=== PATIENT | female | born 1945 | race Caucasian/White ===

== ENCOUNTER 2016-11-04 01:28 | Emergency (ER) | payer MEDICARE ==
[2016-11-04] MEDS ORDERED: Morphine INJ* 2 MG/ML 1 ML SYRINGE SUBCUT ONE (02:50)
--- NOTE | 2016-11-04 03:49 | ED ---
Zelda Maxwell Alfonso, scribed for Shad Duckworth MD on 11/04/16 at 0248 . Adult Trauma - HPI Summary HPI Summary: This patient is a 71 year old F BIBA to [facility] accompanied by with a chief complaint of a fall at 0100 today. She states I fell down 6 stairs and her left leg had the weirdest feeling like it didnt even exist. She reports hitting her head. Pt rates the pain 5/10 in severity. Symptoms aggravated by position and alleviated by nothing. Pt reports a headache and pain including left shoulder pain, low back pain, head pain, and neck pain. Pt denies LOC. Pt denies taking blood thinning medication. - History of Current Complaint Chief Complaint: EDExtremityUpper Stated Complaint: FALL Time Seen by Provider: 11/04/16 02:29 Hx Obtained From: Patient Mechanism of Injury: Fall Loss of Consciousness: no loss of consciousness Onset/Duration: Started Hours Ago - 0100 today Onset of Pain: Post Accident Onset Severity: Moderate Current Severity: Moderate Pain Intensity: 5 Pain Scale Used: 0-10 Numeric Location: Head, Neck, Back, Extremities Aggravating Factor(s): Other - Position Alleviating Factor(s): Nothing Associated Signs & Symptoms: Positive: Other: - Pt reports a headache and pain including left shoulder pain, low back pain, head pain, and neck pain. - Allergy/Home Medications Allergies/Adverse Reactions: Allergies Allergy/AdvReac Type Severity Reaction Status Date / Time Amoxicillin Allergy nausea, Verified 09/02/16 10:07 vomiting Gabapentin [From Neurontin] Allergy "feels Verified 09/02/16 10:07 like brain is buzzing" PMH/Surg Hx/FS Hx/Imm Hx Endocrine/Hematology History: Reports: Hx Diabetes - TYPE 2 Cardiovascular History: Reports: Hx Cardiomegaly - CHILD, Hx Hypercholesterolemia, Hx Hypertension - CONTROL WITH MEDICATION, 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, Other Cardiovascular Problems/Disorders - CONTROL WITH MEDICATIONS Denies: Hx Pacemaker/ICD Respiratory History: Reports: Hx Sleep Apnea - PATIENT REPORTS IN PAST GI History: Reports: Hx Cirrhosis - PATIENT DOES NOT DRINK ALCOHOL, Hx Gastroesophageal Reflux Disease - NO LONGER ON MEDICATION, Hx Irritable Bowel - CAUSED FROM MEDICATION PER PATIENT History: Reports: Hx Kidney Infection - DURING KIDNEY STONES-SEPSIS, Hx Kidney Stones - IN PAST, Other Problems/Disorders - HX OF KIDNEY STONES Denies: Hx Renal Disease Musculoskeletal History: Reports: Hx Arthritis, Hx Back Problems Comment Only: Other Musculoskeletal History - OSTEOPOROSIS Sensory History: Reports: Hx Cataracts, Hx Contacts or Glasses Denies: Hx Hearing Aid Opthamlomology History: Reports: Hx Cataracts, Hx Contacts or Glasses Neurological History: Reports: Hx Migraine - AND CLUSTER HEADACHES Psychiatric History: Denies: Hx Panic Disorder - Cancer History Hx Chemotherapy: No Hx Radiation Therapy: No - Surgical History Surgery Procedure, Year, and Place: 6 DIGESTIVE BLOCKAGE CORRECTED AT 2 WEEKS OLD, [place], [place] 1966 AND 1968 2 C-SECTIONS, [place] 1988 LEFT. BREAST BIOPSY, [facility] 2008 LUMBAR SPINAL SURGERY, [facility]. Dorsal column stimulator October 18 2012. 2007. CERVICAL SPINE SURGERY, [facility] 2 LIPOTRIPSY PROCEDURE, [place]. 2011 BILATERAL CATARACTS EXTRACTION WITH IOL IMPLANTS, [facility]. 2006 SURGERY TO REPAIR BLEEDING ULCER, [facility]. October 2012 Permanent Dorsal Column Stimulator inserted Hx Anesthesia Reactions: Yes - HALLUCINATIONS WITH ANESTHESIA, WITH SECOND LITHOTRIPSY, N/V Infectious Disease History: No Infectious Disease History: Denies: Traveled Outside the [place] in Last 30 Days - Family History Known Family History: Positive: Unknown - Due to patient being a poor historian - Social History Alcohol Use: None Substance Use Type: Reports: None Smoking Status (MU): Never Smoked Tobacco Have You Smoked in the Last Year: No Review of Systems Negative: Fever Positive: Other - Positive fall, head trauma, and pain including left shoulder pain, low back pain, head pain, and neck pain Neurological: Other - Positive headache; negative LOC All Other Systems Reviewed And Are Negative: Yes Physical Exam Triage Information Reviewed: Yes Vital Signs On Initial Exam: Initial Vitals Temp Pulse Resp BP Pulse Ox 97.7 F 71 16 152/80 94 11/04/16 01:38 11/04/16 01:38 11/04/16 01:38 11/04/16 01:38 11/04/16 01:38 Vital Signs Reviewed: Yes Appearance: Positive: Well-Appearing, No Pain Distress Skin: Positive: Warm Head/Face: Positive: Normal Head/Face Inspection Eyes: Positive: [place] ENT: Positive: Hearing grossly normal Neck: Positive: Supple, Nontender Respiratory/Lung Sounds: Positive: Clear to Auscultation, Breath Sounds Present , Other - no cwt Cardiovascular: Positive: RRR Abdomen Description: Positive: Nontender, Soft Bowel Sounds: Positive: Present Musculoskeletal: Positive: Other - mild pain with movement lt shoilder Neurological: Positive: Sensory/Motor Intact, Alert, Oriented to Person Place, Time, Normal Gait Psychiatric: Positive: Affect/Mood Appropriate - [place] Coma Scale Coma Scale Total: 15 Diagnostics - Vital Signs Vital Signs Temp Pulse Resp BP Pulse Ox 11/04/16 02:00 65 150/80 92 11/04/16 01:46 68 91 11/04/16 01:44 152/80 11/04/16 01:38 97.7 F 71 16 152/80 94 - Laboratory Lab Statement: Any lab studies that have been ordered have been reviewed, and results considered in the medical decision making process. - Radiology CXR Radiology Interpretation Completed By: ED Physician - NAC - CT Brain CT Interpretation Completed By: Radiologist - no acute pathology C-spine CT Interpretation Completed By: Radiologist - No fracture Re-Evaluation - Re-Evaluation First Eval Change: Improved - results d/w pt Adult Trauma Course/Dx - Course Assessment/Plan: 71 year old F BIBA to [facility] accompanied by with a chief complaint of a fall at 0100 today. She states I fell down 6 stairs and her left leg had the weirdest feeling like it didnt even exist. She reports hitting her head. Pt reports a headache and pain including left shoulder pain, low back pain, head pain, and neck pain. Pt denies LOC. Pt denies taking blood thinning medication. CXR reveals NAC. CT brain reveals no acute pathology. CT C- spine reveals no fracture. Patient will be discharged with follow up from PCP. Pt and are agreeable with this plan. - Diagnoses Provider Diagnoses: Contusion Discharge - Discharge Plan Condition: Improved Disposition: HOME Patient Education Materials: Contusion in Adults (ED) Referrals: Chaitanya Gaytan MD [Primary Care Provider] - 3 Days The documentation as recorded by the Zelda bautista Alfonso accurately reflects the service I personally performed and the decisions made by me, Shad Duckworth MD.
[2016-11-04 06:13] VITALS: BP 158/88
--- NOTE | 2016-11-04 08:34 | RAD ---
Indication: Fall, head injury. CT of the brain was performed without IV contrast. Ventricular structures are midline. No midline shift is noted. The extra-axial spaces are unremarkable. There is no evidence of intracranial mass or hemorrhage. No other high or low density lesions are identified. Mastoid air cells and paranasal sinuses are otherwise unremarkable. Atrophy is noted. Overall no significant change is noted since November 05, 2015. IMPRESSION: No intracranial mass or hemorrhage is noted. Atrophy is noted.
--- NOTE | 2016-11-04 08:35 | RAD ---
Indication: Fall, chest pain. 2 views of the chest demonstrates neural stimulator leads in place. Lung warren demonstrate no pleural fluid, pneumonia or pneumothorax. IMPRESSION: No active cardiopulmonary disease is noted.
--- NOTE | 2016-11-04 08:42 | RAD ---
INDICATION: Trauma. COMPARISON: Comparison is made with a prior x-ray study of the cervical spine from January 28, 2008. TECHNIQUE: Contiguous axial sections were obtained from the skull base through the T1 vertebra. Images were reconstructed in the sagittal and coronal planes. FINDINGS: There is straightening of the cervical spine with loss of the normal cervical lordosis. No prevertebral soft tissue swelling or fracture is seen. The patient is status post anterior spinal fusion at the C4-C6 levels. There is a metallic plate present anteriorly transfixed with 2 surgical screws at each level. The vertebral bodies appear fused. The surgical hardware appears intact. Note is made of spinal bifida occulta posteriorly at the C7 and T1 levels. At the C3-C4 level there is mild posterior uncinate process spurring. There are hypertrophic changes within the facet joints. No significant spinal canal narrowing is present. There is mild to moderate neural foraminal narrowing on the left side. At the C3-C4 level there is mild posterior uncinate process spurring. There is mild spinal canal narrowing. There are hypertrophic changes within the facet joints. There is mild neural foraminal narrowing on the right side and moderate neural foraminal narrowing on the left side. At the C4-C5 level the study is limited due to metallic artifact. There is posterior spurring which causes mild to moderate spinal canal narrowing which is more prominent on the right side. There is moderate neural foraminal narrowing on the right side and mild neural foraminal narrowing on the left side. At the C5-C6 level there is mild posterior uncinate process spurring which causes mild to moderate spinal canal narrowing. There is moderate bilateral neural foraminal narrowing. At the C6-C7 level there is moderate posterior uncinate process spurring which causes moderate spinal canal narrowing and moderate bilateral neural foraminal narrowing. IMPRESSION: 1. STATUS POST ANTERIOR SPINAL FUSION AT THE C4-C6 LEVELS. THERE IS NO EVIDENCE FOR FRACTURE OR SUBLUXATION. 2. MODERATE DIFFUSE CERVICAL SPONDYLOSIS DESCRIBED.
== END 2016-11-04 06:05 | disposition home or self-care (01) ==
LOC: ED 01:28
DX: S80.12XA Contusion of left lower leg, initial encounter (principal); R51 Headache; M25.512 Pain in left shoulder; M54.5 Low back pain; M54.2 Cervicalgia; W10.9XXA Fall (on) (from) unspecified stairs and steps, initial encounter; Y93.9 Activity, unspecified; Y92.9 Unspecified place or not applicable
CPT/HCPCS: 70450; 71020; 72125; 99283; J2270

== ENCOUNTER 2017-04-23 10:39 | Emergency (ER) | payer MEDICARE ==
--- OUTSIDE RECORDS SUMMARY | 2017-04-23 10:50 | XMS REPORT ---
:1945 External Reference #:[id number] Author Organization [facility] Address [address] [address] Phone [phone] Care Team Providers Name Role Phone Chaitanya Gaytan MD Primary Care Physician Unavailable Payers Type Date Identification Numbers Payment Subscriber Provider Health Maintenance Effective: Policy Number: Medicare Blue Kathleen Rowe Organization (O) 04/03/2012 [id number] Ppo Group Number: [id number] [address] PayID: [id number] [place] [address] Medigap Part B Effective: 07/02/2010 Policy Number: BS Of NAVI Rowe [id number] Expires: 10/31/2010 PayID: [id number] [address] [address] Medigap Part B Effective: Policy Number: [facility] Ins Kathleen Rowe 11/01/2010 [id number] Ppo/Epo Expires: 04/02/2012 PayID: [id number] [address] [place] [address] Medigap Part B Effective: 10/01/2009 Policy Number: BS Of NAVI Rowe [id number] Expires: 06/30/2010 PayID: [id number] [address] [place] [address] Problems Date Description Provider Status Onset: 02/16/2007 Benign essential hypertension Chaitanya Gaytan Active Anisha,FACP Onset: 07/22/2015 Lichen sclerosus et atrophicus Chaitanya Gaytan Active of the vulva Anisha,FACP Onset: 05/01/2007 Morbid obesity Chaitanya Gaytan Active Anisha,FACP Onset: 05/01/2007 Obstructive sleep apnea syndrome Chaitanya Gaytan Active Anisha,FACP Onset: 11/06/2007 Mixed hyperlipidemia Chaitanya Gaytan Active Anisha,FACP Onset: 12/10/2007 Displacement of cervical Chaitanya Gaytan Active 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 Onset: 03/01/2016 Sprain of shoulder and upper arm Gustabo Larson MD Active Onset: 03/18/2016 Disturbance in sleep behavior Rosa Perez MD Active Onset: 12/01/2016 hedy Puente MD Active osteoarthritis Onset: 12/01/2016 Patellar tendonitis Gustabo Larson MD Active Onset: 12/01/2016 Strain of musc/tend the rotator Gustabo Larson MD Active cuff of left shoulder, subs Onset: 07/31/2007 Impaired fasting glycaemia Chaitanya Gaytan, Inactive Anisha,FACP Inactive: 06/05/2012 Onset: 05/27/2010 Pure hypercholesterolemia Chaitanya Gaytan M.D.,FACP Inactive Inactive: 06/05/2012 Onset: 02/16/2007 Hyperlipidemia Chaitanya Gaytan M.D.,FACP Inactive Inactive: 03/29/2013 Onset: 03/18/2016 Obesity Rosa Perez MD Inactive Inactive: 01/02/2017 Onset: 05/01/2007 Recurrent major depressive Chaitanya Gaytan M.D.,FACP Resolved episodes Resolved: 06/05/2012 Onset: 07/16/2014 Acute sinusitis Gilbert Pelletier M.D. Resolved Resolved: 09/03/2014 Onset: 07/16/2014 Concussion with loss of Gilbert Pelletier M.D. Resolved consciousness Resolved: 09/03/2014 Family History Date Family Member(s) Problem(s) Comments General Heart Disease General Diabetes General Cancer Father NM at 56 Father due to CHF () Mother due to Cancer () - throat First Son Linear Scleroderma Third Son Alive And Well First Daughter due to Breast Cancer () Siblings 5 First Brother Cancer, Colon First Brother due to Colon Cancer () First Sister Alive And Well Maternal Grandfather due to Cancer, Lung () - smoker Social History Type Date Description Comments Marital Status Lives With Occupation Retired Cigarette Use Never Smoked Cigarettes ETOH Use 01/02/2017 Denies alcohol use Recreational Drug Use Former Drug User Smoking Patient has never smoked Daily Caffeine Does Not Consume Caffeine Exercise Type/Frequency Does housework daily "As needed." Limited by arthritis Exercise Type/Frequency Exercises regularly General Hx Text 2 kids Allergies, Adverse Reactions, Alerts Date Description Reaction Status Severity Comments 02/16/2007 Augmentin active 02/16/2007 amitriptyline active 02/16/2007 Lipitor active 02/16/2007 Clonidine active 12/10/2007 Neurontin active sedation 11/30/2010 Lisinopril active cough 12/15/2014 Crestor active GI intolerance Medications Medication Date Status Form Strength Qnty SIG Indications Ordering Provider Samy XR 01/02 Active Tablets ER 50-1000mg 180ta 1 tab twice E11.9 /2016 24HR bs a day Orlando Gaytan M.D.,FACP Freestyle Lite 05/04 Active Device 1unit check Chaitanya Blood Glucose s fingerstick Orlando Gaytan, Monitoring daily DX: Anisha,FACP System E11.9 Last visit 05/04/16 Freestyle Lite 05/04 Active Strips 100un test up to Test its 2 times a Orlando Gaytan, day dx Anisha,FACP code: E11.9 Last visit 05/04/16 Omeprazole 02/[address] 20mg 30cap 1 by mouth M25.512 s every day Orlando Gaytan, for 2 weeks M.D.,FACP when using NSAIDs Livalo 09/03 Active Tablets 2mg 90tab take 1 E11.9 s tablet Orlando Gaytan, every M.D.,FACP evening Freestyle 12/27 Active Misc 100un Twice daily Chaitanya its and as Orlando Gaytan, needed dx M.D.,FACP E11.9 Last visit 05/04/16 Propranolol HCL 12/06 Active Tablets 60mg 60tab take 1 s tablet by Orlando Gaytan, mouth twice M.D.,FACP a day Cymbalta 05/27 Active Caps 60mg 90cap take 1 Part s capsule by Orlando Gaytan, mouth once M.D.,FACP daily Losartan 04/01 Active Tablets 100mg 90tab take 1 R05 s tablet by Orlando Gaytan, mouth once M.D.,FACP daily Co Q-10 Active Capsules 100mg 90cap 1 po qd Unknown /0000 s Multi For Her Active Capsules 1 po qd Unknown /0000 Calcium, Vit D, Active Capsules 1000Unit 30cap 1 po qd Unknown Magnesium, Zinc /0000 s Codeine Sulfate Active Tablets 30mg 2 tabs by Unknown /0000 mouth every 4 hours as needed pain Vitamin B-12 ER Active Tablets ER 2000mcg 2 by mouth Unknown /0000 every day (states occasional use) Salonpas Active Patches 1.2-5.7-6 as needed Unknown /0000 .3% Duloxetine HCL Active Caps DR 60mg 1 by mouth Unknown /0000 Part every day Docusate Sodium Active Tablets 100mg take one Unknown /0000 tab 2-3 times daily. Cyclobenzaprine Active Tablets 10mg one by Unknown HCL /0000 mouth hs daily prn Miralax Active Packet [id number] 1 pack by Unknown /0000 mouth every day as needed for constipatio n Tums Active Chewtabs 500mg 2 chewtabs Unknown /0000 by mouth daily prn Hydrocodone-Acet Active Tablets 5-325mg Velazquez, aminophen /0000 Nathalie, SPORTS DOCTOR- Onetouch Delica 05/04 Hx Misc 30G 180un test twice E11.9 Chaitanya Baker Fine 30G /2016 its daily or as Orlando Gaytan, - needed M.D.,[facility] 05/04 Onetouch Ultra 05/04 Hx Strips 75uni test up to E11.9 Chaitanya Blue ts 2 times a Orlando Gaytan, - day or as M.D.,[facility] 05/04 Onetouch Ultra 05/04 Hx Kit w/Device 1unit use daily E11.9 Chaitanya Mini s to test Orlando Gaytan, - glucose M.D.,[facility] 05/04 Janumet 05/04 Hx Tablets 50-500mg 60tab 1 by mouth E11.9 s twice a day Orlando Gaytan, - M.D.,[facility] 01/02 Meloxicam 02/02 Hx Tablets 7.5mg 60tab 1 by mouth M25.512 s twice a day Orlando Gaytan, - as needed M.D.,[facility] 08/11 Ciprofloxacin 08/03 Hx Tablets 250mg 14tab 1 twice a N39.0 s day x 7 DSarah Gaytan, - days M.D.,[facility] 08/10 ( ) Nystatin 08/03 Hx Cream [id number] 30gm topically R30.0 t/GM twice a day Orlando Gaytan, - as needed M.D.,[facility] 02/02 Metronidazole 03/16 Hx Gel 0.75% 25g 5 grams N77.1 Jerome /2014 once daily Ukrainian, - vaginally CL[facility] REELER 03/21 x's 5 Ciprofloxacin 01/09 Hx Tablets 500mg 6tabs 1 tab by N39.0 Jerome HCL /2014 mouth twice Ukrainian, - a day x's 3 [facility] Fluconazole 01/09 Hx Tablets 150mg 2tabs 1 tablet by N39.0 Jerome mouth daily Ukrainian, - today, then [facility] 01/16 repeat in days. Alprazolam 09/14 Hx Tablets 0.25mg 30tab one by F06.4 Jerome s mouth every Ukrainian, - day as [facility] 08/03 needed 1 Alprazolam 07/16 Hx Tablets 0.25mg 14tab one by 780.52 Dispers s mouth at [facility] - bed time , MSarahDSarah 12/15 Levaquin 07/16 Hx Tablets 500mg 10tab 1 by mouth 461.9 Gilbert s every day Pachika - , Anisha 09/03 Walker 07/16 Hx Diagnosis:I 250.00 [facility] , Anisha 09/03 Azithromycin 06/16 Hx Tablets 250mg 6tabs 2 tabs by 465.8 Shad mouth on DEX Issa - day one 07/16 followed 1 tab daily for the last 4 days Proair HFA 06/16 Hx Aerosol 108(90Bas 25.5u inhale 2 465.8 e) nits puffs by DEX Issa - mcg/Act mouth every 12/15 4 hours needed Freestyle Lite 12/27 Hx 100un use as Chaitanya Test Strip its directed Orlando Gaytan, - every day MGregorio,[facility] 05/04 or needed dx: 250.00 Freestyle Lite 12/27 Hx Strips 100un test daily Chaitanya Test its and rose Gaytan, - need, dx Anisha,[facility] 05/04 code: 250.00 Breeze 2 Test 12/25 Hx 100un once a day Chaitanya Strip /2013 its and rose Gaytan, - needed dx [facility] 12/27 250.00 Lancets Thin 12/25 Hx Misc 50uni every day Chaitanya /2013 ts or twice a Orlando Gaytan, - day as [facility] 12/27 needed Crestor 06/03 Hx Tablets 10mg 90tab 1 po qpm 250.00 Chaitanya s Michael Decker M.D.,[facility] 09/03 Triamcinolone 03/29 Hx Cream 0.1% 30g apply bid 691.8 prn Michael Decker M.D.,[facility] 05/29 Prednisone 03/29 Hx Tablets 10mg 20tab 4 tabs qd 691.8 s for 2 days, Orlando Gaytan, - then reduce M.D.,[facility] 05/29 by 1 tab every 2 days until finished Lyrica 06/27 Hx Capsules 50mg 90cap take 1 s capsule by Orlando Gaytan, - mouth three M.D.,[facility] 01/02 times a day /2016 maximum daily dose of 3 Lyrica 06/05 Hx Capsules 25mg 60cap 1 po tid s Michael Decker M.D.,[facility] 06/27 Linzess 06/05 Hx Capsules 290mcg 30cap po qd 564.1 s Michael Decker M.D.,[facility] 12/04 Amitiza 05/30 Hx Capsules 8mcg 60cap po bid s Michael Decker M.D.,[facility] 12/06 Propranolol HCL 05/30 Hx Tablets 60mg 60tab take 1 s tablet by Orlando Gaytan, - mouth twice M.D.,[facility] 12/06 a /2011 Simvastatin 05/30 Hx Tablets 20mg 30tab take 1 250.00 s tablet by Orlando Gaytan, - mouth every M.D.,[facility] 06/03 evening Pennsaid 11/30 Hx Solution 1.5% 15ml 5-10 ggts R 726.71 ankle/foot Orlando Gaytan, - bid prn M.DSarah,[facility] 05/30 Breeze 2 Test 07/30 Hx 100un tid and prn its dx 250.00 Michael Decker M.D.,[facility] 11/11 Gay 05/27 Hx Tablets 5-325mg 120ta 1 qid prn bs Michael Decker M.D.,[facility] 05/29 Penicillin V 05/25 Hx Tablets 500mg 28tab qid for 7 462 Chaitanya Potassium s days Michael Decker M.D.,[facility] 09/10 Losartan 03/30 Hx Tablets ? 90tab 1 po qd 786.2 Chaitanya Potassium Michael Antonio M.D.,[facility] 04/01 Zithromax 10/26 Hx Tablets 250mg 6tabs 2 today 461.0 Sivananda then 1 for , Poopal, - 4 days MD 10/28 Diovan 09/22 Hx Tablets 40mg 30tab 1 po qd 786.2 Michael Antonio M.D.,[facility] 03/30 Micardis 08/25 Hx Tablets 20mg 30tab 1 po qd 786.2 Michael Antonio M.D.,[facility] 09/22 [id number] 05/13 Hx Capsules 500-50mg 60cap po bid 780.79 Michael Antonio M.D.,[facility] 11/30 Cymbalta 05/13 Hx Cpep 30mg 60uni Take 1 ts Capsule By Orlando Gaytan, - Mouth Twice M.DSarah,[facility] 05/27 A Ceftin 04/16 Hx Tablets 500mg 14tab twice a 461.9 s day for 7 Karla, - days Eunice.DSarah 04/16 Bactrim DS 04/16 Hx Tablets 800-160mg 20tab 1 po bid 461.9 s for 10 days Michael Acosta M.D. 05/13 Cephalexin 09/29 Hx Capsules 500mg 40cap 1 quid x 10 682.7 Michael Antonio M.D.,[facility] 10/07 Vytorin 06/03 Hx Tablets 10-20mg 30tab Take One s Tablet By Orlando Gaytan, - Mouth At M.D.,[facility] 05/30 Bedtime Biaxin 04/09 Hx Tablets 500mg 20tab Si bid s X 10 Days Michael Decker M.D.,[facility] 06/03 Amrix 02/14 Hx Caps ER 15mg 15cap 1 po qhs 722.0 24HR Michael Antonio M.D.,[facility] 06/03 Hydrocodone-Acet 01/16 Hx Tablets 5/500mg 240ta 1-2 po qid bs prn Orlando Gaytan M.D.,[facility] Xanax 12/31 Hx Tablets 1mg 10tab 1/2-1 po s bid alesian Michael Decker M.D.,[facility] 02/14 Vagifem 12/09 Hx Tablets 25mcg 3Mont pv Twice A h Week (With Orlando Gaytan, - Applicator) Anisha,[facility] 04/16 Oxycodone HCL CR 11/27 Hx Tablets ER 10mg 60tab bid po 12HR Michael Antonio M.D.,[facility] 02/14 Oxycontin 11/05 Hx Tablets ER 10mg 36tab 1 PO bid 12HR Michael Antonio M.D.,[facility] 11/05 Percocet 11/05 Hx Tablets 5-325mg 120ta /2-1 po bs qid Michael Rodriguez M.D.,[facility] 02/14 Vytorin 11/05 Hx Tablets 10-10mg 90tab 1 PO QHS Michael Antonio M.D.,[facility] 06/03 Metformin HCL 11/05 Hx Tablets 500mg 180ta take 1 790.21 bs tablet by Orlando Gaytan, - mouth twice [facility] 05/04 a day with food Lunesta 08/20 Hx Tablets 3mg 30tab one tab hs Michael Antonio [facility] 04/16 Flonase 07/30 Hx Suspension 50mcg/Act 1Bott 1 473.1 le intranasal Orlando Gaytan, - puff to Anisha,[facility] 05/30 nostril daily Atenolol 06/27 Hx Tabs 50mg 30tab Take 04/04 s Tablet By Orlando Gaytan, - Mouth once M.D.,[facility] 05/30 Tylenol/Codeine 05/01 Hx Tablets #4 240ta 1-2 qid prn 724.5 Chaitanya #4 bs Michael Decker M.D.,[facility] 11/05 Soma 05/01 Hx Tablets 350mg 90tab tid prn 724.5 Michael Antonio M.D.,[facility] 07/30 Metformin HCL 05/01 Hx Tablets 500mg 60tab 1 po bid s Michael Decker M.D.,[facility] 07/30 Cymbalta 04/09 Hx Cpep 30mg 60uni Take 1 ts Capsule Orlando Gaytan, - Twice A Day Eunice.DSarah,[facility] 05/13 Soma 02/26 Hx Tablets 350mg 30tab 1 tablet by Chaitanya s mouth in Orlando Gaytan, - evening prn Anisha,[facility] 01/02 Ambien 02/21 Hx Tablets 10mg 30tab 1 po qhs s prn sleep Orlando Gaytan, - insomnia M.DSarah,[facility] 12/04 Biaxin 02/16 Hx Tablets 500mg 20tab bid po for 462 Chaitanya s 10 days Michael Decker M.D.,[facility] 05/01 Phenergan/Codein 02/16 Hx Syrup 6Oz 1-2 tsp qid 462 Chaitanya prn Michael Decker M.D.,[facility] 02/14 Lisinopril Hx Tablets 10mg 30tab 1 PO qd 786.2 Chaitanya / Michael Antonio [facility] 08/25 Oxycodone HCL Hx Solution 5mg/5ML one tablet /0000 every 8 - hours prn 11/05 Hydrocodone 00/00 Hx Tablets 7.5-500 60tab 1 q 4 hours Unknown Bitartrate/Apap /0000 s prn pain - 06/03 Hydrocodone-Acet Hx Tablets 5/500mg 120ta 1/2-1 po Chaitanya aminophen /0000 bs qid prn Michael Decker [facility] 05/27 Lyrica Hx Capsules 50mg 90cap 1 po tid Chaitanya /0000 s Michael Decker [facility] 06/05 Coricidin HBP Hx Tablets 4-30mg prn Unknown Cough & Cold /0000 - 12/[address] 20mg 90cap 1 po qd prn Unknown /0000 s - 11/11 Codeine #4 Hx Tablets 30mg 20tab 2 po q 4-6 Unknown /0000 s hr prn pain - 07/16 Tylenol Hx Tablets 325mg 2 as needed Unknown /0000 - 12/15 Metformin HCL Hx Tablets 500mg Unknown /0000 - 01/02 Medications Administered in Office Medication Date Status Form Strength Qnty SIG Indications Ordering Provider Triamcinolone 02/07/ Administered Injection Zaneb (Kenalog) 2016 MD Marsha Triamcinolone 12/01/ Administered Injection Zaneb (Kenalog) 2016 MD Marsha Triamcinolone 12/01/ Administered Injection Zaneb (Kenalog) 2016 MD Marsha Depomedrol 80MG 10/09/ Administered Injection Juan 2014 Anisha Savage Celestone 3 mg 06/03/ Administered Injection Suzette and 3mg 2014 Justyna colindres M.D. Depomedrol 80MG 11/12/ Administered Injection Juan 2013 Anisha Savage Immunizations CPT Code Status Date Vaccine Reaction Lot # [id number] Given 01/02/2017 Pneumonia Vaccine no reaction, pt [id number] tolerated well 05568 Given 01/02/2017 Influenza Virus Vaccine, no reaction, pt [id number] Quadrivalent, Split, tolerated well Preservative Free 05788 Given 12/09/2015 Fluzone High Dose 15102 Given 12/03/2014 Fluzone High Dose 12206 Given 12/25/2013 Pneumococcal Conjugate [id number] Vaccine 13 Valent For Intramuscular Use Q2038 Given 12/12/2013 Fluzone Vaccine Q2037 Given 01/07/2013 Fluvirin Im 3Yrs And Older Q2038 Given 12/07/2011 Fluzone Vaccine [id number] Q2039 Given 12/20/2010 Flu Vaccine NOS 27049 Given 07/26/2010 Tdap - [id number] Tetanus/Diptheria/Acellular Pertussis 12460 Given 05/27/2010 Pneumonia Vaccine [id number] 32287 Given 01/10/2010 Influenza Virus 3Yrs & Over 84465 Given 02/04/2009 Influenza Virus Vaccine, [id number] Pandemic Formulation 18912 Given 02/04/2009 Administration Swine Flu Shot 55068 Given 01/22/2009 Influenza Virus 3Yrs & [id number] Over 77590 Given 01/28/2008 Influenza Virus 3Yrs & Over 71102 Given 01/28/2008 Influenza Virus 3Yrs & 05723 Over 36002 Given 11/28/2007 Zoster (Zostavax) 55628 Given 11/28/2007 Zoster (Zostavax) Q2038 Given Unknown Fluzone Vaccine Vital Signs Date Vital Result Comment 03/29/2017 Height 63 inches 5'3" Weight 201.00 lb Heart Rate 74 /min BP Systolic 104 mmHg BP Diastolic 70 mmHg O2 % BldC Oximetry 93 % BMI (Body Mass Index) 35.6 kg/m2 02/21/2017 Height 63 inches 5'3" Weight 199.00 lb BP Systolic 114 mmHg BP Diastolic 70 mmHg Respiratory Rate 18 /min Pain Level 5 BMI (Body Mass Index) 35.2 kg/m2 02/07/2017 Height 63 inches 5'3" Weight 199.00 lb Respiratory Rate 16 /min Pain Level 5 BMI (Body Mass Index) 35.2 kg/m2 01/23/2017 Height 63 inches 5'3" Weight 202.38 lb with shoes Heart Rate 84 /min BP Systolic Sitting 118 mmHg Rue large cuff BP Diastolic Sitting 78 mmHg Rue large cuff Respiratory Rate 16 /min O2 % BldC Oximetry 94 % On Ra BMI (Body Mass Index) 35.8 kg/m2 01/12/2017 Height 63 inches 5'3" Weight 199.00 lb Heart Rate 85 /min BP Systolic 123 mmHg BP Diastolic 69 mmHg BMI (Body Mass Index) 35.2 kg/m2 01/02/2017 Height 63 inches 5'3" Weight 201.00 lb Heart Rate 94 /min BP Systolic Sitting 122 mmHg BP Diastolic Sitting 80 mmHg Body Temperature 98.4 F O2 % BldC Oximetry 98 % BMI (Body Mass Index) 35.6 kg/m2 12/01/2016 Height 63 inches 5'3" Weight 210.00 lb Heart Rate 72 /min BP Systolic 131 mmHg BP Diastolic 82 mmHg Respiratory Rate 15 /min Pain Level 7 BMI (Body Mass Index) 37.2 kg/m2 11/04/2016 Height 63 inches 5'3" Weight 210.00 lb Heart Rate 80 /min BP Systolic 154 mmHg BP Diastolic 90 mmHg Body Temperature 99.3 F O2 % BldC Oximetry 91 % BMI (Body Mass Index) 37.2 kg/m2 08/11/2016 Weight 212.00 lb Heart Rate 64 /min BP Systolic Sitting 120 mmHg BP Diastolic Sitting 72 mmHg Body Temperature 98.3 F O2 % BldC Oximetry 94 % 07/22/2016 Heart Rate 74 /min BP Systolic Sitting 126 mmHg BP Diastolic Sitting 72 mmHg Respiratory Rate 16 /min O2 % BldC Oximetry 97 % 06/20/2016 Heart Rate 62 /min BP Systolic Sitting 120 mmHg BP Diastolic Sitting 74 mmHg Respiratory Rate 16 /min O2 % BldC Oximetry 96 % 05/04/2016 Weight 210.00 lb Heart Rate 66 /min BP Systolic Sitting 112 mmHg BP Diastolic Sitting 84 mmHg Body Temperature 98.1 F O2 % BldC Oximetry 96 % 05/02/2016 Weight 206.00 lb Heart Rate 70 /min BP Systolic 150 mmHg BP Diastolic 88 mmHg Respiratory Rate 14 /min O2 % BldC Oximetry 93 % 03/18/2016 Height 63.5 inches 5'3.50" Weight 206.00 lb Heart Rate 70 /min BP Systolic 126 mmHg BP Diastolic 80 mmHg Respiratory Rate 14 /min O2 % BldC Oximetry 95 % BMI (Body Mass Index) 35.9 kg/m2 Neck Circumference in inches 14 03/01/2016 Height 63.5 inches 5'3.50" Weight 206.00 lb Heart Rate 65 /min BP Systolic Sitting 135 mmHg BP Diastolic Sitting 63 mmHg Respiratory Rate 16 /min Pain Level 2 BMI (Body Mass Index) 35.9 kg/m2 02/03/2016 Height 63.5 inches 5'3.50" Weight 206.38 lb Heart Rate 74 /min BP Systolic Sitting 136 mmHg BP Diastolic Sitting 84 mmHg Body Temperature 99.4 F O2 % BldC Oximetry 94 % BMI (Body Mass Index) 36.0 kg/m2 01/01/2016 Height 63.5 inches 5'3.50" Weight 208.25 lb Heart Rate 68 /min BP Systolic Sitting 132 mmHg BP Diastolic Sitting 70 mmHg Body Temperature 97.1 F O2 % BldC Oximetry 95 % BMI (Body Mass Index) 36.3 kg/m2 11/20/2015 Weight 207.38 lb Heart Rate 65 /min BP Systolic 118 mmHg BP Diastolic 70 mmHg Body Temperature 98.2 F O2 % BldC Oximetry 95 % 11/05/2015 Weight 212.25 lb Heart Rate 74 /min BP Systolic 120 mmHg BP Diastolic 76 mmHg Body Temperature 100.1 F O2 % BldC Oximetry 90 % 08/04/2015 Weight 205.00 lb Heart Rate 82 /min BP Systolic Sitting 132 mmHg BP Diastolic Sitting 82 mmHg Body Temperature 98.2 F O2 % BldC Oximetry 84 % 07/27/2015 Weight 205.00 lb Heart Rate 74 /min BP Systolic Sitting 156 mmHg BP Diastolic Sitting 95 mmHg Body Temperature 97.3 F O2 % BldC Oximetry 98 % 03/16/2015 Height 63 inches 5'3" Weight 205.38 lb Heart Rate 68 /min BP Systolic Sitting 118 mmHg BP Diastolic Sitting 70 mmHg Body Temperature 98.2 F O2 % BldC Oximetry 95 % BMI (Body Mass Index) 36.4 kg/m2 02/06/2015 Height 63 inches 5'3" Weight 201.25 lb Heart Rate 68 /min BP Systolic Sitting 122 mmHg BP Diastolic Sitting 70 mmHg Body Temperature 98.3 F O2 % BldC Oximetry 97 % BMI (Body Mass Index) 35.6 kg/m2 01/09/2015 Height 63 inches 5'3" Weight 205.38 lb Heart Rate 72 /min BP Systolic Sitting 122 mmHg BP Diastolic Sitting 68 mmHg Body Temperature 98.7 F O2 % BldC Oximetry 98 % BMI (Body Mass Index) 36.4 kg/m2 12/15/2014 Height 63 inches 5'3" Weight 202.00 lb Heart Rate 70 /min BP Systolic Sitting 128 mmHg BP Diastolic Sitting 70 mmHg Body Temperature 97.6 F O2 % BldC Oximetry 95 % BMI (Body Mass Index) 35.8 kg/m2 11/20/2014 Height 63 inches 5'3" Weight 202.00 lb Pain Level 2 BMI (Body Mass Index) 35.8 kg/m2 10/09/2014 Height 63 inches 5'3" Weight 202.00 lb Heart Rate 63 /min BP Systolic 138 mmHg BP Diastolic 80 mmHg BMI (Body Mass Index) 35.8 kg/m2 09/03/2014 Height 63 inches 5'3" Weight 204.38 lb Heart Rate 78 /min BP Systolic Sitting 112 mmHg BP Diastolic Sitting 68 mmHg Body Temperature 97.5 F O2 % BldC Oximetry 90 % BMI (Body Mass Index) 36.2 kg/m2 07/16/2014 Height 63 inches 5'3" Weight 196.00 lb Heart Rate 81 /min BP Systolic Sitting 116 mmHg BP Diastolic Sitting 70 mmHg O2 % BldC Oximetry 93 % BMI (Body Mass Index) 34.7 kg/m2 06/16/2014 Weight 206.12 lb Heart Rate 73 /min BP Systolic Sitting 135 mmHg BP Diastolic Sitting 94 mmHg Body Temperature 99.2 F 06/03/2014 Height 63 inches 5'3" Weight 203.00 lb Pain Level 2 BMI (Body Mass Index) 36.0 kg/m2 12/25/2013 Weight 203.00 lb Heart Rate 76 /min BP Systolic Sitting 115 mmHg BP Diastolic Sitting 88 mmHg Body Temperature 98.5 F 12/10/2013 Height 63 inches 5'3" Weight 200.00 lb Heart Rate 67 /min BP Systolic 122 mmHg BP Diastolic 78 mmHg BMI (Body Mass Index) 35.4 kg/m2 12/03/2013 Height 63 inches 5'3" Weight 200.00 lb Heart Rate 67 /min BP Systolic 119 mmHg BP Diastolic 89 mmHg BMI (Body Mass Index) 35.4 kg/m2 11/12/2013 Height 63 inches 5'3" Weight 200.00 lb Heart Rate 68 /min BP Systolic 109 mmHg BP Diastolic 75 mmHg BMI (Body Mass Index) 35.4 kg/m2 09/10/2013 Height 63 inches 5'3" Weight 200.00 lb Heart Rate 68 /min BP Systolic 125 mmHg BP Diastolic 82 mmHg BMI (Body Mass Index) 35.4 kg/m2 06/03/2013 Height 63 inches 5'3" Weight 201.75 lb Heart Rate 80 /min BP Systolic Sitting 108 mmHg BP Diastolic Sitting 72 mmHg Body Temperature 98.2 F BMI (Body Mass Index) 35.7 kg/m2 05/29/2013 Weight 200.50 lb Heart Rate 70 /min BP Systolic Sitting 132 mmHg BP Diastolic Sitting 72 mmHg Body Temperature 98.3 F 03/29/2013 Height 63 inches 5'3" Weight 201.50 lb Heart Rate 64 /min BP Systolic Sitting 140 mmHg BP Diastolic Sitting 78 mmHg BMI (Body Mass Index) 35.7 kg/m2 12/04/2012 Height 63 inches 5'3" Weight 198.75 lb Heart Rate 76 /min BP Systolic Sitting 125 mmHg BP Diastolic Sitting 75 mmHg BMI (Body Mass Index) 35.2 kg/m2 06/05/2012 Height 62.75 inches 5'2.75" Weight 204.00 lb Heart Rate 72 /min BP Systolic Sitting 138 mmHg BP Diastolic Sitting 78 mmHg BMI (Body Mass Index) 36.4 kg/m2 12/07/2011 Height 63 inches 5'3" Weight 199.00 lb Heart Rate 64 /min BP Systolic Sitting 116 mmHg BP Diastolic Sitting 70 mmHg BMI (Body Mass Index) 35.2 kg/m2 05/30/2011 Height 62.75 inches 5'2.75" Weight 197.00 lb Heart Rate 68 /min BP Systolic Sitting 110 mmHg BP Diastolic Sitting 72 mmHg BMI (Body Mass Index) 35.2 kg/m2 12/27/2010 Weight 190.00 lb Heart Rate 64 /min BP Systolic Sitting 108 mmHg BP Diastolic Sitting 72 mmHg 11/30/2010 Height 63 inches 5'3" Weight 190.00 lb BP Systolic Sitting 122 mmHg l BP Diastolic Sitting 74 mmHg l BMI (Body Mass Index) 33.7 kg/m2 05/27/2010 Weight 191.00 lb Heart Rate 66 /min BP Systolic Sitting 102 mmHg BP Diastolic Sitting 66 mmHg 05/25/2010 Weight 191.00 lb Heart Rate 66 /min BP Systolic Sitting 124 mmHg BP Diastolic Sitting 78 mmHg Body Temperature 98.3 F Tympanically 10/26/2009 Weight 192.00 lb Heart Rate 72 /min BP Systolic Sitting 144 mmHg BP Diastolic Sitting 98 mmHg Body Temperature 98.5 F 08/25/2009 Weight 195.00 lb Heart Rate 66 /min BP Systolic Sitting 104 mmHg BP Diastolic Sitting 74 mmHg Body Temperature 96.8 F 05/13/2009 Weight 203.50 lb Heart Rate 76 /min BP Systolic Sitting 120 mmHg BP Diastolic Sitting 84 mmHg Respiratory Rate 16 /min Body Temperature 98.5 F 04/16/2009 Weight 199.00 lb Heart Rate 80 /min BP Systolic Sitting 140 mmHg BP Diastolic Sitting 90 mmHg Body Temperature 98.5 F 10/07/2008 Heart Rate 72 /min BP Systolic Sitting 124 mmHg BP Diastolic Sitting 86 mmHg 09/29/2008 Weight 198.75 lb Heart Rate 64 /min BP Systolic Sitting 118 mmHg BP Diastolic Sitting 86 mmHg 06/03/2008 Height 63 inches 5'3" Weight 199.00 lb Heart Rate 72 /min BP Systolic Sitting 144 mmHg BP Diastolic Sitting 82 mmHg BMI (Body Mass Index) 35.2 kg/m2 04/09/2008 Height 63 inches 5'3" Weight 201.00 lb Heart Rate 68 /min BP Systolic Sitting 132 mmHg BP Diastolic Sitting 80 mmHg BMI (Body Mass Index) 35.6 kg/m2 02/15/2008 Height 63 inches 5'3" Weight 204.00 lb Heart Rate 72 /min BP Systolic Sitting 132 mmHg BP Diastolic Sitting 80 mmHg BMI (Body Mass Index) 36.1 kg/m2 12/10/2007 Height 63 inches 5'3" Weight 204.00 lb Heart Rate 64 /min BP Systolic Sitting 124 mmHg BP Diastolic Sitting 76 mmHg BMI (Body Mass Index) 36.1 kg/m2 11/06/2007 Height 63 inches 5'3" Weight 205.00 lb Heart Rate 72 /min BP Systolic Sitting 112 mmHg BP Diastolic Sitting 80 mmHg BMI (Body Mass Index) 36.3 kg/m2 07/31/2007 Height 63 inches 5'3" Weight 204.00 lb Heart Rate 70 /min BP Systolic Sitting 118 mmHg BP Diastolic Sitting 70 mmHg BMI (Body Mass Index) 36.1 kg/m2 07/04/2007 Height 63 inches 5'3" Weight 204.00 lb Heart Rate 78 /min BP Systolic Sitting 130 mmHg BP Diastolic Sitting 82 mmHg BMI (Body Mass Index) 36.1 kg/m2 05/01/2007 Height 63 inches 5'3" Weight 200.00 lb Heart Rate 72 /min BP Systolic Sitting 110 mmHg BP Diastolic Sitting 80 mmHg BMI (Body Mass Index) 35.4 kg/m2 02/16/2007 Height 63 inches 5'3" Weight 199.00 lb Heart Rate 98 /min BP Systolic Sitting 156 mmHg BP Diastolic Sitting 92 mmHg Body Temperature 100.5 F BMI (Body Mass Index) 35.2 kg/m2 Results Test Date Test Result H/L Range Note Lipid Profile (Trig/Chol/HDL) 01/11/2017 Triglycerides 216 mg/dL 1 Cholesterol 229 mg/dL 2 HDL Cholesterol 38.5 mg/dL 3 LDL Cholesterol 147 mg/dL 4 Basic Metabolic Panel 01/11/2017 Sodium 140 mmol/L 133-145 Potassium 4.3 mmol/L 3.5-5.0 Chloride 102 mmol/L 101-111 Co2 Carbon Dioxide 33 mmol/L High 22-32 Anion Gap 5 mmol/L 2-11 Glucose 154 mg/dL High 70-100 Blood Urea Nitrogen 14 mg/dL 6-24 Creatinine 0.72 mg/dL 0.51-0.95 BUN/Creatinine Ratio 19.4 8-20 Calcium 9.1 mg/dL 8.6-10.3 Egfr Non- 79.9 >60 Egfr 102.7 >60 5 Laboratory test finding 01/02/2017 Hemoglobin A1c 8.0 High 5-7 Laboratory test finding 08/11/2016 Hemoglobin A1c 7.4 High 5-7 Laboratory test finding 05/04/2016 Hemoglobin A1c 7.7 High 5-7 Arthritis Panel 03/04/2016 Uric Acid 4.9 mg/dL 2.3-6.6 Erythrocyte Sed Rate 17 mm/Hr 0-40 Rheumatoid Factor <15 IU/mL <15 6 Anti-Nuclear Antibody 0.5 U 7 Cyclic Citrullinated Peptide <15.6 U 8 Interpretation See Comment 9 Urine Microalbumin Random 02/10/2016 Urine Creatinine 72.77 mg/dL Ur Microalbumin (mg/L) < 15.0 mg/L Urine Microalbumin/Creatinine TNP ug/mg <31 10 Laboratory test 02/09/2016 Hemoglobin A1c 7.8 % High Less than 6.0 11 finding (Glyco HGB) CBC Auto Diff 02/09/2016 White Blood Count 6.9 10^3/uL 3.5-10.8 Red Blood Count 4.77 10^6/uL 4.0-5.4 Hemoglobin 13.9 g/dL 12.0-16.0 Hematocrit 43 % 35-47 Mean Corpuscular Volume 90 fL 80-97 Mean Corpuscular Hemoglobin 29 pg 27-31 Mean Corpuscular HGB Conc 33 g/dL 31-36 Red Cell Distribution Width 14 % 10.5-15 Platelet Count 263 10^3/uL 150-450 Mean Platelet Volume 9 um3 7.4-10.4 Abs Neutrophils 4.5 10^3/uL 1.5-7.7 Abs Lymphocytes 1.6 10^3/uL 1.0-4.8 Abs Monocytes 0.5 10^3/uL 0-0.8 Abs Eosinophils 0.1 10^3/uL 0-0.6 Abs Basophils 0 10^3/uL 0-0.2 Abs Nucleated RBC 0 10^3/uL Granulocyte % 66.1 % 38-83 Lymphocyte % 23.4 % Low 25-47 Monocyte % 7.8 % 1-9 Eosinophil % 2.1 % 0-6 Basophil % 0.6 % 0-2 Nucleated Red Blood Cells % 0.1 Urine Microalbumin Random 02/05/2016 Urine Creatinine 109.30 mg/dL Ur Microalbumin (mg/L) < 15.0 mg/L Urine Microalbumin/Creatinine TNP ug/mg <31 12 Lipid Profile (Trig/Chol/HDL) 12/21/2015 Triglycerides 175 mg/dL 13 Cholesterol 208 mg/dL 14 HDL Cholesterol 38.0 mg/dL 15 LDL Cholesterol 135 mg/dL 16 CBC Auto Diff 12/21/2015 White Blood Count 6.4 10^3/uL 3.5-10.8 Red Blood Count 4.89 10^6/uL 4.0-5.4 Hemoglobin 14.3 g/dL 12.0-16.0 Hematocrit 44 % 35-47 Mean Corpuscular Volume 89 fL 80-97 Mean Corpuscular Hemoglobin 29 pg 27-31 Mean Corpuscular HGB Conc 33 g/dL 31-36 Red Cell Distribution Width 14 % 10.5-15 Platelet Count 264 10^3/uL 150-450 Mean Platelet Volume 8 um3 7.4-10.4 Abs Neutrophils 4.1 10^3/uL 1.5-7.7 Abs Lymphocytes 1.6 10^3/uL 1.0-4.8 Abs Monocytes 0.5 10^3/uL 0-0.8 Abs Eosinophils 0.2 10^3/uL 0-0.6 Abs Basophils 0 10^3/uL 0-0.2 Abs Nucleated RBC 0 10^3/uL Granulocyte % 63.8 % 38-83 Lymphocyte % 25.8 % 25-47 Monocyte % 7.4 % 1-9 Eosinophil % 2.4 % 0-6 Basophil % 0.6 % 0-2 Nucleated Red Blood Cells % 0 Basic Metabolic Panel 12/21/2015 Sodium 141 mmol/L 133-145 Potassium 4.1 mmol/L 3.5-5.0 Chloride 103 mmol/L 101-111 Co2 Carbon Dioxide 33 mmol/L High 22-32 Anion Gap 5 mmol/L 2-11 Glucose 136 mg/dL High 70-100 Blood Urea Nitrogen 16 mg/dL 6-24 Creatinine 0.72 mg/dL 0.51-0.95 BUN/Creatinine Ratio 22.2 High 8-20 Calcium 9.0 mg/dL 8.6-10.3 Egfr Non- 80.1 >60 Egfr 103.0 >60 17 Laboratory test finding 12/21/2015 Erythrocyte Sed Rate 17 mm/Hr 0-40 18 TSH (Thyroid Stim Horm) 1.34 mcIU/mL 0.34-5.60 19 Vitamin B12 929 pg/mL High 180-914 20 Laboratory test finding 11/05/2015 Hemoglobin A1c 7.0 5-7 Urine Culture And 08/04/2015 Urine Culture SEE RESULT BELOW 21 Sensitivities Ua Routine 08/04/2015 Ua Specific [place] 1.020 Ua PH 6 Ua Color yellow Ua Appera cloudy Ua WBC positive Ua Protein positive Ua Glucose neg Ua Ketones neg Ua Bilirubin neg Ua Urobilinogen neg Ua Nitrite neg Ua Occult Blood positive Laboratory test finding 03/16/2015 Urine Culture And SEE RESULT BELOW 22 Sensitivities Ua And Culture 01/12/2015 Urine Culture And SEE RESULT BELOW 23 Sensitivity Sensitivities Urinalysis Profile 01/12/2015 Urine Color Straw Urine Appearance Clear Urine Specific [place] 1.006 Low 1.010-1.030 Urine pH 7.0 5-9 Urine Urobilinogen Negative Negative Urine Ketones Negative Negative Urine Protein Negative Negative Urine Leukocytes Negative Negative Urine Blood Negative Negative Urine Nitrite Negative Negative Urine Bilirubin Negative Negative Urine Glucose Negative Negative Laboratory test 01/09/2015 Gard[place]rella/Yeast: Vaginal SEE RESULT 24 finding Dna BELOW Lipid Profile 12/12/2014 Triglycerides 278 mg/dL 25, 26 (Trig/Chol/HDL) Cholesterol 281 mg/dL 25, 27 HDL Cholesterol 43.9 mg/dL 25, 28 LDL Cholesterol 182 mg/dL 25, 29 Comp Metabolic Panel 12/12/2014 Sodium 139 mmol/L 133-145 25 Potassium 4.1 mmol/L 3.5-5.0 25 Chloride 102 mmol/L 101-111 25 Co2 Carbon Dioxide 32 mmol/L 22-32 25 Anion Gap 5 mmol/L 2-11 25 Glucose 97 mg/dL 70-100 25 Blood Urea Nitrogen 12 mg/dL 6-24 25 Creatinine 0.82 mg/dL 0.51-0.95 25 BUN/Creatinine Ratio 14.6 8-20 25 Calcium 8.7 mg/dL 8.6-10.3 25 Total Protein 5.9 g/dL Low 6.4-8.9 25 Albumin 3.6 g/dL 3.2-5.2 25 Globulin 2.3 g/dL 2-4 25 Albumin/Globulin Ratio 1.6 1-3 25 Total Bilirubin 0.40 mg/dL 0.2-1.0 25 Alkaline Phosphatase 65 U/L 34-104 25 Alt 13 U/L 7-52 25 Ast 13 U/L 13-39 25 Egfr Non- 69.1 >60 25 Egfr 88.9 >60 25, 30 Laboratory test 12/12/2014 Hemoglobin A1c 6.7 % High Less than 25, 31 finding (Glyco HGB) 6.0 Urine Microalbumin 12/12/2014 Ur Microalbumin 10.0 mg/L 25 Random (mg/L) Urine Creatinine 224.37 mg/dL 25 Urine Microalbumin/Creatinine 4.4 ug/mg <31 25 Laboratory test 09/01/2014 Glucose 105 mg/dL High 70-100 finding Laboratory test 07/16/2014 Hemoglobin A1c 6.6 5-7 finding Laboratory test 06/16/2014 Rapid Influenza A B (SEE NOTE) 32 finding Antigen Surgical Pathology 05/29/2014 S RUN DATE: <SEE NOTE> Laboratory test 12/25/2013 Hemoglobin A1c 6.5 5-7 finding Comp Metabolic Panel 12/20/2013 Sodium 138 mmol/L 133-145 Potassium 3.9 mmol/L 3.7-5.6 Chloride 104 mmol/L 101-111 Co2 Carbon Dioxide 31 mmol/L 22-32 Anion Gap 3 mmol/L 2-11 Glucose 118 mg/dL High 70-100 Blood Urea Nitrogen 11 mg/dL 6-24 Creatinine 0.73 mg/dL 0.51-0.95 BUN/Creatinine Ratio 15.1 8-20 Calcium 8.8 mg/dL 8.6-10.3 Total Protein 6.2 g/dL Low 6.4-8.9 Albumin 3.8 g/dL 3.2-5.2 Globulin 2.4 g/dL 2-4 Albumin/Globulin Ratio 1.6 1-3 Total Bilirubin 0.40 mg/dL 0.2-1.0 Alkaline Phosphatase 63 U/L 34-104 Alt 14 U/L 7-52 Ast 15 U/L 13-39 Egfr Non- 79.3 >60 Egfr 102.0 >60 34 Lipid Profile (Trig/Chol/HDL) 12/20/2013 Triglycerides 175 mg/dL 35 Cholesterol 205 mg/dL 36 HDL Cholesterol 48.4 mg/dL 37 LDL Cholesterol 122 mg/dL 38 Laboratory test finding 12/20/2013 Creatine Kinase 28 U/L 10- Lipid Panel - [facility] 09/06/2013 Creatine Kinase 33 U/L - 25, 39 Comp Metabolic Panel 09/06/2013 Sodium 142 mmol/L 133-145 25 Potassium 4.2 mmol/L 3.7-5.6 25 Chloride 106 mmol/L 101-111 25 Co2 Carbon Dioxide 33 mmol/L High 22-32 25 Anion Gap 3 mmol/L 2-11 25 Glucose 118 mg/dL High 70-100 25 Blood Urea Nitrogen 11 mg/dL 6-24 25 Creatinine 0.71 mg/dL 0.51-0.95 25 BUN/Creatinine Ratio 15.5 8-20 25 Calcium 9.1 mg/dL 8.6-10.3 25 Total Protein 6.0 g/dL Low 6.4-8.9 25 Albumin 3.8 g/dL 3.2-5.2 25 Globulin 2.2 g/dL 2-4 25 Albumin/Globulin Ratio 1.7 1-3 25 Total Bilirubin 0.40 mg/dL 0.2-1.0 25 Alkaline Phosphatase 64 U/L 34-104 25 Alt 12 U/L 7-52 25 Ast 15 U/L 13-39 25 Egfr Non- 82.1 >60 25 Egfr 105.6 >60 25, 40 Lipid Profile (Trig/Chol/HDL) 09/06/2013 Triglycerides 223 mg/dL 25, 41 Cholesterol 188 mg/dL 25, 42 HDL Cholesterol 42.4 mg/dL 25, 43 LDL Cholesterol 101 mg/dL 25, 44 CBC Auto Diff 08/11/2013 White Blood Count 6.3 10^3/uL 4.8-10.8 Red Blood Count 4.57 10^6/uL 4.0-5.4 Hemoglobin 13.8 g/dL 12.0-16.0 Hematocrit 41 % 35-47 Mean Corpuscular Volume 90 fL 80-97 Mean Corpuscular Hemoglobin 30 pg 27-31 Mean Corpuscular HGB Conc 33 g/dL 31-36 Red Cell Distribution Width 13 % 10.5-15 Platelet Count 234 10^3/uL 150-450 Mean Platelet Volume 8 um3 7.4-10.4 Abs Neutrophils 3.7 10^3/uL 1.5-7.7 Abs Lymphocytes 1.8 10^3/uL 1.0-4.8 Abs Monocytes 0.6 10^3/uL 0-0.8 Abs Eosinophils 0.2 10^3/uL 0-0.6 Abs Basophils 0.1 10^3/uL 0-0.2 Abs Nucleated RBC 0 10^3/uL Granulocyte % 58.3 % 38-83 Lymphocyte % 28.8 % 25-47 Monocyte % 8.9 % 1-9 Eosinophil % 2.8 % 0-6 Basophil % 1.2 % 0-2 Nucleated Red Blood Cells % 0 Laboratory test 08/11/2013 Erythrocyte Sed Rate 11 mm/Hr 0-40 finding Laboratory test 05/28/2013 Hemoglobin A1c 6.6 % High Less than 6.0 45 finding Lipid Profile 05/28/2013 Triglycerides 173 mg/dL 46 (Trig/Chol/HDL) Cholesterol 241 mg/dL 47 HDL Cholesterol 45.6 mg/dL 48 LDL Cholesterol 161 mg/dL 49 Urine Microalbumin Random 05/28/2013 Ur Microalbumin (mg/L) 6.0 mg/dL &lt ;30 50 Urine Creatinine 104.90 mg/dL Urine Microalbumin/Creatinine 5.7 Less Than 31 Lipid Panel - [facility] 12/24/2012 Creatine Kinase 35 U/L 0-200 51 Comp Metabolic Panel 12/24/2012 Sodium 140 mmol/L 133-145 Potassium 4.3 mmol/L 3.5-5.0 Chloride 103 mmol/L 101-111 Co2 Carbon Dioxide 33.0 mmol/L High 22-32 Anion Gap 4.0 mmol/L 2-11 Glucose 95 mg/dL 70-100 Blood Urea Nitrogen 5 mg/dL Low 6-24 Creatinine 0.60 mg/dL 0.50-1.40 BUN/Creatinine Ratio 8.3 8-20 Calcium 9.2 mg/dL 8.1-9.9 Total Protein 6.0 g/dL Low 6.2-8.1 Albumin 3.7 g/dL 3.2-5.2 Globulin 2.3 g/dL 2-4 Albumin/Globulin Ratio 1.6 1-3 Total Bilirubin 0.8 mg/dL 0.4-1.5 Alkaline Phosphatase 56 U/L 30-110 Alt 13 U/L Low 14-54 Ast 20 U/L 12-42 Egfr Non- 99.7 >60 Egfr 128.2 >60 52 Lipid Profile (Trig/Chol/HDL) 12/24/2012 Triglycerides 214 mg/dL High 40- 200 Cholesterol 223 mg/dL High Less than 200 HDL Cholesterol 47 mg/dL 40-60 53 Cholesterol/HDL Ratio 4.7 Average High 1-4.44 LDL Cholesterol 133.2 High Less Than 100 54 Laboratory test finding 12/04/2012 Hemoglobin A1c 6.2 5-7 Laboratory test finding 11/16/2012 Blood Urea Nitrogen 5 mg/dL Low 6-24 Creatinine 11/16/2012 Creatinine 0.60 mg/dL 0.50-1.40 Egfr Non- 99.7 >60 Egfr 128.2 >60 55 Laboratory test finding 09/12/2012 Inr 0.81 Low 0.87-0.97 Activated Partial Thrombo Time 27.5 seconds 22.18-37.18 Laboratory test finding 06/05/2012 Hemoglobin A1c 6.4 5-7 Urine Microalbumin Random 06/01/2012 Ur Microalbumin (Mg/L) 10.0 mg/L 56 Urine Creatinine 231.0 mg/dL Urine Microalbumin/Creatinine 4.3 ug/mg Less Than 31 Creatinine 02/13/2012 Creatinine 0.70 mg/dL 0.50-1.40 Egfr Non- 83.7 >60 Egfr 107.7 >60 57 Urine Microalbumin Random 12/07/2011 Microalbumin (MG/L) 13.0 mg/L Urine Creatinine 320.4 mg/dL Richard Alb/Creatinine Ratio 4.1 UG/MG Less Than 30 58 Laboratory test finding 12/07/2011 Hemoglobin A1c 6.5 5-7 Lipid Panel - [facility] 08/01/2011 CPK (Creatine Kinase) 39 U/L 0-170 Comp Metabolic Panel 08/01/2011 Sodium 138 mmol/L 135-145 Potassium 4.1 mmol/L 3.5-5.0 Chloride 104 mmol/L 101-111 Co2 (Carbon Dioxide) 31.0 mmol/L 22-32 Anion Gap 3.0 mmol/L 2-11 59 Glucose 89 mg/dL 70-100 BUN 10 mg/dL 6-24 Creatinine 0.7 mg/dL 0.50-1.40 One Over Creatinine 1.42 BUN/Creatinine Ratio 14.3 8-20 Calcium 9.1 mg/dL 8.1-9.9 Total Protein 5.7 GM/DL Low 6.2-8.1 Albumin 3.5 GM/DL 3.2-5.2 Globulin 2.2 GM/DL 2-4 Albumin/Globulin Ratio 1.6 1-3 Bilirubin Total 0.6 mg/dL 0.4-1.5 60 Alkaline Phosphatase 60 U/L 30-110 Alt (SGPT) 16 U/L 14-54 Ast (Sgot) 19 U/L 12-42 eGFR Non- 84.0 > 60 eGFR 108.0 > 60 61 Lipid Profile (Trig/Chol/HDL) 08/01/2011 Triglyceride 203 mg/dL High 40- 200 Cholesterol 198 mg/dL Less Than 200 62 High Density Lipoprotein 43 mg/dL 40-60 63 Cholesterol/HDL Ratio 4.60 AVERAGE High 1-4.44 Low Density Lipoprotein 114 mg/dL High Less Than 100 64 Laboratory test finding 05/30/2011 Hemoglobin A1c 6.2 5-7 CBC No Diff 05/27/2011 White Blood Count 4.7 CUMM Low 4.8-10.8 Red Cell Count 3.89 CUMM Low 4.2-5.4 Hemoglobin 11.2 g/dL Low 12.0-16.0 Hematocrit 33 % Low 35-47 Mean Corpuscular Volume 86 um3 79-97 Mean Corpuscular Hemoglob 29 pg 27-31 Mean Corpuscular HGB Cone 34 g/dL 32-36 Redcell Distribution WDTH 13 % 10.5-15 Platelet Count 321 CUMM 150-450 Mean Platelet Volume 8.1 um3 7.4-10.4 Lipid Profile (Trig/Chol/HDL) 05/27/2011 Triglyceride 293 mg/dL High 40- 200 Cholesterol 284 mg/dL High Less Than 200 65 High Density Lipoprotein 36 mg/dL Low 40-60 66 Cholesterol/HDL Ratio 7.89 AVERAGE High 1-4.44 Low Density Lipoprotein 189 mg/dL High Less Than 100 67 Comp Metabolic Panel 05/27/2011 Sodium 141 mmol/L 135-145 Potassium 4.4 mmol/L 3.5-5.0 Chloride 103 mmol/L 101-111 Co2 (Carbon Dioxide) 32.0 mmol/L 22-32 Anion Gap 6.0 mmol/L 2-11 68 Glucose 98 mg/dL 70-100 BUN 8 mg/dL 6-24 Creatinine 0.6 mg/dL 0.50-1.40 One Over Creatinine 1.66 BUN/Creatinine Ratio 13.3 8-20 Calcium 9.0 mg/dL 8.1-9.9 Total Protein 5.7 GM/DL Low 6.2-8.1 Albumin 3.4 GM/DL 3.2-5.2 Globulin 2.3 GM/DL 2-4 Albumin/Globulin Ratio 1.5 1-3 Bilirubin Total 0.6 mg/dL 0.4-1.5 69 Alkaline Phosphatase 59 U/L 30-110 Alt (SGPT) 18 U/L 14-54 Ast (Sgot) 18 U/L 12-42 eGFR Non- 100.3 > 60 eGFR 129.0 > 60 70 Lipid Panel - [facility] 05/27/2011 CPK (Creatine Kinase) 40 U/L 0-170 Laboratory test finding 11/30/2010 Hemoglobin A1c 5.9 5-7 Lipid Panel - [facility] 11/25/2010 CPK (Creatine Kinase) 43 U/L 0-170 Comp Metabolic Panel 11/25/2010 Sodium 142 mmol/L 135-145 Potassium 4.6 mmol/L 3.5-5.0 Chloride 104 mmol/L 101-111 Co2 (Carbon Dioxide) 34.0 mmol/L High 22-32 Anion Gap 4.0 mmol/L 2-11 71 Glucose 93 mg/dL 70-100 BUN 7 mg/dL 6-24 Creatinine 0.7 mg/dL 0.50-1.40 One Over Creatinine 1.42 BUN/Creatinine Ratio 10.0 8-20 Calcium 9.1 mg/dL 8.1-9.9 Total Protein 5.9 GM/DL Low 6.2-8.1 Albumin 3.7 GM/DL 3.2-5.2 Globulin 2.2 GM/DL 2-4 Albumin/Globulin Ratio 1.7 1-3 Bilirubin Total 0.8 mg/dL 0.4-1.5 72 Alkaline Phosphatase 52 U/L 30-110 Alt (SGPT) 18 U/L 14-54 Ast (Sgot) 18 U/L 12-42 eGFR Non- 84.0 > 60 eGFR 108.0 > 60 73 Lipid Profile (Trig/Chol/HDL) 11/25/2010 Triglyceride 150 mg/dL 40-200 Cholesterol 179 mg/dL Less Than 200 74 High Density Lipoprotein 47 mg/dL 40-60 75 Cholesterol/HDL Ratio 3.81 AVERAGE 1-4.44 Low Density Lipoprotein 102 mg/dL High Less Than 100 76 Laboratory test 06/08/2010 Hemoglobin A1c 7.1 % High Less Than 6.0 77 finding Urine Microalbumin 06/08/2010 Microalbumin (MG/L) 10.0 mg/L Random Urine Creatinine 303.93 mg/dL Richard Alb/Creatinine Ratio 3.2 UG/MG Less Than 30 78 Lipid Panel - [facility] 06/08/2010 CPK (Creatine Kinase) 40 U/L 0-170 Comp Metabolic Panel 06/08/2010 Sodium 142 mmol/L 135-145 Potassium 3.7 mmol/L 3.5-5.0 Chloride 102 mmol/L 101-111 Co2 (Carbon Dioxide) 31.0 mmol/L 22-32 Anion Gap 9.0 mmol/L 2-11 79 Glucose 99 mg/dL 70-100 BUN 11 mg/dL 6-24 Creatinine 0.70 mg/dL 0.50-1.40 One Over Creatinine 1.40 BUN/Creatinine Ratio 15.7 8-20 Calcium 8.8 mg/dL 8.1-9.9 Total Protein 6.3 GM/DL 6.2-8.1 Albumin 3.9 GM/DL 3.2-5.2 Globulin 2.4 GM/DL 2-4 Albumin/Globulin Ratio 1.6 1-3 Bilirubin Total 0.6 mg/dL 0.4-1.5 80 Alkaline Phosphatase 64 U/L 30-110 Alt (SGPT) 30 U/L 14-54 Ast (Sgot) 33 U/L 12-42 eGFR Non- 84.2 > 60 eGFR 108.3 > 60 81 Lipid Profile (Trig/Chol/HDL) 06/08/2010 Triglyceride 134 mg/dL 40-200 Cholesterol 190 mg/dL Less Than 200 82 High Density Lipoprotein 50 mg/dL 40-60 83 Cholesterol/HDL Ratio 3.80 AVERAGE 1-4.44 Low Density Lipoprotein 113 mg/dL High Less Than 100 84 Laboratory test finding 06/08/2010 TSH 2.70 MIU/ML 0.34-5.60 Thyroxine Free 0.79 ng/dL 0.61-1.24 GGTP 23 U/L 7-50 Liver Function Panel 09/04/2009 Total Protein 5.6 GM/DL Low 6.2-8.1 Albumin 3.8 GM/DL 3.2-5.2 Globulin 1.8 GM/DL Low 2-4 Albumin/Globulin Ratio 2.1 1-3 Bilirubin Total 0.7 mg/dL 0.4-1.5 85 Bilirubin Direct 0.1 mg/dL 0.1-0.5 Indirect Bilirubin 0.6 mg/dL 0.1-0.75 Alkaline Phosphatase 80 U/L 30-110 Alt (SGPT) 72 U/L High 14-54 Ast (Sgot) 59 U/L High 12-42 Laboratory test finding 08/06/2009 Hemoglobin A1c 6.2 % High Less Than 6.0 86 Lipid Profile 08/06/2009 Triglyceride 126 mg/dL 40-200 (Trig/Chol/HDL) Cholesterol 148 mg/dL Less Than 200 87 High Density Lipoprotein 39 mg/dL Low 40-60 88 Cholesterol/HDL Ratio 3.79 AVERAGE 1-4.44 Low Density Lipoprotein 84 mg/dL Less Than 100 89 Comp Metabolic Panel 08/06/2009 Sodium 143 mmol/L 135-145 Potassium 4.5 mmol/L 3.5-5.0 Chloride 104 mmol/L 101-111 Co2 (Carbon Dioxide) 32.0 mmol/L 22-32 Anion Gap 7.0 mmol/L 2-11 90 Glucose 108 mg/dL High 70-100 91 BUN 10 mg/dL 6-24 Creatinine 0.80 mg/dL 0.50-1.40 One Over Creatinine 1.20 BUN/Creatinine Ratio 12.5 8-20 Calcium 9.5 mg/dL 8.1-9.9 92 Total Protein 6.1 GM/DL Low 6.2-8.1 Albumin 3.7 GM/DL 3.2-5.2 Globulin 2.4 GM/DL 2-4 Albumin/Globulin Ratio 1.5 1-3 Bilirubin Total 0.7 mg/dL 0.4-1.5 93 Alkaline Phosphatase 72 U/L 30-110 Alt (SGPT) 56 U/L High 14-54 Ast (Sgot) 41 U/L 12-42 eGFR Non- 77.0 > 60 eGFR 93.2 > 60 94 Laboratory test 06/05/2009 Hemoglobin A1c 6.4 % High Less Than 95, 96 finding 6.0 Urine Microalbumin 06/05/2009 Microalbumin (MG/L) 2.0 mg/L 95 Random Urine Creatinine 90.00 mg/dL 95 Richard Alb/Creatinine Ratio 2.2 UG/MG Less Than 30 95, 97 Lipid Panel - [facility] 06/05/2009 CPK (Creatine Kinase) 43 U/L 0-170 95 Comp Metabolic Panel 06/05/2009 Sodium 141 mmol/L 135-145 95 Potassium 4.5 mmol/L 3.5-5.0 95 Chloride 102 mmol/L 101-111 95 Co2 (Carbon Dioxide) 34.0 mmol/L High 22-32 95 Anion Gap 5.0 mmol/L 2-11 95, 98 Glucose 117 mg/dL High 70-100 95, 99 BUN 11 mg/dL 6-24 95 Creatinine 0.80 mg/dL 0.50-1.40 95 One Over Creatinine 1.20 95 BUN/Creatinine Ratio 13.8 8-20 95 Calcium 9.1 mg/dL 8.1-9.9 95, 100 Total Protein 5.8 GM/DL Low 6.2-8.1 95 Albumin 3.5 GM/DL 3.2-5.2 95 Globulin 2.3 GM/DL 2-4 95 Albumin/Globulin Ratio 1.5 1-3 95 Bilirubin Total 0.7 mg/dL 0.4-1.5 95, 101 Alkaline Phosphatase 72 U/L 30-110 95 Alt (SGPT) 23 U/L 14-54 95 Ast (Sgot) 22 U/L 12-42 95 eGFR Non- 77.0 > 60 95 eGFR 93.2 > 60 95, 102 Lipid Profile (Trig/Chol/HDL) 06/05/2009 Triglyceride 234 mg/dL High 40- 200 95 Cholesterol 269 mg/dL High Less Than 200 95, 103 High Density Lipoprotein 42 mg/dL 40-60 95, 104 Cholesterol/HDL Ratio 6.40 AVERAGE High 1-4.44 95 Low Density Lipoprotein 180 mg/dL High Less Than 100 95, 105 Surgical Pathology 05/25/2009 Surgical Pathology <SEE 106 NOTE> Lipid Panel - [facility] 05/30/2008 CPK (Creatine 26 U/L 0-170 Kinase) Comp Metabolic 05/30/2008 Sodium 140 mmol/L 135-145 Panel Potassium 4.0 mmol/L 3.5-5.0 Chloride 101 mmol/L 101-111 Co2 (Carbon Dioxide) 33.0 mmol/L High 22-32 Anion Gap 6.0 mmol/L 2-11 107 Glucose 91 mg/dL 70-100 108 BUN 12 mg/dL 6-24 Creatinine 0.80 mg/dL 0.50-1.40 One Over Creatinine 1.20 BUN/Creatinine Ratio 15.0 8-20 Calcium 9.4 mg/dL 8.1-9.9 109 Total Protein 6.3 GM/DL 6.2-8.1 Albumin 3.6 GM/DL 3.2-5.2 Globulin 2.7 GM/DL 2-4 Albumin/Globulin Ratio 1.3 1-3 Bilirubin Total 0.5 mg/dL 0.4-1.5 Alkaline Phosphatase 82 U/L 30-110 Alt (SGPT) 23 U/L 14-54 Ast (Sgot) 22 U/L 12-42 Lipid Profile (Trig/Chol/HDL) 05/30/2008 Triglyceride 257 mg/dL High 40- 200 Cholesterol 246 mg/dL High Less Than 200 110 High Density Lipoprotein 48 mg/dL 40-60 111 Cholesterol/HDL Ratio 5.13 AVERAGE High 1-4.44 Low Density Lipoprotein 147 mg/dL High Less Than 100 112 Laboratory test finding 05/30/2008 Hemoglobin A1c 6.5 % High <6.0 113 CBC With Electronic Diff 04/09/2008 White Blood Count 5.5 CUMM 4.8-10.8 Red Cell Count 4.44 CUMM 4.2-5.4 Hemoglobin 13.5 g/dL 12.0-16.0 Hematocrit 40 % 35-47 Mean Corpuscular Volume 90 um3 79-97 Mean Corpuscular Hemoglob 30 pg 27-31 Mean Corpuscular HGB Cone 34 g/dL 32-36 Redcell Distribution WDTH 14 % 10.5-15 Platelet Count 280 CUMM 150-450 Mean Platelet Volume 7.8 um3 7.4-10.4 Gran % 69.5 % 38-83 Lymph % 18.1 % Low 25-47 Mononuclear % 9.8 % High 1-9 Eosinophil % 2.4 % 0-6 Basophil % 0.2 % 0-2 Abs Lymphs 1.0 1.0-4.8 Abs Mononuclear 0.5 0-0.8 Absolute Neutrophil Count 3.9 1.5-7.7 Abs Eosinophils 0.1 0-0.6 Abs Basophils 0 0-0.2 114 Basic Metabolic Panel 04/09/2008 Sodium 140 mmol/L 135-145 Potassium 4.2 mmol/L 3.5-5.0 Chloride 103 mmol/L 101-111 Co2 (Carbon Dioxide) 32.0 mmol/L 22-32 Anion Gap 5.0 mmol/L 2-11 115 Glucose 96 mg/dL 70-100 116 BUN 10 mg/dL 6-24 Creatinine 0.70 mg/dL 0.50-1.40 One Over Creatinine 1.40 BUN/Creatinine Ratio 14.3 8-20 Calcium 9.3 mg/dL 8.1-9.9 117 Total Protein 24HR Urine 11/09/2007 Total Protein Random Urine 9 mg/dL 118 Urine Total Protein/24HR 122 MG/24HR High 50-100 118 Creatinine 24HR Urine 11/09/2007 Creatinine Random Urine 55.0 mg/dL 118 Urine Creatinine/24HR 748.0 MG/24HR 600-1800 118 Hours Of Collection 24 HR 24- 118 Urine Volume Measurement 1360 ML 118 Basic Metabolic Panel 2007 Sodium 140 mmol/L 135-145 Potassium 4.2 mmol/L 3.5-5.0 Chloride 102 mmol/L 101-111 Co2 (Carbon Dioxide) 33.0 mmol/L High 22-32 Anion Gap 5.0 mmol/L 2-11 119 Glucose 109 mg/dL High 70-105 BUN 13 mg/dL 6-24 Creatinine 0.8 mg/dL 0.5-1.4 One Over Creatinine 1.25 BUN/Creatinine Ratio 16.3 8-20 Calcium 8.7 mg/dL 8.1-9.9 120 Lipid Profile (Trig/Chol/HDL) 2007 Triglyceride 238 mg/dL High 40- 200 Cholesterol 302 mg/dL High Less Than 200 121 High Density Lipoprotein 38 mg/dL Low 40-60 122 Cholesterol/HDL Ratio 7.95 AVERAGE High 1-4.44 Low Density Lipoprotein 216 mg/dL High Less Than 100 123 Urinalysis W/Microscopic 2007 Ua Color YELLOW Appearance-Urine CLEAR Specific [place]-Ur 1.024 1.010-1.030 Esterase-Urine TRACE Negative Nitrite NEGATIVE Negative [id number] NEGATIVE Negative Protein-Urine 1+ Negative PH-Urine 5.0 5-9 Blood-Urine NEGATIVE Negative Ketones-Urine NEGATIVE Negative Bilirubin-Ur NEGATIVE Negative Glucose-Urine NEGATIVE Negative WBC-Urine 3-7 0-5 RBC-Urine 0-2 0-2 Mucus Urine MODERATE Epith Cells-Ur FEW Bacteria-Urine 1+ Laboratory test finding 02/16/2007 Throat Culture Full MANY NORMAL THRO 124 <SEE NOTE> 1 Desirable <150 Borderline high 150-199 High 200-499 Very High >500 2 Desirable <200 Borderline high 200-239 High >239 3 Low <40 Desirable: 40-60 High: >60 4 Desirable: <100 mg/dL Near Optimal: 100-129 mg/dL Borderline High: 130-159 mg/dL High: 160-189 mg/dL Very High: >189 mg/dL 5 Because ethnic data is not always readily available, this report includes an eGFR for both -Americans and non- Americans. The National Kidney Disease Education Program (NKDEP) does not endorse the use of the MDRD equation for patients that are not between the ages of 18 and 70, are , have extremes of body size, muscle mass, or nutritional status, or are non- or non-. According to the National Kidney Foundation, irrespective of diagnosis, the stage of the disease is based on the level of kidney function: Stage Description GFR(mL/min/1.73 m(2)) 1 Kidney damage with normal or decreased GFR 90 2 Kidney damage with mild decrease in GFR 60-89 3 Moderate decrease in GFR 30-59 4 Severe decrease in GFR 15-29 5 Kidney failure <15 (or dialysis) 6 Test Performed by: [facility] - [address] [address] Occupational Therapy Assistant: Jesus Hughes II, M.D., Ph.D. 7 REFERENCE VALUE <=1.0 (Negative) 8 REFERENCE VALUE <20.0 (Negative) 9 Tests for antibodies to dsDNA and EDY antigens are not performed automatically unless the PEDRO result is > or= 3.0 U. Studies performed at [facility] indicate that positive PEDRO results <3.0 U are rarely accompanied by positive second order tests. Test Performed by: [place] [address] Occupational Therapy Assistant: Jesus Hughes II, M.D., Ph.D. 10 Unable to calculate due to low microalbumin 11 Therapeutic target for the treatment of diabetes Mellitus patients is <7% HBA1C, and in selective patients <6.0%.Please refer to [place] Diabetes Association Diabetic care guidelines for further information. 12 Unable to calculate due to low microalbumin 13 Desirable <150 Borderline high 150-199 High 200-499 Very High >500 14 Desirable <200 Borderline high 200-239 High >239 15 Low <40 Desirable: 40-60 High: >60 16 Desirable: <100 mg/dL Near Optimal: 100-129 mg/dL Borderline High: 130-159 mg/dL High: 160-189 mg/dL Very High: >189 mg/dL 17 Because ethnic data is not always readily available, this report includes an eGFR for both -Americans and non- Americans. The National Kidney Disease Education Program (NKDEP) does not endorse the use of the MDRD equation for patients that are not between the ages of 18 and 70, are , have extremes of body size, muscle mass, or nutritional status, or are non- or non-. According to the National Kidney Foundation, irrespective of diagnosis, the stage of the disease is based on the level of kidney function: Stage Description GFR(mL/min/1.73 m(2)) 1 Kidney damage with normal or decreased GFR 90 2 Kidney damage with mild decrease in GFR 60-89 3 Moderate decrease in GFR 30-59 4 Severe decrease in GFR 15-29 5 Kidney failure <15 (or dialysis) 18 FASTING 10 HOUR 19 FASTING 10 HOUR 20 Normal Range 180 to 914 Indeterminate Range 145 to 180 Deficient Range <145 21 SEE RESULT BELOW Name: KATHLEEN ROWE : [address]: Christian Gaytan MD Acct: [id number] Unit: [id number] AGE: 69 Location: [facility] Re08/04/15 SEX: F Status: REG REF SPEC: [id number] LENORA: 08/04/15-[address] [facility] [address]: Chaitanya Gaytan MD REQ: [id number] RECD: 08/04/158796 STATUS: COMP _ SOURCE: URINE SPDESC: ORDERED: Urine Culture COMMENTS: [facility] [place] 3984 Procedure Result Reported Site Urine Culture Final 08/06/15- 0758 ML Organism 1 ESCHERICHIA COLI [place] Count 50-75,000 (Many) CFU/ML Organism 2 NORMAL SHRUTHI [place] Count 1-10,000 (Few) CFU/ML 1. ESCHERICHIA COLI [facility].I.[facility]. RX --------- ------ Ampicillin >=32 R Cefazolin 8 S Cefepime <=1 S Ceftriaxone <=1 S Ciprofloxacin <=0.25 S Gentamicin <=1 S Levofloxacin <=0.12 S Meropenem <=0.25 S Nitrofurantoin <=16 S Tetracycline >=16 R Pipercillin/Tazobactam <=4 S Trimethoprim/Sulfamethoxazole <=20 S Amoxicillin/Clavulanic Acid >=32 R Aztreonam <=1 S Contact the Microbiology Department for any additional antibiotic reporting. * ML - MAIN LAB ([facility]) . END OF REPORT * ML=Testing performed at Main Lab DEPARTMENT OF PATHOLOGY, [address] [place] [address] Juan Manuel Jiménez M.D. Director [facility] # [id number] 22 SEE RESULT BELOW Name: KATHLEEN ROWE : [address]: Jerome Zuleta NP Acct: [id number] Unit: [id number] AGE: 69 Location: [facility] Re03/16/15 SEX: F Status: REG REF SPEC: [id number] LENORA: 03/16/15-[address]: Jerome Zuleta NP REQ: [id number] RECD: 03/16/159637 STATUS: COMP _ SOURCE: URINE SPDESC: ORDERED: Urine Culture Procedure Result Reported Site Urine Culture Final 03/18/15- 47 ML No Growth (<1,000 CFU/mL) * ML - MAIN LAB ([facility]) . END OF REPORT * ML=Testing performed at Main Lab DEPARTMENT OF PATHOLOGY, [address] [place] [address] Juan Manuel Jiménez M.D. Director [facility] # [id number] 23 SEE RESULT BELOW Name: KATHLEEN ROWE : [address]: Jerome Zuleta NP Acct: [id number] Unit: [id number] AGE: 69 Location: [facility] Re01/12/15 SEX: F Status: REG REF SPEC: [id number] LENORA: 01/12/[address]: Jerome Zuleta NP REQ: [id number] RECD: 01/12/15 STATUS: COMP _ S[facility]: [facility] ORDERED: Urine Culture Procedure Result Verified Site Urine Culture Final 01/14/15- 1006 ML Organism 1 NORMAL SHRUTHI [place] Count 1-10,000 (Few) CFU/ML * ML - MAIN LAB ([facility]) . END OF REPORT * ML=Testing performed at Main Lab DEPARTMENT OF PATHOLOGY, [address] [place] [address] Juan Manuel Jiménez M.D. Director [facility] # [id number] 24 SEE RESULT BELOW Name: KATHLEEN ROWE : [address]: Jerome Zuleta NP Acct: [id number] Unit: [id number] AGE: 69 Location: [facility] Re01/09/15 SEX: F Status: REG REF SPEC: [id number] LENORA: 01/09/[address] [facility] [address]: Jerome Zuleta NP REQ: [id number] RECD: 01/09/15 STATUS: COMP _ SOURCE: VAGINAL SPDESC: ORDERED: Tracey,Yeast DNA, Trich DNA Procedure Result Verified Site Gardnerella/Yeast: Vaginal DNA Final 01/10/15- 1440 ML Organism 1 Negative Shelly Organism 2 Negative Gardnerella The presence of G. vaginalis, although suggestive, is not diagnostic for bacterial vaginosis. Results should be interpreted in conjuction with other clinical and laboratory data available. Women with vaginal discharge should be evaluated for risk factors of cervicitis and pelvic inflammatory disease, toxic shock syndrome (S.aureus), and if present, evaluated for organisms not included in this assay such as N. gonorrhoeae, C. trachomatis, Mobiluncus, Mycoplasma and/or Prevotella. Mixed infections may occur. The performance of this test on patient specimens collected during or immediately after antimicrobial therapy is unknown. The presence or absence of Shelly species, or G. vaginalis cannot be used as a test for therapeutic success or failure. Trichomonas: Vaginal DNA Probe Final 01/10/15- 1440 ML Organism 1 Negative Trichomonas CONTINUED ON NEXT PAGE * ML=Testing performed at [facility] Lab DEPARTMENT OF PATHOLOGY, [address] [place] [address] Juan Manuel Jiménez M.D. Director [facility] # [id number] Patient: KATHLEEN ROWE [id number] (Continued) Specimen: [id number] Collected: 01/09/15-029 Received: 01/09/15682 (Continued) Procedure Result Verified Site Trichomonas: Vaginal DNA Probe Final (continued) 01/10/15- 1440 The presence or absence of T. vaginalis cannot be used as a test for therapeutic success or failure. * ML - MAIN LAB ([facility]) . END OF REPORT * ML=Testing performed at Main Lab DEPARTMENT OF PATHOLOGY, [address] [place] [address] Juan Manuel Jiménez M.D. Director [facility] # [id number] 25 FASTING 10 HOUR 26 Desirable <150 Borderline high 150-199 High 200-499 Very High >500 27 Desirable <200 Borderline high 200-239 High >239 28 Low <40 Desirable: 40-60 High: >60 29 Desirable: <100 mg/dL Near Optimal: 100-129 mg/dL Borderline High: 130-159 mg/dL High: 160-189 mg/dL Very High: >189 mg/dL 30 Because ethnic data is not always readily available, this report includes an eGFR for both -Americans and non- Americans. The National Kidney Disease Education Program (NKDEP) does not endorse the use of the MDRD equation for patients that are not between the ages of 18 and 70, are , have extremes of body size, muscle mass, or nutritional status, or are non- or non-. According to the National Kidney Foundation, irrespective of diagnosis, the stage of the disease is based on the level of kidney function: Stage Description GFR(mL/min/1.73 m(2)) 1 Kidney damage with normal or decreased GFR 90 2 Kidney damage with mild decrease in GFR 60-89 3 Moderate decrease in GFR 30-59 4 Severe decrease in GFR 15-29 5 Kidney failure <15 (or dialysis) 31 Therapeutic target for the treatment of diabetes Mellitus patients is <7% HBA1C, and in selective patients <6.0%.Please refer to [place] Diabetes Association Diabetic care guidelines for further information. 32 RUN DATE: 06/16/14 LAB LIVE PAGE 1 RUN TIME: [address] [place] [id number] Specimen Inquiry Name: KATHLEEN ROWE : [address]: Shad Issa NP Acct: [id number] Unit: [id number] AGE: 68 Location: [facility] Re06/16/14 SEX: F Status: REG REF SPEC: [id number] LENORA: 06/16/14-[address]: Shad Issa NP REQ: [id number] RECD: 06/16/14776 STATUS: COMP _ SOURCE: JENA SPDESC: ORDERED: Rapid Flu A B QUERIES: Provider Requisition # [id number] Procedure Result Verified Site Rapid Influenza A B Antigen Final 06/16/14- 1916 L Organism 1 Negative Influenza A B Antigen testing by enzyme immunoassay. Cell culture testing can be performed to confirm negative test results and to assist in detecting other viruses that can produce similar clinical symptoms. Please notify Microbiology Lab if further testing is desired. END OF REPORT * ML=Testing performed at Main Lab DEPARTMENT OF PATHOLOGY, [facility] [employer] [place], [place] [address] Juan Manuel Jiménez M.D. Director [facility] # [id number] 33 RUN DATE: 05/30/14 LAB LIVE PAGE 1 RUN TIME: 8973 [facility] [employer] [place], [place] [address] Specimen Inquiry Name: KATHLEEN ROWE : [address]: Rex Allan MD Acct: [id number] Unit: [id number] AGE: 68 Location: ENDO Re05/29/14 SEX: F Status: REG REF SPEC: [id number] LENORA: 05/29/14-[address] [facility] [address]: Rex Allan MD REQ: [id number] RECD: 05/29/14-1103 STATUS: YUSUF JOSEPH DR: Chaitanya Gaytan MD _ ORDERED: LEVEL IV FINAL DIAGNOSIS Colon, rectum, biopsy: -- Tubular adenoma. -- No high grade dysplasia or malignancy. CLINICAL HISTORY No clinical information provided POST-OPERATIVE DIAGNOSIS Screening colonoscopy to cecum - rectum snare polypectomy; tics; 5 years GROSS DESCRIPTION The specimen is received in formalin labeled, Rectal Polyp, and consists of a 0.6 x 0.5 x 0.4 cm reyes-pink polypoid soft tissue fragment, which is inked at the base, bisected and submitted entirely in one cassette. Signed (signature on file) Joellen Reid MD 1411 END OF REPORT * ML=Testing performed at Main Lab DEPARTMENT OF PATHOLOGY, [address] [place] [address] Juan Manuel Jiménez M.D. Director [facility] # [id number] 34 Because ethnic data is not always readily available, this report includes an eGFR for both -Americans and non- Americans. The National Kidney Disease Education Program (NKDEP) does not endorse the use of the MDRD equation for patients that are not between the ages of 18 and 70, are , have extremes of body size, muscle mass, or nutritional status, or are non- or non-. According to the National Kidney Foundation, irrespective of diagnosis, the stage of the disease is based on the level of kidney function: Stage Description GFR(mL/min/1.73 m(2)) 1 Kidney damage with normal or decreased GFR 90 2 Kidney damage with mild decrease in GFR 60-89 3 Moderate decrease in GFR 30-59 4 Severe decrease in GFR 15-29 5 Kidney failure <15 (or dialysis) 35 Desirable <150 Borderline high 150-199 High 200-499 Very High >500 36 Desirable <200 Borderline high 200-239 High >239 37 Low <40 Desirable: 40-60 High: >60 38 Desirable <100 Near Optimal 100-129 Borderline high 130-159 High 160-189 Very High >189 39 FASTING 10 HOUR 40 Because ethnic data is not always readily available, this report includes an eGFR for both -Americans and non- Americans. The National Kidney Disease Education Program (NKDEP) does not endorse the use of the MDRD equation for patients that are not between the ages of 18 and 70, are , have extremes of body size, muscle mass, or nutritional status, or are non- or non-. According to the National Kidney Foundation, irrespective of diagnosis, the stage of the disease is based on the level of kidney function: Stage Description GFR(mL/min/1.73 m(2)) 1 Kidney damage with normal or decreased GFR 90 2 Kidney damage with mild decrease in GFR 60-89 3 Moderate decrease in GFR 30-59 4 Severe decrease in GFR 15-29 5 Kidney failure <15 (or dialysis) 41 Desirable <150 Borderline high 150-199 High 200-499 Very High >500 42 Desirable <200 Borderline high 200-239 High >239 43 Low <40 Desirable: 40-60 High: >60 44 Desirable <100 Near Optimal 100-129 Borderline high 130-159 High 160-189 Very High >189 45 Therapeutic target for the treatment of diabetes Mellitus patients is <7% HBA1C, and in selective patients <6.0%.Please refer to [place] Diabetes Association Diabetic care guidelines for further information. 46 Desirable <150 Borderline high 150-199 High 200-499 Very High >500 47 Desirable <200 Borderline high 200-239 High >239 48 Low <40 Desirable: 40-60 High: >60 49 Desirable <100 Near Optimal 100-129 Borderline high 130-159 High 160-189 Very High >189 50 Microalbuminuria in a random sample is defined as: Microalbumin/Creatinine ratio of 30-299 ug/mg. 51 PT IS FASTING 52 Because ethnic data is not always readily available, this report includes an eGFR for both -Americans and non- Americans. The National Kidney Disease Education Program (NKDEP) does not endorse the use of the MDRD equation for patients that are not between the ages of 18 and 70, are , have extremes of body size, muscle mass, or nutritional status, or are non- or non-. According to the National Kidney Foundation, irrespective of diagnosis, the stage of the disease is based on the level of kidney function: Stage Description GFR(mL/min/1.73 m(2)) 1 Kidney damage with normal or decreased GFR 90 2 Kidney damage with mild decrease in GFR 60-89 3 Moderate decrease in GFR 30-59 4 Severe decrease in GFR 15-29 5 Kidney failure <15 (or dialysis) 53 HDL Interpretation: Undesirable: High Risk: Less than 40 mg/dL Desirable: Low Risk: Greater than 60 mg/dL 54 LDL Interpretation: Low Risk Optimal Level: LDL Less than 100 mg/dL Near or Above Optimal: LDL 100-129 mg/dL Borderline High Risk: LDL 130-159 mg/dL High Risk: LDL 160-189 mg/dL Very High Risk: LDL Greater than 189 mg/dL 55 Because ethnic data is not always readily available, this report includes an eGFR for both -Americans and non- Americans. The National Kidney Disease Education Program (NKDEP) does not endorse the use of the MDRD equation for patients that are not between the ages of 18 and 70, are , have extremes of body size, muscle mass, or nutritional status, or are non- or non-. According to the National Kidney Foundation, irrespective of diagnosis, the stage of the disease is based on the level of kidney function: Stage Description GFR(mL/min/1.73 m(2)) 1 Kidney damage with normal or decreased GFR 90 2 Kidney damage with mild decrease in GFR 60-89 3 Moderate decrease in GFR 30-59 4 Severe decrease in GFR 15-29 5 Kidney failure <15 (or dialysis) 56 Microalbuminuria in a random sample is defined as: Microalbumin/Creatinine ratio of 30-299 ug/mg. 57 Because ethnic data is not always readily available, this report includes an eGFR for both -Americans and non- Americans. The National Kidney Disease Education Program (NKDEP) does not endorse the use of the MDRD equation for patients that are not between the ages of 18 and 70, are , have extremes of body size, muscle mass, or nutritional status, or are non- or non-. According to the National Kidney Foundation, irrespective of diagnosis, the stage of the disease is based on the level of kidney function: Stage Description GFR(mL/min/1.73 m(2)) 1 Kidney damage with normal or decreased GFR 90 2 Kidney damage with mild decrease in GFR 60-89 3 Moderate decrease in GFR 30-59 4 Severe decrease in GFR 15-29 5 Kidney failure <15 (or dialysis) 58 MICROALBUMINURIA IN A RANDOM SAMPLE IS DEFINED : MICROALBUMIN/CREATININE RATIO OF 30-299 ug/mg. . 59 Anion gap measurement may be of limited value in the presence of any alkalosis, especially in a combined acid base disorder. . 60 A metabolite of Naproxen, O-desmethylnaproxen, has been shown to interfere with the Jenrfanik-Sharmila method for measuring total bilirubin. Samples from patients who have taken Naproxen have shown spurious elevation in total bilirubin levels. 61 Because ethnic data is not always readily available, this report includes an eGFR for both -Americans and non- Americans. The National Kidney Disease Education Program (NKDEP) does not endorse the use of the MDRD equation for patients that are not between the ages of 18 and 70, are , have extremes of body size, muscle mass, or nutritional status, or are non- or non-. According to the National Kidney Foundation, irrespective of diagnosis, the stage of the disease is based on the level of kidney function: Stage Description GFR(mL/min/1.73 m(2)) 1 Kidney damage with normal or decreased GFR 90 2 Kidney damage with mild decrease in GFR 60-89 3 Moderate decrease in GFR 30-59 4 Severe decrease in GFR 15-29 5 Kidney failure <15 (or dialysis) 62 CHOLESTEROL INTERPRETATION: Desirable: Less than 200 MG/DL Borderline-High Risk: 200-239 MG/DL High-Risk: 240 MG/DL and over 63 HDL INTERPRETATION: Undesirable: High Risk: Less than 40 MG/DL Desirable: Low Risk: Greater than 60 MG/DL 64 LDL INTERPRETATION: Low Risk Optimal Level: LDL Less than 100 MG/DL Near or Above Optimal: LDL 100-129 MG/DL Borderline High Risk: LDL 130-159 MG/DL High Risk: LDL 160-189 MG/DL Very High Risk: LDL Greater than 189 MG/DL 65 CHOLESTEROL INTERPRETATION: Desirable: Less than 200 MG/DL Borderline-High Risk: 200-239 MG/DL High-Risk: 240 MG/DL and over 66 HDL INTERPRETATION: Undesirable: High Risk: Less than 40 MG/DL Desirable: Low Risk: Greater than 60 MG/DL 67 LDL INTERPRETATION: Low Risk Optimal Level: LDL Less than 100 MG/DL Near or Above Optimal: LDL 100-129 MG/DL Borderline High Risk: LDL 130-159 MG/DL High Risk: LDL 160-189 MG/DL Very High Risk: LDL Greater than 189 MG/DL 68 Anion gap measurement may be of limited value in the presence of any alkalosis, especially in a combined acid base disorder. . 69 A metabolite of Naproxen, O-desmethylnaproxen, has been shown to interfere with the Jendrassik-Sharmila method for measuring total bilirubin. Samples from patients who have taken Naproxen have shown spurious elevation in total bilirubin levels. 70 Because ethnic data is not always readily available, this report includes an eGFR for both -Americans and non- Americans. The National Kidney Disease Education Program (NKDEP) does not endorse the use of the MDRD equation for patients that are not between the ages of 18 and 70, are , have extremes of body size, muscle mass, or nutritional status, or are non- or non-. According to the National Kidney Foundation, irrespective of diagnosis, the stage of the disease is based on the level of kidney function: Stage Description GFR(mL/min/1.73 m(2)) 1 Kidney damage with normal or decreased GFR 90 2 Kidney damage with mild decrease in GFR 60-89 3 Moderate decrease in GFR 30-59 4 Severe decrease in GFR 15-29 5 Kidney failure <15 (or dialysis) 71 Anion gap measurement may be of limited value in the presence of any alkalosis, especially in a combined acid base disorder. . 72 A metabolite of Naproxen, O-desmethylnaproxen, has been shown to interfere with the Jendrassik-[place] method for measuring total bilirubin. Samples from patients who have taken Naproxen have shown spurious elevation in total bilirubin levels. 73 Because ethnic data is not always readily available, this report includes an eGFR for both -Americans and non- Americans. The National Kidney Disease Education Program (NKDEP) does not endorse the use of the MDRD equation for patients that are not between the ages of 18 and 70, are , have extremes of body size, muscle mass, or nutritional status, or are non- or non-. According to the National Kidney Foundation, irrespective of diagnosis, the stage of the disease is based on the level of kidney function: Stage Description GFR(mL/min/1.73 m(2)) 1 Kidney damage with normal or decreased GFR 90 2 Kidney damage with mild decrease in GFR 60-89 3 Moderate decrease in GFR 30-59 4 Severe decrease in GFR 15-29 5 Kidney failure <15 (or dialysis) 74 CHOLESTEROL INTERPRETATION: Desirable: Less than 200 MG/DL Borderline-High Risk: 200-239 MG/DL High-Risk: 240 MG/DL and over 75 HDL INTERPRETATION: Undesirable: High Risk: Less than 40 MG/DL Desirable: Low Risk: Greater than 60 MG/DL 76 LDL INTERPRETATION: Low Risk Optimal Level: LDL Less than 100 MG/DL Near or Above Optimal: LDL 100-129 MG/DL Borderline High Risk: LDL 130-159 MG/DL High Risk: LDL 160-189 MG/DL Very High Risk: LDL Greater than 189 MG/DL 77 THERAPEUTIC TARGET FOR THE TREATMENT OF DIABETES MELLITUS PATIENTS IS <7% HBA1C, AND IN SELECTIVE PATIENTS <6.0%. PLEASE REFER TO [place] [employer] DIABETIC CARE GUIDELINES FOR FURTHER INFORMATION. 78 MICROALBUMINURIA IN A RANDOM SAMPLE IS DEFINED : MICROALBUMIN/CREATININE RATIO OF 30-299 ug/mg. . 79 Anion gap measurement may be of limited value in the presence of any alkalosis, especially in a combined acid base disorder. . 80 A metabolite of Naproxen, O-desmethylnaproxen, has been shown to interfere with the Jendrassik-[place] method for measuring total bilirubin. Samples from patients who have taken Naproxen have shown spurious elevation in total bilirubin levels. 81 Because ethnic data is not always readily available, this report includes an eGFR for both -Americans and non- Americans. The National Kidney Disease Education Program (NKDEP) does not endorse the use of the MDRD equation for patients that are not between the ages of 18 and 70, are , have extremes of body size, muscle mass, or nutritional status, or are non- or non-. According to the National Kidney Foundation, irrespective of diagnosis, the stage of the disease is based on the level of kidney function: Stage Description GFR(mL/min/1.73 m(2)) 1 Kidney damage with normal or decreased GFR 90 2 Kidney damage with mild decrease in GFR 60-89 3 Moderate decrease in GFR 30-59 4 Severe decrease in GFR 15-29 5 Kidney failure <15 (or dialysis) 82 CHOLESTEROL INTERPRETATION: Desirable: Less than 200 MG/DL Borderline-High Risk: 200-239 MG/DL High-Risk: 240 MG/DL and over 83 HDL INTERPRETATION: Undesirable: High Risk: Less than 40 MG/DL Desirable: Low Risk: Greater than 60 MG/DL 84 LDL INTERPRETATION: Low Risk Optimal Level: LDL Less than 100 MG/DL Near or Above Optimal: LDL 100-129 MG/DL Borderline High Risk: LDL 130-159 MG/DL High Risk: LDL 160-189 MG/DL Very High Risk: LDL Greater than 189 MG/DL 85 A metabolite of Naproxen, O-desmethylnaproxen, has been shown to interfere with the Jendrassik-[place] method for measuring total bilirubin. Samples from patients who have taken Naproxen have shown spurious elevation in total bilirubin levels. 86 THERAPEUTIC TARGET FOR THE TREATMENT OF DIABETES MELLITUS PATIENTS IS <7% HBA1C, AND IN SELECTIVE PATIENTS <6.0%. PLEASE REFER TO [place] [employer] DIABETIC CARE GUIDELINES FOR FURTHER INFORMATION. 87 CHOLESTEROL INTERPRETATION: Desirable: Less than 200 MG/DL Borderline-High Risk: 200-239 MG/DL High-Risk: 240 MG/DL and over 88 HDL INTERPRETATION: Undesirable: High Risk: Less than 40 MG/DL Desirable: Low Risk: Greater than 60 MG/DL 89 LDL INTERPRETATION: Low Risk Optimal Level: LDL Less than 100 MG/DL Near or Above Optimal: LDL 100-129 MG/DL Borderline High Risk: LDL 130-159 MG/DL High Risk: LDL 160-189 MG/DL Very High Risk: LDL Greater than 189 MG/DL 90 Anion gap measurement may be of limited value in the presence of any alkalosis, especially in a combined acid base disorder. . 91 Note change in reference range as of 11/22/07. The change was based on recommendations from the [place] [employer]. 92 Please note change in reference range effective 07 . 93 A metabolite of Naproxen, O-desmethylnaproxen, has been shown to interfere with the Jendrassik-Sharmila method for measuring total bilirubin. Samples from patients who have taken Naproxen have shown spurious elevation in total bilirubin levels. 94 Because ethnic data is not always readily available, this report includes an eGFR for both -Americans and non- Americans. The National Kidney Disease Education Program (NKDEP) does not endorse the use of the MDRD equation for patients that are not between the ages of 18 and 70, are , have extremes of body size, muscle mass, or nutritional status, or are non- or non-. According to the National Kidney Foundation, irrespective of diagnosis, the stage of the disease is based on the level of kidney function: Stage Description GFR(mL/min/1.73 m(2)) 1 Kidney damage with normal or decreased GFR 90 2 Kidney damage with mild decrease in GFR 60-89 3 Moderate decrease in GFR 30-59 4 Severe decrease in GFR 15-29 5 Kidney failure <15 (or dialysis) 95 FASTING 96 THERAPEUTIC TARGET FOR THE TREATMENT OF DIABETES MELLITUS PATIENTS IS <7% HBA1C, AND IN SELECTIVE PATIENTS <6.0%. PLEASE REFER TO [place] [employer] DIABETIC CARE GUIDELINES FOR FURTHER INFORMATION. 97 MICROALBUMINURIA IN A RANDOM SAMPLE IS DEFINED : MICROALBUMIN/CREATININE RATIO OF 30-299 ug/mg. . 98 Anion gap measurement may be of limited value in the presence of any alkalosis, especially in a combined acid base disorder. . 99 Note change in reference range as of 11/22/07. The change was based on recommendations from the [place] [employer]. 100 Please note change in reference range effective 07 . 101 A metabolite of Naproxen, O-desmethylnaproxen, has been shown to interfere with the Jendrassik-[place] method for measuring total bilirubin. Samples from patients who have taken Naproxen have shown spurious elevation in total bilirubin levels. 102 Because ethnic data is not always readily available, this report includes an eGFR for both -Americans and non- Americans. The National Kidney Disease Education Program (NKDEP) does not endorse the use of the MDRD equation for patients that are not between the ages of 18 and 70, are , have extremes of body size, muscle mass, or nutritional status, or are non- or non-. According to the National Kidney Foundation, irrespective of diagnosis, the stage of the disease is based on the level of kidney function: Stage Description GFR(mL/min/1.73 m(2)) 1 Kidney damage with normal or decreased GFR 90 2 Kidney damage with mild decrease in GFR 60-89 3 Moderate decrease in GFR 30-59 4 Severe decrease in GFR 15-29 5 Kidney failure <15 (or dialysis) 103 CHOLESTEROL INTERPRETATION: Desirable: Less than 200 MG/DL Borderline-High Risk: 200-239 MG/DL High-Risk: 240 MG/DL and over 104 HDL INTERPRETATION: Undesirable: High Risk: Less than 40 MG/DL Desirable: Low Risk: Greater than 60 MG/DL 105 LDL INTERPRETATION: Low Risk Optimal Level: LDL Less than 100 MG/DL Near or Above Optimal: LDL 100-129 MG/DL Borderline High Risk: LDL 130-159 MG/DL High Risk: LDL 160-189 MG/DL Very High Risk: LDL Greater than 189 MG/DL 106 ----- RUN DATE: 05/27/09 [facility] NMI LIVE PAGE 1 RUN TIME: 1331 Specimen Inquiry RUN USER: INTERFACE -- Name: ABELINOKATHLEEN Status: REG REF Re05/25/09 Age/Sex: 63/F Unit#: [id number] Location: [facility] : 45 -- Specimen: [id number] SOUT Spec Date: 05/25/[address]: Rex darby MD Spec Type: SURGICAL P Received: 02/23/10-0831 Copies to: Chaitanya tucker MD SPECIMEN 1) BIOPSY POLYP AT 55 CM 2) RANDOM COLON BIOPSY HISTORY PRE-OP DIAGNOSIS: 2) rule out microscopic colitis POST-OP DIAGNOSIS: Polyp at 55 cm., internal hemorrhoids CLINICAL INFORMATION: Hematochezia, change in bowel habits GROSS DESCRIPTION 1) Specimen received in formalin labelled Kathleen Rowe, Biopsy Polyps at 55 cm. and consists of three fragments of reyes-yellow tissue, each measuring 0.3 x 0.2 x 0.2 cm. Submitted entirely, one cassette labelled one. 2) Specimen received in formalin labelled Kathleen Rowe, Random Colon Biopsy and consists of multiple fragments of reyes-yellow tissue measuring in aggregate 1.0 x 0.8 x 0.3 cm. Submitted entirely, one cassette labelled two. DIAGNOSIS 1) Colon at 55 cm., biopsy: A. Tubular adenoma. B. No high grade dysplasia or malignancy. 2) Random colon, biopsy: A) Fragments of large bowel mucosa with no significant pathologic changes. B) No evidence of microscopic colitis. Signed Electronically by: JAELYN VACA 05/27/09 1331 -- -- DEPARTMENT OF PATHOLOGY, [address] [place] [address] [facility] Permit #[id number] Juan Manuel Jiménez M.D. Director Jaelyn Vaca M.D. Hand Tool Filer Dir ki -- 107 Anion gap measurement may be of limited value in the presence of any alkalosis, especially in a combined acid base disorder. . 108 Note change in reference range as of 11/22/07. The change was based on recommendations from the [place] [employer]. 109 Please note change in reference range effective 07 . 110 CHOLESTEROL INTERPRETATION: Desirable: Less than 200 MG/DL Borderline-High Risk: 200-239 MG/DL High-Risk: 240 MG/DL and over 111 HDL INTERPRETATION: Undesirable: High Risk: Less than 40 MG/DL Desirable: Low Risk: Greater than 60 MG/DL 112 LDL INTERPRETATION: Low Risk Optimal Level: LDL Less than 100 MG/DL Near or Above Optimal: LDL 100-129 MG/DL Borderline High Risk: LDL 130-159 MG/DL High Risk: LDL 160-189 MG/DL Very High Risk: LDL Greater than 189 MG/DL 113 THERAPEUTIC TARGET FOR THE TREATMENT OF DIABETES MELLITUS PATIENTS IS <7% HBA1C, AND IN SELECTIVE PATIENTS <6.0%. PLEASE REFER TO [place] [employer] DIABETIC CARE GUIDELINES FOR FURTHER INFORMATION. 114 Lymphopenia % 115 Anion gap measurement may be of limited value in the presence of any alkalosis, especially in a combined acid base disorder. . 116 Note change in reference range as of 11/22/07. The change was based on recommendations from the [place] [employer]. 117 Please note change in reference range effective 07 . 118 COLLECTED FROM 11/07 0635 THROUGH 11/08 0710 119 Anion gap measurement may be of limited value in the presence of any alkalosis, especially in a combined acid base disorder. . 120 Please note change in reference range effective 07 . 121 CHOLESTEROL INTERPRETATION: Desirable: Less than 200 MG/DL Borderline-High Risk: 200-239 MG/DL High-Risk: 240 MG/DL and over 122 HDL INTERPRETATION: Undesirable: High Risk: Less than 40 MG/DL Desirable: Low Risk: Greater than 60 MG/DL 123 LDL INTERPRETATION: Low Risk Optimal Level: LDL Less than 100 MG/DL Near or Above Optimal: LDL 100-129 MG/DL Borderline High Risk: LDL 130-159 MG/DL High Risk: LDL 160-189 MG/DL Very High Risk: LDL Greater than 189 MG/DL 124 MANY NORMAL THROAT SHRUTHI Procedures Date CPT Code Description Status 02/07/2017 Inject/Drain Joint/Bursa Major Completed 12/01/2016 Inject/Drain Joint/Bursa Major Completed 12/01/2016 Inject/Drain Joint/Bursa Major Completed 04/01/2016 32123 Sleep Study Unattended,HRT Rate,Oxygen Sat,Resp Completed Effort/Airflow 01/08/2016 Mammogram Completed 12/14/2015 85521 Diffusing Capacity Completed 12/14/2015 81324 Plethysmography Determination Lung Volumes & Per Completed Airway Resist 12/14/2015 04038 Pulmonary Function><Bronchodil Completed 10/09/2014 Inject/Drain Joint/Bursa Major Completed 06/03/2014 Inject/Drain Joint/Bursa Intermediate Completed 04/25/2014 Diabetic Retinal Eye Exam Completed 12/03/2013 24014 Rad Exam; Hand Comp Completed 12/03/2013 88516 Rad Exam; Hand Comp Completed 11/12/2013 Inject/Drain Joint/Bursa Major Completed 06/07/2013 Mammogram Completed 06/06/2011 Bone Mineral Density Test Completed 06/06/2011 Mammogram Completed 05/25/2009 Colonoscopy Completed 12/10/2007 54070 EKG Tracing & Interpretation Completed 04/07/2004 Colonoscopy Completed Encounters Type Date Location Provider CPT E/M Dx Office Visit 02/21/2017 [facility] [place] [address] S46.012D 10:30a C.M.A. Office Visit 02/07/2017 [facility] [place] [address] S46.012D 10:45a C.M.A. M76.52 M17.0 M17.12 Office Visit 01/23/2017 10:00a [facility] [address] G47.33 Services Of [facility] [employer] Office Visit 01/12/2017 11:30a [facility] [place] [address] M17.12 C.M.A. M76.52 S46.012D M25.512 M17.0 Office Visit 01/02/2017 10:50a [facility] Internal Chaitanya Gaytan, 13432 Z00.01 Medicine - [place] José Manuel Lancaster,FACP E11.9 M19.012 G47.33 L90.0 Z23 Office Visit 12/01/2016 2:00p [facility] [place] [address] M17.12 C.M.A. M76.52 S46.012D M19.012 Office Visit 11/04/2016 4:20p [facility] Internal Chaitanya Gaytan, 56234 W10.8xxD Medicine - [place] José Manuel Lancaster,FACP M25.512 Office Visit 08/11/2016 10:10a [facility] Internal Medicine Chaitanya Gaytan, 83660 E11.9 - [place] José Manuel Lancaster,FACP M19.012 E78.2 Office Visit 07/22/2016 9:15a [facility] [place] [address] G47.33 Services Of [facility] Office Visit 06/20/2016 9:45a [facility] [place] [address] G47.33 Services Of [facility] Office Visit 05/04/2016 11:30a [facility] Internal [facility] Chaitanya Gaytan, 61972 E11.9 [place] José Manuel Lancaster,FACP M19.012 Office Visit 05/02/2016 10:00a [facility] [place] [address] G47.33 Services Of [facility] E66.09 Office Visit 03/18/2016 11:00a [facility] [place] [address] G47.33 Services Of [facility] E66.09 G89.29 Z68.35 Office Visit 03/01/2016 8:00a [facility] [place] [address] M19.012 C.M.A. S46.011A Office Visit 02/03/2016 11:30a [facility] Internal Chaitanya Gaytan, 13689 M25.512 Medicine - [place] José Manuel Lancaster,FACP E11.9 Office Visit 01/01/2016 2:00p [facility] Internal Chaitanya Gaytan, 33536 Z00.01 Medicine - [place] José Manuel Lancaster,FACP E11.9 E78.2 R09.02 Z12.31 I10 Office Visit 11/20/2015 1:40p [facility] Internal Medicine Chaitanya Gaytan, 66485 R51 - [place] José Manuel Lancaster,FACP R53.83 E78.2 R09.02 Office Visit 11/05/2015 9:40a [facility] Internal Gilbert Pelletier M.D. 80504 E11.9 Medicine - [place] [address] R51 Office Visit 08/04/2015 10:10a [facility] Internal Medicine Chaitanya Gaytan, 19087 R30.0 - Ana Lancaster,FACP N39.0 Office Visit 07/27/2015 2:40p [facility] Internal Medicine Duy Evans, 95227 J06.9 - Ana Lancaster Office Visit 03/16/2015 10:00a [facility] [place] [address] N77.1 - [place] [address] R30.0 F06.4 N76.0 F41.9 Office Visit 02/06/2015 9:40a [facility] Internal Chaitanya Gaytan, 81600 S06.5x0D Medicine - [place] José Manuel Lancaster,FACP M24.031 E11.9 Office Visit 01/09/2015 1:00p [facility] [place] [address] N39.0 Office Visit 12/15/2014 10:30a [facility] Internal Medicine Chaitanya Gaytan, 12718 850.0 - [place] José Manuel Lancaster,FACP 250.00 293.84 Office Visit 11/20/2014 9:40a [facility] Juan Savage M.D. 25983 726.10 C.M.A. Office Visit 10/09/2014 11:00a [facility] Juan Savage M.D. 51697 726.10 C.M.A. Office Visit 09/03/2014 3:00p [facility] Internal Medicine Chaitanya Gaytan, 02972 V70.0 [place] José Manuel Lancaster,FACP 850.5 250.00 726.19 V76.19 Office Visit 07/16/2014 9:00a [facility] Internal Gilbert Pelletier, 61325 250.00 Medicine - [address] [address] M.D. 780.52 461.9 850.5 Office Visit 06/16/2014 1:30p [facility] Internal Medicine - Shad Issa, CLOTH REELER [address] 465.9 Office Visit 12/25/2013 11:10a [facility] Internal Medicine Chaitanya Gaytan, 13447 250.00 - Ana Lancaster,FACP 401.1 V03.1 v03.82 Office Visit 12/10/2013 10:45a [facility] Juan Savage M.D. 51510 715.14 C.MJh 726.11 Office Visit 12/03/2013 10:00a [facility] Suzette Palacios, 83168 715.14 Of Angelina Lancaster Office Visit 11/12/2013 10:30a [facility] Juan Savage M.D. 12446 726.11 Of C.M.ASarah Office Visit 09/10/2013 10:30a [facility] Juan Savage M.D. 91817 726.11 Of C.M.ASarah Office Visit 06/03/2013 10:30a [facility] Internal Chaitanya Gaytan, 73838 V70.0 Misael Rodriguez M.D.,FACP [place] 569.0 401.1 250.00 V76.10 Office Visit 05/29/2013 2:20p [facility] Internal Medicine Chaitanya Gaytan, 45754 364.60 - Ana Lancaster,FACP 726.19 Office Visit 03/29/2013 9:00a [facility] Internal Medicine Chaitanya Gaytan, 03187 691.8 - Ana Lancaster,FACP 401.1 272.0 Office Visit 12/04/2012 10:30a [facility] Internal Medicine Chaitanya Gaytan, 58599 722.93 - Ana Lancaster,FACP 250.00 Office Visit 06/05/2012 9:50a [facility] Internal Medicine Chaitanya Gaytan, 56218 V70.0 - Ana Lancaster,FACP 250.00 564.1 726.19 Office Visit 12/07/2011 3:40p [facility], 90676 250.00 - Ana Lancaster,FACP 455.3 V04.81 Office Visit 05/30/2011 11:10a [facility], 95195 V70.0 - Ana Lancaster,FACP 250.00 571.8 V76.10 569.3 V82.81 564.1 333.1 Office Visit 12/27/2010 1:00p DO Not Use [facility] [address]308 250.00 [place] 272.0 401.1 V72.84 Office Visit 11/30/2010 11:30a DO Not Use [facility], 41707 250.00 [place],FACP 272.0 401.1 726.71 Office Visit 05/27/2010 10:00a DO Not Use [facility], 42585 V70.0 [facility] Eunice.[place],FACP 272.0 250.00 571.8 780.79 724.1 V03.82 Office Visit 05/25/2010 3:40p DO Not Use [facility], 8[address] 462 [place],FACP Office Visit 10/26/2009 11:40a DO Not Use [facility] [place] [address] 461.0 [place] Office Visit 08/25/2009 12:45p DO Not Use [facility], 28907 473.8 [facility] Eunice.[place],FACP 571.8 786.2 Office Visit 05/13/2009 3:00p DO Not Use [facility], 63804 V70.0 [facility] E[place],FACP 780.79 401.1 272.4 250.00 Office Visit 04/16/2009 1:45p DO Not Use [facility] [employer] At Ronan Acosta M.D. 03185 461.9 [place] 477.9 401.1 Office Visit 10/07/2008 11:00a DO Not Use [facility], 50570 682.7 [facility]FACP 272.4 724.02 578.1 Office Visit 09/29/2008 3:30p DO Not Use [facility] [place] [address] 682.7 [facility] Office Visit 06/03/2008 1:20p DO Not Use [facility], 53136 790.21 [facility]FACP 272.4 724.02 Office Visit 04/09/2008 11:00a DO Not Use [facility] [place] [address] V72.84 [facility] 401.1 272.4 724.02 461.9 Office Visit 02/15/2008 2:40p DO Not Use [facility], 27081 722.0 [facility].,FACP 250.00 705.89 Office Visit 12/10/2007 3:40p DO Not Use [facility], 54943 V72.81 [facility],FACP 722.0 401.1 272.4 Office Visit 11/06/2007 1:40p DO Not Use [facility], 51731 791.0 [facility].,FACP 272.2 401.1 724.02 790.21 Office Visit 07/31/2007 1:00p DO Not Use [facility], 31091 790.21 [facility].,FACP 272.4 401.1 715.04 473.1 327.23 Office Visit 07/04/2007 1:30p DO Not Use [facility] [place] [address] 715.04 [facility] Office Visit 05/01/2007 3:40p DO Not Use [facility], 55549 327.23 [facility]FACP 296.30 278.01 401.1 272.4 724.5 Office Visit 02/16/2007 9:00a DO Not Use [facility], 17686 462 Perez Lancaster,FACP 401.1 272.4 Plan of Care Future Appointment(s):07/24/2017 10:45 am - Rosa Perez MD at [facility]04/05/2017 10:00 am - Chaitanya Gaytan M.D.,FACP at [facility] Internal Medicine - [address]03/29/2017 - Gilbert Pelletier M.D.M51.16 Intervertebral disc disorders w radiculopathy, lumbar regionNew Orders:EMG w/ Nerve Conduct Study, LowerComments:Continue Codene as neededFollow up:after EMG resulted with Dr Gaytan
[2017-04-23] MEDS ORDERED: Morphine INJ* 4 MG/ML 1 ML CARPUJECT IV ONE (11:05)
[2017-04-23] MEDS ORDERED: Ketorolac INJ* 30 MG/ML 1 ML VIAL IV PUSH ONE (11:05)
[2017-04-23] MEDS ORDERED: Orphenadrine Citrate IV* 30 MG/ML 2 ML VIAL IV ONE (11:05)
[2017-04-23 11:46] LABS: Urine Appearance Cloudy; Urine Blood Negative (Negative); Urine Color Yellow; Urine Ketones Negative (Negative); Urine Protein Negative (Negative); Urine Specific Gravity 1.018 (1.010-1.030); Urine Urobilinogen Negative (Negative)
[2017-04-23] MEDS ORDERED: Sulfamethox/Trimethoprim DS 800/160* TAB PO ONE (12:02)
--- NOTE | 2017-04-23 12:04 | RAD ---
HISTORY: Right hip pain COMPARISONS: August 30, 2012 VIEWS: 3, Frontal view of the pelvis with frontal and frog-leg views of the right hip FINDINGS: BONE DENSITY: Normal. BONES: There is no displaced fracture. 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 ALIGNMENT: There is no dislocation. SOFT TISSUES: Unremarkable. OTHER FINDINGS: Degenerative changes are noted of the spine. IMPRESSION: NO ACUTE OSSEOUS INJURY. IF SYMPTOMS PERSIST, RECOMMEND REPEAT IMAGING.
[2017-04-23 14:08] VITALS: BP 137/91
--- NOTE | 2017-04-24 17:01 | ED ---
Jeremie Maxwell Nikita, scribed for Duy Landin MD on 04/23/17 at 1104 . Lower Extremity - HPI Summary HPI Summary: This patient is a 71 year old F BIBA to ED with a chief complaint of intermittent buttocks and right hip pain since 1000 today. The CC is described as worsened s/p fall four weeks ago, and radiating down the right leg to the foot. Pt is concerned that she damaged her hip when she fell on her right hip approximately a month ago. The patient rates the pain 8/10 in severity. Symptoms aggravated and alleviated by nothing. Pt reports taking 4 tablets a day instead of the 5 tablets that were prescribed because she was feeling better. Pt also states that the medication no longer helps. - History of Current Complaint Chief Complaint: EDExtremityLower Stated Complaint: RT HIP PAIN Time Seen by Provider: 04/23/17 10:46 Hx Obtained From: Patient Onset of Pain: Hours Onset/Duration: Hours Severity Initially: Moderate - 8/10 Pain Intensity: 8 Pain Scale Used: 0-10 Numeric Timing: Intermittent Location: Radiates To - radiating down the right leg to the foot. Aggravating Factor(s): Nothing Alleviating Factor(s): Nothing - Allergies/Home Medications Allergies/Adverse Reactions: Allergies Allergy/AdvReac Type Severity Reaction Status Date / Time Amoxicillin Allergy nausea, Verified 03/13/17 11:03 vomiting Gabapentin [From Neurontin] Allergy "feels Verified 03/13/17 11:03 like brain is buzzing" Home Medications: Home Medications Docusate Sodium [Colace] 100 mg PO TID PRN 04/23/17 [History Confirmed 04/23/17] Flexeril 10 MG TAB* 10 mg PO BID PRN 04/23/17 [History Confirmed 04/23/17] Pitavastatin Calcium [Livalo] 2 mg PO DAILY 04/23/17 [History Confirmed 04/23/17 ] Polyethylene Glycol 3350* [Miralax*] 1 packet PO DAILY PRN 04/23/17 [History Confirmed 04/23/17] Ubiquinol [Qunol Coq10/Ubiquinol/Zoe] 100 mg PO DAILY 04/23/17 [History Confirmed 04/23/17] PMH/Surg Hx/FS Hx/Imm Hx Endocrine/Hematology History: Reports: Hx Diabetes - TYPE 2 Cardiovascular History: Reports: Hx Cardiomegaly - CHILD, Hx Hypercholesterolemia, Hx Hypertension - CONTROL WITH MEDICATION, 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, Other Cardiovascular Problems/Disorders - CONTROL WITH MEDICATIONS Denies: Hx Pacemaker/ICD Respiratory History: Reports: Hx Sleep Apnea - PATIENT REPORTS IN PAST GI History: Reports: Hx Cirrhosis - PATIENT DOES NOT DRINK ALCOHOL, Hx Gastroesophageal Reflux Disease - NO LONGER ON MEDICATION, Hx Irritable Bowel - CAUSED FROM MEDICATION PER PATIENT History: Reports: Hx Kidney Infection - DURING KIDNEY STONES-SEPSIS, Hx Kidney Stones - IN PAST, Other Problems/Disorders - HX OF KIDNEY STONES Denies: Hx Renal Disease Musculoskeletal History: Reports: Hx Arthritis, Hx Back Problems Comment Only: Other Musculoskeletal History - OSTEOPOROSIS Sensory History: Reports: Hx Cataracts, Hx Contacts or Glasses Denies: Hx Hearing Aid Opthamlomology History: Reports: Hx Cataracts, Hx Contacts or Glasses Neurological History: Reports: Hx Migraine - AND CLUSTER HEADACHES Psychiatric History: Denies: Hx Panic Disorder - Cancer History Hx Chemotherapy: No Hx Radiation Therapy: No - Surgical History Surgery Procedure, Year, and Place: 1946 DIGESTIVE BLOCKAGE CORRECTED AT 2 WEEKS OLD, [place], [place] 1966 AND 1968 2 [place], [place] 1988 LEFT. BRE[place] [facility] [place] LUMBAR SPINAL SURGERY, [facility]. Dorsal column stimulator October 18 2012. 2007. CERVICAL SPINE SURGERY, [facility] 2 LIPOTRIPSY PROCEDURE, [place]. 2011 BILATERAL CATARACTS EXTRACTION WITH IOL IMPLANTS, [facility] [place] 2006 SURGERY TO REPAIR BLEEDING ULCER, [facility] [place]. October 2012 Permanent Dorsal Column Stimulator inserted. RT SHOULDER SURGERY Hx Anesthesia Reactions: Yes - HALLUCINATIONS WITH ANESTHESIA, WITH SECOND LITHOTRIPSY, N/V Infectious Disease History: No Infectious Disease History: Denies: Traveled Outside the [place] in Last 30 Days - Family History Known Family History: Negative: Hypertension, Diabetes - Social History Alcohol Use: None Substance Use Type: Reports: None Smoking Status (MU): Never Smoked Tobacco Have You Smoked in the Last Year: No Review of Systems Negative: Fever Positive: Other - right hip pain, buttocks pain, radiating down the right leg to the foot. All Other Systems Reviewed And Are Negative: Yes Physical Exam - Summary Physical Exam Summary: VITAL SIGNS: Reviewed. GENERAL: ~Patient is a well-developed and nourished MALE who is lying comfortable in the stretcher. ~Patient is not in any acute respiratory distress. HEAD AND FACE: No signs of trauma. ~No ecchymosis, hematomas or skull depressions. No sinus tenderness. EYES: PERRLA, EOMI x 2, No injected conjunctiva, no nystagmus. EARS: Hearing grossly intact. Ear canals and tympanic membranes are within normal limits. MOUTH: Oropharynx within normal limits. NECK: Supple, trachea is midline, no adenopathy, no JVD, no carotid bruit, no c- spine tenderness, neck with full ROM. CHEST: Symmetric, no tenderness at palpation LUNGS: Clear to auscultation bilaterally. No wheezing or crackles. CVS: Regular rate and rhythm, S1 and S2 present, no murmurs or gallops appreciated. ABDOMEN: Soft, non-tender. No signs of distention. No rebound no guarding, and no masses palpated. Bowel sounds are normal. EXTREMITIES: No edema, no cyanosis or clubbing. Point tenderness in the right gluteus. FROM in the hip, no hematoma, no deformity, no ecchymosis.Straight leg test is negative. NEURO: Alert and oriented x 3. No acute neurological deficits. Speech is normal and follows commands. SKIN: Dry and warm Triage Information Reviewed: Yes Vital Signs On Initial Exam: Initial Vitals Temp Pulse Resp BP Pulse Ox 98.2 F 76 16 195/96 96 04/23/17 10:44 04/23/17 10:44 04/23/17 10:44 04/23/17 10:44 04/23/17 10:44 Vital Signs Reviewed: Yes - [place] Coma Scale Coma Scale Total: 15 Diagnostics - Vital Signs Vital Signs Temp Pulse Resp BP Pulse Ox 04/23/17 10:44 98.2 F 76 16 195/96 96 - Laboratory Lab Statement: Any lab studies that have been ordered have been reviewed, and results considered in the medical decision making process. - Radiology Hip/Pelvis XR Radiology Interpretation Completed By: Radiologist - NO ACUTE OSSEOUS INJURY. IF SYMPTOMS PERSIST, RECOMMEND REPEAT IMAGING. ED physician has reviewed this radiology report. Re-Evaluation - Re-Evaluation First Eval Re-Evaluation Time: 12:44 Change: Improved - pt feels better and discharge plans were discussed. Lower Extremity Course/Dx - Course Assessment/Plan: This patient is a 71 year old F BIBA to ED with a chief complaint of intermittent buttocks and right hip pain since 1000 today. Pt is ambulatory. Pt is in minimal pain, pain is secondary to sciatic pain. In the ED course, pt is given Toradol, Morphine, Norflex, Bactrim. Pt will be discharged with a diagnosis of sciatic pain and an UTI and is given Bactrim for 10 days. Pt will follow up with PCP and pain management. Pt is feeling better. - Diagnoses Differential Diagnosis/HQI/PQRI: Positive: Sciatica, Other - UTI Provider Diagnoses: UTI (urinary tract infection), Sciatica Discharge - Discharge Plan Condition: Stable Disposition: HOME Prescriptions: Sulfamethox/Trimethoprim DS* [Bactrim DS 800/160 TAB*] 1 tab PO BID #14 tab Patient Education Materials: Urinary Tract Infection in Women (ED), Sciatica ( ED) Referrals: Chaitanya Gaytan MD [Primary Care Provider] - 3 Days () Additional Instructions: Apply to area warm compresses Take medications as indicated F/U wit pain management and PCP as indicated. Follow up with pain management and PCP. The documentation as recorded by the Jeremie bautista Nikita accurately reflects the service I personally performed and the decisions made by uMshtaq murcia Walter, MD.
--- NOTE | 2017-04-25 09:35 | ED ---
Progress - Progress Note Progress Note: Pt's prelim urine cx reveals e. coli >100,00. Started on bactrim. No change in care at this time. Re-Evaluation - Re-Evaluation First Eval Re-Evaluation Time: 12:44 Change: Improved - pt feels better and discharge plans were discussed. Course/Dx - Diagnoses Provider Diagnoses: UTI (urinary tract infection), Sciatica
== END 2017-04-23 14:00 | disposition home or self-care (01) ==
LOC: ED 10:39
DX: N39.0 Urinary tract infection, site not specified (principal); B96.20 Unspecified Escherichia coli [E. coli] as the cause of diseases classified elsewhere; M54.30 Sciatica, unspecified side; Z88.0 Allergy status to penicillin; E11.9 Type 2 diabetes mellitus without complications; E78.00 Pure hypercholesterolemia, unspecified; K21.9 Gastro-esophageal reflux disease without esophagitis
CPT/HCPCS: 81003; 81015; 87077; 87086; 87186; 96374; 96375; 99283; A9270-GY; J1885; J2270; J2360

== ENCOUNTER 2017-04-30 14:51 | Emergency (ER) | payer MEDICARE ==
--- OUTSIDE RECORDS SUMMARY | 2017-04-30 15:09 | XMS REPORT ---
:1945 External Reference #:[id number] [facility] Address [address] [address] Phone [phone] Care Team Providers Name Role Phone Chaitanya Gaytan MD Primary Care Physician Unavailable Payers Type Date Identification Numbers Payment Subscriber Provider Health Maintenance Effective: Policy Number: Medicare Blue Kathleen Rowe Organization (O) 04/03/2012 [id number] Ppo Group Number: [id number] [address] PayID: [id number] [place] [address] Medigap Part B Effective: 07/02/2010 Policy Number: BS Of NAVI Rowe [id number] Expires: 10/31/2010 PayID: [id number] [address] [address] Medigap Part B Effective: Policy Number: [facility] Ins Kathleen Rowe 11/01/2010 [id number] Ppo/Epo Expires: 04/02/2012 PayID: [id number] [address] [place] [address] Medigap Part B Effective: 10/01/2009 Policy Number: BS Of NAVI Rowe [id number] Expires: 06/30/2010 PayID: [id number] [address] [place] [place] [address] Problems Date Description Provider Status Onset: 02/16/2007 [...] Heart Disease General Diabetes General Cancer Father [place] at 56 Father due to CHF () [...] Form Strength Qnty SIG Indications Ordering Provider Cipro 04/28 Hx Tablets 250mg 14tab one tab by Chaitanya s mouth twice Orlando Gaytan, - daily for 7 M.D.,FACP Pyridium 04/28 Active Tablets 100mg 12tab one by s mouth three Orlando Gaytan, times a day M.D.,FACP x 3 days, then prn Rolling Walker 04/24 Active 1unit Use while M54.5 Darrian s ambulating DEX Carrera Janumet XR 01/02 Active Tablets ER 50-1000mg 180ta 1 tab twice E11.9 24HR bs a day Orlando Gaytan M.D.,FACP Freestyle Lite 05/04 Active Device 1unit check Chaitanya Blood Glucose s fingerstick Orlando Gaytan, Monitoring daily DX: Anisha,FACP System E11.9 Last visit 05/04/16 Freestyle Lite 05/04 Active Strips 100un test up to Test its 2 times a Orlando Gaytan, day dx M.Orlando,FACP code: E11.9 Last visit 05/04/16 Omeprazole 02/[address] 20mg 30cap 1 by mouth M25.512 s every day Orlando Gaytan, for 2 weeks M.D.,FACP when using NSAIDs Livalo 09/03 Active Tablets 2mg 90tab take 1 E11.9 s tablet Orlando Gaytan, every M.D.,FACP evening Freestyle 12/27 Active Misc 100un Twice daily its and as Orlando Gaytan, needed dx MGregorio,FACP E11.9 Last visit 05/04/16 Propranolol HCL 12/06 Active Tablets 60mg 60tab take 1 s tablet by Orlando Gaytan, mouth twice M.D.,FACP a day Cymbalta 05/[address] 60mg 90cap take 1 Part s capsule [...] hours as needed pain Vitamin B-12 ER 00 Active Tablets ER 2000mcg 2 by mouth Unknown /0000 every day (states occasional use) Salonpas Active Patches 1.2-5.7-6 as needed Unknown /0000 .3% Duloxetine HCL Active Caps DR 60mg 1 by mouth Unknown /0000 Part every day Docusate Sodium Active Tablets 100mg take one Unknown / tab 2-3 times daily. Cyclobenzaprine Active Tablets 10mg one by Unknown HCL /0000 mouth hs daily prn Miralax Active Packet [id number] 1 pack by Unknown /0000 mouth every day as needed for constipatio n Tums Active Chewtabs 500mg 2 chewtabs Unknown /0000 by mouth daily prn Hydrocodone-Acet Active Tablets 5-325mg Velazquez, aminophen / Nathalie [employer] DEVELOPER- Onetouch Delica 05/04 Hx Misc 30G 180un test twice E11.9 Chaitanya Baker Fine 30G /2016 its daily or as Orlando Gaytan, - needed M.DSarah,[facility] 05/04 Onetouch Ultra 05/04 Hx Strips 75uni test up to E11.9 Chaitanya Blue ts 2 times a DSarah Gaytan, - day or as MGregorio,[facility] 05/04 directed Onetouch Ultra 05/04 Hx Kit w/Device 1unit use daily E11.9 Chaitanya [facility] s to test Orlando Gaytan, - glucose M.DSarah,[facility] 05/04 Janumet 05/04 Hx Tablets 50-500mg 60tab 1 by mouth E11.9 s twice a day Orlando Gaytan, - M.D.,[facility] 01/02 Meloxicam 02/02 Hx Tablets 7.5mg 60tab 1 by mouth M25.512 s twice a day Orlando Gatyan, - as needed M.DSarah,[facility] 08/11 Ciprofloxacin 08/03 Hx Tablets 250mg 14tab 1 twice a N39.0 Chaitanya s day x 7 DSarah Gaytan, - days M.D.,[facility] 08/10 ( ) Nystatin 08/03 Hx Cream [id number] 30gm topically R30.0 t/GM twice a day Orlando Gaytan, - as needed M.DSarah,[facility] 02/02 Metronidazole 03/16 Hx Gel 0.75% 25g 5 grams N77.1 Jerome once daily [place], - vaginally [employer]ANE MANAGER 03/21 x's 5 days Ciprofloxacin 01/09 Hx Tablets 500mg 6tabs 1 tab by N39.0 Jerome mouth twice [place], - a day x's 3 [employer] MANAGER Fluconazole 01/09 Hx Tablets 150mg 2tabs 1 tablet by N39.0 Jerome mouth daily [place], - today, then [employer] MANAGER 01/16 repeat in days. Alprazolam 12/15 Hx Tablets 0.25mg 30tab one by F06.4 Jerome s mouth every [place], - day as [employer] MA[employer]GER 08/03 needed 1 Alprazolam 07/16 Hx Tablets 0.25mg 14tab one by 780.52 Gilbert Dispers s mouth at [facility] - bed time , MGregorio 12/15 Levaquin 07/16 Hx Tablets 500mg 10tab 1 by mouth 461.9 Gilbert s every day Prabhu - Anisha 09/03 Walker 07/16 Hx Diagnosis:I 250.00 ntracranial [facility] - bleed , Anisha 09/03 Azithromycin 06/16 [...] its directed Orlando Gaytan, - every day M.DSarah,[facility] 05/04 or needed dx: 250.00 Freestyle Lite 12/27 Hx Strips 100un test daily Chaitanya Test its and rose Gaytan, - need, dx M.Orlando,[facility] 05/04 code: /2016 250.00 Breeze 2 Test 12/25 Hx 100un once a day Chaitanya Strip its and as Orlando Gaytan, - needed dx M.Orlando,[facility] 12/27 250.00 /2013 Lancets Thin 12/25 Hx Misc 50uni every day ts or twice a Orlando Gaytan, - day as Anisha,[facility] 12/27 needed Crestor 06/03 Hx Tablets 10mg 90tab 1 po qpm 250.00 s Michael Decker M.D.,[facility] 09/03 Triamcinolone 03/29 Hx Cream 0.1% 30g apply bid 691.8 Acetonide prn Michael Decker M.D.,[facility] 05/29 Prednisone 03/29 Hx Tablets 10mg 20tab 4 tabs qd 691.8 s for 2 days, Orlando Gaytan, - then reduce M.DSarah,[facility] 05/29 by 1 tab every 2 days until finished Lyrica 06/27 Hx Capsules 50mg 90cap take 1 s capsule by Orlando Gaytan, - mouth three M.D.,[facility] 01/02 times a day /2016 maximum daily dose of 3 Lyrica 06/05 Hx Capsules 25mg 60cap 1 po tid Michael Antonio M.D.,[facility] 06/27 Linzess 06/05 Hx Capsules 290mcg 30cap po qd 564.1 Michael Antonio M.D.,[facility] 12/04 Amitiza 05/30 Hx Capsules 8mcg 60cap po bid Michael Antonio M.D.,[facility] 12/06 Propranolol HCL 05/30 Hx Tablets 60mg 60tab take 1 s tablet by Orlando Gaytan, - mouth twice M.D.,[facility] 12/06 a day Simvastatin 05/30 Hx Tablets 20mg 30tab take 1 250.00 s tablet by Orlando Gaytan, - mouth every M.D.,[facility] 06/03 evening Pennsaid 11/30 Hx Solution 1.5% 15ml 5-10 ggts R 726.71 ankle/foot Orlando Gaytan, - bid prn Anisha,[facility] 05/30 Breeze 2 Test 07/30 Hx 100un tid and prn Chaitanya Strip its dx 250.00 Michael Decker M.D.,[facility] 11/11 [place] 05/27 Hx Tablets 5-325mg 120ta 1 qid prn bs Michael Decker M.D.,[facility] 05/29 Penicillin V 05/25 Hx Tablets 500mg 28tab qid for 7 462 Chaitanya s Michael Tobias M.D.,[facility] 09/10 Losartan 03/30 Hx Tablets ? 90tab 1 po qd 786.2 Chaitanya Potassium Michael Antonio M.D.,[facility] 04/01 Zithromax 10/26 Hx Tablets 250mg 6tabs 2 today 461.0 Sivananda then 1 for , Poopal, - 4 days MD 10/28 Diovan 09/22 Hx Tablets 40mg 30tab 1 po qd 786.2 Michael Antonio M.D.,[facility] 03/30 Micardis 08/25 Hx Tablets 20mg 30tab 1 po qd 786.2 Michael Antonio M.D.,[facility] 09/22 [id number] 05/13 Hx Capsules 500-50mg 60cap po bid 780.79 Michael Antonio M.D.,[facility] 11/30 Cymbalta 05/13 Hx Cpep 30mg 60uni Take 1 ts Capsule By Orlando Gaytan, - Mouth Twice M.Orlando,[facility] 05/27 A Day /2010 Ceftin 04/16 Hx Tablets 500mg 14tab twice a 461.9 s day for 7 Karla, - siddharth Lancaster 04/16 Bactrim DS 04/16 Hx Tablets 800-160mg 20tab 1 po bid 461.9 s for 10 days Michael Acosta M.D. 05/13 Cephalexin 06/29 Hx Capsules 500mg 40cap 1 quid x 10 682.7 s Michael Decker M.D.,[facility] 10/07 Vytorin 06/03 Hx Tablets 10-20mg 30tab Take One s Tablet By Orlando Gaytan, - Mouth At Anisha,[facility] 05/30 Bedtime Biaxin 04/09 Hx Tablets 500mg 20tab Si bid s X 10 Days Michael Decker M.D.,[facility] 06/03 Amrix 02/14 Hx Caps ER 15mg 15cap 1 po qhs 722.0 24HR Michael Antonio M.D.,[facility] 06/03 Hydrocodone-Acet 01/16 Hx Tablets 5/500mg 240ta 1-2 po qid bs prnando Gaytan M.D.,[facility] Xanax 12/31 Hx Tablets 1mg 10tab /2-1 po s bid prMichael Hendrix M.D.,[facility] 02/14 Vagifem 12/09 Hx Tablets 25mcg 3Mont pv Twice A h Week (With Orlando Gaytan, - Applicator) Anisha,[facility] 04/16 Oxycodone HCL CR 11/27 Hx Tablets ER 10mg 60tab bid po 12HR Michael Antonio M.D.,[facility] 02/14 Oxycontin 11/05 Hx Tablets ER 10mg 36tab 1 PO bid 12HR Michael Antonio M.D.,[facility] 11/05 Percocet 11/05 Hx Tablets 5-325mg 120ta 1/2-1 po bs qid prMichael Hendrix M.D.,[facility] 02/14 Vytorin 11/05 Hx Tablets 10-10mg 90tab 1 PO QHS Michael Antnoio M.D.,[facility] 06/03 Metformin HCL 11/05 Hx Tablets 500mg 180ta take 1 790.21 bs tablet by Orlando Gaytan, - mouth twice M.D.,[facility] 05/04 a day food Lunesta 08/20 Hx Tablets 3mg 30tab one tab hs s Michael Decker M.D.,[facility] 04/16 Flonase 07/30 Hx Suspension 50mcg/Act 1Bott 1 473.1 le intranasal Orlando Gaytan, - puff to M.Orlando,[facility] 05/30 nostril daily Atenolol 06/27 Hx Tabs 50mg 30tab Take 04/04 s Tablet By Orlando Gaytan, - Mouth once M.DSarah,[facility] 05/30 Tylenol/Codeine 05/01 Hx Tablets #4 240ta 1-2 qid prn 724.5 Chaitanya # bs Michael Decker M.D.,[facility] 11/05 Soma 05/01 Hx Tablets 350mg 90tab tid prn 724.5 s Michael Decker M.D.,[facility] 07/30 Metformin HCL 05/01 Hx Tablets 500mg 60tab 1 po bid Michael Antonio M.D.,[facility] 07/30 Cymbalta 04/09 Hx Cpep 30mg 60uni Take 1 ts Capsule Orlando Gaytan, - Twice A Day M.DSarah,[facility] 05/13 Soma 02/26 Hx Tablets 350mg 30tab 1 tablet by Chaitanya s mouth in Orlando Gaytan, - evening prn Anisha,[facility] 01/02 Ambien 02/21 Hx Tablets 10mg 30tab 1 po qhs s prn sleep Orlando Gaytan, - insomnia M.D.,[facility] 12/04 Biaxin 02/16 Hx Tablets 500mg 20tab bid po for 462 s 10 days Michael Decker M.D.,[facility] 05/01 Phenergan/Codein 02/16 Hx Syrup 6Oz 1-2 tsp qid 462 Chaitanya prn Michael Decker M.D.,[facility] 02/14 Lisinopril Hx Tablets 10mg 30tab 1 PO qd 786.2 Chaitanya / Michael Antonio M.D.,[facility] 08/25 Oxycodone HCL Hx Solution 5mg/5ML one tablet Unknown /0000 every 8 - hours prn 11/05 Hydrocodone Hx Tablets 7.5-500 60tab 1 q 4 hours Unknown Bitartrate/Apap /0000 s prn pain - 06/03 Hydrocodone-Acet Hx Tablets 5/500mg 120ta 1/2-1 po Chaitanya aminophen / bs qid prn Michael Decker M.D.,[facility] 05/27 Lyrica Hx Capsules 50mg 90cap 1 po tid Chaitanya / Michael Antonio M.D.,[facility] 06/05 Coricidin HBP Hx Tablets 4-30mg prn Unknown Cough & Cold / - 12/[address] 20mg 90cap 1 po qd prn Unknown /0000 s - 11/11 Codeine #4 Hx Tablets 30mg 20tab 2 po q 4-6 Unknown /0000 s hr prn pain - 07/16 Tylenol Hx Tablets 325mg 2 as needed Unknown /0000 - 12/15 Metformin HCL 00 Hx Tablets 500mg Unknown /0000 - 01/02 Medications Administered in Office Medication Date Status Form Strength Qnty SIG Indications Ordering Provider Triamcinolone 02/07/ Administered Injection Zaneb (Kenalog) 2016 MD Marsha Triamcinolone 12/01/ Administered Injection Zaneb (Kenalog) 2016 MD Marsha Triamcinolone 12/01/ Administered Injection Zaneb (Kenalog) 2016 MD Marsha Depomedrol 80MG 10/09/ Administered Injection Juan Uriel Savage M.D. Celestone 3 mg 06/03/ Administered Injection Suzette and 3mg 2014 Justyna colindres M.D. Depomedrol 80MG 08/ Administered Injection Juan Savage M.D. Immunizations CPT Code Status Date Vaccine Reaction Lot # [id number] Given 01/02/2017 Pneumonia Vaccine no reaction, pt [id number] tolerated well 13119 Given 01/02/2017 Influenza Virus Vaccine, no reaction, pt [id number] Quadrivalent, Split, tolerated well Preservative Free 16375 Given 12/09/2015 Fluzone High Dose 34311 Given 12/03/2014 Fluzone High Dose 30196 Given 12/25/2013 Pneumococcal Conjugate [id number] Vaccine 13 Valent For Intramuscular Use Q2038 Given 12/12/2013 Fluzone Vaccine Q2037 Given 01/07/2013 Fluvirin Im 3Yrs And Older Q2038 Given 12/07/2011 Fluzone Vaccine [id number] Q2039 Given 12/20/2010 Flu Vaccine NOS 91868 Given 07/26/2010 Tdap - [id number] Tetanus/Diptheria/Acellular Pertussis 25074 Given 05/27/2010 Pneumonia Vaccine [id number] 79233 Given 01/10/2010 Influenza Virus 3Yrs & Over 93560 Given 02/04/2009 Influenza Virus Vaccine, [id number] Pandemic Formulation 58687 Given 02/04/2009 Administration Swine Flu Shot 34153 Given 01/22/2009 Influenza Virus 3Yrs & [id number] Over 37605 Given 01/28/2008 Influenza Virus 3Yrs & Over 57448 Given 01/28/2008 Influenza Virus 3Yrs & [id number] Over 42142 Given 11/28/2007 Zoster (Zostavax) 08328 Given 11/28/2007 Zoster (Zostavax) Q2038 Given Unknown Fluzone Vaccine Vital Signs Date Vital Result Comment 04/28/2017 Heart Rate 92 /min BP Systolic Sitting 112 mmHg BP Diastolic Sitting 78 mmHg Body Temperature 98.6 F O2 % BldC Oximetry 93 % 04/24/2017 Heart Rate 71 /min BP Systolic 128 mmHg BP Diastolic 80 mmHg Body Temperature 98.1 F O2 % BldC Oximetry 98 % 03/29/2017 Height 63 inches 5'3" Weight 201.00 [...] Test Date Test Result H/L Range Note Ua Routine 04/28/2017 Ua Specific [place] 1.020 Ua PH 6 Ua Color orange Ua Appera clear Ua WBC ++ Ua Protein ++100 Ua Glucose normal Ua Ketones neg Ua Bilirubin +++ Ua Urobilinogen 12 Ua Nitrite pos Ua Occult Blood neg Xray 04/28/2017 US Renal Complete <pending> Urinalysis Profile 04/23/2017 Urine Color Yellow Urine Appearance Cloudy Urine Specific [place] 1.018 1.010-1.030 Urine pH 6.0 5-9 Urine Urobilinogen Negative Negative Urine Ketones Negative Negative Urine Protein Negative Negative Urine Leukocytes 3+ Negative Urine Blood Negative Negative * * Negative 1 Urine Nitrite Positive Negative Urine Bilirubin Negative Negative Urine Glucose Negative Negative Urine White Blood Cell 3+(>20/hpf) Absent Urine Red Blood Cell 1+(3-5/hpf) Absent Urine Bacteria 1+ Absent Urine Squamous Epithelial Cell Present Absent Urine Culture And Sensitivities 04/23/2017 Urine Culture SEE RESULT BELOW 2 Lipid Profile (Trig/Chol/HDL) 01/11/2017 Triglycerides 216 mg/dL 3 Cholesterol 229 mg/dL 4 HDL Cholesterol 38.5 mg/dL 5 LDL Cholesterol 147 mg/dL 6 Basic Metabolic Panel 01/11/2017 Sodium 140 mmol/L 133-145 Potassium 4.3 mmol/L 3.5-5.0 Chloride 102 mmol/L 101-111 Co2 Carbon Dioxide 33 mmol/L High 22-32 Anion Gap 5 mmol/L 2-11 Glucose 154 mg/dL High 70-100 Blood Urea Nitrogen 14 mg/dL 6-24 Creatinine 0.72 mg/dL 0.51-0.95 BUN/Creatinine Ratio 19.4 8-20 Calcium 9.1 mg/dL 8.6-10.3 Egfr Non- 79.9 >60 Egfr 102.7 >60 7 Laboratory test finding 01/02/2017 Hemoglobin A1c 8.0 High 5-7 Laboratory test finding 08/11/2016 Hemoglobin A1c 7.4 High 5-7 Laboratory test finding 05/04/2016 Hemoglobin A1c 7.7 High 5-7 Arthritis Panel 03/04/2016 Uric Acid 4.9 mg/dL 2.3-6.6 Erythrocyte Sed Rate 17 mm/Hr 0-40 Rheumatoid Factor <15 IU/mL <15 8 Anti-Nuclear Antibody 0.5 U 9 Cyclic Citrullinated Peptide <15.6 U 10 Interpretation See Comment 11 Urine Microalbumin Random 02/10/2016 Urine Creatinine 72.77 mg/dL Ur Microalbumin (mg/L) < 15.0 mg/L Urine Microalbumin/Creatinine TNP ug/mg <31 12 Laboratory test 02/09/2016 Hemoglobin A1c 7.8 % High Less than 6.0 13 finding (Glyco HGB) CBC Auto Diff 02/09/2016 [...] 15.0 mg/L Urine Microalbumin/Creatinine TNP ug/mg <31 14 Lipid Profile (Trig/Chol/HDL) 12/21/2015 Triglycerides 175 mg/dL 15 Cholesterol 208 mg/dL 16 HDL Cholesterol 38.0 mg/dL 17 LDL Cholesterol 135 mg/dL 18 CBC Auto Diff 12/21/2015 White Blood Count [...] Egfr Non- 80.1 >60 Egfr 103.0 >60 19 Laboratory test finding 12/21/2015 Erythrocyte Sed Rate 17 mm/Hr 0-40 20 TSH (Thyroid Stim Horm) 1.34 mcIU/mL 0.34-5.60 21 Vitamin B12 929 pg/mL High 180-914 22 Laboratory test finding 11/05/2015 Hemoglobin A1c 7.0 5-7 Urine Culture And 08/04/2015 Urine Culture SEE RESULT BELOW 23 Sensitivities Ua Routine 08/04/2015 Ua Specific [place] 1.020 Ua PH 6 Ua Color yellow Ua Appera cloudy Ua WBC positive Ua Protein positive Ua Glucose neg Ua Ketones neg Ua Bilirubin neg Ua Urobilinogen neg Ua Nitrite neg Ua Occult Blood positive Laboratory test finding 03/16/2015 Urine Culture And SEE RESULT BELOW 24 Sensitivities Ua And Culture 01/12/2015 Urine Culture And SEE RESULT BELOW 25 Sensitivity Sensitivities Urinalysis Profile 01/12/2015 Urine Color Straw Urine Appearance Clear Urine Specific [place] 1.006 Low 1.010-1.030 Urine pH 7.0 5-9 Urine Urobilinogen Negative Negative Urine Ketones Negative Negative Urine Protein Negative Negative Urine Leukocytes Negative Negative Urine Blood Negative Negative Urine Nitrite Negative Negative Urine Bilirubin Negative Negative Urine Glucose Negative Negative Laboratory test finding 01/09/2015 Gardnerella/Yeast: Vaginal SEE RESULT BELOW 26 Dna Urine Microalbumin 12/12/2014 Ur Microalbumin (mg/L) 10.0 mg/L 27 Random Urine Creatinine 224.37 mg/dL 27 Urine Microalbumin/Creatinine 4.4 ug/mg <31 27 Laboratory test 12/12/2014 Hemoglobin A1c (Glyco 6.7 % High Less than 27 , 28 finding HGB) 6.0 Lipid Profile 12/12/2014 Triglycerides 278 mg/dL 27, 29 (Trig/Chol/HDL) Cholesterol 281 mg/dL 27, 30 HDL Cholesterol 43.9 mg/dL 27, 31 LDL Cholesterol 182 mg/dL 27, 32 Comp Metabolic Panel 12/12/2014 Sodium 139 mmol/L 133-145 27 Potassium 4.1 mmol/L 3.5-5.0 27 Chloride 102 mmol/L 101-111 27 Co2 Carbon Dioxide 32 mmol/L 22-32 27 Anion Gap 5 mmol/L 2-11 27 Glucose 97 mg/dL 70-100 27 Blood Urea Nitrogen 12 mg/dL 6-24 27 Creatinine 0.82 mg/dL 0.51-0.95 27 BUN/Creatinine Ratio 14.6 8-20 27 Calcium 8.7 mg/dL 8.6-10.3 27 Total Protein 5.9 g/dL Low 6.4-8.9 27 Albumin 3.6 g/dL 3.2-5.2 27 Globulin 2.3 g/dL 2-4 27 Albumin/Globulin Ratio 1.6 1-3 27 Total Bilirubin 0.40 mg/dL 0.2-1.0 27 Alkaline Phosphatase 65 U/L 34-104 27 Alt 13 U/L 7-52 27 Ast 13 U/L 13-39 27 Egfr Non- 69.1 >60 27 Egfr 88.9 >60 27, 33 Laboratory test 09/01/2014 Glucose 105 mg/dL High 70-100 finding Laboratory test 07/16/2014 Hemoglobin A1c 6.6 5-7 finding Laboratory test 06/16/2014 Rapid Influenza A B (SEE NOTE) 34 finding Antigen Surgical Pathology 05/29/2014 S RUN [...] Egfr Non- 79.3 >60 Egfr 102.0 >60 36 Lipid Profile (Trig/Chol/HDL) 12/20/2013 Triglycerides 175 mg/dL 37 Cholesterol 205 mg/dL 38 HDL Cholesterol 48.4 mg/dL 39 LDL Cholesterol 122 mg/dL 40 Laboratory test finding 12/20/2013 Creatine Kinase 28 U/L 10-223 Lipid Panel - [facility] 09/06/2013 Creatine Kinase 33 U/L 10-223 27, 41 Comp Metabolic Panel 09/06/2013 Sodium 142 mmol/L 133-145 27 Potassium 4.2 mmol/L 3.7-5.6 27 Chloride 106 mmol/L 101-111 27 Co2 Carbon Dioxide 33 mmol/L High 22-32 27 Anion Gap 3 mmol/L 2-11 27 Glucose 118 mg/dL High 70-100 27 Blood Urea Nitrogen 11 mg/dL 6-24 27 Creatinine 0.71 mg/dL 0.51-0.95 27 BUN/Creatinine Ratio 15.5 8-20 27 Calcium 9.1 mg/dL 8.6-10.3 27 Total Protein 6.0 g/dL Low 6.4-8.9 27 Albumin 3.8 g/dL 3.2-5.2 27 Globulin 2.2 g/dL 2-4 27 Albumin/Globulin Ratio 1.7 1-3 27 Total Bilirubin 0.40 mg/dL 0.2-1.0 27 Alkaline Phosphatase 64 U/L 34-104 27 Alt 12 U/L 7-52 27 Ast 15 U/L 13-39 27 Egfr Non- 82.1 >60 27 Egfr 105.6 >60 27, 42 Lipid Profile (Trig/Chol/HDL) 09/06/2013 Triglycerides 223 mg/dL 27, 43 Cholesterol 188 mg/dL 27, 44 HDL Cholesterol 42.4 mg/dL 27, 45 LDL Cholesterol 101 mg/dL 27, 46 CBC Auto Diff 08/11/2013 White Blood Count [...] Red Blood Cells % 0 Laboratory test finding 08/11/2013 Erythrocyte Sed Rate 11 mm/Hr 0-40 Lipid Profile (Trig/Chol/HDL) 05/28/2013 Triglycerides 173 mg/dL 47 Cholesterol 241 mg/dL 48 HDL Cholesterol 45.6 mg/dL 49 LDL Cholesterol 161 mg/dL 50 Laboratory test 05/28/2013 Hemoglobin A1c 6.6 % High Less than 6.0 51 finding Urine Microalbumin 05/28/2013 Ur Microalbumin 6.0 mg/dL <30 52 Random (mg/L) Urine Creatinine 104.90 mg/dL Urine Microalbumin/Creatinine 5.7 Less Than 31 Lipid Panel - [facility] 12/24/2012 Creatine Kinase 35 U/L 0-200 53 Comp Metabolic Panel 12/24/2012 Sodium 140 mmol/L [...] Egfr Non- 99.7 >60 Egfr 128.2 >60 54 Lipid Profile (Trig/Chol/HDL) 12/24/2012 Triglycerides 214 mg/dL High 40- 200 Cholesterol 223 mg/dL High Less than 200 HDL Cholesterol 47 mg/dL 40-60 55 Cholesterol/HDL Ratio 4.7 Average High 1-4.44 LDL Cholesterol 133.2 High Less Than 100 56 Laboratory test finding 12/04/2012 Hemoglobin A1c 6.2 5-7 Laboratory test finding 11/16/2012 Blood Urea Nitrogen 5 mg/dL Low 6-24 Creatinine 11/16/2012 Creatinine 0.60 mg/dL 0.50-1.40 Egfr Non- 99.7 >60 Egfr 128.2 >60 57 Laboratory test finding 09/12/2012 Inr 0.81 Low 0.87-0.97 Activated Partial Thrombo Time 27.5 seconds 22.18-37.18 Laboratory test finding 06/05/2012 Hemoglobin A1c 6.4 5-7 Urine Microalbumin Random 06/01/2012 Ur Microalbumin (Mg/L) 10.0 mg/L 58 Urine Creatinine 231.0 mg/dL Urine Microalbumin/Creatinine 4.3 ug/mg Less Than 31 Creatinine 02/13/2012 Creatinine 0.70 mg/dL 0.50-1.40 Egfr Non- 83.7 >60 Egfr 107.7 >60 59 Urine Microalbumin Random 12/07/2011 Microalbumin (MG/L) 13.0 mg/L Urine Creatinine 320.4 mg/dL Richard Alb/Creatinine Ratio 4.1 UG/MG Less Than 30 60 Laboratory test finding 12/07/2011 Hemoglobin A1c 6.5 5-7 Lipid Panel - [facility] 08/01/2011 CPK (Creatine Kinase) 39 U/L 0-170 Comp Metabolic Panel 08/01/2011 Sodium 138 mmol/L 135-145 Potassium 4.1 mmol/L 3.5-5.0 Chloride 104 mmol/L 101-111 Co2 (Carbon Dioxide) 31.0 mmol/L 22-32 Anion Gap 3.0 mmol/L 2-11 61 Glucose 89 mg/dL 70-100 BUN 10 mg/dL 6-24 Creatinine 0.7 mg/dL 0.50-1.40 One Over Creatinine 1.42 BUN/Creatinine Ratio 14.3 8-20 Calcium 9.1 mg/dL 8.1-9.9 Total Protein 5.7 GM/DL Low 6.2-8.1 Albumin 3.5 GM/DL 3.2-5.2 Globulin 2.2 GM/DL 2-4 Albumin/Globulin Ratio 1.6 1-3 Bilirubin Total 0.6 mg/dL 0.4-1.5 62 Alkaline Phosphatase 60 U/L 30-110 Alt (SGPT) 16 U/L 14-54 Ast (Sgot) 19 U/L 12-42 eGFR Non- 84.0 > 60 eGFR 108.0 > 60 63 Lipid Profile (Trig/Chol/HDL) 08/01/2011 Triglyceride 203 mg/dL High 40- 200 Cholesterol 198 mg/dL Less Than 200 64 High Density Lipoprotein 43 mg/dL 40-60 65 Cholesterol/HDL Ratio 4.60 AVERAGE High 1-4.44 Low Density Lipoprotein 114 mg/dL High Less Than 100 66 Laboratory test finding 05/30/2011 Hemoglobin A1c 6.2 5-7 Lipid Panel - [facility] 05/27/2011 CPK (Creatine Kinase) 40 U/L 0-170 Comp Metabolic Panel 05/27/2011 Sodium 141 mmol/L 135-145 Potassium 4.4 mmol/L 3.5-5.0 Chloride 103 mmol/L 101-111 Co2 (Carbon Dioxide) 32.0 mmol/L 22-32 Anion Gap 6.0 mmol/L 2-11 67 Glucose 98 mg/dL 70-100 BUN 8 mg/dL 6-24 Creatinine 0.6 mg/dL 0.50-1.40 One Over Creatinine 1.66 BUN/Creatinine Ratio 13.3 8-20 Calcium 9.0 mg/dL 8.1-9.9 Total Protein 5.7 GM/DL Low 6.2-8.1 Albumin 3.4 GM/DL 3.2-5.2 Globulin 2.3 GM/DL 2-4 Albumin/Globulin Ratio 1.5 1-3 Bilirubin Total 0.6 mg/dL 0.4-1.5 68 Alkaline Phosphatase 59 U/L 30-110 Alt (SGPT) 18 U/L 14-54 Ast (Sgot) 18 U/L 12-42 eGFR Non- 100.3 > 60 eGFR 129.0 > 60 69 Lipid Profile (Trig/Chol/HDL) 05/27/2011 Triglyceride 293 mg/dL High 40- 200 Cholesterol 284 mg/dL High Less Than 200 70 High Density Lipoprotein 36 mg/dL Low 40-60 71 Cholesterol/HDL Ratio 7.89 AVERAGE High 1-4.44 Low Density Lipoprotein 189 mg/dL High Less Than 100 72 CBC No Diff 05/27/2011 White Blood Count [...] 150-450 Mean Platelet Volume 8.1 um3 7.4-10.4 Laboratory test finding 11/30/2010 Hemoglobin A1c 5.9 5-7 Lipid Panel - [facility] 11/25/2010 CPK (Creatine Kinase) 43 U/L 0-170 Lipid Profile (Trig/Chol/HDL) 11/25/2010 Triglyceride 150 mg/dL 40-200 Cholesterol 179 mg/dL Less Than 200 73 High Density Lipoprotein 47 mg/dL 40-60 74 Cholesterol/HDL Ratio 3.81 AVERAGE 1-4.44 Low Density Lipoprotein 102 mg/dL High Less Than 100 75 Comp Metabolic Panel 11/25/2010 Sodium 142 mmol/L 135-145 Potassium 4.6 mmol/L 3.5-5.0 Chloride 104 mmol/L 101-111 Co2 (Carbon Dioxide) 34.0 mmol/L High 22-32 Anion Gap 4.0 mmol/L 2-11 76 Glucose 93 mg/dL 70-100 BUN 7 mg/dL 6-24 Creatinine 0.7 mg/dL 0.50-1.40 One Over Creatinine 1.42 BUN/Creatinine Ratio 10.0 8-20 Calcium 9.1 mg/dL 8.1-9.9 Total Protein 5.9 GM/DL Low 6.2-8.1 Albumin 3.7 GM/DL 3.2-5.2 Globulin 2.2 GM/DL 2-4 Albumin/Globulin Ratio 1.7 1-3 Bilirubin Total 0.8 mg/dL 0.4-1.5 77 Alkaline Phosphatase 52 U/L 30-110 Alt (SGPT) 18 U/L 14-54 Ast (Sgot) 18 U/L 12-42 eGFR Non- 84.0 > 60 eGFR 108.0 > 60 78 Laboratory test 06/08/2010 Hemoglobin A1c 7.1 % High Less Than 6.0 79 finding Urine Microalbumin 06/08/2010 Microalbumin (MG/L) 10.0 mg/L Random Urine Creatinine 303.93 mg/dL Richard Alb/Creatinine Ratio 3.2 UG/MG Less Than 30 80 Lipid Panel - [facility] 06/08/2010 CPK (Creatine Kinase) 40 U/L 0-170 Comp Metabolic Panel 06/08/2010 Sodium 142 mmol/L 135-145 Potassium 3.7 mmol/L 3.5-5.0 Chloride 102 mmol/L 101-111 Co2 (Carbon Dioxide) 31.0 mmol/L 22-32 Anion Gap 9.0 mmol/L 2-11 81 Glucose 99 mg/dL 70-100 BUN 11 mg/dL 6-24 Creatinine 0.70 mg/dL 0.50-1.40 One Over Creatinine 1.40 BUN/Creatinine Ratio 15.7 8-20 Calcium 8.8 mg/dL 8.1-9.9 Total Protein 6.3 GM/DL 6.2-8.1 Albumin 3.9 GM/DL 3.2-5.2 Globulin 2.4 GM/DL 2-4 Albumin/Globulin Ratio 1.6 1-3 Bilirubin Total 0.6 mg/dL 0.4-1.5 82 Alkaline Phosphatase 64 U/L 30-110 Alt (SGPT) 30 U/L 14-54 Ast (Sgot) 33 U/L 12-42 eGFR Non- 84.2 > 60 eGFR 108.3 > 60 83 Lipid Profile (Trig/Chol/HDL) 06/08/2010 Triglyceride 134 mg/dL 40-200 Cholesterol 190 mg/dL Less Than 200 84 High Density Lipoprotein 50 mg/dL 40-60 85 Cholesterol/HDL Ratio 3.80 AVERAGE 1-4.44 Low Density Lipoprotein 113 mg/dL High Less Than 100 86 Laboratory test finding 06/08/2010 TSH 2.70 MIU/ML 0.34-5.60 Thyroxine Free 0.79 ng/dL 0.61-1.24 GGTP 23 U/L 7-50 Liver Function Panel 09/04/2009 Total Protein 5.6 GM/DL Low 6.2-8.1 Albumin 3.8 GM/DL 3.2-5.2 Globulin 1.8 GM/DL Low 2-4 Albumin/Globulin Ratio 2.1 1-3 Bilirubin Total 0.7 mg/dL 0.4-1.5 87 Bilirubin Direct 0.1 mg/dL 0.1-0.5 Indirect Bilirubin 0.6 mg/dL 0.1-0.75 Alkaline Phosphatase 80 U/L 30-110 Alt (SGPT) 72 U/L High 14-54 Ast (Sgot) 59 U/L High 12-42 Comp Metabolic Panel 08/06/2009 Sodium 143 mmol/L 135-145 Potassium 4.5 mmol/L 3.5-5.0 Chloride 104 mmol/L 101-111 Co2 (Carbon Dioxide) 32.0 mmol/L 22-32 Anion Gap 7.0 mmol/L 2-11 88 Glucose 108 mg/dL High 70-100 89 BUN 10 mg/dL 6-24 Creatinine 0.80 mg/dL 0.50-1.40 One Over Creatinine 1.20 BUN/Creatinine Ratio 12.5 8-20 Calcium 9.5 mg/dL 8.1-9.9 90 Total Protein 6.1 GM/DL Low 6.2-8.1 Albumin 3.7 GM/DL 3.2-5.2 Globulin 2.4 GM/DL 2-4 Albumin/Globulin Ratio 1.5 1-3 Bilirubin Total 0.7 mg/dL 0.4-1.5 91 Alkaline Phosphatase 72 U/L 30-110 Alt (SGPT) 56 U/L High 14-54 Ast (Sgot) 41 U/L 12-42 eGFR Non- 77.0 > 60 eGFR 93.2 > 60 92 Lipid Profile (Trig/Chol/HDL) 08/06/2009 Triglyceride 126 mg/dL 40-200 Cholesterol 148 mg/dL Less Than 200 93 High Density Lipoprotein 39 mg/dL Low 40-60 94 Cholesterol/HDL Ratio 3.79 AVERAGE 1-4.44 Low Density Lipoprotein 84 mg/dL Less Than 100 95 Laboratory test 08/06/2009 Hemoglobin A1c 6.2 % High Less Than 96 finding 6.0 Laboratory test 06/05/2009 Hemoglobin A1c 6.4 % High Less Than 97, 98 finding 6.0 Urine Microalbumin 06/05/2009 Microalbumin (MG/L) 2.0 mg/L 97 Random Urine Creatinine 90.00 mg/dL 97 Richard Alb/Creatinine Ratio 2.2 UG/MG Less Than 30 97, 99 Lipid Panel - [facility] 06/05/2009 CPK (Creatine Kinase) 43 U/L 0-170 97 Comp Metabolic Panel 06/05/2009 Sodium 141 mmol/L 135-145 97 Potassium 4.5 mmol/L 3.5-5.0 97 Chloride 102 mmol/L 101-111 97 Co2 (Carbon Dioxide) 34.0 mmol/L High 22-32 97 Anion Gap 5.0 mmol/L 2-11 97, 100 Glucose 117 mg/dL High 70-100 97, 101 BUN 11 mg/dL 6-24 97 Creatinine 0.80 mg/dL 0.50-1.40 97 One Over Creatinine 1.20 97 BUN/Creatinine Ratio 13.8 8-20 97 Calcium 9.1 mg/dL 8.1-9.9 97, 102 Total Protein 5.8 GM/DL Low 6.2-8.1 97 Albumin 3.5 GM/DL 3.2-5.2 97 Globulin 2.3 GM/DL 2-4 97 Albumin/Globulin Ratio 1.5 1-3 97 Bilirubin Total 0.7 mg/dL 0.4-1.5 97, 103 Alkaline Phosphatase 72 U/L 30-110 97 Alt (SGPT) 23 U/L 14-54 97 Ast (Sgot) 22 U/L 12-42 97 eGFR Non- 77.0 > 60 97 eGFR 93.2 > 60 97, 104 Lipid Profile (Trig/Chol/HDL) 06/05/2009 Triglyceride 234 mg/dL High 40- 200 97 Cholesterol 269 mg/dL High Less Than 200 97, 105 High Density Lipoprotein 42 mg/dL 40-60 97, 106 Cholesterol/HDL Ratio 6.40 AVERAGE High 1-4.44 97 Low Density Lipoprotein 180 mg/dL High Less Than 100 97, 107 Surgical Pathology 05/25/2009 Surgical Pathology <SEE 108 NOTE> Lipid Panel - [facility] 05/30/2008 CPK (Creatine 26 U/L 0-170 Kinase) Comp Metabolic 05/30/2008 Sodium 140 mmol/L 135-145 Panel Potassium 4.0 mmol/L 3.5-5.0 Chloride 101 mmol/L 101-111 Co2 (Carbon Dioxide) 33.0 mmol/L High 22-32 Anion Gap 6.0 mmol/L 2-11 109 Glucose 91 mg/dL 70-100 110 BUN 12 mg/dL 6-24 Creatinine 0.80 mg/dL 0.50-1.40 One Over Creatinine 1.20 BUN/Creatinine Ratio 15.0 8-20 Calcium 9.4 mg/dL 8.1-9.9 111 Total Protein 6.3 GM/DL 6.2-8.1 Albumin 3.6 GM/DL 3.2-5.2 Globulin 2.7 GM/DL 2-4 Albumin/Globulin Ratio 1.3 1-3 Bilirubin Total 0.5 mg/dL 0.4-1.5 Alkaline Phosphatase 82 U/L 30-110 Alt (SGPT) 23 U/L 14-54 Ast (Sgot) 22 U/L 12-42 Lipid Profile (Trig/Chol/HDL) 05/30/2008 Triglyceride 257 mg/dL High 40- 200 Cholesterol 246 mg/dL High Less Than 200 112 High Density Lipoprotein 48 mg/dL 40-60 113 Cholesterol/HDL Ratio 5.13 AVERAGE High 1-4.44 Low Density Lipoprotein 147 mg/dL High Less Than 100 114 Laboratory test finding 05/30/2008 Hemoglobin A1c 6.5 % High <6.0 115 CBC With Electronic Diff 04/09/2008 White Blood [...] Eosinophils 0.1 0-0.6 Abs Basophils 0 0-0.2 116 Basic Metabolic Panel 04/09/2008 Sodium 140 mmol/L 135-145 Potassium 4.2 mmol/L 3.5-5.0 Chloride 103 mmol/L 101-111 Co2 (Carbon Dioxide) 32.0 mmol/L 22-32 Anion Gap 5.0 mmol/L 2-11 117 Glucose 96 mg/dL 70-100 118 BUN 10 mg/dL 6-24 Creatinine 0.70 mg/dL 0.50-1.40 One Over Creatinine 1.40 BUN/Creatinine Ratio 14.3 8-20 Calcium 9.3 mg/dL 8.1-9.9 119 Creatinine 24HR Urine 11/09/2007 Creatinine Random Urine 55.0 mg/dL 120 Urine Creatinine/24HR 748.0 MG/24HR 600-1800 120 Hours Of Collection 24 HR 24- 120 Urine Volume Measurement 1360 ML 120 Total Protein 24HR Urine 11/09/2007 Total Protein Random Urine 9 mg/dL 120 Urine Total Protein/24HR 122 MG/24HR High 50-100 120 Urinalysis W/Microscopic 2007 Ua Color YELLOW Appearance-Urine CLEAR Specific [place] 1.024 1.010-1.030 Esterase-Urine TRACE Negative Nitrite NEGATIVE Negative Qlvzatdenxjf-Lf-UKB NEGATIVE Negative Protein-Urine 1+ Negative PH-Urine 5.0 5-9 Blood-Urine NEGATIVE Negative Ketones-Urine NEGATIVE Negative Bilirubin-Ur NEGATIVE Negative Glucose-Urine NEGATIVE Negative WBC-Urine 3-7 0-5 RBC-Urine 0-2 0-2 Mucus Urine MODERATE Epith Cells-Ur FEW Bacteria-Urine 1+ Basic Metabolic Panel 2007 Sodium 140 mmol/L 135-145 Potassium 4.2 mmol/L 3.5-5.0 Chloride 102 mmol/L 101-111 Co2 (Carbon Dioxide) 33.0 mmol/L High 22-32 Anion Gap 5.0 mmol/L 2-11 121 Glucose 109 mg/dL High 70-105 BUN 13 mg/dL 6-24 Creatinine 0.8 mg/dL 0.5-1.4 One Over Creatinine 1.25 BUN/Creatinine Ratio 16.3 8-20 Calcium 8.7 mg/dL 8.1-9.9 122 Lipid Profile (Trig/Chol/HDL) 2007 Triglyceride 238 mg/dL High 40- 200 Cholesterol 302 mg/dL High Less Than 200 123 High Density Lipoprotein 38 mg/dL Low 40-60 124 Cholesterol/HDL Ratio 7.95 AVERAGE High 1-4.44 Low Density Lipoprotein 216 mg/dL High Less Than 100 125 Laboratory test finding 02/16/2007 Throat Culture Full MANY NORMAL THRO 126 <SEE NOTE> 1 *Ascorbic acid is present which may interfere with detection of blood. 2 SEE RESULT BELOW Name: KATHLEEN ROWE : [address]: Duy Landin MD Acct: [id number] Unit: [id number] AGE: 71 Location: ED Re04/23/17 SEX: F Status: DEP ER SPEC: [id number] LENORA: 04/23/17-110[address] [facility] [address]: Duy Landin MD REQ: [id number] RECD: 04/23/17-1117 STATUS: MICHELLE JOSEPH DR: Chaitanya Gaytan MD _ SOURCE: URINE SPDESC: ORDERED: Urine Culture Procedure Result Reported Site Urine Culture Final 04/25/17- 812 ML Organism 1 ESCHERICHIA COLI [place] Count >100,000 (Many) CFU/ML 1. ESCHERICHIA COLI M.I.C. RX --------- ------ Ampicillin 8 S Cefazolin <=4 S Cefepime <=1 S Ceftriaxone <=1 S Ciprofloxacin <=0.25 S Gentamicin <=1 S Levofloxacin <=0.12 S Meropenem <=0.25 S Nitrofurantoin <=16 S Tetracycline <=1 S Pipercillin/Tazobactam <=4 S Trimethoprim/Sulfamethoxazole <=20 S Amoxicillin/Clavulanic Acid 4 S Aztreonam <=1 S Contact the Microbiology Department for any additional antibiotic reporting. * ML - MAIN LAB ([facility]) . END OF REPORT * ML=Testing performed at Main Lab DEPARTMENT OF PATHOLOGY, [address] [place] [address] Juan Manuel Jiménez M.D. Director [facility] # [id number] 3 Desirable <150 Borderline high 150-199 High 200-499 Very High >500 4 Desirable <200 Borderline high 200-239 High >239 5 Low <40 Desirable: 40-60 High: >60 6 Desirable: <100 mg/dL Near Optimal: 100-129 mg/dL Borderline High: 130-159 mg/dL High: 160-189 mg/dL Very High: >189 mg/dL 7 Because ethnic data is not always readily [...] 15-29 5 Kidney failure <15 (or dialysis) 8 Test Performed by: [place] [address] Jazz Singer: Jesus Hughes II, M.D., Ph.D. 9 REFERENCE VALUE <=1.0 (Negative) 10 REFERENCE VALUE <20.0 (Negative) 11 Tests for antibodies to dsDNA and EDY antigens are not performed automatically unless the PEDRO result is > or= 3.0 U. Studies performed at [facility] indicate that positive PEDRO results <3.0 U are rarely accompanied by positive second order tests. Test Performed by: [place] [address] Jazz Singer: Jesus Hughes II, M.D., Ph.D. 12 Unable to calculate due to low microalbumin 13 Therapeutic target for the treatment of diabetes Mellitus patients is <7% HBA1C, and in selective patients <6.0%.Please refer to [place] [employer] Diabetic care guidelines for further information. 14 Unable to calculate due to low microalbumin 15 Desirable <150 Borderline high 150-199 High 200-499 Very High >500 16 Desirable <200 Borderline high 200-239 High >239 17 Low <40 Desirable: 40-60 High: >60 18 Desirable: <100 mg/dL Near Optimal: 100-129 mg/dL Borderline High: 130-159 mg/dL High: 160-189 mg/dL Very High: >189 mg/dL 19 Because ethnic data is not always readily [...] 15-29 5 Kidney failure <15 (or dialysis) 20 FASTING 10 HOUR 21 FASTING 10 HOUR 22 Normal Range 180 to 914 Indeterminate Range 145 to 180 Deficient Range <145 23 SEE RESULT BELOW Name: KATHLEEN ROWE : [address]: Christian Gaytan MD Acct: [id number] Unit: [id number] AGE: 69 Location: [facility] Re08/04/15 SEX: F Status: REG REF SPEC: [id number] LENORA: 08/04/15-[address]: Chatianya Gaytan MD REQ: [id number] RECD: 08/04/15 STATUS: COMP _ SOURCE: URINE SPDESC: ORDERED: Urine Culture COMMENTS: [facility] [id number] Procedure Result Reported Site Urine Culture Final 08/06/15- 0758 ML Organism 1 ESCHERICHIA COLI [place] Count 50-75,000 (Many) CFU/ML Organism 2 NORMAL SHRUTHI [place] Count 1-10,000 (Few) CFU/ML 1. ESCHERICHIA COLI [...] antibiotic reporting. * ML - MAIN LAB ([facility]) . END OF REPORT * ML=Testing performed at Main Lab DEPARTMENT OF PATHOLOGY, [address] [place] [address] Juan Manuel Jiménez M.D. Director [facility] # [id number] 24 SEE RESULT BELOW Name: KATHLEEN ROWE : [address]: Jerome Zuleta NP Acct: [id number] Unit: [id number] AGE: 69 Location: [facility] Re03/16/15 SEX: F Status: REG REF SPEC: [id number] LENORA: 03/16/15-13[address] [facility] [address]: Jerome Zuleta NP REQ: [id number] RECD: 03/16/156591 STATUS: COMP _ SOURCE: URINE SPDESC: ORDERED: Urine Culture Procedure Result Reported Site Urine Culture Final 03/18/15- 47 ML No Growth (<1,000 CFU/mL) * ML - MAIN LAB ([facility]) . END OF REPORT * ML=Testing performed at Main Lab DEPARTMENT OF PATHOLOGY, [address] [place] [address] Juan Manuel Jiménez M.D. Director [facility] # [id number] 25 SEE RESULT BELOW Name: KATHLEEN ROWE : [address]: Jerome Zuleta CRANE MANAGER Acct: [id number] Unit: [id number] AGE: 69 Location: [facility] Re01/12/15 SEX: F Status: REG REF SPEC: [id number] LENORA: 01/12/[address]: Jreome Zuleta CRANE MANAGER REQ: [id number] RECD: 01/12/15 STATUS: COMP _ SOURCE: URINE SPDESC: ORDERED: Urine Culture Procedure Result Verified Site Urine Culture Final 01/14/15- 1006 ML Organism 1 NORMAL SHRUTHI [place] Count 1-10,000 (Few) CFU/ML * ML - MAIN LAB ([facility]) . END OF REPORT * ML=Testing performed at Main Lab DEPARTMENT OF PATHOLOGY, [address] [place] [address] Juan Manuel Jiménez M.D. Director [facility] # [id number] 26 SEE RESULT BELOW Name: KATHLEEN ROWE : [address]: Jerome Zuleta NP Acct: [id number] Unit: [id number] AGE: 69 Location: [facility] Re01/09/15 SEX: F Status: REG REF SPEC: [id number] LENORA: 01/09/151429 [facility] DR: Jerome Zuleta CRANE MANAGER REQ: [id number] RECD: 01/09/15 STATUS: COMP _ SOURCE: VAGINAL [...] ON NEXT PAGE * ML=Testing performed at [facility] Lab DEPARTMENT OF PATHOLOGY, [address] [place] [address] Juan Manuel Jiménez M.D. Director [facility] # [id number] Patient: KATHLEEN ROWE [id number] (Continued) Specimen: [id number] Collected: 01/09/15 Received: 01/09/15 (Continued) Procedure Result Verified Site Trichomonas: Vaginal DNA Probe Final (continued) 01/10/15 144 The presence or absence of T. vaginalis cannot be used as a test for therapeutic success or failure. Ange MENA - AD MARTE (PSC1) . END OF REPORT * ML=Testing performed at Main Lab DEPARTMENT OF PATHOLOGY, [facility] [place], [place] [address] Juan Manuel Jiménez M.D. Director [facility] # [id number] 27 FASTING 10 HOUR 28 Therapeutic target for the treatment of diabetes Mellitus patients is <7% HBA1C, and in selective patients <6.0%.Please refer to [place] [employer] Diabetic care guidelines for further information. 29 Desirable <150 Borderline high 150-199 High 200-499 Very High >500 30 Desirable <200 Borderline high 200-239 High >239 31 Low <40 Desirable: 40-60 High: >60 32 Desirable: <100 mg/dL Near Optimal: 100-129 mg/dL Borderline High: 130-159 mg/dL High: 160-189 mg/dL Very High: >189 mg/dL 33 Because ethnic data is not always readily [...] 15-29 5 Kidney failure <15 (or dialysis) 34 RUN DATE: 06/16/14 [facility] LAB LIVE PAGE 1 RUN TIME: [address] [place] [id number] Specimen Inquiry Name: KATHLEEN ROWE : [address]: Shad Issa NP Acct: [id number] Unit: [id number] AGE: 68 Location: [facility] Re06/16/14 SEX: F Status: REG REF SPEC: [id number] LENORA: 06/16/14-[address]: Shad Issa NP REQ: [id number] RECD: 06/16/14 STATUS: COMP _ SOURCE: [facility]: ORDERED: Rapid Flu A B QUERIES: Provider Requisition # [id number] Procedure Result Verified Site Rapid Influenza A B Antigen Final 06/16/14- 1915 L Organism 1 Negative Influenza A B Antigen testing by enzyme immunoassay. Cell culture testing can be performed to confirm negative test results and to assist in detecting other viruses that can produce similar clinical symptoms. Please notify Microbiology Lab if further testing is desired. END OF REPORT * ML=Testing performed at Main Lab DEPARTMENT OF PATHOLOGY, [facility] [place], [place] [address] Juan Manuel Jiménez M.D. Director [facility] # [id number] 35 RUN DATE: 05/30/14 [facility] LAB LIVE PAGE 1 RUN TIME: 1411 [facility] [employer] [place], [place] [address] Specimen Inquiry Name: KATHLEEN ROWE : [address]: Rex Allan MD Acct: [id number] Unit: [id number] AGE: 68 Location: ENDO Re05/29/14 SEX: F Status: REG REF SPEC: [id number] LENORA: 05/29/14-[address]: Rex Allan MD REQ: [id number] RECD: 05/29/14-1104 STATUS: YUSUF JOSEPH DR: Chaitanya Gaytan MD [...] Signed (signature on file) Joellen Reid MD 1414 END OF REPORT * ML=Testing performed at Main Lab DEPARTMENT OF PATHOLOGY, [address] [place] [address] Juan Manuel Jiménez M.D. Director [facility] # [id number] 36 Because ethnic data is not always readily [...] 15-29 5 Kidney failure <15 (or dialysis) 37 Desirable <150 Borderline high 150-199 High 200-499 Very High >500 38 Desirable <200 Borderline high 200-239 High >239 39 Low <40 Desirable: 40-60 High: >60 40 Desirable <100 Near Optimal 100-129 Borderline high 130-159 High 160-189 Very High >189 41 FASTING 10 HOUR 42 Because ethnic data is not always readily [...] 15-29 5 Kidney failure <15 (or dialysis) 43 Desirable <150 Borderline high 150-199 High 200-499 Very High >500 44 Desirable <200 Borderline high 200-239 High >239 45 Low <40 Desirable: 40-60 High: >60 46 Desirable <100 Near Optimal 100-129 Borderline high 130-159 High 160-189 Very High >189 47 Desirable <150 Borderline high 150-199 High 200-499 Very High >500 48 Desirable <200 Borderline high 200-239 High >239 49 Low <40 Desirable: 40-60 High: >60 50 Desirable <100 Near Optimal 100-129 Borderline high 130-159 High 160-189 Very High >189 51 Therapeutic target for the treatment of diabetes Mellitus patients is <7% HBA1C, and in selective patients <6.0%.Please refer to [place] [employer] Diabetic care guidelines for further information. 52 Microalbuminuria in a random sample is defined as: Microalbumin/Creatinine ratio of 30-299 ug/mg. 53 PT IS FASTING 54 Because ethnic data is not always readily [...] 15-29 5 Kidney failure <15 (or dialysis) 55 HDL Interpretation: Undesirable: High Risk: Less than 40 mg/dL Desirable: Low Risk: Greater than 60 mg/dL 56 LDL Interpretation: Low Risk Optimal Level: LDL Less than 100 mg/dL Near or Above Optimal: LDL 100-129 mg/dL Borderline High Risk: LDL 130-159 mg/dL High Risk: LDL 160-189 mg/dL Very High Risk: LDL Greater than 189 mg/dL 57 Because ethnic data is not always [...] 5 Kidney failure <15 (or dialysis) 58 Microalbuminuria in a random sample is defined as: Microalbumin/Creatinine ratio of 30-299 ug/mg. 59 Because ethnic data is not always readily [...] 15-29 5 Kidney failure <15 (or dialysis) 60 MICROALBUMINURIA IN A RANDOM SAMPLE IS DEFINED : MICROALBUMIN/CREATININE RATIO OF 30-299 ug/mg. . 61 Anion gap measurement may be of limited value in the presence of any alkalosis, especially in a combined acid base disorder. . 62 A metabolite of Naproxen, O-desmethylnaproxen, has been shown to interfere with the Jendrassik-Montevallo method for measuring total bilirubin. Samples from patients who have taken Naproxen have shown spurious elevation in total bilirubin levels. 63 Because ethnic data is not always readily [...] 15-29 5 Kidney failure <15 (or dialysis) 64 CHOLESTEROL INTERPRETATION: Desirable: Less than 200 MG/DL Borderline-High Risk: 200-239 MG/DL High-Risk: 240 MG/DL and over 65 HDL INTERPRETATION: Undesirable: High Risk: Less than 40 MG/DL Desirable: Low Risk: Greater than 60 MG/DL 66 LDL INTERPRETATION: Low Risk Optimal Level: LDL Less than 100 MG/DL Near or Above Optimal: LDL 100-129 MG/DL Borderline High Risk: LDL 130-159 MG/DL High Risk: LDL 160-189 MG/DL Very High Risk: LDL Greater than 189 MG/DL 67 Anion gap measurement may be of limited value in the presence of any alkalosis, especially in a combined acid base disorder. . 68 A metabolite of Naproxen, O-desmethylnaproxen, has been shown to interfere with the Jendrassik-Montevallo method for measuring total bilirubin. Samples from patients who have taken Naproxen have shown spurious elevation in total bilirubin levels. 69 Because ethnic data is not always readily [...] 15-29 5 Kidney failure <15 (or dialysis) 70 CHOLESTEROL INTERPRETATION: Desirable: Less than 200 MG/DL Borderline-High Risk: 200-239 MG/DL High-Risk: 240 MG/DL and over 71 HDL INTERPRETATION: Undesirable: High Risk: Less than 40 MG/DL Desirable: Low Risk: Greater than 60 MG/DL 72 LDL INTERPRETATION: Low Risk Optimal Level: LDL Less than 100 MG/DL Near or Above Optimal: LDL 100-129 MG/DL Borderline High Risk: LDL 130-159 MG/DL High Risk: LDL 160-189 MG/DL Very High Risk: LDL Greater than 189 MG/DL 73 CHOLESTEROL INTERPRETATION: Desirable: Less than 200 MG/DL Borderline-High Risk: 200-239 MG/DL High-Risk: 240 MG/DL and over 74 HDL INTERPRETATION: Undesirable: High Risk: Less than 40 MG/DL Desirable: Low Risk: Greater than 60 MG/DL 75 LDL INTERPRETATION: Low Risk Optimal Level: LDL Less than 100 MG/DL Near or Above Optimal: LDL 100-129 MG/DL Borderline High Risk: LDL 130-159 MG/DL High Risk: LDL 160-189 MG/DL Very High Risk: LDL Greater than 189 MG/DL 76 Anion gap measurement may be of limited value in the presence of any alkalosis, especially in a combined acid base disorder. . 77 A metabolite of Naproxen, O-desmethylnaproxen, has been shown to interfere with the Jendrassik-Sharmila method for measuring total bilirubin. Samples from patients who have taken Naproxen have shown spurious elevation in total bilirubin levels. 78 Because ethnic data is not always readily [...] 15-29 5 Kidney failure <15 (or dialysis) 79 THERAPEUTIC TARGET FOR THE TREATMENT OF DIABETES MELLITUS PATIENTS IS <7% HBA1C, AND IN SELECTIVE PATIENTS <6.0%. PLEASE REFER TO [place] [employer] DIABETIC CARE GUIDELINES FOR FURTHER INFORMATION. 80 MICROALBUMINURIA IN A RANDOM SAMPLE IS DEFINED : MICROALBUMIN/CREATININE RATIO OF 30-299 ug/mg. . 81 Anion gap measurement may be of limited value in the presence of any alkalosis, especially in a combined acid base disorder. . 82 A metabolite of Naproxen, O-desmethylnaproxen, has been shown to interfere with the Jendrassik-Montevallo method for measuring total bilirubin. Samples from patients who have taken Naproxen have shown spurious elevation in total bilirubin levels. 83 Because ethnic data is not always readily [...] 15-29 5 Kidney failure <15 (or dialysis) 84 CHOLESTEROL INTERPRETATION: Desirable: Less than 200 MG/DL Borderline-High Risk: 200-239 MG/DL High-Risk: 240 MG/DL and over 85 HDL INTERPRETATION: Undesirable: High Risk: Less than 40 MG/DL Desirable: Low Risk: Greater than 60 MG/DL 86 LDL INTERPRETATION: Low Risk Optimal Level: LDL Less than 100 MG/DL Near or Above Optimal: LDL 100-129 MG/DL Borderline High Risk: LDL 130-159 MG/DL High Risk: LDL 160-189 MG/DL Very High Risk: LDL Greater than 189 MG/DL 87 A metabolite of Naproxen, O-desmethylnaproxen, has been shown to interfere with the Jendrassik-Sharmila method for measuring total bilirubin. Samples from patients who have taken Naproxen have shown spurious elevation in total bilirubin levels. 88 Anion gap measurement may be of limited value in the presence of any alkalosis, especially in a combined acid base disorder. . 89 Note change in reference range as of 11/22/07. The change was based on recommendations from the [place] [employer]. 90 Please note change in reference range effective 07 . 91 A metabolite of Naproxen, O-desmethylnaproxen, has been shown to interfere with the Jendrassik-Sharmila method for measuring total bilirubin. Samples from patients who have taken Naproxen have shown spurious elevation in total bilirubin levels. 92 Because ethnic data is not always readily [...] 15-29 5 Kidney failure <15 (or dialysis) 93 CHOLESTEROL INTERPRETATION: Desirable: Less than 200 MG/DL Borderline-High Risk: 200-239 MG/DL High-Risk: 240 MG/DL and over 94 HDL INTERPRETATION: Undesirable: High Risk: Less than 40 MG/DL Desirable: Low Risk: Greater than 60 MG/DL 95 LDL INTERPRETATION: Low Risk Optimal Level: LDL Less than 100 MG/DL Near or Above Optimal: LDL 100-129 MG/DL Borderline High Risk: LDL 130-159 MG/DL High Risk: LDL 160-189 MG/DL Very High Risk: LDL Greater than 189 MG/DL 96 THERAPEUTIC TARGET FOR THE TREATMENT OF DIABETES MELLITUS PATIENTS IS <7% HBA1C, AND IN SELECTIVE PATIENTS <6.0%. PLEASE REFER TO [place] DIABETIC CARE GUIDELINES FOR FURTHER INFORMATION. 97 FASTING 98 THERAPEUTIC TARGET FOR THE TREATMENT OF DIABETES MELLITUS PATIENTS IS <7% HBA1C, AND IN SELECTIVE PATIENTS <6.0%. PLEASE REFER TO [employer] DIABETIC CARE GUIDELINES FOR FURTHER INFORMATION. 99 MICROALBUMINURIA IN A RANDOM SAMPLE IS DEFINED : MICROALBUMIN/CREATININE RATIO OF 30-299 ug/mg. . 100 Anion gap measurement may be of limited value in the presence of any alkalosis, especially in a combined acid base disorder. . 101 Note change in reference range as of 11/22/07. The change was based on recommendations from the [place] [employer]. 102 Please note change in reference range effective 07 . 103 A metabolite of Naproxen, O-desmethylnaproxen, has been shown to interfere with the Jendranaik-Montevallo method for measuring total bilirubin. Samples from patients who have taken Naproxen have shown spurious elevation in total bilirubin levels. 104 Because ethnic data is not always readily [...] 15-29 5 Kidney failure <15 (or dialysis) 105 CHOLESTEROL INTERPRETATION: Desirable: Less than 200 MG/DL Borderline-High Risk: 200-239 MG/DL High-Risk: 240 MG/DL and over 106 HDL INTERPRETATION: Undesirable: High Risk: Less than 40 MG/DL Desirable: Low Risk: Greater than 60 MG/DL 107 LDL INTERPRETATION: Low Risk Optimal Level: LDL Less than 100 MG/DL Near or Above Optimal: LDL 100-129 MG/DL Borderline High Risk: LDL 130-159 MG/DL High Risk: LDL 160-189 MG/DL Very High Risk: LDL Greater than 189 MG/DL 108 ----- RUN DATE: 05/27/09 [facility] NMI LIVE PAGE 1 RUN TIME: 1331 Specimen Inquiry RUN USER: INTERFACE -- Name: KATHLEEN ROWE Matt Status: REG REF Re05/25/09 Age/Sex: 63/F Unit#: [id number] Location: [facility] : 45 -- Spec[facility]: [id number] [facility] Spec Date: 05/[facility]/[address]: Rex darby MD Spec Type: SURGICAL P Received: 05/26/095877 Copies to: Chaitanya tucker MD SPECIMEN 1) [...] 05/27/09 1331 -- -- DEPARTMENT OF PATHOLOGY, [address] [place] [address] [facility] Permit #[id number] Juan Manuel Jiménez M.D. Director Jaelyn Vaca M.D. Door To Door Salesperson Dir ki -- 109 Anion gap measurement may be of limited value in the presence of any alkalosis, especially in a combined acid base disorder. . 110 Note change in reference range as of 11/22/07. The change was based on recommendations from the [place] [employer]. 111 Please note change in reference range effective 07 . 112 CHOLESTEROL INTERPRETATION: Desirable: Less than 200 MG/DL Borderline-High Risk: 200-239 MG/DL High-Risk: 240 MG/DL and over 113 HDL INTERPRETATION: Undesirable: High Risk: Less than 40 MG/DL Desirable: Low Risk: Greater than 60 MG/DL 114 LDL INTERPRETATION: Low Risk Optimal Level: LDL Less than 100 MG/DL Near or Above Optimal: LDL 100-129 MG/DL Borderline High Risk: LDL 130-159 MG/DL High Risk: LDL 160-189 MG/DL Very High Risk: LDL Greater than 189 MG/DL 115 THERAPEUTIC TARGET FOR THE TREATMENT OF DIABETES MELLITUS PATIENTS IS <7% HBA1C, AND IN SELECTIVE PATIENTS <6.0%. PLEASE REFER TO [employer] DIABETIC CARE GUIDELINES FOR FURTHER INFORMATION. 116 Lymphopenia % 117 Anion gap measurement may be of limited value in the presence of any alkalosis, especially in a combined acid base disorder. . 118 Note change in reference range as of 11/22/07. The change was based on recommendations from the [place] [employer]. 119 Please note change in reference range effective 07 . 120 COLLECTED FROM 11/07 634 THROUGH 11/08 709 121 Anion gap measurement may be of limited value in the presence of any alkalosis, especially in a combined acid base disorder. . 122 Please note change in reference range effective 07 . 123 CHOLESTEROL INTERPRETATION: Desirable: Less than 200 MG/DL Borderline-High Risk: 200-239 MG/DL High-Risk: 240 MG/DL and over 124 HDL INTERPRETATION: Undesirable: High Risk: Less than 40 MG/DL Desirable: Low Risk: Greater than 60 MG/DL 125 LDL INTERPRETATION: Low Risk Optimal Level: LDL Less than 100 MG/DL Near or Above Optimal: LDL 100-129 MG/DL Borderline High Risk: LDL 130-159 MG/DL High Risk: LDL 160-189 MG/DL Very High Risk: LDL Greater than 189 MG/DL 126 MANY NORMAL THROAT SHRUTHI Procedures Date CPT Code Description Status 04/11/2017 75641 Nerve Conduction 03-04 Studies Completed 04/11/2017 40040 Needle Electromyography Complete, Five Or More Muscles Completed Studied 02/07/201735478 Inject/Drain Joint/Bursa Major Completed 12/01/2016 Inject/Drain Joint/Bursa Major Completed 12/01/201631367 Inject/Drain Joint/Bursa Major Completed 04/01/2016 15189 Sleep Study Unattended,HRT Rate,Oxygen Sat,Resp Completed Effort/Airflow 01/08/2016 Mammogram Completed 12/14/2015 81167 Diffusing Capacity Completed 12/14/2015 18981 Plethysmography Determination Lung Volumes & Per Completed Airway Resist 12/14/2015 70979 Pulmonary Function><Bronchodil Completed 10/09/2014 Inject/Drain Joint/Bursa Major Completed 06/03/2014 Inject/Drain Joint/Bursa Intermediate Completed 04/25/2014 Diabetic Retinal Eye Exam Completed 12/03/2013 17209 Rad Exam; Hand Comp Completed 12/03/2013 48856 Rad Exam; Hand Comp Completed 11/12/2013 Inject/Drain Joint/Bursa Major Completed 06/07/2013 Mammogram Completed 06/06/2011 Bone Mineral Density Test Completed 06/06/2011 Mammogram Completed 05/25/2009 Colonoscopy Completed 12/10/2007 42254 EKG Tracing & Interpretation Completed 04/07/2004 Colonoscopy Completed Encounters Type Date Location Provider CPT E/M Dx Office Visit 03/29/2017 [facility] Internal Medicine Gilbert Pelletier, 91926 M51.16 11:40a - Ana Lancaster Office Visit 02/21/2017 [place] [address] S46.012D 10:30a Of [facility] Office Visit 02/07/2017 [place] [address] S46.012D 10:45a Of [facility] M76.52 M17.0 M17.12 Office Visit 01/23/2017 10:00a Pul[place] [address] G47.33 Services Of [facility] Office Visit 01/12/2017 11:30a [facility] [address] M17.12 C.M.A. M76.52 S46.012D M25.512 M17.0 Office Visit 01/02/2017 10:50a [facility] Internal Chaitanya Gaytan, 62790 Z00.01 Medicine - [place] José Manuel Lancaster,FACP E11.9 M19.012 G47.33 L90.0 Z23 Office Visit 12/01/2016 2:00p [facility] [address] M17.12 C.M.A. M76.52 S46.012D M19.012 Office Visit 11/04/2016 4:20p [facility] Internal Chaitanya Gaytan, 27376 W10.8xxD Medicine - [place] José Manuel Lancaster,FACP M25.512 Office Visit 08/11/2016 10:10a [facility] Internal Medicine Chaitanya Gaytan, 80719 E11.9 - [place] José Manuel Lancaster,FACP M19.012 E78.2 Office Visit 07/22/2016 9:15a [facility] [address] G47.33 Services Of [facility] Office Visit 06/20/2016 9:45a [facility] [address] G47.33 Services Of [facility] Office Visit 05/04/2016 11:30a [facility] Internal Medicine Chaitanya Gaytan, 20454 E11.9 [place] José Manuel Lancaster,FACP M19.012 Office Visit 05/02/2016 10:00a [facility] [place] [address] G47.33 Services Of [facility] E66.09 Office Visit 03/18/2016 11:00a [facility] [address] G47.33 Services Of [facility] E66.09 G89.29 Z68.35 Office Visit 03/01/2016 8:00a [facility] [address] M19.012 C.M.A. S46.011A Office Visit 02/03/2016 11:30a [facility] Internal Chaitanya Gaytan, 35727 M25.512 Medicine - [place] José Manuel Lancaster,FACP E11.9 Office Visit 01/01/2016 2:00p [facility] Internal Chaitanya Gaytan, 42071 Z00.01 Medicine - [place] José Manuel Lancaster,FACP E11.9 E78.2 R09.02 Z12.31 I10 Office Visit 11/20/2015 1:40p [facility] Internal Medicine Chaitanya Gaytan, 76625 R51 - [place] José Manuel Lancaster,FACP R53.83 E78.2 R09.02 Office Visit 11/05/2015 9:40a [facility] Internal Gilbert Pelletier M.D. 59952 E11.9 Medicine - [place] [address] R51 Office Visit 08/04/2015 10:10a [facility] Internal Medicine Chaitanya Gaytan, 30937 R30.0 - Ana Lancaster,FACP N39.0 Office Visit 07/27/2015 2:40p [facility] Internal Medicine Duy DiehlSarah Armandoie, 43339 J06.9 - Ana Lancaster Office Visit 03/16/2015 10:00a [facility] Internal Medicine Jerome [place], D[place] [address] N77.1 - [place] [address] R30.0 F06.4 N76.0 F41.9 Office Visit 02/06/2015 9:40a [facility] Internal Chaitanya Gaytan, 80220 S06.5x0D Medicine - [place] José Manuel Lancaster,FACP M24.031 E11.9 Office Visit 01/09/2015 1:00p [facility] Internal Medicine - Jerome Zuleta, DEX [address] N39.0 Office Visit 12/15/2014 10:30a [facility] Internal Medicine Chaitanya Gaytan, 85061 850.0 - [place] José Manuel Lancaster,FACP 250.00 293.84 Office Visit 11/20/2014 9:40a [facility] Services Of Juan Savage M.D. 63151 726.10 [facility]. Office Visit 10/09/2014 11:00a [facility] Services Of Juan Savage M.D. 83237 726.10 C.M.A. Office Visit 09/03/2014 3:00p [facility] Internal [facility] Chaitanya Gaytan, 51812 V70.0 [place] José Manuel Lancaster,FACP 850.5 250.00 726.19 V76.19 Office Visit 07/16/2014 9:00a [facility] Internal [place] Prabhu, 03642 250.00 Medicine - [place] José Manuel Lancaster 780.52 461.9 850.5 Office Visit 06/16/2014 1:30p [facility] Internal Medicine - [place], DEX [address] 465.9 Office Visit 12/25/2013 11:10a [facility] Internal Medicine Chaitanya Gaytan, 09257 250.00 - Ana Lancaster,FACP 401.1 V03.1 v03.82 Office Visit 12/10/2013 10:45a [facility] Services Of Juan Savage M.D. 30489 715.14 C.MJh 726.11 Office Visit 12/03/2013 10:00a Orthopedic Services Suzette Suzanne, 08887 715.14 Of C.MJh Lancaster Office Visit 11/12/2013 10:30a [facility]opedic Services Juan Savage M.D. 62590 726.11 Of C.M.ASarah Office Visit 09/10/2013 10:30a Orthopedic Services Juan Savage M.D. 98390 726.11 Of C.M.ASarah Office Visit 06/03/2013 10:30a [facility] Internal Chaitanya Gaytan, 71566 V70.0 Misael Rodriguez M.D.,FACP [place] 569.0 401.1 250.00 V76.10 Office Visit 05/29/2013 2:20p [facility] Internal Medicine Chaitanya Gaytan, 19720 364.60 - Ana Lancaster,FACP 726.19 Office Visit 03/29/2013 9:00a [facility] Internal Medicine Chaitanya Gaytan, 52479 691.8 - Ana Lancaster,FACP 401.1 272.0 Office Visit 12/04/2012 10:30a [facility] Internal Medicine Chaitanya Gaytan, 32491 722.93 - Ana Lancaster,FACP 250.00 Office Visit 06/05/2012 9:50a [facility] Internal Medicine Chaitanya Gaytan, 38785 V70.0 - Ana Lancaster,FACP 250.00 564.1 726.19 Office Visit 12/07/2011 3:40p [facility] Internal Medicine Chaitanya Gaytan, 79865 250.00 - Ana Lancaster,FACP 455.3 V04.81 Office Visit 05/30/2011 11:10a [facility] Internal Medicine Chaitanya Gaytan, 82884 V70.0 - Ana Lancaster,FACP 250.00 571.8 V76.10 569.3 V82.81 564.1 333.1 Office Visit 12/27/2010 1:00p DO Not Use [employer] [facility] [address] 250.00 [facility] 272.0 401.1 V72.84 Office Visit 11/30/2010 11:30a DO Not Use [facility], 7[address] 250.00 [facility] 272.0 401.1 726.71 Office Visit 05/27/2010 10:00a DO Not Use [facility], [address] 272.0 250.00 571.8 780.79 724.1 V03.82 Office Visit 05/25/2010 3:40p DO Not Use [facility], [address] 462 [facility] Office Visit 10/26/2009 11:40a DO Not Use [place] [address] 461.0 [facility] Office Visit 08/25/2009 12:45p DO Not Use [facility], 16134 473.8 [facility] 571.8 786.2 Office Visit 05/13/2009 3:00p DO Not Use [facility], 43557 V70.0 [facility] 780.79 401.1 272.4 250.00 Office Visit 04/16/2009 1:45p DO Not Use [employer] Model [employer] At Ronan Acosta M.D. 95825 461.9 [facility] 477.9 401.1 Office Visit 10/07/2008 11:00a DO Not Use [facility], 75631 682.7 [facility] 272.4 724.02 578.1 Office Visit 09/29/2008 3:30p DO Not Use [place] [address] 682.7 [facility] Office Visit 06/03/2008 1:20p DO Not Use [facility], 69315 790.21 [facility] 272.4 724.02 Office Visit 04/09/2008 11:00a DO Not Use [employer] [place] [address] V72.84 [facility] 401.1 272.4 724.02 461.9 Office Visit 02/15/2008 2:40p DO Not Use [facility], 52612 722.0 [facility] 250.00 705.89 Office Visit 12/10/2007 3:40p DO Not Use [facility], 46636 V72.81 [facility] 722.0 401.1 272.4 Office Visit 11/06/2007 1:40p DO Not Use [facility], 45712 791.0 [facility] 272.2 401.1 724.02 790.21 Office Visit 07/31/2007 1:00p DO Not Use [facility], 77868 790.21 [facility] 272.4 401.1 715.04 473.1 327.23 Office Visit 07/04/2007 1:30p DO Not Use [employer] [place] [address] 715.04 [facility] Office Visit 05/01/2007 3:40p DO Not Use [facility], 49207 327.23 [facility] 296.30 278.01 401.1 272.4 724.5 Office Visit 02/16/2007 9:00a DO Not Use [facility], [address] 462 [facility] 401.1 272.4 Plan of Care Future Appointment(s):05/08/2017 8:20 am - Chaitanya Gaytan M.D.,FACP at [facility] Internal Medicine - [address]05/02/2017 11:30 am - Lanette Ch MD at Neurosurgery Services Of [facility]07/24/2017 10:45 am - Rosa Perez MD at Pulmonology And Sleep Services Of [facility]04/28/2017 - Chaitanya Gaytan M.D., FACPN10 Acute pyelonephritisComments:Stay hydrated, continue Cipro and Pyridium as directed. If your confusion worsens, you develop a high fever, or you experience vomiting, go to the ERReceive ultrasound of kidney next week to check for kidney stones or other blockage
--- OUTSIDE RECORDS SUMMARY | 2017-04-30 15:11 | XMS REPORT ---
:1945 External Reference #:[id number] Author Organization [facility] Address [address] [address] Phone [phone] Care Team Providers Name Role Phone Chaitanya Gaytan MD Primary Care Physician Unavailable Payers Type Date Identification Numbers Payment Subscriber Provider Health Maintenance Effective: Policy Number: Medicare Blue Kathleen Rowe Organization (O) 04/03/2012 [id number] Ppo Group Number: [id number] [address] PayID: [id number] [place] [address] Medigap Part B Effective: 07/02/2010 Policy Number: BS Of NAVI Rowe [id number] Expires: 10/31/2010 PayID: [id number] [address] [address] Medigap Part B Effective: Policy Number: [facility] Ins Kathleen Rowe 11/01/2010 [id number] Ppo/Epo Expires: 04/02/2012 PayID: [id number] [address] [place] [address] Medigap Part B Effective: 10/01/2009 Policy Number: BS Of NAVI Rowe [id number] Expires: 06/30/2010 PayID: [id number] [address] [place] [place] [address] Problems Date Description Provider Status Onset: 02/16/2007 [...] Heart Disease General Diabetes General Cancer Father [place] at 56 Father due to CHF () [...] Form Strength Qnty SIG Indications Ordering Provider Tylor Downs 04/24 Active 1unit Use while M54.5 Darrian /2018 s ambulating DEX Carrera Janumet XR 01/02 Active Tablets ER 50-1000mg 180ta 1 tab twice E11.9 Chaitanya 24HR bs a day Orlando Gaytan M.D.,FACP Freestyle Lite 05/04 Active Device 1unit check Chaitanya Blood Glucose /2016 s fingerstick Orlando Gaytan, Monitoring daily DX: Anisha,FACP System E11.9 Last visit 05/04/16 Freestyle Lite 05/04 Active Strips 100un test up to Chaitanya Test /2016 its 2 times a Orlando Gaytan, day dx Anisha,FACP code: E11.9 Last visit 05/04/16 Omeprazole 02/[address] 20mg 30cap 1 by mouth M25.512 Manuel s every day Orlando Gaytan, for 2 weeks M.D.,FACP when using NSAIDs Livalo 09/03 Active Tablets 2mg 90tab take 1 E11.9 Chaitanya s tablet Orlando Gaytan, every M.D.,FACP evening Freestyle 12/27 Active Misc 100un Twice daily Chaitanya its and as Orlando Gaytan, needed dx M.D.,FACP E11.9 Last visit 05/04/16 Propranolol HCL 12/06 Active Tablets 60mg 60tab take 1 Chaitanya s tablet by Orlando Gaytan, mouth twice M.D.,FACP a day Cymbalta 05/[address] 60mg 90cap take 1 Chaitanya Part s capsule by Orlando Gaytan, mouth once M.D.,FACP daily Losartan 04/01 Active Tablets 100mg 90tab take 1 R05 Chaitanya s tablet by Orlando Gaytan, mouth once [...] Unknown /0000 by mouth daily prn Hydrocodone-Acet 00/00 Active Tablets 5-325mg Velazquez, aminophen /0000 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 Lukas, - needed M.D.,[facility] 05/04 Onetouch Ultra 05/04 Hx Strips 75uni test up to E11.9 Chaitanya Marion ts 2 times a Orlando Gaytan, - day or as M.D.,[facility] 05/04 directed Onetouch Ultra 05/04 Hx Kit w/Device 1unit use daily E11.9 Chaitanya Mini s to test Orlando Gaytan, - glucose M.D.,[facility] 05/04 Janumet 05/04 Hx Tablets 50-500mg 60tab 1 by mouth E11.9 s twice a day Orlando Gaytan, - M.D.,[facility] 01/02 Meloxicam 02/02 Hx Tablets 7.5mg 60tab 1 by mouth M25.512 s twice a day Orlando Gaytan, - as needed M.D.,[facility] 08/11 Ciprofloxacin 08/03 Hx Tablets 250mg 14tab 1 twice a N39.0 Chaitanya s day x 7 DSarah Gaytan, - days M.D.,[facility] 08/10 ( ) Nystatin 08/03 Hx Cream [id number] 30gm topically R30.0 Chaitanya t/GM twice a day Orlando Gaytan, - as needed M.D.,[facility] 02/02 Metronidazole 03/16 Hx Gel 0.75% 25g 5 grams N77.1 Jerome /2014 once daily Malian, - vaginally [employer] 03/21 x's 5 Ciprofloxacin 01/09 Hx Tablets 500mg 6tabs 1 tab by N39.0 Jerome HCL mouth twice Malian, - a day x's 3 [employer] Fluconazole 01/09 Hx Tablets 150mg 2tabs 1 tablet by N39.0 Jerome mouth daily Malian, - today, then [employer]ING [employer] 01/16 repeat in days. Alprazolam 12/15 Hx Tablets 0.25mg 30tab one by F06.4 s mouth every Malian, - day as [employer] 08/03 needed 1 Alprazolam 07/16 Hx Tablets 0.25mg 14tab one by 780.52 Dispers s mouth at [facility] - bed time , MSarahD. 12/15 Levaquin 07/16 Hx Tablets 500mg 10tab 1 by mouth 461.9 s every day Prabhu - Anisha 09/03 Walker 07/16 Hx Diagnosis:I 250.00 ntracranial Prabhu - bleed Anisha 09/03 Azithromycin 06/16 Hx Tablets 250mg 6tabs 2 tabs by 465.8 mouth on DEX Issa - day one 07/16 followed 1 tab daily for the last 4 days Proair HFA 06/16 Hx Aerosol 108(90Bas 25.5u inhale 2 465.8 e) nits puffs by DEX Issa - mcg/Act mouth every 12/15 4 hours needed Freestyle Lite 12/27 Hx 100un use as Chaitanya Test Strip its directed Orlando Gaytan, - every day MGregorio,[facility] 05/04 or needed dx: 250.00 Freestyle Lite 12/27 Hx Strips 100un test daily Chaitanya Test its and as Orlando Gaytan, - need, dx nAisha,[facility] 05/04 code: 250.00 Breeze 2 Test 12/25 Hx 100un once a day Chaitanya Strip its and as Orlando Gaytan, - needed dx Anisha,[facility] 12/27 250.00 Lancets Thin 12/25 Hx Misc 50uni every day Chaitanya ts or twice a Orlando Gaytan, - day as Anisha,FACP 12/27 needed Crestor 06/03 Hx Tablets 10mg 90tab 1 po qpm 250.00 Chaitanya s Orlando Gaytan, Michael [place],[facility] 09/03 Triamcinolone 03/29 Hx Cream 0.1% 30g apply bid 691.8 Acet prn Michael Decker M.D.,[facility] 05/29 Prednisone 03/29 Hx Tablets 10mg 20tab 4 tabs qd 691.8 s for 2 days, Orlando Gaytan, - then reduce M.D.,[facility] 05/29 by 1 tab every 2 days until finished Lyrica 06/27 Hx Capsules 50mg 90cap take 1 s capsule by Orlando Gaytan, - mouth three M.D.,[facility] 01/02 times a day /2016 maximum daily dose of 3 Lyrica 06/05 Hx Capsules 25mg 60cap 1 po tid Michael Antonio M.D.,[facility] 06/27 Linzess 06/05 Hx Capsules 290mcg 30cap po qd 564.1 Michael Antonio M.D.,[facility] 12/04 Amitiza 05/30 Hx Capsules 8mcg 60cap po bid Michael Antonio M.D.,[facility] 12/06 Propranolol HCL 05/30 Hx Tablets 60mg 60tab take 1 s tablet by Orlando Gaytan, - mouth twice M.D.,[facility] 12/06 a Simvastatin 05/30 Hx Tablets 20mg 30tab take 1 250.00 s tablet by Orlando Gaytan, - mouth every M.D.,[facility] 06/03 evening Pennsaid 11/30 Hx Solution 1.5% 15ml 5-10 ggts R 726.71 ankle/foot Orlando Gaytan, - bid prn MGregorio,[facility] 05/30 Breeze 2 Test 07/30 Hx 100un tid and prn Chaitanya its dx 250.00 Michael Decker M.D.,[facility] 11/11 [place] 05/27 Hx Tablets 5-325mg 120ta 1 qid prn bs Michael Decker M.D.,[facility] 05/29 Penicillin V 05/25 Hx Tablets 500mg 28tab qid for 7 462 Chaitanya Potassium s Michael Tobias M.D.,[facility] 09/10 Losartan 03/30 Hx Tablets ? 90tab 1 po qd 786.2 Chaitanya Potassium Michael Antonio M.D.,[facility] 04/01 Zithromax 10/26 Hx Tablets 250mg 6tabs 2 today 461.0 Sivananda /2009 then 1 for , Poopal, - 4 days MD 10/28 Diovan 09/22 Hx Tablets 40mg 30tab 1 po qd 786.2 Michael Antonio M.D.,[facility] 03/30 Micardis 08/25 Hx Tablets 20mg 30tab 1 po qd 786.2 Michael Antonio M.D.,[facility] 09/22 [id number] 05/13 Hx Capsules 500-50mg 60cap po bid 780.79 Michael Antonio M.D.,[facility] 11/30 Cymbalta 05/13 Hx Cpep 30mg 60uni Take 1 ts Capsule By Orlando Gaytan, - Mouth Twice M.DSarah,[facility] 05/27 Ceftin 04/16 Hx Tablets 500mg 14tab twice a 461.9 s day for 7 Karla, - siddharth MejiaDSarah 04/16 Bactrim DS 04/16 Hx Tablets 800-160mg 20tab 1 po bid 461.9 s for 10 days Michael Acosta M.D. 05/13 Cephalexin 09/29 Hx Capsules 500mg 40cap 1 quid x 10 682.7 Michael Antonio M.D.,[facility] 10/07 Vytorin 06/03 Hx Tablets 10-20mg 30tab Take One s Tablet By Orlando Gaytan, - Mouth At M.DSarah,[facility] 05/30 Bedtime Biaxin 04/09 Hx Tablets 500mg 20tab Si bid s X 10 Days Michael Decker M.D.,[facility] 06/03 Amrix 02/14 Hx Caps ER 15mg 15cap 1 po qhs 722.0 24HR s Michael Decker M.D.,[facility] 06/03 Hydrocodone-Acet 01/16 Hx Tablets 5/500mg 240ta 1-2 po qid Chaitanya bs prn Orlando Gaytan M.D.,[facility] Xanax 12/31 Hx Tablets 1mg 10tab /2-1 po s bid prn Michael Decker M.D.,[facility] 02/14 Vagifem 12/09 Hx Tablets 25mcg 3Mont pv Twice A h Week (With Orlando Gaytan, - Applicator) Anisha,[facility] 04/16 Oxycodone HCL CR 11/27 Hx Tablets ER 10mg 60tab bid po 12HR Michael Antonio M.D.,[facility] 02/14 Oxycontin 11/05 Hx Tablets ER 10mg 36tab 1 PO bid 12HR Michael Antonio M.D.,[facility] 11/05 Percocet 11/05 Hx Tablets 5-325mg 120ta /2-1 po bs qid prMichael Hendrix M.D.,[facility] 02/14 Vytorin 11/05 Hx Tablets 10-10mg 90tab 1 PO QHS Michael Antonio M.D.,[facility] 06/03 Metformin HCL 11/05 Hx Tablets 500mg 180ta take 1 790.21 bs tablet by Orlando Gaytan - mouth twice M.DSarah,[facility] 05/04 a day with food Lunesta 08/20 Hx Tablets 3mg 30tab one tab hs Michael Antonio M.D.,[facility] 04/16 Flonase 07/30 Hx Suspension 50mcg/Act 1Bott 1 473.1 le intranasal Orlando Gaytan, - puff to M.DSarah,[facility] 05/30 nostril daily Atenolol 06/27 Hx Tabs 50mg 30tab Take 04/04 s Tablet By Orlando Gaytan, - Mouth once M.D.,[facility] 05/30 Tylenol/Codeine 05/01 Hx Tablets #4 240ta 1-2 qid prn 724.5 Chaitanya #4 /2007 bs Michael Decker M.D.,[facility] 11/05 Soma 05/01 Hx Tablets 350mg 90tab tid prn 724.5 s Michael Decker M.D.,[facility] 07/30 Metformin HCL 05/01 Hx Tablets 500mg 60tab 1 po bid s Michael Decker M.D.,[facility] 07/30 Cymbalta 04/09 Hx Cpep 30mg 60uni Take 1 ts Capsule Orlando Gaytan, - Twice A Day Eunice.DSarah,[facility] 05/13 Soma 02/26 Hx Tablets 350mg 30tab 1 tablet by s mouth in Orlando Gaytan, - evening prn Anisha,[facility] 01/02 Ambien 02/21 Hx Tablets 10mg 30tab 1 po qhs s prn sleep Orlando Gaytan, - insomnia M.DSarah,[facility] 12/04 Biaxin 02/16 Hx Tablets 500mg 20tab bid po for 462 s 10 days Michael Decker M.D.,[facility] 05/01 Phenergan/Codein 02/16 Hx Syrup 6Oz 1-2 tsp qid 462 prn Michael Decker M.D.,[facility] 02/14 Lisinopril Hx Tablets 10mg 30tab 1 PO qd 786.2 Michael Antonio M.D.,[facility] 08/25 Oxycodone HCL Hx Solution 5mg/5ML one tablet Unknown /0000 every 8 - hours prn 11/05 Hydrocodone 00/00 Hx Tablets 7.5-500 60tab 1 q 4 hours Unknown Bitartrate/Apap /0000 s prn pain - 06/03 Hydrocodone-Acet 00/00 Hx Tablets 5/500mg 120ta 1/2-1 po Chaitanya aminophen /0000 bs qid prn Matt. Michael Gaytan M.D.,[facility] 05/27 Lyrica Hx Capsules 50mg 90cap 1 po tid Chaitanya /0000 s Michael Decker M.D.,FACP 06/05 Coricidin HBP Hx Tablets 4-30mg prn [...] Code Status Date Vaccine Reaction Lot # [id number] Given 01/02/2017 Pneumonia Vaccine no reaction, pt [id number] tolerated well 34007 Given 01/02/2017 Influenza Virus Vaccine, no reaction, pt [id number] Quadrivalent, Split, tolerated well Preservative Free 28939 Given 12/09/2015 Fluzone High Dose 34823 Given 12/03/2014 Fluzone High Dose 84139 Given 12/25/2013 Pneumococcal Conjugate [id number] Vaccine 13 Valent For Intramuscular Use Q2038 Given 12/12/2013 Fluzone Vaccine Q2037 Given 01/07/2013 Fluvirin Im 3Yrs And Older Q2038 Given 12/07/2011 Fluzone Vaccine [id number] Q2039 Given 12/20/2010 Flu Vaccine NOS 03133 Given 07/26/2010 Tdap - [id number] Tetanus/Diptheria/Acellular Pertussis 66126 Given 05/27/2010 Pneumonia Vaccine [id number] 32609 Given 01/10/2010 Influenza Virus 3Yrs & Over 11860 Given 02/04/2009 Influenza Virus Vaccine, [id number] Pandemic Formulation 61680 Given 02/04/2009 Administration Swine Flu Shot 43463 Given 01/22/2009 Influenza Virus 3Yrs & [id number] Over 88054 Given 01/28/2008 Influenza Virus 3Yrs & Over 35188 Given 01/28/2008 Influenza Virus 3Yrs & [id number] Over 22910 Given 11/28/2007 Zoster (Zostavax) 45476 Given 11/28/2007 Zoster (Zostavax) Q2038 Given Unknown Fluzone Vaccine Vital Signs Date Vital Result Comment 04/24/2017 Heart Rate 71 /min BP Systolic [...] Test Date Test Result H/L Range Note Urinalysis Profile 04/23/2017 Urine Color Yellow Urine Appearance Cloudy Urine Specific [place] 1.018 1.010-1.030 Urine pH 6.0 5-9 Urine [...] Absent Urine Squamous Epithelial Cell Present Absent Lipid Profile (Trig/Chol/HDL) 01/11/2017 Triglycerides 216 mg/dL 2 Cholesterol 229 mg/dL 3 HDL Cholesterol 38.5 mg/dL 4 LDL Cholesterol 147 mg/dL 5 Basic Metabolic Panel 01/11/2017 Sodium 140 mmol/L 133-145 Potassium 4.3 mmol/L 3.5-5.0 Chloride 102 mmol/L 101-111 Co2 Carbon Dioxide 33 mmol/L High 22-32 Anion Gap 5 mmol/L 2-11 Glucose 154 mg/dL High 70-100 Blood Urea Nitrogen 14 mg/dL 6-24 Creatinine 0.72 mg/dL 0.51-0.95 BUN/Creatinine Ratio 19.4 8-20 Calcium 9.1 mg/dL 8.6-10.3 Egfr Non- 79.9 >60 Egfr 102.7 >60 6 Laboratory test finding 01/02/2017 Hemoglobin A1c 8.0 High 5-7 Laboratory test finding 08/11/2016 Hemoglobin A1c 7.4 High 5-7 Laboratory test finding 05/04/2016 Hemoglobin A1c 7.7 High 5-7 Arthritis Panel 03/04/2016 Uric Acid 4.9 mg/dL 2.3-6.6 Erythrocyte Sed Rate 17 mm/Hr 0-40 Rheumatoid Factor <15 IU/mL <15 7 Anti-Nuclear Antibody 0.5 U 8 Cyclic Citrullinated Peptide <15.6 U 9 Interpretation See Comment 10 Urine Microalbumin Random 02/10/2016 Urine Creatinine 72.77 mg/dL Ur Microalbumin (mg/L) < 15.0 mg/L Urine Microalbumin/Creatinine TNP ug/mg <31 11 Laboratory test 02/09/2016 Hemoglobin A1c 7.8 % High Less than 6.0 12 finding (Glyco HGB) CBC Auto Diff 02/09/2016 [...] 15.0 mg/L Urine Microalbumin/Creatinine TNP ug/mg <31 13 Lipid Profile (Trig/Chol/HDL) 12/21/2015 Triglycerides 175 mg/dL 14 Cholesterol 208 mg/dL 15 HDL Cholesterol 38.0 mg/dL 16 LDL Cholesterol 135 mg/dL 17 CBC Auto Diff 12/21/2015 White Blood Count [...] Egfr Non- 80.1 >60 Egfr 103.0 >60 18 Laboratory test finding 12/21/2015 Erythrocyte Sed Rate 17 mm/Hr 0-40 19 TSH (Thyroid Stim Horm) 1.34 mcIU/mL 0.34-5.60 20 Vitamin B12 929 pg/mL High 180-914 21 Laboratory test finding 11/05/2015 Hemoglobin A1c 7.0 5-7 Ua Routine 08/04/2015 Ua Specific [place] 1.020 Ua PH 6 Ua Color yellow Ua Appera cloudy Ua WBC positive Ua Protein positive Ua Glucose neg Ua Ketones neg Ua Bilirubin neg Ua Urobilinogen neg Ua Nitrite neg Ua Occult Blood positive Urine Culture And 08/04/2015 Urine Culture SEE RESULT BELOW 22 Sensitivities Laboratory test finding 03/16/2015 Urine Culture And SEE RESULT BELOW 23 Sensitivities Ua And Culture 01/12/2015 Urine Culture And SEE RESULT BELOW 24 Sensitivity Sensitivities Urinalysis Profile 01/12/2015 Urine Color Straw Urine Appearance Clear Urine Specific [place] 1.006 Low 1.010-1.030 Urine pH 7.0 5-9 Urine Urobilinogen Negative Negative Urine Ketones Negative Negative Urine Protein Negative Negative Urine Leukocytes Negative Negative Urine Blood Negative Negative Urine Nitrite Negative Negative Urine Bilirubin Negative Negative Urine Glucose Negative Negative Laboratory test finding 01/09/2015 Gardnerella/Yeast: Vaginal SEE RESULT BELOW 25 Dna Urine Microalbumin 12/12/2014 Ur Microalbumin (mg/L) 10.0 mg/L 26 Random Urine Creatinine 224.37 mg/dL 26 Urine Microalbumin/Creatinine 4.4 ug/mg <31 26 Laboratory test 12/12/2014 Hemoglobin A1c (Glyco 6.7 % High Less than , 27 finding HGB) 6.0 Lipid Profile 12/12/2014 Triglycerides 278 mg/dL 26, 28 (Trig/Chol/HDL) Cholesterol 281 mg/dL 26, 29 HDL Cholesterol 43.9 mg/dL 26, 30 LDL Cholesterol 182 mg/dL 26, 31 Comp Metabolic Panel 12/12/2014 Sodium 139 mmol/L 133-145 26 Potassium 4.1 mmol/L 3.5-5.0 26 Chloride 102 mmol/L 101-111 26 Co2 Carbon Dioxide 32 mmol/L 22-32 26 Anion Gap 5 mmol/L 2-11 26 Glucose 97 mg/dL 70-100 26 Blood Urea Nitrogen 12 mg/dL 6-24 26 Creatinine 0.82 mg/dL 0.51-0.95 26 BUN/Creatinine Ratio 14.6 8-20 26 Calcium 8.7 mg/dL 8.6-10.3 26 Total Protein 5.9 g/dL Low 6.4-8.9 26 Albumin 3.6 g/dL 3.2-5.2 26 Globulin 2.3 g/dL 2-4 26 Albumin/Globulin Ratio 1.6 1-3 26 Total Bilirubin 0.40 mg/dL 0.2-1.0 26 Alkaline Phosphatase 65 U/L 34-104 26 Alt 13 U/L 7-52 26 Ast 13 U/L 13-39 26 Egfr Non- 69.1 >60 26 Egfr 88.9 >60 26, 32 Laboratory test 09/01/2014 Glucose 105 mg/dL High 70-100 finding Laboratory test 07/16/2014 Hemoglobin A1c 6.6 5-7 finding Laboratory test 06/16/2014 Rapid Influenza A B (SEE NOTE) 33 finding Antigen Surgical Pathology 05/29/2014 S RUN [...] Egfr Non- 79.3 >60 Egfr 102.0 >60 35 Lipid Profile (Trig/Chol/HDL) 12/20/2013 Triglycerides 175 mg/dL 36 Cholesterol 205 mg/dL 37 HDL Cholesterol 48.4 mg/dL 38 LDL Cholesterol 122 mg/dL 39 Laboratory test finding 12/20/2013 Creatine Kinase 28 U/L 10-223 Lipid Panel - [facility] 09/06/2013 Creatine Kinase 33 U/L 10-223 26, 40 Comp Metabolic Panel 09/06/2013 Sodium 142 mmol/L 133-145 26 Potassium 4.2 mmol/L 3.7-5.6 26 Chloride 106 mmol/L 101-111 26 Co2 Carbon Dioxide 33 mmol/L High 22-32 26 Anion Gap 3 mmol/L 2-11 26 Glucose 118 mg/dL High 70-100 26 Blood Urea Nitrogen 11 mg/dL 6-24 26 Creatinine 0.71 mg/dL 0.51-0.95 26 BUN/Creatinine Ratio 15.5 8-20 26 Calcium 9.1 mg/dL 8.6-10.3 26 Total Protein 6.0 g/dL Low 6.4-8.9 26 Albumin 3.8 g/dL 3.2-5.2 26 Globulin 2.2 g/dL 2-4 26 Albumin/Globulin Ratio 1.7 1-3 26 Total Bilirubin 0.40 mg/dL 0.2-1.0 26 Alkaline Phosphatase 64 U/L 34-104 26 Alt 12 U/L 7-52 26 Ast 15 U/L 13-39 26 Egfr Non- 82.1 >60 26 Egfr 105.6 >60 26, 41 Lipid Profile (Trig/Chol/HDL) 09/06/2013 Triglycerides 223 mg/dL 26, 42 Cholesterol 188 mg/dL 26, 43 HDL Cholesterol 42.4 mg/dL 26, 44 LDL Cholesterol 101 mg/dL 26, 45 CBC Auto Diff 08/11/2013 White Blood Count [...] Lipid Profile (Trig/Chol/HDL) 05/28/2013 Triglycerides 173 mg/dL 46 Cholesterol 241 mg/dL 47 HDL Cholesterol 45.6 mg/dL 48 LDL Cholesterol 161 mg/dL 49 Urine Microalbumin Random 05/28/2013 Ur Microalbumin (mg/L) 6.0 mg/dL &lt ;30 50 Urine Creatinine 104.90 mg/dL Urine Microalbumin/Creatinine 5.7 Less Than 31 Laboratory test finding 05/28/2013 Hemoglobin A1c 6.6 % High Less than 6.0 51 Lipid Panel - [facility] 12/24/2012 Creatine Kinase 35 U/L 0-200 52 Comp Metabolic Panel 12/24/2012 Sodium 140 mmol/L [...] Egfr Non- 99.7 >60 Egfr 128.2 >60 53 Lipid Profile (Trig/Chol/HDL) 12/24/2012 Triglycerides 214 mg/dL High 40- 200 Cholesterol 223 mg/dL High Less than 200 HDL Cholesterol 47 mg/dL 40-60 54 Cholesterol/HDL Ratio 4.7 Average High 1-4.44 LDL Cholesterol 133.2 High Less Than 100 55 Laboratory test finding 12/04/2012 Hemoglobin A1c 6.2 5-7 Creatinine 11/16/2012 Creatinine 0.60 mg/dL 0.50-1.40 Egfr Non- 99.7 >60 Egfr 128.2 >60 56 Laboratory test finding 11/16/2012 Blood Urea Nitrogen 5 mg/dL Low 6-24 Laboratory test finding 09/12/2012 Inr 0.81 Low 0.87-0.97 Activated Partial Thrombo Time 27.5 seconds 22.18-37.18 Laboratory test finding 06/05/2012 Hemoglobin A1c 6.4 5-7 Urine Microalbumin Random 06/01/2012 Ur Microalbumin (Mg/L) 10.0 mg/L 57 Urine Creatinine 231.0 mg/dL Urine Microalbumin/Creatinine 4.3 ug/mg Less Than 31 Creatinine 02/13/2012 Creatinine 0.70 mg/dL 0.50-1.40 Egfr Non- 83.7 >60 Egfr 107.7 >60 58 Urine Microalbumin Random 12/07/2011 Microalbumin (MG/L) 13.0 mg/L Urine Creatinine 320.4 mg/dL Richard Alb/Creatinine Ratio 4.1 UG/MG Less Than 30 59 Laboratory test finding 12/07/2011 Hemoglobin A1c 6.5 5-7 Lipid Panel - [facility] 08/01/2011 CPK (Creatine Kinase) 39 U/L 0-170 Comp Metabolic Panel 08/01/2011 Sodium 138 mmol/L 135-145 Potassium 4.1 mmol/L 3.5-5.0 Chloride 104 mmol/L 101-111 Co2 (Carbon Dioxide) 31.0 mmol/L 22-32 Anion Gap 3.0 mmol/L 2-11 60 Glucose 89 mg/dL 70-100 BUN 10 mg/dL 6-24 Creatinine 0.7 mg/dL 0.50-1.40 One Over Creatinine 1.42 BUN/Creatinine Ratio 14.3 8-20 Calcium 9.1 mg/dL 8.1-9.9 Total Protein 5.7 GM/DL Low 6.2-8.1 Albumin 3.5 GM/DL 3.2-5.2 Globulin 2.2 GM/DL 2-4 Albumin/Globulin Ratio 1.6 1-3 Bilirubin Total 0.6 mg/dL 0.4-1.5 61 Alkaline Phosphatase 60 U/L 30-110 Alt (SGPT) 16 U/L 14-54 Ast (Sgot) 19 U/L 12-42 eGFR Non- 84.0 > 60 eGFR 108.0 > 60 62 Lipid Profile (Trig/Chol/HDL) 08/01/2011 Triglyceride 203 mg/dL High 40- 200 Cholesterol 198 mg/dL Less Than 200 63 High Density Lipoprotein 43 mg/dL 40-60 64 Cholesterol/HDL Ratio 4.60 AVERAGE High 1-4.44 Low Density Lipoprotein 114 mg/dL High Less Than 100 65 Laboratory test finding 05/30/2011 Hemoglobin A1c 6.2 5-7 Lipid Panel - [facility] 05/27/2011 CPK (Creatine Kinase) 40 U/L 0-170 Comp Metabolic Panel 05/27/2011 Sodium 141 mmol/L 135-145 Potassium 4.4 mmol/L 3.5-5.0 Chloride 103 mmol/L 101-111 Co2 (Carbon Dioxide) 32.0 mmol/L 22-32 Anion Gap 6.0 mmol/L 2-11 66 Glucose 98 mg/dL 70-100 BUN 8 mg/dL 6-24 Creatinine 0.6 mg/dL 0.50-1.40 One Over Creatinine 1.66 BUN/Creatinine Ratio 13.3 8-20 Calcium 9.0 mg/dL 8.1-9.9 Total Protein 5.7 GM/DL Low 6.2-8.1 Albumin 3.4 GM/DL 3.2-5.2 Globulin 2.3 GM/DL 2-4 Albumin/Globulin Ratio 1.5 1-3 Bilirubin Total 0.6 mg/dL 0.4-1.5 67 Alkaline Phosphatase 59 U/L 30-110 Alt (SGPT) 18 U/L 14-54 Ast (Sgot) 18 U/L 12-42 eGFR Non- 100.3 > 60 eGFR 129.0 > 60 68 Lipid Profile (Trig/Chol/HDL) 05/27/2011 Triglyceride 293 mg/dL High 40- 200 Cholesterol 284 mg/dL High Less Than 200 69 High Density Lipoprotein 36 mg/dL Low 40-60 70 Cholesterol/HDL Ratio 7.89 AVERAGE High 1-4.44 Low Density Lipoprotein 189 mg/dL High Less Than 100 71 CBC No Diff 05/27/2011 White Blood Count [...] Hemoglobin A1c 5.9 5-7 Lipid Panel - [facility] 11/25/2010 CPK (Creatine Kinase) 43 U/L 0-170 Comp Metabolic Panel 11/25/2010 Sodium 142 mmol/L 135-145 Potassium 4.6 mmol/L 3.5-5.0 Chloride 104 mmol/L 101-111 Co2 (Carbon Dioxide) 34.0 mmol/L High 22-32 Anion Gap 4.0 mmol/L 2-11 72 Glucose 93 mg/dL 70-100 BUN 7 mg/dL 6-24 Creatinine 0.7 mg/dL 0.50-1.40 One Over Creatinine 1.42 BUN/Creatinine Ratio 10.0 8-20 Calcium 9.1 mg/dL 8.1-9.9 Total Protein 5.9 GM/DL Low 6.2-8.1 Albumin 3.7 GM/DL 3.2-5.2 Globulin 2.2 GM/DL 2-4 Albumin/Globulin Ratio 1.7 1-3 Bilirubin Total 0.8 mg/dL 0.4-1.5 73 Alkaline Phosphatase 52 U/L 30-110 Alt (SGPT) 18 U/L 14-54 Ast (Sgot) 18 U/L 12-42 eGFR Non- 84.0 > 60 eGFR 108.0 > 60 74 Lipid Profile (Trig/Chol/HDL) 11/25/2010 Triglyceride 150 mg/dL 40-200 Cholesterol 179 mg/dL Less Than 200 75 High Density Lipoprotein 47 mg/dL 40-60 76 Cholesterol/HDL Ratio 3.81 AVERAGE 1-4.44 Low Density Lipoprotein 102 mg/dL High Less Than 100 77 Laboratory test 06/08/2010 Hemoglobin A1c 7.1 % High Less Than 6.0 78 finding Urine Microalbumin 06/08/2010 Microalbumin (MG/L) 10.0 mg/L Random Urine Creatinine 303.93 mg/dL Richard Alb/Creatinine Ratio 3.2 UG/MG Less Than 30 79 Lipid Panel - [facility] 06/08/2010 CPK (Creatine Kinase) 40 U/L 0-170 Comp Metabolic Panel 06/08/2010 Sodium 142 mmol/L 135-145 Potassium 3.7 mmol/L 3.5-5.0 Chloride 102 mmol/L 101-111 Co2 (Carbon Dioxide) 31.0 mmol/L 22-32 Anion Gap 9.0 mmol/L 2-11 80 Glucose 99 mg/dL 70-100 BUN 11 mg/dL 6-24 Creatinine 0.70 mg/dL 0.50-1.40 One Over Creatinine 1.40 BUN/Creatinine Ratio 15.7 8-20 Calcium 8.8 mg/dL 8.1-9.9 Total Protein 6.3 GM/DL 6.2-8.1 Albumin 3.9 GM/DL 3.2-5.2 Globulin 2.4 GM/DL 2-4 Albumin/Globulin Ratio 1.6 1-3 Bilirubin Total 0.6 mg/dL 0.4-1.5 81 Alkaline Phosphatase 64 U/L 30-110 Alt (SGPT) 30 U/L 14-54 Ast (Sgot) 33 U/L 12-42 eGFR Non- 84.2 > 60 eGFR 108.3 > 60 82 Lipid Profile (Trig/Chol/HDL) 06/08/2010 Triglyceride 134 mg/dL 40-200 Cholesterol 190 mg/dL Less Than 200 83 High Density Lipoprotein 50 mg/dL 40-60 84 Cholesterol/HDL Ratio 3.80 AVERAGE 1-4.44 Low Density Lipoprotein 113 mg/dL High Less Than 100 85 Laboratory test finding 06/08/2010 TSH 2.70 MIU/ML 0.34-5.60 Thyroxine Free 0.79 ng/dL 0.61-1.24 GGTP 23 U/L 7-50 Liver Function Panel 09/04/2009 Total Protein 5.6 GM/DL Low 6.2-8.1 Albumin 3.8 GM/DL 3.2-5.2 Globulin 1.8 GM/DL Low 2-4 Albumin/Globulin Ratio 2.1 1-3 Bilirubin Total 0.7 mg/dL 0.4-1.5 86 Bilirubin Direct 0.1 mg/dL 0.1-0.5 Indirect Bilirubin 0.6 mg/dL 0.1-0.75 Alkaline Phosphatase 80 U/L 30-110 Alt (SGPT) 72 U/L High 14-54 Ast (Sgot) 59 U/L High 12-42 Laboratory test finding 08/06/2009 Hemoglobin A1c 6.2 % High Less Than 6.0 87 Lipid Profile 08/06/2009 Triglyceride 126 mg/dL 40-200 (Trig/Chol/HDL) Cholesterol 148 mg/dL Less Than 200 88 High Density Lipoprotein 39 mg/dL Low 40-60 89 Cholesterol/HDL Ratio 3.79 AVERAGE 1-4.44 Low Density Lipoprotein 84 mg/dL Less Than 100 90 Comp Metabolic Panel 08/06/2009 Sodium 143 mmol/L 135-145 Potassium 4.5 mmol/L 3.5-5.0 Chloride 104 mmol/L 101-111 Co2 (Carbon Dioxide) 32.0 mmol/L 22-32 Anion Gap 7.0 mmol/L 2-11 91 Glucose 108 mg/dL High 70-100 92 BUN 10 mg/dL 6-24 Creatinine 0.80 mg/dL 0.50-1.40 One Over Creatinine 1.20 BUN/Creatinine Ratio 12.5 8-20 Calcium 9.5 mg/dL 8.1-9.9 93 Total Protein 6.1 GM/DL Low 6.2-8.1 Albumin 3.7 GM/DL 3.2-5.2 Globulin 2.4 GM/DL 2-4 Albumin/Globulin Ratio 1.5 1-3 Bilirubin Total 0.7 mg/dL 0.4-1.5 94 Alkaline Phosphatase 72 U/L 30-110 Alt (SGPT) 56 U/L High 14-54 Ast (Sgot) 41 U/L 12-42 eGFR Non- 77.0 > 60 eGFR 93.2 > 60 95 Lipid Profile (Trig/Chol/HDL) 06/05/2009 Triglyceride 234 mg/dL High 40- 200 96 Cholesterol 269 mg/dL High Less Than 200 96, 97 High Density Lipoprotein 42 mg/dL 40-60 96, 98 Cholesterol/HDL Ratio 6.40 AVERAGE High 1-4.44 96 Low Density Lipoprotein 180 mg/dL High Less Than 100 96, 99 Comp Metabolic Panel 06/05/2009 Sodium 141 mmol/L 135-145 96 Potassium 4.5 mmol/L 3.5-5.0 96 Chloride 102 mmol/L 101-111 96 Co2 (Carbon Dioxide) 34.0 mmol/L High 22-32 96 Anion Gap 5.0 mmol/L 2-11 96, 100 Glucose 117 mg/dL High 70-100 96, 101 BUN 11 mg/dL 6-24 96 Creatinine 0.80 mg/dL 0.50-1.40 96 One Over Creatinine 1.20 96 BUN/Creatinine Ratio 13.8 8-20 96 Calcium 9.1 mg/dL 8.1-9.9 96, 102 Total Protein 5.8 GM/DL Low 6.2-8.1 96 Albumin 3.5 GM/DL 3.2-5.2 96 Globulin 2.3 GM/DL 2-4 96 Albumin/Globulin Ratio 1.5 1-3 96 Bilirubin Total 0.7 mg/dL 0.4-1.5 96, 103 Alkaline Phosphatase 72 U/L 30-110 96 Alt (SGPT) 23 U/L 14-54 96 Ast (Sgot) 22 U/L 12-42 96 eGFR Non- 77.0 > 60 96 eGFR 93.2 > 60 96, 104 Lipid Panel - [facility] 06/05/2009 CPK (Creatine Kinase) 43 U/L 0-170 96 Urine Microalbumin Random 06/05/2009 Microalbumin (MG/L) 2.0 mg/L 96 Urine Creatinine 90.00 mg/dL 96 Richard Alb/Creatinine Ratio 2.2 UG/MG Less Than 30 96, 105 Laboratory test 06/05/2009 Hemoglobin A1c 6.4 % High Less Than 96, 106 finding 6.0 Surgical Pathology 05/25/2009 Surgical Pathology 107 ----- <SEE NOTE> Comp Metabolic 05/30/2008 Sodium 140 mmol/L 135-145 Panel Potassium 4.0 mmol/L 3.5-5.0 Chloride 101 mmol/L 101-111 Co2 (Carbon Dioxide) 33.0 mmol/L High 22-32 Anion Gap 6.0 mmol/L 2-11 108 Glucose 91 mg/dL 70-100 109 BUN 12 mg/dL 6-24 Creatinine 0.80 mg/dL 0.50-1.40 One Over Creatinine 1.20 BUN/Creatinine Ratio 15.0 8-20 Calcium 9.4 mg/dL 8.1-9.9 110 Total Protein 6.3 GM/DL 6.2-8.1 Albumin 3.6 GM/DL 3.2-5.2 Globulin 2.7 GM/DL 2-4 Albumin/Globulin Ratio 1.3 1-3 Bilirubin Total 0.5 mg/dL 0.4-1.5 Alkaline Phosphatase 82 U/L 30-110 Alt (SGPT) 23 U/L 14-54 Ast (Sgot) 22 U/L 12-42 Lipid Profile (Trig/Chol/HDL) 05/30/2008 Triglyceride 257 mg/dL High 40- 200 Cholesterol 246 mg/dL High Less Than 200 111 High Density Lipoprotein 48 mg/dL 40-60 112 Cholesterol/HDL Ratio 5.13 AVERAGE High 1-4.44 Low Density Lipoprotein 147 mg/dL High Less Than 100 113 Laboratory test finding 05/30/2008 Hemoglobin A1c 6.5 % High <6.0 114 Lipid Panel - M 05/30/2008 CPK (Creatine Kinase) 26 U/L 0-170 CBC With Electronic Diff 04/09/2008 White Blood [...] Eosinophils 0.1 0-0.6 Abs Basophils 0 0-0.2 115 Basic Metabolic Panel 04/09/2008 Sodium 140 mmol/L 135-145 Potassium 4.2 mmol/L 3.5-5.0 Chloride 103 mmol/L 101-111 Co2 (Carbon Dioxide) 32.0 mmol/L 22-32 Anion Gap 5.0 mmol/L 2-11 116 Glucose 96 mg/dL 70-100 117 BUN 10 mg/dL 6-24 Creatinine 0.70 mg/dL 0.50-1.40 One Over Creatinine 1.40 BUN/Creatinine Ratio 14.3 8-20 Calcium 9.3 mg/dL 8.1-9.9 118 Total Protein 24HR Urine 11/09/2007 Total Protein Random Urine 9 mg/dL 119 Urine Total Protein/24HR 122 MG/24HR High 50-100 119 Creatinine 24HR Urine 11/09/2007 Creatinine Random Urine 55.0 mg/dL 119 Urine Creatinine/24HR 748.0 MG/24HR 600-1800 119 Hours Of Collection 24 HR 24- 119 Urine Volume Measurement 1360 ML 119 Lipid Profile (Trig/Chol/HDL) 2007 Triglyceride 238 mg/dL High 40- 200 Cholesterol 302 mg/dL High Less Than 200 120 High Density Lipoprotein 38 mg/dL Low 40-60 121 Cholesterol/HDL Ratio 7.95 AVERAGE High 1-4.44 Low Density Lipoprotein 216 mg/dL High Less Than 100 122 Basic Metabolic Panel 2007 Sodium 140 mmol/L 135-145 Potassium 4.2 mmol/L 3.5-5.0 Chloride 102 mmol/L 101-111 Co2 (Carbon Dioxide) 33.0 mmol/L High 22-32 Anion Gap 5.0 mmol/L 2-11 123 Glucose 109 mg/dL High 70-105 BUN 13 mg/dL 6-24 Creatinine 0.8 mg/dL 0.5-1.4 One Over Creatinine 1.25 BUN/Creatinine Ratio 16.3 8-20 Calcium 8.7 mg/dL 8.1-9.9 124 Urinalysis W/Microscopic 2007 Ua Color YELLOW Appearance-Urine CLEAR Specific [place]-Ur 1.024 1.010-1.030 Esterase-Urine TRACE Negative Nitrite NEGATIVE Negative Ffpbbxertlma-Ka-LSQ NEGATIVE Negative Protein-Urine 1+ Negative PH-Urine 5.0 5-9 Blood-Urine NEGATIVE Negative Ketones-Urine NEGATIVE Negative Bilirubin-Ur NEGATIVE Negative Glucose-Urine NEGATIVE Negative WBC-Urine 3-7 0-5 RBC-Urine 0-2 0-2 Mucus Urine MODERATE Epith Cells-Ur FEW Bacteria-Urine 1+ Laboratory test finding 02/16/2007 Throat Culture Full MANY NORMAL THRO 125 <SEE NOTE> 1 *Ascorbic acid is present which may interfere with detection of blood. 2 Desirable <150 Borderline high 150-199 High 200-499 Very High >500 3 Desirable <200 Borderline high 200-239 High >239 4 Low <40 Desirable: 40-60 High: >60 5 Desirable: <100 mg/dL Near Optimal: 100-129 mg/dL Borderline High: 130-159 mg/dL High: 160-189 mg/dL Very High: >189 mg/dL 6 Because ethnic data is not always readily [...] 15-29 5 Kidney failure <15 (or dialysis) 7 Test Performed by: [place] [address] [employer]: Jesus Hughes II, M.D., Ph.D. 8 REFERENCE VALUE <=1.0 (Negative) 9 REFERENCE VALUE <20.0 (Negative) 10 Tests for antibodies to dsDNA and EDY antigens are not performed automatically unless the PEDRO result is > or= 3.0 U. Studies performed at [facility] indicate that positive PEDRO results <3.0 U are rarely accompanied by positive second order tests. Test Performed by: [place] [address] [employer]: Jesus Hughes II, M.D., Ph.D. 11 Unable to calculate due to low microalbumin 12 Therapeutic target for the treatment of diabetes Mellitus patients is <7% HBA1C, and in selective patients <6.0%.Please refer to [place] [employer] Diabetic care guidelines for further information. 13 Unable to calculate due to low microalbumin 14 Desirable <150 Borderline high 150-199 High 200-499 Very High >500 15 Desirable <200 Borderline high 200-239 High >239 16 Low <40 Desirable: 40-60 High: >60 17 Desirable: <100 mg/dL Near Optimal: 100-129 mg/dL Borderline High: 130-159 mg/dL High: 160-189 mg/dL Very High: >189 mg/dL 18 Because ethnic data is not always readily [...] 15-29 5 Kidney failure <15 (or dialysis) 19 FASTING 10 HOUR 20 FASTING 10 HOUR 21 Normal Range 180 to 914 Indeterminate Range 145 to 180 Deficient Range <145 22 SEE RESULT BELOW Name: KATHLEEN ROWE : [address]: Christian Gaytan MD Acct: [id number] Unit: [id number] AGE: 69 Location: [facility] Re08/04/15 SEX: F Status: REG REF SPEC: [id number] [place]: 08/04/151118 [facility] DR: Chaitanya Gaytan MD REQ: [id number] RECD: 08/04/15 STATUS: COMP _ SOURCE: URINE SPDESC: ORDERED: Urine Culture [place] [facility] [facility] [place] Procedure Result Reported Site Urine Culture Final 08/06/15- 0758 ML Organism 1 ESCHERICHIA COLI [place] Count 50-75,000 (Many) CFU/ML Organism 2 NORMAL SHRUTHI [place] Count 1-10,000 (Few) CFU/ML 1. ESCHERICHIA COLI [...] antibiotic reporting. * ML - MAIN LAB ([facility]) . END OF REPORT * ML=Testing performed at Main Lab DEPARTMENT OF PATHOLOGY, [address] [place] [address] Juan Manuel Jiménez M.D. Director [facility] # [id number] 23 SEE RESULT BELOW Name: KATHLEEN ROWE : [address]: Jerome Zuleta NP Acct: [id number] Unit: [id number] AGE: 69 Location: [facility] Re03/16/15 SEX: F Status: REG REF SPEC: [id number] [place]: 03/16/15-[address] [facility] [address]: Jerome Zuleta [employer] REQ: [id number] RECD: 03/16/158560 STATUS: COMP _ SOURCE: URINE SPDESC: ORDERED: Urine Culture Procedure Result Reported Site Urine Culture Final 03/18/15- 746 ML No Growth (<1,000 CFU/mL) * ML - MAIN LAB ([facility]) . END OF REPORT * ML=Testing performed at Main Lab DEPARTMENT OF PATHOLOGY, [address] [place] [address] Juan Manuel Jiménez M.D. Director [facility] # [id number] 24 SEE RESULT BELOW Name: KATHLEEN ROWE : [address]: Jerome Zuleta NP Acct: [id number] Unit: [id number] AGE: 69 Location: [facility] Re01/12/15 SEX: F Status: REG REF SPEC: [id number] [place]: 01/12/[address] [facility] [address]: Jerome Zuleta NP REQ: [id number] RECD: 01/12/15 STATUS: COMP _ SOURCE: URINE SPDESC: ORDERED: Urine Culture Procedure Result Verified Site Urine Culture Final 01/14/15- 1006 ML Organism 1 NORMAL SHRUTHI [place] Count 1-10,000 (Few) CFU/ML * ML - MA[facility] LAB ([facility]) . END OF REPORT * ML=Testing performed at Main Lab DEPARTMENT OF PATHOLOGY, [address] [place] [address] Juan Manuel Jiménez M.D. Director [facility] # [id number] 25 SEE RESULT BELOW Name: KATHLEEN ROWE : [address]: Jerome Zuleta NP Acct: [id number] Unit: [id number] AGE: 69 Location: [facility] Re01/09/15 SEX: F Status: REG REF SPEC: [id number] [place]: 01/09/151352 [facility] DR: Jerome Zuleta [employer] REQ: [id number] RECD: 01/09/15 STATUS: COMP _ SOURCE: VAGINAL [...] ON NEXT PAGE * ML=Testing performed at Main Lab DEPARTMENT OF PATHOLOGY, [address] [place] [address] Juan Manuel Jiménez M.D. Director [facility] # [id number] Patient: KATHLEEN ROWE [id number] (Continued) Specimen: [id number] Collected: 01/09/15-135 Received: 01/09/15 (Continued) Procedure Result Verified Site Trichomonas: Vaginal DNA Probe Final (continued) 01/10/15- 1440 The presence or absence of T. vaginalis cannot be used as a test for therapeutic success or failure. * ML - MAIN LAB ([facility]) . END OF REPORT * ML=Testing performed at Main Lab DEPARTMENT OF PATHOLOGY, [address] [place] [address] Juan Manuel Jiménez M.D. Director [facility] # [id number] 26 FASTING 10 HOUR 27 Therapeutic target for the treatment of diabetes Mellitus patients is <7% HBA1C, and in selective patients <6.0%.Please refer to [place] [employer] Diabetic care guidelines for further information. 28 Desirable <150 Borderline high 150-199 High 200-499 Very High >500 29 Desirable <200 Borderline high 200-239 High >239 30 Low <40 Desirable: 40-60 High: >60 31 Desirable: <100 mg/dL Near Optimal: 100-129 mg/dL Borderline High: 130-159 mg/dL High: 160-189 mg/dL Very High: >189 mg/dL 32 Because ethnic data is not always readily [...] 15-29 5 Kidney failure <15 (or dialysis) 33 RUN DATE: 06/16/14 [facility] LAB LIVE PAGE 1 RUN TIME: [address] [place] [address] Specimen Inquiry Name: KATHLEEN ROWE : [address]: Shad Issa [employer] Acct: [id number] Unit: [id number] AGE: 68 Location: [facility] Re06/16/14 SEX: F Status: REG REF SPEC: [id number] [place]: 06/16/14-[address] [facility] [address]: Shad Issa NP REQ: [id number] RECD: 06/16/14 STATUS: COMP _ SOURCE: [facility]: ORDERED: Rapid Flu A B QUERIES: Provider Requisition # [id number] Procedure Result Verified Site Rapid Influenza A B Antigen Final 06/16/14- 191 L Organism 1 Negative Influenza A B Antigen testing by enzyme immunoassay. Cell culture testing can be performed to confirm negative test results and to assist in detecting other viruses that can produce similar clinical symptoms. Please notify Microbiology Lab if further testing is desired. END OF REPORT * ML=Testing performed at Main Lab DEPARTMENT OF PATHOLOGY, [facility] [employer] [place], [place] [address] Juan Manuel Jiménez M.D. Director [facility] # [id number] 34 RUN DATE: 05/30/14 [facility] LAB LIVE PAGE 1 RUN TIME: 141 [facility] [employer] [place], [place] [address] Specimen Inquiry Name: KATHLEEN ROWE : [address]: Rex Allan MD Acct: [id number] Unit: [id number] AGE: 68 Location: [facility] Re05/29/14 SEX: F Status: REG REF SPEC: [id number] [place]: 05/29/14-[address] [facility] [address]: Rex Allan MD REQ: [id number] RECD: 05/29/14 STATUS: [facility] DR: Chaitanya Gaytan MD [...] performed at Main Lab DEPARTMENT OF PATHOLOGY, [address] [place] [address] Juan Manuel Jiménez M.D. Director [facility] # [id number] 35 Because ethnic data is not always readily [...] 15-29 5 Kidney failure <15 (or dialysis) 36 Desirable <150 Borderline high 150-199 High 200-499 Very High >500 37 Desirable <200 Borderline high 200-239 High >239 38 Low <40 Desirable: 40-60 High: >60 39 Desirable <100 Near Optimal 100-129 Borderline high 130-159 High 160-189 Very High >189 40 FASTING 10 HOUR 41 Because ethnic data is not always readily [...] 15-29 5 Kidney failure <15 (or dialysis) 42 Desirable <150 Borderline high 150-199 High 200-499 Very High >500 43 Desirable <200 Borderline high 200-239 High >239 44 Low <40 Desirable: 40-60 High: >60 45 Desirable <100 Near Optimal 100-129 Borderline high 130-159 High 160-189 Very High >189 46 Desirable <150 Borderline high 150-199 High 200-499 Very High >500 47 Desirable <200 Borderline high 200-239 High >239 48 Low <40 Desirable: 40-60 High: >60 49 Desirable <100 Near Optimal 100-129 Borderline high 130-159 High 160-189 Very High >189 50 Microalbuminuria in a random sample is defined as: Microalbumin/Creatinine ratio of 30-299 ug/mg. 51 Therapeutic target for the treatment of diabetes Mellitus patients is <7% HBA1C, and in selective patients <6.0%.Please refer to [place] [employer] Diabetic care guidelines for further information. 52 PT IS FASTING 53 Because ethnic data is not always readily [...] 15-29 5 Kidney failure <15 (or dialysis) 54 HDL Interpretation: Undesirable: High Risk: Less than 40 mg/dL Desirable: Low Risk: Greater than 60 mg/dL 55 LDL Interpretation: Low Risk Optimal Level: LDL Less than 100 mg/dL Near or Above Optimal: LDL 100-129 mg/dL Borderline High Risk: LDL 130-159 mg/dL High Risk: LDL 160-189 mg/dL Very High Risk: LDL Greater than 189 mg/dL 56 Because ethnic data is not always readily [...] 15-29 5 Kidney failure <15 (or dialysis) 57 Microalbuminuria in a random sample is defined as: Microalbumin/Creatinine ratio of 30-299 ug/mg. 58 Because ethnic data is not always readily [...] 15-29 5 Kidney failure <15 (or dialysis) 59 MICROALBUMINURIA IN A RANDOM SAMPLE IS DEFINED : MICROALBUMIN/CREATININE RATIO OF 30-299 ug/mg. . 60 Anion gap measurement may be of limited value in the presence of any alkalosis, especially in a combined acid base disorder. . 61 A metabolite of Naproxen, O-desmethylnaproxen, has been shown to interfere with the Jendrassik-Sharmila method for measuring total bilirubin. Samples from patients who have taken Naproxen have shown spurious elevation in total bilirubin levels. 62 Because ethnic data is not always readily [...] 15-29 5 Kidney failure <15 (or dialysis) 63 CHOLESTEROL INTERPRETATION: Desirable: Less than 200 MG/DL Borderline-High Risk: 200-239 MG/DL High-Risk: 240 MG/DL and over 64 HDL INTERPRETATION: Undesirable: High Risk: Less than 40 MG/DL Desirable: Low Risk: Greater than 60 MG/DL 65 LDL INTERPRETATION: Low Risk Optimal Level: LDL Less than 100 MG/DL Near or Above Optimal: LDL 100-129 MG/DL Borderline High Risk: LDL 130-159 MG/DL High Risk: LDL 160-189 MG/DL Very High Risk: LDL Greater than 189 MG/DL 66 Anion gap measurement may be of limited value in the presence of any alkalosis, especially in a combined acid base disorder. . 67 A metabolite of Naproxen, O-desmethylnaproxen, has been shown to interfere with the Jendrassik-Sharmila method for measuring total bilirubin. Samples from patients who have taken Naproxen have shown spurious elevation in total bilirubin levels. 68 Because ethnic data is not always readily [...] 15-29 5 Kidney failure <15 (or dialysis) 69 CHOLESTEROL INTERPRETATION: Desirable: Less than 200 MG/DL Borderline-High Risk: 200-239 MG/DL High-Risk: 240 MG/DL and over 70 HDL INTERPRETATION: Undesirable: High Risk: Less than 40 MG/DL Desirable: Low Risk: Greater than 60 MG/DL 71 LDL INTERPRETATION: Low Risk Optimal Level: LDL Less than 100 MG/DL Near or Above Optimal: LDL 100-129 MG/DL Borderline High Risk: LDL 130-159 MG/DL High Risk: LDL 160-189 MG/DL Very High Risk: LDL Greater than 189 MG/DL 72 Anion gap measurement may be of limited value in the presence of any alkalosis, especially in a combined acid base disorder. . 73 A metabolite of Naproxen, O-desmethylnaproxen, has been shown to interfere with the Jendrassik-Birdseye method for measuring total bilirubin. Samples from patients who have taken Naproxen have shown spurious elevation in total bilirubin levels. 74 Because ethnic data is not always readily [...] 15-29 5 Kidney failure <15 (or dialysis) 75 CHOLESTEROL INTERPRETATION: Desirable: Less than 200 MG/DL Borderline-High Risk: 200-239 MG/DL High-Risk: 240 MG/DL and over 76 HDL INTERPRETATION: Undesirable: High Risk: Less than 40 MG/DL Desirable: Low Risk: Greater than 60 MG/DL 77 LDL INTERPRETATION: Low Risk Optimal Level: LDL Less than 100 MG/DL Near or Above Optimal: LDL 100-129 MG/DL Borderline High Risk: LDL 130-159 MG/DL High Risk: LDL 160-189 MG/DL Very High Risk: LDL Greater than 189 MG/DL 78 THERAPEUTIC TARGET FOR THE TREATMENT OF DIABETES MELLITUS PATIENTS IS <7% HBA1C, AND IN SELECTIVE PATIENTS <6.0%. PLEASE REFER TO [place] [employer] DIABETIC CARE GUIDELINES FOR FURTHER INFORMATION. 79 MICROALBUMINURIA IN A RANDOM SAMPLE IS DEFINED : MICROALBUMIN/CREATININE RATIO OF 30-299 ug/mg. . 80 Anion gap measurement may be of limited value in the presence of any alkalosis, especially in a combined acid base disorder. . 81 A metabolite of Naproxen, O-desmethylnaproxen, has been shown to interfere with the Jendrassik-Sharmila method for measuring total bilirubin. Samples from patients who have taken Naproxen have shown spurious elevation in total bilirubin levels. 82 Because ethnic data is not always readily [...] 15-29 5 Kidney failure <15 (or dialysis) 83 CHOLESTEROL INTERPRETATION: Desirable: Less than 200 MG/DL Borderline-High Risk: 200-239 MG/DL High-Risk: 240 MG/DL and over 84 HDL INTERPRETATION: Undesirable: High Risk: Less than 40 MG/DL Desirable: Low Risk: Greater than 60 MG/DL 85 LDL INTERPRETATION: Low Risk Optimal Level: LDL Less than 100 MG/DL Near or Above Optimal: LDL 100-129 MG/DL Borderline High Risk: LDL 130-159 MG/DL High Risk: LDL 160-189 MG/DL Very High Risk: LDL Greater than 189 MG/DL 86 A metabolite of Naproxen, O-desmethylnaproxen, has been shown to interfere with the Jendrassik-Sharmila method for measuring total bilirubin. Samples from patients who have taken Naproxen have shown spurious elevation in total bilirubin levels. 87 THERAPEUTIC TARGET FOR THE TREATMENT OF DIABETES MELLITUS PATIENTS IS <7% HBA1C, AND IN SELECTIVE PATIENTS <6.0%. PLEASE REFER TO [place] [employer] DIABETIC CARE GUIDELINES FOR FURTHER INFORMATION. 88 CHOLESTEROL INTERPRETATION: Desirable: Less than 200 MG/DL Borderline-High Risk: 200-239 MG/DL High-Risk: 240 MG/DL and over 89 HDL INTERPRETATION: Undesirable: High Risk: Less than 40 MG/DL Desirable: Low Risk: Greater than 60 MG/DL 90 LDL INTERPRETATION: Low Risk Optimal Level: LDL Less than 100 MG/DL Near or Above Optimal: LDL 100-129 MG/DL Borderline High Risk: LDL 130-159 MG/DL High Risk: LDL 160-189 MG/DL Very High Risk: LDL Greater than 189 MG/DL 91 Anion gap measurement may be of limited value in the presence of any alkalosis, especially in a combined acid base disorder. . 92 Note change in reference range as of 11/22/07. The change was based on recommendations from the [place] [employer]. 93 Please note change in reference range effective 07 . 94 A metabolite of Naproxen, O-desmethylnaproxen, has been shown to interfere with the Jendrassik-Sharmila method for measuring total bilirubin. Samples from patients who have taken Naproxen have shown spurious elevation in total bilirubin levels. 95 Because ethnic data is not always readily [...] 15-29 5 Kidney failure <15 (or dialysis) 96 FASTING 97 CHOLESTEROL INTERPRETATION: Desirable: Less than 200 MG/DL Borderline-High Risk: 200-239 MG/DL High-Risk: 240 MG/DL and over 98 HDL INTERPRETATION: Undesirable: High Risk: Less than 40 MG/DL Desirable: Low Risk: Greater than 60 MG/DL 99 LDL INTERPRETATION: Low Risk Optimal Level: LDL Less than 100 MG/DL Near or Above Optimal: LDL 100-129 MG/DL Borderline High Risk: LDL 130-159 MG/DL High Risk: LDL 160-189 MG/DL Very High Risk: LDL Greater than 189 MG/DL 100 Anion gap measurement may be of limited value in the presence of any alkalosis, especially in a combined acid base disorder. . 101 Note change in reference range as of 11/22/07. The change was based on recommendations from the [place] [employer]. 102 Please note change in reference range effective 07 . 103 A metabolite of Naproxen, O-desmethylnaproxen, has been shown to interfere with the Jendrassik-Birdseye method for measuring total bilirubin. Samples from [...] 5 Kidney failure <15 (or dialysis) 105 MICROALBUMINURIA IN A RANDOM SAMPLE IS DEFINED : MICROALBUMIN/CREATININE RATIO OF 30-299 ug/mg. . 106 THERAPEUTIC TARGET FOR THE TREATMENT OF DIABETES MELLITUS PATIENTS IS <7% HBA1C, AND IN SELECTIVE PATIENTS <6.0%. PLEASE REFER TO [place] [employer] DIABETIC CARE GUIDELINES FOR FURTHER INFORMATION. 107 ----- RUN DATE: 05/27/09 [facility] NMI LIVE PAGE 1 RUN TIME: 1331 Specimen Inquiry RUN USER: INTERFACE -- Name: KATHLEEN ROWE Status: REG REF Re05/25/09 Age/Sex: 63/F Unit#: [id number] Location: [facility]. : [birth year] -- Specimen: [id number] Spec Date: 05/25/[address]: Rex darby MD Spec Type: SURGICAL P Received: 05/26/09 Copies to: Chaitanya tucker MD SPECIMEN 1) [...] 05/27/09 1331 -- -- DEPARTMENT OF PATHOLOGY, [address] [place] [address] [facility] Permit #[id number] Juan Manuel Jiménez M.D. Director Jaelyn Vaca M.D. [employer] Dir ki -- 108 Anion gap measurement may be of limited value in the presence of any alkalosis, especially in a combined acid base disorder. . 109 Note change in reference range as of 11/22/07. The change was based on recommendations from the [place] [employer]. 110 Please note change in reference range effective 07 . 111 CHOLESTEROL INTERPRETATION: Desirable: Less than 200 MG/DL Borderline-High Risk: 200-239 MG/DL High-Risk: 240 MG/DL and over 112 HDL INTERPRETATION: Undesirable: High Risk: Less than 40 MG/DL Desirable: Low Risk: Greater than 60 MG/DL 113 LDL INTERPRETATION: Low Risk Optimal Level: LDL Less than 100 MG/DL Near or Above Optimal: LDL 100-129 MG/DL Borderline High Risk: LDL 130-159 MG/DL High Risk: LDL 160-189 MG/DL Very High Risk: LDL Greater than 189 MG/DL 114 THERAPEUTIC TARGET FOR THE TREATMENT OF DIABETES MELLITUS PATIENTS IS <7% HBA1C, AND IN SELECTIVE PATIENTS <6.0%. PLEASE REFER TO [place] [employer] DIABETIC CARE GUIDELINES FOR FURTHER INFORMATION. 115 Lymphopenia % 116 Anion gap measurement may be of limited value in the presence of any alkalosis, especially in a combined acid base disorder. . 117 Note change in reference range as of 11/22/07. The change was based on recommendations from the [place] [employer]. 118 Please note change in reference range effective 07 . 119 COLLECTED FROM 11/07 06 THROUGH 11/08 709 120 CHOLESTEROL INTERPRETATION: Desirable: Less than 200 MG/DL Borderline-High Risk: 200-239 MG/DL High-Risk: 240 MG/DL and over 121 HDL INTERPRETATION: Undesirable: High Risk: Less than 40 MG/DL Desirable: Low Risk: Greater than 60 MG/DL 122 LDL INTERPRETATION: Low Risk Optimal Level: LDL Less than 100 MG/DL Near or Above Optimal: LDL 100-129 MG/DL Borderline High Risk: LDL 130-159 MG/DL High Risk: LDL 160-189 MG/DL Very High Risk: LDL Greater than 189 MG/DL 123 Anion gap measurement may be of limited value in the presence of any alkalosis, especially in a combined acid base disorder. . 124 Please note change in reference range effective 07 . 125 MANY NORMAL THROAT SHRUTHI Procedures Date CPT Code Description Status 04/11/2017 25050 Nerve Conduction 03-04 Studies Completed 04/11/2017 81858 Needle Electromyography Complete, Five Or More Muscles Completed Studied 02/07/201789285 Inject/Drain Joint/Bursa Major Completed 12/01/2016 Inject/Drain Joint/Bursa Major Completed 12/01/201647075 Inject/Drain Joint/Bursa Major Completed 04/01/2016 28435 Sleep Study Unattended,HRT Rate,Oxygen Sat,Resp Completed Effort/Airflow 01/08/2016 Mammogram Completed 12/14/2015 42144 Diffusing Capacity Completed 12/14/2015 78575 Plethysmography Determination Lung Volumes & Per Completed Airway Resist 12/14/2015 77354 Pulmonary Function><Bronchodil Completed 10/09/2014 Inject/Drain Joint/Bursa Major Completed 06/03/2014 Inject/Drain Joint/Bursa Intermediate Completed 04/25/2014 Diabetic Retinal Eye Exam Completed 12/03/2013 99411 Rad Exam; Hand Comp Completed 12/03/2013 35807 Rad Exam; Hand Comp Completed 11/12/201365969 Inject/Drain Joint/Bursa Major Completed 06/07/2013 Mammogram Completed 06/06/2011 Bone Mineral Density Test Completed 06/06/2011 Mammogram Completed 05/25/2009 Colonoscopy Completed 12/10/2007 18042 EKG Tracing & Interpretation Completed 04/07/2004 Colonoscopy Completed Encounters Type Date Location Provider CPT E/M Dx Office Visit 03/29/2017 [facility] Internal Medicine Gilbert Pelletier, 46942 M51.16 11:40a - Ana Lancaster Office Visit 02/21/2017 [place] [address] S46.012D 10:30a Of [facility] Office Visit 02/07/2017 [place] [address] S46.012D 10:45a Of [facility] M76.52 M17.0 M17.12 Office Visit 01/23/2017 10:00a [facility] [place] [address] G47.33 Services Of [facility] Office Visit 01/12/2017 11:30a [facility] [place] [address] M17.12 [facility] M76.52 S46.012D M25.512 M17.0 Office Visit 01/02/2017 10:50a [facility] Internal Chaitanya Gaytan, 68365 Z00.01 Medicine - [place] Manuel Lancaster,FACP E11.9 M19.012 G47.33 L90.0 Z23 Office Visit 12/01/2016 2:00p [facility] [place] [address] M17.12 [facility] M76.52 S46.012D M19.012 Office Visit 11/04/2016 4:20p [facility] Internal Chaitanya Gaytan, 77442 W10.8xxD Medicine - [place] José Manuel Lancaster,FACP M25.512 Office Visit 08/11/2016 10:10a [facility] Internal Medicine Chaitanya Gaytan, 26199 E11.9 - [place] José Manuel Lancaster,FACP M19.012 E78.2 Office Visit 07/22/2016 9:15a [facility] [place] [address] G47.33 Services Of [facility] Office Visit 06/20/2016 9:45a [facility] [place] [address] G47.33 Services Of [facility] Office Visit 05/04/2016 11:30a [facility] Internal Medicine Michael Gyatan, 03639 E11.9 [place] José Manuel Lancaster,FACP M19.012 Office Visit 05/02/2016 10:00a [facility] [place] [address] G47.33 Services [facility] E66.09 Office Visit 03/18/2016 11:00a [facility] [place] [address] G47.33 Services Of [facility] E66.09 G89.29 Z68.35 Office Visit 03/01/2016 8:00a [facility] [place] [address] M19.012 [facility] S46.011A Office Visit 02/03/2016 11:30a [facility] Internal Chaitanya Gaytan, 80071 M25.512 Medicine - [place] José Manuel Lancaster,FACP E11.9 Office Visit 01/01/2016 2:00p [facility] Internal Chaitanya Gaytan, 64416 Z00.01 Medicine - [place] José Manuel Lancaster,FACP E11.9 E78.2 R09.02 Z12.31 I10 Office Visit 11/20/2015 1:40p [facility] Internal Medicine Chaitanya Gaytan, 32629 R51 - [place] José Manuel Lancaster,FACP R53.83 E78.2 R09.02 Office Visit 11/05/2015 9:40a [facility] Internal Gilbert Pelletier M.D. 16582 E11.9 Medicine - [place] [address] R51 Office Visit 08/04/2015 10:10a [facility] Internal Medicine Chaitanya Gaytan, 85649 R30.0 - Ana Lancaster,FACP N39.0 Office Visit 07/27/2015 2:40p [facility] Internal Medicine Duy Evans, 84214 J06.9 - Ana Lancaster Office Visit 03/16/2015 10:00a [facility] [place] [address] N77.1 - [place] [address] R30.0 F06.4 N76.0 F41.9 Office Visit 02/06/2015 9:40a [facility] Internal Chaitanya Gaytan, 82221 S06.5x0D Medicine - [place] [address] Anisha,FACP M24.031 E11.9 Office Visit 01/09/2015 1:00p [facility] Internal [place] [address] N39.0 Office Visit 12/15/2014 10:30a [facility] Internal Medicine Chaitanya Gaytan, 71261 850.0 - [place] José Manuel Lancaster,FACP 250.00 293.84 Office Visit 11/20/2014 9:40a [facility] Of Juan Savage M.D. 62693 726.10 [facility]arah Office Visit 10/09/2014 11:00a [facility] Of Juan Savage M.D. 95334 726.10 C.[facility].ASarah Office Visit 09/03/2014 3:00p [facility] Internal Medicine - Chaitanya Gaytan, 08571 V70.0 [place] José Manuel Lancaster,FACP 850.5 250.00 726.19 V76.19 Office Visit 07/16/2014 9:00a [facility] Internal [place] Pel[place], 90328 250.00 Medicine - [place] José Manuel Lancaster 780.52 461.9 850.5 Office Visit 06/16/2014 1:30p [facility] Internal Medicine - Shad [place], DEX [address] 465.9 Office Visit 12/25/2013 11:10a [facility] Internal Medicine Chaitanya Gaytan, 20906 250.00 - Ana Lancaster,FACP 401.1 V03.1 v03.82 Office Visit 12/10/2013 10:45a [facility] Of Juan Savage M.D. 48066 715.14 C.M.ASarah 726.11 Office Visit 12/03/2013 10:00a [facility] Suzette Palacios, 03941 715.14 Of C.Ann Marie Lancaster Office Visit 11/12/2013 10:30a [facility] Juan Savage M.D. 19956 726.11 Of [facility] Office Visit 09/10/2013 10:30a [facility] Juan Savage M.D. 68447 726.11 Of [facility] Office Visit 06/03/2013 10:30a [facility] Internal Chaitanya Gaytan, 35115 V70.0 [facility] Micahel Lancaster,FACP [place] 569.0 401.1 250.00 V76.10 Office Visit 05/29/2013 2:20p [facility] Internal Medicine ChaitanyaJuan Luis Gaytan, 76338 364.60 - Ana Lancaster,FACP 726.19 Office Visit 03/29/2013 9:00a [facility] Internal Medicine ChaitanyaJuan Luis Gaytan, 10997 691.8 - Ana Lancaster,FACP 401.1 272.0 Office Visit 12/04/2012 10:30a [facility] Internal Medicine ChaitanyaJuan Luis Gaytan, 67709 722.93 - Ana Lancaster,FACP 250.00 Office Visit 06/05/2012 9:50a [facility] Internal Medicine ChaitanyaJuan Luis Gaytan, 21580 V70.0 - Ana Lancaster,FACP 250.00 564.1 726.19 Office Visit 12/07/2011 3:40p [facility] Internal Medicine ChaitanyaJuan Luis Gaytan, 82522 250.00 - Ana Lancaster,FACP 455.3 V04.81 Office Visit 05/30/2011 11:10a [facility] Internal Medicine Chaitanya Gaytan, 33839 V70.0 - Ana Lancaster,FACP 250.00 571.8 V76.10 569.3 V82.81 564.1 333.1 Office Visit 12/27/2010 1:00p DO Not Use [employer] Carolyn Colin, N.P. 29301 250.00 [place] 272.0 401.1 V72.84 Office Visit 11/30/2010 11:30a DO Not Use [employer] ChaitanyaJuan Luis Gaytan, 23998 250.00 Perez Lancaster,FACP 272.0 401.1 726.71 Office Visit 05/27/2010 10:00a DO Not Use [employer] [facility] [facility], 53851 V70.0 [facility],FACP 272.0 250.00 571.8 780.79 724.1 V03.82 Office Visit 05/25/2010 3:40p DO Not Use [employer] [facility] [facility], 25277 462 [facility] Office Visit 10/26/2009 11:40a DO Not Use [place] [address] 461.0 [facility] Office Visit 08/25/2009 12:45p DO Not Use [employer] [facility], 40773 473.8 [facility],FACP 571.8 786.2 Office Visit 05/13/2009 3:00p DO Not Use [employer] [facility] [facility], 80902 V70.0 [facility],FACP 780.79 401.1 272.4 250.00 Office Visit 04/16/2009 1:45p DO Not Use [employer] Ronan Acosta M.D. 14914 461.9 [facility] 477.9 401.1 Office Visit 10/07/2008 11:00a DO Not Use [employer] [facility] [facility], 23193 682.7 [facility],FACP 272.4 724.02 578.1 Office Visit 09/29/2008 3:30p DO Not Use [place] [address] 682.7 [facility] Office Visit 06/03/2008 1:20p DO Not Use [employer] [facility], 93104 790.21 [facility],FACP 272.4 724.02 Office Visit 04/09/2008 11:00a DO Not Use [employer] [place] [address] V72.84 [facility] 401.1 272.4 724.02 461.9 Office Visit 02/15/2008 2:40p DO Not Use [employer] [facility], 95004 722.0 [facility],FACP 250.00 705.89 Office Visit 12/10/2007 3:40p DO Not Use [facility], 37195 V72.81 [facility]FACP 722.0 401.1 272.4 Office Visit 11/06/2007 1:40p DO Not Use [employer] [facility], 05935 791.0 [facility]FACP 272.2 401.1 724.02 790.21 Office Visit 07/31/2007 1:00p DO Not Use [facility], 55012 790.21 [facility]FACP 272.4 401.1 715.04 473.1 327.23 Office Visit 07/04/2007 1:30p DO Not Use [place] [address] 715.04 [facility] Office Visit 05/01/2007 3:40p DO Not Use [facility], 98568 327.23 [facility]FACP 296.30 278.01 401.1 272.4 724.5 Office Visit 02/16/2007 9:00a DO Not Use [facility], 74711 462 [facility],FACP 401.1 272.4 Plan of Care Future Appointment(s):07/24/2017 10:45 am - Rosa Perez MD at [facility]04/24/2017 - Darrian Carrera NPM54.5 Low back painNew Medication:Rolling WalkerComments:I would recommend contacting the pain clinic regarding the increased need of pain medication recently. I am referring you to a neurosurgeon for further evaluation.Referral:Lanette Ch MD, Surgery,Neurological
[2017-04-30 16:09] LABS: Hematocrit 46 % (35-47); Hemoglobin 15.2 g/dl (12.0-16.0); Mean Corpuscular HGB Conc 33 g/dl (31-36); Mean Corpuscular Hemoglobin 31 pg (27-31); Mean Corpuscular Volume 92 fL (80-97); Mean Platelet Volume 8 um3 (7.4-10.4); Platelet Count 281 10^3/ul (150-450); Red Blood Count 4.95 10^6/ul (4.0-5.4); Red Cell Distribution Width 14 % (10.5-15); White Blood Count 12.6 10^3/ul (3.5-10.8)
[2017-04-30 16:10] LABS: EGFR Non-African American 59.4 (>60)
--- NOTE | 2017-04-30 16:37 | RAD ---
INDICATION: Back pain. Evaluate for stones COMPARISON: Gallbladder sonogram September 11, 2006; MRI lumbar spine February 13, 2012 TECHNIQUE: Noncontrast imaging was performed as part of a renal stone protocol. Lung bases: The lung bases are clear. Liver: The liver is enlarged with findings of hepatic steatosis. Noncontrast imaging shows no evidence of a hepatic mass or ductal dilatation. Gallbladder: Multiple gallstones. No thickening gallbladder wall or pericholecystic fluid. Spleen: The spleen is normal in size. The noncontrast CT appearance is normal. There is an accessory spleen Pancreas: Noncontrast imaging shows no pancreatic mass or ductal dilitation. Adrenal glands: No masses are identified. Kidneys/Bladder: There is no evidence of nephrolithiasis or CT evidence of hydronephrosis. Noncontrast imaging shows no evidence of a renal mass. The bladder is unremarkable.. Adenopathy: There is no evidence of intraperitoneal or retroperitoneal adenopathy. Evaluation is limited without oral contrast. Fluid collections: There are no free or localized fluid collections. Vessels: There are atherosclerotic changes of the aorta and iliac vessels. There is no focal aneurysm. The IVC appears normal Pelvic organs: The uterus has a lobular configuration likely related to fibroid uterus.. There is no adnexal mass GI tract: Evaluation of the bowel is limited without oral contrast. The upper GI tract is unremarkable. There are scattered diverticula of the sigmoid colon. There are no obstructive findings. Soft tissues: There is a tiny fat-containing periumbilical hernia. Osseous structures: There is advanced spondylitic change of the lumbar spine with postsurgical changes from L3 through L5 consistent with decompressive surgery with fusion. There is multilevel foraminal and canal compromise as also described on earlier MR imaging. There is a grade 1 anterolisthesis of L3 on L4. There is a dorsal column stimulator. IMPRESSION: 1. Hepatomegaly with hepatic steatosis 2. Cholelithiasis. 3. No CT evidence of urolithiasis. 4. Scattered diverticula. 5. Tiny periumbilical hernia. 6. Advanced osteoarthritic change of the lumbar spine with prior lumbar surgery
--- NOTE | 2017-04-30 16:38 | RAD ---
INDICATION: Confusion. Frequent falls. COMPARISON: CT brain November 04, 2016 TECHNIQUE: Noncontrast axial source images were acquired from the skull base to the vertex. FINDINGS: Ventricles/sulci: There is cortical atrophy with compensatory dilatation of the CSF spaces. Brain parenchyma: There is mild periventricular and subcortical white matter change compatible with chronic ischemia. Intracranial hemorrhage:None. Extra-axial spaces: There are no abnormal extra axial fluid collections or evidence of extra-axial mass. Calvarium: There is no calvarial fracture or other calvarial abnormality. Scalp: There is no evidence of scalp or extracalvarial soft tissue abnormality. Paranasal sinuses/mastoid: The paranasal sinuses and mastoid air cells are clear. Other: None. IMPRESSION: No acute intracranial findings.
--- NOTE | 2017-04-30 16:39 | RAD ---
INDICATION: Spinal tenderness. Frequent falls. Confusion. Chronic back pain. COMPARISON: Thoracic spine September 20, 2012 TECHNIQUE: Noncontrast axial source images was performed from the thoracic inlet to the level the hemidiaphragms. Coronal and and sagittal reformatted images were generated. FINDINGS: Vertebrae: There is no fracture or acute focal bony lesion. There is anterior vertebral spurring from T7 through T10 Alignment: The thoracic vertebrae are normally aligned. Central Canal: There are no significant CT abnormalities of the central canal or foramina. MR imaging is a more sensitive method to evaluate the canal and foramina. Intervertebral disc spaces: The disc spaces are maintained. Soft tissues: There are no paravertebral soft tissue abnormalities. Other: There is a dorsal column stimulator at T6-T7 IMPRESSION: NO ACUTE CT FINDINGS. UNDERLYING OSTEOARTHRITIS. DORSAL COLUMN STIMULATOR.
--- NOTE | 2017-04-30 16:41 | RAD ---
INDICATION: Fall. Neck pain COMPARISON: CT cervical spine November 04, 2016 TECHNIQUE: Noncontrast axial source images was performed from the skull base to the thoracic inlet. Coronal and and sagittal reformatted images were generated. FINDINGS: Vertebrae: There is no fracture or acute focal bony lesion. There is anterior cervical fusion at C4-C6. There is no evidence of hardware failure. There is advanced degenerative disc disease at C6-C7 with narrowing, endplate sclerosis, and uncinate process spurring with resultant moderate bilateral foraminal narrowing there is also mild to moderate foraminal narrowing at C4-C5 and C5-C6. There is multilevel facet arthropathy most prominent at C2-C3 and C3-C4 on the left. Alignment: The craniocervical junction appears normal. The cervical vertebrae are normally aligned. Central Canal: There are no significant CT abnormalities of the central canal or foramina. MR imaging is a more sensitive method to evaluate the canal and foramina. Intervertebral disc spaces: The remaining disc spaces are maintained. Brain: The visualized brain appears unremarkable. Soft tissues: The visualized soft tissue elements of the neck are unremarkable. The prevertebral soft tissues otherwise appear normal. The lung apices are clear. IMPRESSION: OSTEOARTHRITIC CHANGES WITH PRIOR CERVICAL FUSION. NO ACUTE FINDINGS
[2017-04-30] MEDS ORDERED: Morphine INJ* 4 MG/ML 1 ML CARPUJECT IV ONE (18:05)
[2017-04-30] MEDS ORDERED: Ondansetron INJ* 2 MG/ML VIAL IV ONE (18:05)
[2017-04-30 19:24] LABS: Urine Appearance Cloudy
[2017-04-30 19:25] LABS: Urine Color Orange
--- NOTE | 2017-04-30 20:49 | RAD ---
INDICATION: Fever. Weakness COMPARISON: Chest x-ray November 04, 2016 TECHNIQUE: An AP portable view obtained at 2040 hours is submitted. FINDINGS: Bones/Soft Tissues: There are no acute bony findings. Cardiomediastinal: The cardiomediastinal silhouette is normal. Lungs: There are no infiltrates. Pleura: There are no pleural effusions. Other: There is a dorsal column stimulator IMPRESSION: NO ACTIVE DISEASE.
[2017-04-30] MEDS ORDERED: HYDROcodone/ACETAMIN 5-325 MG* 1 TAB PO ONE (21:31)
[2017-04-30] MEDS ORDERED: Iodixanol* (CONTRAST) 320 MG/ML 100 ML SDV IV ONE (22:09)
[2017-05-01] MEDS ORDERED: oxyCODONE/Acetamin 5/325 MG* TAB PO ONE (00:39)
[2017-05-01 02:29] VITALS: BP 112/72
--- NOTE | 2017-05-01 10:14 | RAD ---
HISTORY: Upper back pain, elevated d-dimer COMPARISONS: None relevant TECHNIQUE: Multiple contiguous axial CT scans of the chest were obtained after the administration of nonionic intravenous contrast, timed to the pulmonary arterial phase of contrast enhancement.. Coronal and sagittal multiplanar reformations are also submitted for review. FINDINGS: NECK AND THYROID: The lower neck and thyroid are unremarkable. CHEST WALL: There is no lower cervical, axillary, or supraclavicular lymphadenopathy by size criteria. HEART AND PERICARDIUM: The heart is unremarkable. AORTA AND PULMONARY VASCULATURE: There is no pulmonary arterial filling defect to suggest pulmonary embolism. The pulmonary artery is enlarged compared to the aorta. There is no linear filling defect within the aorta to suggest aortic dissection. MEDIASTINUM: There is no mediastinal lymphadenopathy by size criteria. EMI: There is no hilar lymphadenopathy by size criteria. AIRWAY AND ESOPHAGUS: The airway is unremarkable, without endobronchial filling defect. The esophagus is grossly normal. LUNG PARENCHYMA: There is a 1.4 cm nodule of the right lower lobe on axial image 23. PLEURA: There are trace bilateral pleural effusions. UPPER ABDOMEN: Gallstones are noted. There are diverticula of the splenic flexure of the colon. BONES AND SOFT TISSUES: Degenerative changes are noted of the spine. OTHER: None. IMPRESSION: 1. NO PULMONARY ARTERIAL FILLING DEFECT TO SUGGEST PULMONARY EMBOLISM. 2. ENLARGEMENT OF THE MAIN PULMONARY ARTERY SUGGESTIVE OF PULMONARY ARTERIAL HYPERTENSION. 3. TRACE BILATERAL PLEURAL EFFUSIONS. 4. 1.4 CM RIGHT LOWER LOBE LUNG NODULE, WITH SCATTERED PUNCTATE NODULES BILATERALLY. THE RECOMMENDATIONS FOR FOLLOWUP AND MANAGEMENT OF AN INCIDENTALLY DETECTED PULMONARY NODULE GREATER THAN 8 MM IN SIZE, IN A PATIENT WITHOUT A HISTORY OF MALIGNANCY, INCLUDE FOLLOWUP CT AT 3 MONTHS, PET-CT, AND/OR BIOPSY. THIS FINDING WAS REPORTED ON THE PRELIMINARY REPORT BY DR. NATARAJAN AT 12:09 AM ON MAY 01, 2014 NOTES: SIZE = AVERAGE LENGTH AND WIDTH; HIGH RISK IS DEFINED A HISTORY OF SMOKING OR OTHER KNOW RISK FACTORS FOR LUNG CANCER; LOW RISK IS DEFINED MINIMAL OR ABSENT HISTORY OF SMOKING OR OTHER KNOWN RISK FACTORS. Dustin Juarez, LAURO Hanks, MARTELL Heredia, et al (2017) "Guidelines for Management of Incidental Pulmonary Nodules Detected on CT Images: From the Fleischner Society 2017." Radiology; 284(1): 228-243. doi:10.1148/radiol.[id number]
--- NOTE | 2017-05-07 14:19 | ED ---
Christin Maxwell Emily, scribed for Nayan Mota MD on 04/30/17 at 1529 . Back Pain - HPI Summary HPI Summary: This patient is a 71 year old F BIBA to [facility] accompanied by family with a chief complaint of chronic cramping, bilateral medial back pain that worsened 5 days ago. The patient rates the pain 9/10 in severity. Symptoms aggravated by movement. Symptoms alleviated by nothing. Patient reports diaphoresis, fever ( 100.4), chills, and decreased appetite. Family reports pt being very unstable on her feet and falling 3 times in the last week. Pt reports being unsure about the specific causes of the falls. Pt reports being diagnosed with a kidney infection on 04/28/2016. Per family, pt is currently on medication for a UTI from Dr. Gaytan. Pt reports currently being on medication for her chronic back pain. - History of Current Complaint Chief Complaint: EDBackInjuryPain Stated Complaint: BACK PAIN Time Seen by Provider: 04/30/17 15:14 Hx Obtained From: Patient Onset/Duration: Sudden Onset Onset/Duration: Started Hours Ago, Still Present Timing: Constant, Lasting Hours Severity Initially: Severe Severity Currently: Severe Pain Intensity: 9 Pain Scale Used: 0-10 Numeric Character: Spasmodic Aggravating Symptom(s): Movement Alleviating Symptom(s): Nothing Associated Signs And Symptoms: Positive: Other - Positive diaphoresis - Allergies/Home Medications Allergies/Adverse Reactions: Allergies Allergy/AdvReac Type Severity Reaction Status Date / Time Amoxicillin Allergy nausea, Verified 03/13/17 11:03 vomiting Gabapentin [From Neurontin] Allergy "feels Verified 03/13/17 11:03 like brain is buzzing" PMH/Surg Hx/FS Hx/Imm Hx Previously Healthy: No Endocrine/Hematology History: Reports: Hx Diabetes - TYPE 2 Cardiovascular History: Reports: Hx Cardiomegaly - CHILD, Hx Hypercholesterolemia, Hx Hypertension - CONTROL WITH MEDICATION, 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, Other Cardiovascular Problems/Disorders - CONTROL WITH MEDICATIONS Denies: Hx Pacemaker/ICD Respiratory History: Reports: Hx Sleep Apnea - PATIENT REPORTS IN PAST GI History: Reports: Hx Cirrhosis - PATIENT DOES NOT DRINK ALCOHOL, Hx Gastroesophageal Reflux Disease - NO LONGER ON MEDICATION, Hx Irritable Bowel - CAUSED FROM MEDICATION PER PATIENT History: Reports: Hx Kidney Infection - DURING KIDNEY STONES-SEPSIS, Hx Kidney Stones - IN PAST, Other Problems/Disorders - HX OF KIDNEY STONES Denies: Hx Renal Disease Musculoskeletal History: Reports: Hx Arthritis, Hx Back Problems Comment Only: Other Musculoskeletal History - OSTEOPOROSIS Sensory History: Reports: Hx Cataracts, Hx Contacts or Glasses Denies: Hx Hearing Aid Opthamlomology History: Reports: Hx Cataracts, Hx Contacts or Glasses Neurological History: Reports: Hx Migraine - AND CLUSTER HEADACHES Psychiatric History: Denies: Hx Panic Disorder - Cancer History Hx Chemotherapy: No Hx Radiation Therapy: No - Surgical History Surgery Procedure, Year, and Place: 1946 DIGESTIVE BLOCKAGE CORRECTED AT 2 WEEKS OLD, [place], [place] 1966 AND 1968 2 [place], [place] 1988 LEFT. BREAST BIOPSY, [facility] [place] 2008 LUMBAR SPINAL SURGERY, [facility]. Dorsal column stimulator October 18 2012. 2007. CERVICAL SPINE SURGERY, [facility] 2 LIPOTRIPSY PROCEDURE, [place]. 2011 BILATERAL CATARACTS EXTRACTION WITH IOL IMPLANTS, [facility] [place]. 2006 SURGERY TO REPAIR BLEEDING ULCER, [facility] [place]. October 2012 Permanent Dorsal Column Stimulator inserted. RT SHOULDER SURGERY Hx Anesthesia Reactions: Yes - HALLUCINATIONS WITH ANESTHESIA, WITH SECOND LITHOTRIPSY, N/V Infectious Disease History: No Infectious Disease History: Denies: Traveled Outside the [place] in Last 30 Days - Family History Known Family History: Negative: Hypertension, Diabetes - Social History Occupation: Retired Lives: With Family Alcohol Use: None Substance Use Type: Reports: None Smoking Status (MU): Never Smoked Tobacco Have You Smoked in the Last Year: No Review of Systems Positive: Fever, Chills, Skin Diaphoresis Negative: Erythema Negative: Sore Throat Negative: Chest Pain Negative: Shortness Of Breath, Cough Positive: Other - Positive decreased appetite. Negative: Abdominal Pain, Vomiting, Nausea Negative: dysuria, hematuria Positive: Other - Positive back pain. Negative: Edema Negative: Rash Neurological: Other - Positive confusion. Negative dizziness All Other Systems Reviewed And Are Negative: Yes Physical Exam - Summary Physical Exam Summary: Constitutional: Well-developed, Well-nourished, Alert. (-) Distressed Skin: Warm, Dry HENT: Normocephalic; Atraumatic Eyes: Conjunctiva normal Neck: Musculoskeletal ROM normal neck. (-) JVD, (-) Stridor, (-) Tracheal deviation Cardio: Rhythm regular, rate normal, Heart sounds normal; Intact distal pulses; The pedal pulses are 2+ and symmetric. Radial pulses are 2+ and symmetric. (-) Murmur Pulmonary/Chest wall: Effort normal. (-) Respiratory distress, (-) Wheezes, (-) Rales Abd: Soft, (-) Tenderness, (-) Distension, (-) Guarding, (-) Rebound Musculoskeletal: (-) Edema, Tenderness along the mid to lower thoracic spine and lower lumbar spine. Lymph: (-) Cervical adenopathy Neuro: Alert, Oriented x3 Psych: Mood and affect Normal Triage Information Reviewed: Yes Vital Signs On Initial Exam: Initial Vitals Temp Pulse Resp BP Pulse Ox 97 F 77 16 122/104 94 04/30/17 15:02 04/30/17 15:02 04/30/17 15:02 04/30/17 15:02 04/30/17 15:02 Vital Signs Reviewed: Yes Diagnostics - Vital Signs Vital Signs Temp Pulse Resp BP Pulse Ox 04/30/17 15:15 154/83 04/30/17 15:14 76 91 04/30/17 15:13 74 93 04/30/17 15:02 97 F 77 16 122/104 94 - Laboratory Lab Results: Lab Results 04/30/17 04/30/17 04/30/17 Range/Units 15:45 16:00 16:00 WBC 12.6 H (3.5-10.8) 10^3/ul RBC 4.95 (4.0-5.4) 10^6/ul Hgb 15.2 (12.0-16.0) g/dl Hct 46 (35-47) % MCV 92 (80-97) fL MCH 31 (27-31) pg MCHC 33 (31-36) g/dl RDW 14 (10.5-15) % Plt Count 281 (150-450) 10^3/ul MPV 8 (7.4-10.4) um3 D-Dimer, Quantitative (Less Than 230) ng/mL Sodium 138 (133-145) mmol/L Potassium 4.0 (3.5-5.0) mmol/L Chloride 103 (101-111) mmol/L Carbon Dioxide 28 (22-32) mmol/L Anion Gap 7 (2-11) mmol/L BUN 16 (6-24) mg/dL Creatinine 0.93 (0.51-0.95) mg/dL Est GFR ( Amer) 76.4 (>60) Est GFR (Non-Af Amer) 59.4 (>60) BUN/Creatinine Ratio 17.2 (8-20) Glucose 147 H (70-100) mg/dL Lactic Acid 1.5 (0.5-2.0) mmol/L Calcium 9.2 (8.6-10.3) mg/dL Total Bilirubin 0.40 (0.2-1.0) mg/dL AST 13 (13-39) U/L ALT 12 (7-52) U/L Alkaline Phosphatase 71 (34-104) U/L Troponin I 0.00 (<0.04) ng/mL C-Reactive Protein 12.04 H (< 5.00) mg/L Total Protein 6.7 (6.4-8.9) g/dL Albumin 3.9 (3.2-5.2) g/dL Globulin 2.8 (2-4) g/dL Albumin/Globulin Ratio 1.4 (1-3) Urine Color Urine Appearance Urine pH Ur Specific [place] Urine Protein Urine Ketones Urine Blood Urine Nitrate Urine Bilirubin Urine Urobilinogen Ur Leukocyte Esterase Urine WBC (Auto) (Absent) Urine RBC (Auto) (Absent) Ur Squamous Epith Cells (Absent) Urine Bacteria (Absent) Urine Glucose Urine Ascorbic Acid Influenza A (Rapid) (Negative) Influenza B (Rapid) (Negative) 04/30/17 04/30/17 04/30/17 Range/Units 16:00 18:42 21:17 WBC (3.5-10.8) 10^3/ul RBC (4.0-5.4) 10^6/ul Hgb (12.0-16.0) g/dl Hct (35-47) % MCV (80-97) fL MCH (27-31) pg MCHC (31-36) g/dl RDW (10.5-15) % Plt Count (150-450) 10^3/ul MPV (7.4-10.4) um3 D-Dimer, Quantitative 367 H (Less Than 230) ng/mL Sodium (133-145) mmol/L Potassium (3.5-5.0) mmol/L Chloride (101-111) mmol/L Carbon Dioxide (22-32) mmol/L Anion Gap (2-11) mmol/L BUN (6-24) mg/dL Creatinine (0.51-0.95) mg/dL Est GFR ( Amer) (>60) Est GFR (Non-Af Amer) (>60) BUN/Creatinine Ratio (8-20) Glucose (70-100) mg/dL Lactic Acid (0.5-2.0) mmol/L Calcium (8.6-10.3) mg/dL Total Bilirubin (0.2-1.0) mg/dL AST (13-39) U/L ALT (7-52) U/L Alkaline Phosphatase (34-104) U/L Troponin I (<0.04) ng/mL C-Reactive Protein (< 5.00) mg/L Total Protein (6.4-8.9) g/dL Albumin (3.2-5.2) g/dL Globulin (2-4) g/dL Albumin/Globulin Ratio (1-3) Urine Color [place] Urine Appearance Cloudy Urine pH Not Reportable Ur Specific [place] Not Reportable Urine Protein Not Reportable Urine Ketones Not Reportable Urine Blood Not Reportable Urine Nitrate Not Reportable Urine Bilirubin Not Reportable Urine Urobilinogen Not Reportable Ur Leukocyte Esterase Not Reportable Urine WBC (Auto) Absent (Absent) Urine RBC (Auto) Absent (Absent) Ur Squamous Epith Cells Present H (Absent) Urine Bacteria Absent (Absent) Urine Glucose Not Reportable Urine Ascorbic Acid Not Reportable Influenza A (Rapid) Negative (Negative) Influenza B (Rapid) Negative (Negative) 04/30/17 Range/Units 22:05 WBC (3.5-10.8) 10^3/ul RBC (4.0-5.4) 10^6/ul Hgb (12.0-16.0) g/dl Hct (35-47) % MCV (80-97) fL MCH (27-31) pg MCHC (31-36) g/dl RDW (10.5-15) % Plt Count (150-450) 10^3/ul MPV (7.4-10.4) um3 D-Dimer, Quantitative (Less Than 230) ng/mL Sodium (133-145) mmol/L Potassium (3.5-5.0) mmol/L Chloride (101-111) mmol/L Carbon Dioxide (22-32) mmol/L Anion Gap (2-11) mmol/L BUN (6-24) mg/dL Creatinine (0.51-0.95) mg/dL Est GFR ( Amer) (>60) Est GFR (Non-Af Amer) (>60) BUN/Creatinine Ratio (8-20) Glucose (70-100) mg/dL Lactic Acid (0.5-2.0) mmol/L Calcium (8.6-10.3) mg/dL Total Bilirubin (0.2-1.0) mg/dL AST (13-39) U/L ALT (7-52) U/L Alkaline Phosphatase (34-104) U/L Troponin I 0.01 (<0.04) ng/mL C-Reactive Protein (< 5.00) mg/L Total Protein (6.4-8.9) g/dL Albumin (3.2-5.2) g/dL Globulin (2-4) g/dL Albumin/Globulin Ratio (1-3) Urine Color Urine Appearance Urine pH Ur Specific [place] Urine Protein Urine Ketones Urine Blood Urine Nitrate Urine Bilirubin Urine Urobilinogen Ur Leukocyte Esterase Urine WBC (Auto) (Absent) Urine RBC (Auto) (Absent) Ur Squamous Epith Cells (Absent) Urine Bacteria (Absent) Urine Glucose Urine Ascorbic Acid Influenza A (Rapid) (Negative) Influenza B (Rapid) (Negative) Result Diagrams: 04/30/17 16:00 04/30/17 15:45 Lab Statement: Any lab studies that have been ordered have been reviewed, and results considered in the medical decision making process. - CT Thoracic Spine CT CT Interpretation Completed By: Radiologist - Thoracic spine CT reveals, per radiologist, no acute findings. Underlying osteoarthritis. Dorsal column stimulator. ED physician has reviewed this radiology report. Cervical Spine CT CT Interpretation Completed By: Radiologist - Cervical spine CT reveals, per radiologist, osteoarthritic changes with prior cervical fusion. No acute findings. ED physician has reviewed this radiology report. Brain CT CT Interpretation Completed By: Radiologist - Brain CT reveals, per radiologist , no acute intracranial findings. ED physician has reviewed this radiology report. Abdomen/Pelvis CT CT Interpretation Completed By: Radiologist - Abdomen/pelvis CT reveals, per radiologist, 1. Hepatomegaly with hepatic steatosis 2. Cholelithiasis. 3. No CT evidence of urolithiasis. 4. Scattered diverticula. 5. Tiny periumbilical hernia. 6. Advanced osteoarthritic change of the lumbar spine with prior lumbar surgery. ED physician has reviewed this radiology report. Re-Evaluation - Re-Evaluation First Eval Re-Evaluation Time: 00:00 Change: Improved - Patient ambulatory with walker. Agreeable to dc, declines admissionf ro nursing care/rehab/placement. agreeable. Back Pain Course/Dx - Course Course Of Treatment: CTA NEG FOR PE. LUNG MASS VISUALIZED ON R SIDE, UNDERSTANDS NEED TO F/U W DR. GAYTAN TODAY 05/01 FOR FURTHER MANAGEMENT OF PAIN AND MASS. R LEG SCIATICA SYMPTOMS TODAY (CHRONIC). NV RULED OUT, TWO NEG TROP. NO LABORATORY EVIDENCE OF BILIARY OBSTRUCTION. GALLSTONES WILL REQUIRE FOLLOWUP Assessment/Plan: Signoff to Amber Barboza upon shift change pending labs, diagnosis, and disposition. - Diagnoses Provider Diagnoses: Lung mass, Chronic back pain, Opiate dependence, Gallstones Discharge - Discharge Plan Condition: Good Disposition: OTHER Discharge Disposition Comment: Signoff to Amber Barboza upon scribe shift change Patient Education Materials: Lung Cancer (DC), Chronic Back Pain (ED) Referrals: Chaitanya Gaytan MD [Primary Care Provider] - 1 Day (today 05/01/17) Additional Instructions: Dr. Gaytan needs to continue additional pain medications at his discretion. You need to see him today in a followup visit. It is possible you may require retirement placement for pain control and confusion and unsteadiness. Use your walker all the time for walking. If you don't, you could suffer serious injuries from a fall and lose your independence. Finish your ciprofloxacin antibiotics. Stop taking the pyridium (medicine that makes urine orange). The documentation as recorded by the Christin bautista Emily accurately reflects the service I personally performed and the decisions made by me, Nayan Mota MD.
--- NOTE | 2017-05-07 14:19 | ED ---
IJabari Stephanie, scribed for Nayan Mota MD on 04/30/17 at 2119 . Progress - Results/Orders Results/Orders: CXR shows: NO ACTIVE DISEASE. - EKG/XRAY/CT EKG: NSR - 70 BPM Comments: No STEMI Re-Evaluation - Re-Evaluation First Eval Re-Evaluation Time: 21:43 Change: Unchanged - ED physician clarified with : pt has had back pain with movement for 5 days. Her upper back discomfort is unrelated to movement and is intermittent. ED physician is now considering cardiac etiology. Course/Dx - Course Course Of Treatment: Pt will be admitted to [facility] for further workup. The documentation as recorded by the ilyaibeJabari Stephanie accurately reflects the service I personally performed and the decisions made by , Nayan Mota MD.
== END 2017-05-01 01:12 ==
LOC: ED 14:51
DX: M54.9 Dorsalgia, unspecified (principal); R91.8 Other nonspecific abnormal finding of lung field; G89.29 Other chronic pain; F11.20 Opioid dependence, uncomplicated; K80.80 Other cholelithiasis without obstruction; E11.9 Type 2 diabetes mellitus without complications; E78.00 Pure hypercholesterolemia, unspecified; I10 Essential (primary) hypertension; Z87.442 Personal history of urinary calculi
CPT/HCPCS: 36415; 70450; 71045; 71275; 72125; 72128; 74176; 80053; 81003; 81015; 83605; 84484; 85027; 85379; 86140; 87040; 87502; 93005; 96374; 96375; 99284; J2270; J2405; Q9967

== ENCOUNTER 2017-10-17 11:28 | Inpatient (IN) | payer MEDICARE ==
--- NOTE | 2017-09-20 14:05 | HP ---
AMENDED REPORT NOW INCLUDES COSIGNER DESIGNATION - ESIGNED BEFORE ADJUSTMENTS CC: Serena Yen MD; Chaitanya Gaytan MD * PREOPERATIVE HISTORY AND PHYSICAL: DATE OF PREOPERATIVE HISTORY AND PHYSICAL EXAMINATION: 09/19/17 DATE OF ADMISSION/SURGERY: 09/29/17 This patient is scheduled for same-day surgery admission by Dr. Yen on Monday , 09/29/17 ATTENDING SURGEON: Serena Yen MD * (dictated by Kiki Roche NP) CHIEF COMPLAINT: Symptomatic gallstones. HISTORY OF PRESENT ILLNESS: The patient is a 71-year-old female referred to Dr. Yen by Dr. Gaytan for right upper quadrant abdominal pain. She reports that a few years ago she mentioned to Dr. Gaytan right-sided abdominal pain associated with eating. In the meantime, she has had a number of problems including evaluation of a right lung nodule and a thyroid nodule, which was benign on biopsy. In the process of working these things up, the question about the abdominal pain ended up on the back burner, however, now that these other issues seem to be sorted out, she asked again about the abdominal pain. She states that it is on the right side and sometimes radiates to the back and is associated with eating ice cream. She denies nausea, diarrhea, or constipation; she denies change in the color of her stool, but states that her urine gets dark sometimes. She underwent a CAT scan of the abdomen and pelvis, which revealed cholelithiasis and then Dr. Yen referred her for gallbladder ultrasound and it revealed a positive Adams's sign, cholelithiasis, but no gallbladder wall thickening or pericholecystic fluid. A HIDA scan revealed a normal ejection fraction and patent cystic duct and common bile duct. Additional information, she has a history of what sounds like a pyloromyotomy when she was an and she is worried about scar tissue in the area. Dr. Yen examined the patient and reviewed the findings with her and has recommended laparoscopic cholecystectomy as a same day surgery procedure and has discussed the nature of the surgical procedure, the relevant risks and benefits and today I reviewed the expected postoperative care and recovery. The patient has had a chance to ask questions and stated that she understands the information and is satisfied with the answers given to her questions. She will sign surgical consent on the day of surgery. PAST MEDICAL HISTORY: Significant for morbid obesity, central sleep apnea, and she is being worked up by Dr. Perez`, type 2 diabetes, benign essential hypertension, hyperlipidemia, displacement of cervical intervertebral disk, localized primary osteoarthritis, lumbosacral spondylosis, solitary nodule of right lower lobe of the lung 1.4 cm in size, thyroid nodule with a negative biopsy, chronic neck and back pain and she is followed in the [facility] and by Neurosurgery. PAST SURGICAL HISTORY: Pyloromyotomy in infancy, section x2, back surgery, neck surgery, cataract extraction, and lens implants bilaterally. MEDICATIONS: 1. Furosemide 20 mg p.o. daily as needed with a maximum of 3 times per week. 2. Janumet XR 50-1000 mg 1 tablet p.o. b.i.d. and she states she is not taking it regularly and I instructed her not to take it on the evening before surgery. 3. Livalo 2 mg p.o. every evening. 4. Propranolol 60 mg p.o. b.i.d. 5. Cymbalta 60 mg p.o. daily. 6. Losartan 100 mg p.o. daily. 7. Codeine 30 mg p.o. b.i.d. 8. Morphine sulfate ER 15 mg p.o. b.i.d. 9. Docusate 100 mg 1 tablet 2 to 3 times daily. 10. Cyclobenzaprine 10 mg p.o. daily at bedtime as needed. 11. MiraLAX as needed for constipation. 12. Vitamin D 1000 Internation Units daily. 13. Tums 2 tabs daily p.r.n. 14. CoQ10 100 mg p.o. daily. 15. Multivitamin p.o. daily. 16. Vitamin B12 2000 mcg when she remembers to take it. ALLERGIES: Include AUGMENTIN, AMITRIPTYLINE, LIPITOR, CLONIDINE, NEURONTIN, LISINOPRIL, and CRESTOR. REVIEW OF SYSTEMS: General: No anesthesia complications, no deep vein thrombosis or pulmonary embolism; she states that she was transfused with several units of packed cells when she had a bleeding ulcer many years ago. Constitutional: No fevers, chills, or excessive fatigue. Endocrine: Type 2 diabetes and she does not routinely check her fingerstick blood sugar; benign biopsy of a thyroid nodule. Respiratory: She has central sleep apnea being worked up by Dr. Perez. She is not currently on CPAP; she denies chronic cough or dyspnea on exertion. Cardiovascular: No anginal chest pain or palpitations. Gastrointestinal: As described in history of present illness. Genitourinary: No dysuria. She does have a history of kidney stones. Musculoskeletal: Chronic back and joint pain and neck pain, followed in the [facility] and by Neurosurgery. Integumentary: No chronic rashes or other skin changes. Neurologic: She walks with a cane; alert and oriented x3; no blurred vision. SOCIAL HISTORY: She is and her accompanied her to the visit today; she has never been a smoker. She denies use of alcohol or other substances. FAMILY HISTORY: No known anesthesia complications; the patient's father had a deep vein thrombosis. No known bleeding tendencies; mother with a history of throat cancer, father with a history of heart disease. PHYSICAL EXAMINATION GENERAL SURVEY: The patient is a 71-year-old female, morbidly obese, well developed, in no acute distress. VITAL SIGNS: Height is documented in nursing. Weight 192 pounds, blood pressure 106/74, pulse 60 and regular, respiratory rate 18. HEENT: Benign. NECK: Supple. No cervical lymphadenopathy. No carotid bruits. BACK: No CVA tenderness. LUNGS: Breath sounds bilaterally clear and equal. HEART: Regular rate and rhythm. No murmurs or rubs appreciated. ABDOMEN: Active bowel sounds. Well-healed scar in the right upper quadrant with contracture of the skin; abdomen is soft and very mildly tender in the right upper quadrant and epigastric region. Negative Adams's sign. No other obvious masses or organomegaly, but exam is limited by body habitus. PELVIC AND RECTAL: Deferred. EXTREMITIES: Warm without edema or skin ulceration. NEUROLOGIC: Alert and oriented x3. She uses a cane for gait stability. SKIN: Warm, dry, intact. IMPRESSION: Symptomatic cholelithiasis. PLAN: Same-day surgery admission to Dr. Yen's service on 09/29/17 for laparoscopic cholecystectomy. WALI ROCHE NP [id number]/[facility] #: [id number] [facility]
[~2017-10-17 11:28] MED LIST: Buffered Lidocaine 0.9% SYRIN* 5 ML/SYR SYRINGE INTRADERM ONE; Bupivacaine 0.25% W/EPI* 10 ML SDV ONE; Bupivacaine 0.5% SDV PF* 30ML VIAL ONE; Dexamethasone IV* 4 MG/ML 1 ML (4 MG) IV SLOW PU ONE; Famotidine IV* 10 MG/ML 2 ML (20 mg) IV ONE; Iohexol 180 (CONTRAST) 10 ML SDV IV ONE
[2017-10-17] MEDS ORDERED: Dexamethasone IV* 4 MG/ML 1 ML (4 MG) ONE (11:36)
[2017-10-17] MEDS ORDERED: Famotidine IV* 10 MG/ML 2 ML (20 mg) ONE (11:36)
[2017-10-17] MEDS ORDERED: Clindamycin 900 MG IVPREMIX(* 900 MG/50 ML SDV IV ONE (11:36)
[2017-10-17] MEDS ORDERED: Heparin VIAL(*) 5000 UNITS/ML VIAL (FIVE THOUSAND) ONE (11:36)
[2017-10-17] MEDS ORDERED: Cisatracurium* 2 MG/ML MDV 5 ML ONE (11:38)
[2017-10-17] MEDS ORDERED: Propofol* 10 MG/ML 20 ML BTL IV PUSH ONE (11:38)
[2017-10-17] MEDS ORDERED: Lidocaine 2% PF * 5 ML VIAL ONE (11:38)
[2017-10-17] MEDS ORDERED: fentaNYL* 50 MCG/ML 2 ML VIAL (100 MCG VIAL) ONE ×4 (11:40→14:37)
[2017-10-17] MEDS ORDERED: DiMENhydriNATE IV* 50 MG/ML VIAL IV PUSH PRN (12:00)
[2017-10-17] MEDS ORDERED: oxyCODONE/Acetamin 5/325 MG* TAB PO PRN (12:00)
[2017-10-17] MEDS ORDERED: HYDROcodone/ACETAMIN 5-325 MG* 1 TAB PO PRN (12:00)
[2017-10-17] MEDS ORDERED: fentaNYL* 50 MCG/ML 2 ML VIAL (100 MCG VIAL) IV PRN (12:00)
[2017-10-17] MEDS ORDERED: Naloxone* 0.4 MG/ML 1 ML VIAL IV PRN (12:00)
[2017-10-17] MEDS ORDERED: Bupivacaine 0.25% W/EPI* 10 ML SDV ONE (12:18)
[2017-10-17 12:28] LABS: EGFR Non-African American 82.5 (>60)
[2017-10-17] MEDS ORDERED: Labetalol IV* 5 MG/ML 20 ML VIAL ONE (12:56)
[2017-10-17] MEDS ORDERED: Ondansetron INJ* 2 MG/ML VIAL ONE (13:02)
[2017-10-17] MEDS ORDERED: Neostigmine Methylsulfate* 1 MG/ML 10 ML VIAL (1 mg/ml) ONE (13:38)
[2017-10-17] MEDS ORDERED: Glycopyrrolate IV* 0.2 MG/ML 1 ML VIAL ONE (13:39)
--- NOTE | 2017-10-17 14:12 | BRIEFOPN ---
Brief Operative Note - Surgery Procedures: Procedures COLONOSCOPY (07/10/97) ENDO RECTUM POLYPECTOMY (05/29/14) IMPLANT OR REPLACEMENT OF SPINAL NEUROSTIMULATOR LEAD(S) (10/18/12) INSERT OR REPLACE OF OTH NEUROSTIMULATOR PULSE GENERATOR (10/18/12) OTHER SLEEP DISORDER FUNCTION TESTS (12/05/00) 10/17/17 Op Note Pre-op dx: chronic cholecystitis Post-op dx: same Procedure: laparoscopic cholecystectomy Surgeon: Farshad Asst: Eddi Anesth: General EBL: 50 cc Complications: none SCDs on during surgery Abx: given pre-op Pt. tolerated procedure well and was transferred to in a stable condition. [facility]
[2017-10-17] MEDS ORDERED: Acetaminophen TAB* 325 MG PO PRN (14:15)
[2017-10-17] MEDS ORDERED: Ondansetron INJ* 2 MG/ML VIAL IV PRN (14:15)
[2017-10-17] MEDS ORDERED: HYDROmorphone INJ* 0.5 MG/0.5 ML SYRINGE IV PRN (14:15)
[2017-10-17] MEDS ORDERED: Losartan TAB* 25 MG PO ONE (14:35)
[2017-10-17] MEDS ORDERED: DiMENhydriNATE IV* 50 MG/ML VIAL ONE (14:52)
[2017-10-17] MEDS ORDERED: Ketorolac INJ* 30 MG/ML 1 ML VIAL IV PUSH PRN (15:00)
[2017-10-17] MEDS ORDERED: Ketorolac INJ* 30 MG/ML 1 ML VIAL ONE (15:03)
[2017-10-17] MEDS ORDERED: hydrALAZINE IV* 20 MG/ML VIAL ONE (15:03)
[2017-10-17] MEDS: hydrALAZINE IV* 20 MG/ML VIAL IV SLOW PU PRN ×2 (15:05→15:16)
[2017-10-17] MEDS ORDERED: Morphine VIAL* 10 MG/ML 1 ML VIAL ONE (15:09)
[2017-10-17] MEDS: Morphine INJ* 2 MG/ML 1 ML CARPUJECT IV PRN ×2 (15:11→15:44)
[2017-10-17] MEDS ORDERED: PROCHLORPERAZINE INJ 5 MG/ML 2 ML VIAL IV PRN (15:28)
[2017-10-17] MEDS ORDERED: hydrALAZINE IV* 20 MG/ML VIAL IV SLOW PU PRN (15:37)
[2017-10-17] MEDS ORDERED: Dextrose 50% Syringe 50 ML* 25 GM/50 ML SYRINGE IV PUSH PRN (15:52)
[2017-10-17] MEDS: Docusate CAP* 100 MG PO SCH (17:41)
--- NOTE | 2017-10-17 17:44 | CONS ---
CONSULTATION REPORT: DATE OF CONSULT: 10/17/17 REASON FOR CONSULT: SAMMY and uncontrolled hypertension. HISTORY OF PRESENT ILLNESS/HOSPITAL COURSE: The patient is a 71-year-old lady, who is a patient of Dr. Gaytan, who was referred to Dr. Yen for a complaint of right upper quadrant abdominal pain and was subsequently evaluated preoperatively for an elective laparoscopic cholecystectomy due to symptomatic cholelithiasis. This was subsequently done and postoperatively, she is complaining of lot of nausea and Dr. Yen called me given her concerns about the patient's sleep apnea as well as uncontrolled hypertension. Of note, she had undergone a CAT scan of her abdomen and pelvis, which revealed a cholelithiasis and then gallbladder ultrasound reveals a positive Adams sign with cholelithiasis, but no gallbladder wall thickening nor pericholecystic fluid. This led to her elective surgery today. PAST MEDICAL AND SURGICAL HISTORY: Morbid obesity; central sleep apnea, being worked up by Dr. Perez; type 2 diabetes; benign essential hypertension; hyperlipidemia; displacement of cervical intervertebral disk; localized primary osteoarthritis; lumbosacral spondylosis; solitary nodule of the right lower lobe of the lung, 1.4 cm in size; thyroid nodule and negative biopsy; chronic neck and back pain, being followed in 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 MEDICATIONS: Her home meds are as follows: 1. Ubiquinone. 2. Sitagliptin/metformin. 3. Propranolol. 4. Polyethylene glycol. 5. Pitavastatin. 6. Multivitamins. 7. Morphine sulfate. 8. Losartan. 9. Colace. 10. Cyclobenzaprine. 11. Codeine. 12. Cholecalciferol. 13. Bisacodyl. REVIEW OF SYSTEMS: The patient mentions that she is nauseated in pain postoperatively and denies any vomiting aside from the nausea. Denies any constipation, myalgias or arthralgias, throat pain, or new skin lesions. Of note, the patient is a very poor historian, distracted by her significant postoperative pain and quite difficult to assess clinically as well as to further obtain details from her history. Most of the details from her history was obtained from the information done by Ms. Renee Montague on 09/29/17. PHYSICAL EXAMINATION: Shows the most recent vital signs of record with blood pressure of 140/88 from previous of 181/82, 76 beats per minute, 97% saturation on 2 L nasal cannula. General Appearance: The patient is awake, oriented x3, in visible pain. HEENT: Normocephalic, atraumatic. PERRLA. Extraocular muscles intact. Negative for icterus. Moist oral mucosa. Negative throat erythema. Neck is soft, supple with no cervical lymphadenopathy, no JVD. Heart : S1, S2 within normal limits. Regular rate and rhythm. No murmurs, rubs, or gallops. Chest: Clear to auscultation bilaterally. Good air entry. No wheezes , rales, or rhonchi. Abdomen is soft, nondistended, appropriately tender postsurgical abdomen. Extremities: No cyanosis, clubbing, nor edema. Psychiatric: No active psychosis, depression, suicidal nor homicidal ideation. Skin is warm to touch. ASSESSMENT AND PLAN: As follows: 1. Central sleep apnea: I have spoken with Dr. Perez who follows her as an outpatient and clarified that she is on BiPAP spontaneous timed, with a rate of 10, IPAP and EPAP ratio of 8/4. Hence, this was ordered for her q.h.s. and/or when she is asleep. We will continue to follow. 2. Uncontrolled hypertension: Likely due to her uncontrolled postoperative pain and we will defer to surgical team with further titration of her pain medications. She currently has ordered p.r.n. morphine and Dilaudid as well as Percocet as well as fentanyl. We will defer at this time. However, I am concerned of her significant high blood pressure that may cause other problem such as stroke. We will place her on a p.r.n. hydralazine IV q.6 p.r.n. for BP of greater than or equal to 160/90 as her postoperative pain control is improved. 3. Symptomatic cholelithiasis, status post laparoscopic cholecystectomy: We will defer to Surgery. 4. Diabetes. At this point, I would recommend to hold the Janumet that she takes at home and instead we will place her on insulin sliding scale protocol. 5. DVT prophylaxis: The patient is on heparin SQ and we will defer. 6. Disposition: Defer to surgical team. [id number]/[facility] #: [id number] DAVID
[2017-10-17] MEDS: Insulin LISPRO* 1 UNITS UNIT SUBCUT SCH ×2 (17:48→21:14)
[2017-10-17] MEDS: HYDROcodone/ACETAMIN 5-325 MG* 1 TAB PO PRN (17:59)
[2017-10-17] MEDS ORDERED: Sitagliptin/Metform 50/500(NF) 1 TAB TAB PO SCH (21:00)
[2017-10-17] MEDS: Propranolol LA CAP* 60 MG PO SCH (21:14)
[2017-10-17] MEDS: Heparin VIAL(*) 5000 UNITS/ML VIAL (FIVE THOUSAND) SUBCUT SCH (21:15)
[2017-10-18] MEDS: HYDROcodone/ACETAMIN 5-325 MG* 1 TAB PO PRN ×4 (02:11→21:15)
--- NOTE | 2017-10-18 04:57 | OP ---
CC: Dr. Cahitanya Gaytan * DATE OF OPERATION: 10/17/17 - ROOM #349 DATE OF : 45 SURGEON: Serena Yen MD SHOE FOLDER: Kiki Montague NP PRE-OP DIAGNOSIS: Chronic cholecystitis. POST-OP DIAGNOSIS: Chronic cholecystitis. OPERATIVE PROCEDURE: Laparoscopic cholecystectomy. INDICATIONS: Ms. Rowe is a 71-year-old woman, who reported symptoms consistent with cholecystitis and had investigations consistent with chronic cholecystitis prompting the plan for surgical intervention. DESCRIPTION OF PROCEDURE: She was brought to the operating room, placed on the OR table in a supine position and given general anesthesia. The abdomen was then prepped and draped in the usual sterile fashion. After infiltrating with local anesthetic, an incision was made in the subxiphoid area. Subcutaneous tissue was divided bluntly. The fascia exposed and incised and then the peritoneal layer was grasped and incised as well. A trocar was inserted into the abdomen and the abdomen was insufflated. A camera was inserted to check where adhesions were located and there did not seem to be adhesions at the umbilical area, so after infiltrating with local anesthetic, a second port was placed in the umbilical area and the camera was switched to the umbilical site. The gallbladder was covered by dense adhesions of omentum. These were taken down with a combination of sharp and electrocautery dissection as well as blunt dissection until the fundus of the gallbladder was exposed. It was then grasped and this allowed retraction of the gall-bladder over the liver. Further dissection of the adhesions was undertaken with primarily blunt with some electrocautery and sharp dissection to expose the infundibulum and then after infiltrating with local anesthetic, under direct visualization 2 ports were placed in the right subcostal area and through these instruments were inserted to allow further manipulation of the gallbladder. Once adhesions around the infundibulum were taken down, this exposed the cystic duct. It was clipped and divided. The cystic artery was likewise identified, clipped and divided and then the gallbladder was taken down from the liver bed using electrocautery. It was placed in an EndoCatch bag and withdrawn from the abdomen through the subxiphoid port site. A brief inspection of the rest of the abdomen revealed some additional adhesions in the right lower quadrant with no other obvious abnormalities were seen, although visualization was limited. The right upper quadrant was copiously irrigated with saline until it was clear that the irrigation fluid was running clear and then the irrigation fluid was evacuated as well as it could be done. The subcostal ports were withdrawn under direct visualization and the umbilical port was withdrawn under direct visualization and then using a suture passer, a Vicryl stitch was used to close the fascia of the infraumbilical port site. The final port was withdrawn from the subxiphoid port site and then 0 Vicryl was used to close the fascia of the subxiphoid port site in a [id number] fashion. The skin of all incisions was closed with 4-0 Vicryl. Steri-Strips were applied. All sponge and instrument counts were correct. The patient tolerated the procedure well and was transferred to Recovery in a stable condition. [id number]/[facility] #: [id number] DAVID
[2017-10-18] MEDS: Heparin VIAL(*) 5000 UNITS/ML VIAL (FIVE THOUSAND) SUBCUT SCH ×3 (06:33→21:16)
[2017-10-18] MEDS: Losartan TAB* 25 MG PO SCH (07:53)
[2017-10-18] MEDS: Pitavastatin (NF) 2 MG TAB PO SCH (07:54)
[2017-10-18] MEDS: Propranolol LA CAP* 60 MG PO SCH ×2 (07:54→21:15)
--- NOTE | 2017-10-18 08:37 | RAD ---
HISTORY: Shivering; undocumented fever COMPARISONS: April 30, 2017 VIEWS: 1: frontal portable view of the chest at 8:15 AM FINDINGS: LINES AND TUBES: None. CARDIOMEDIASTINAL SILHOUETTE: The cardiomediastinal silhouette is normal for portable technique. PLEURA: The costophrenic angles are sharp. No pleural abnormalities are noted. LUNG PARENCHYMA: The lungs are clear. ABDOMEN: The upper abdomen is clear. There is no subphrenic gas. BONES AND SOFT TISSUES: A dorsal column stimulator is noted. The patient is status post anterior cervical fusion. IMPRESSION: NO ACTIVE CARDIOPULMONARY DISEASE.
[2017-10-18] MEDS: Insulin LISPRO* 1 UNITS UNIT SUBCUT SCH ×3 (08:56→16:41)
[2017-10-18 09:03] LABS: Hematocrit 34 % (35-47); Hemoglobin 11.3 g/dl (12.0-16.0); Mean Corpuscular HGB Conc 33 g/dl (31-36); Mean Corpuscular Hemoglobin 29 pg (27-31); Mean Corpuscular Volume 88 fL (80-97); Mean Platelet Volume 8.2 um3 (7.4-10.4); Platelet Count 224 10^3/ul (150-450); Red Blood Count 3.87 10^6/ul (4.00-5.40); Red Cell Distribution Width 14 % (10.5-15); White Blood Count 23.6 10^3/ul (3.5-10.8)
[2017-10-18 09:15] LABS: EGFR Non-African American 68.7 (>60)
[2017-10-18] MEDS ORDERED: Levofloxacin 750 MG IVPREMIX(* 750 MG/150 ML BAG IVPB ONE (09:20)
[2017-10-18] MEDS ORDERED: metroNIDAZOLE IV 500 MG/100ML* 500 MG/100 ML BAG IVPB ONE (09:24)
[2017-10-18 09:39] LABS: ABS Basophils 0 10^3/ul (0-0.2); ABS Eosinophils 0 10^3/ul (0-0.6); ABS Lymphocytes 1.8 10^3/ul (1.0-4.8); ABS Monocytes 2.1 10^3/ul (0-0.8); ABS Neutrophils 19.6 10^3/ul (1.5-7.7); ABS Nucleated RBC 0 10^3/ul; Eosinophil % 0 % (0-6); Lymphocyte % 7.6 % (25-47); Nucleated Red Blood Cells % 0
[2017-10-18] MEDS ORDERED: Magnesium Sulfate IV* 2 GM in NS 0.9% 100 ML* 100 ML IV ONE (10:00)
--- NOTE | 2017-10-18 10:23 | PN ---
Subjective Date of Service: 10/18/17 Interval History: Pt seen and examined. Meds and labs reviewed. Pt has had some undocumented fever and chills with TMax = 99.4, relatively elevated from baseline and nearing fever threshold. Pt was also observed to be shivering during my rounds this AM. ROS: Undocumented fevers and chills, improved nausea but still present, 8/10 abd pain. Denied GUZMAN/dizziness, vomiting, CP, SOB, increased cough, sputum production, abd pain, diarrhea, constipation, dysuria, myalgias, arthralgias, throat pain, and new skin lesions. The rest of the 14 point ROS are unremarkable. PHYSICAL EXAM: GEN APPEARANCE: Awake, not in acute distress HEENT: NC/AT, PERRLA, moist oral mucosa, (-) throat erythema NECK: Soft, supple, (-) cervical LAD, (-)JVD HEART: S1S2 WNL, RRR, No MRG CHEST: CTA, BL, GAE, No W/R/R ABD: Soft, ND/appropriately tender RUQ and laparoscopic site of entry, no rebound EXT: No C/C/E SKIN: Warm to touch PSYCH: No active psychosis, hallucinations, depression, SI/HI Objective Active Medications: Acetaminophen (Tylenol Tab*) 650 mg PO Q4H PRN PRN Reason: Pain Or Temperature >101 F Hydrocodone Bitart/Acetaminophen ([place] 5-325 Tab*) 1 tab PO Q4H PRN PRN Reason: PAIN - MODERATE Last Admin: 10/18/17 07:53 Dose: 1 tab Dextrose (D50w Syringe 50 Ml*) 12.5 gm IV PUSH .FOR FS < 60 - SS PRN PRN Reason: FS < 60 Docusate Sodium (Colace Cap*) 100 mg PO QPM [facility] Last Admin: 10/17/17 17:41 Dose: Not Given Heparin Sodium (Porcine) (Heparin Vial(*)) 5,000 units SUBCUT Q8HR [facility] Last Admin: 10/18/17 06:33 Dose: 5,000 units Hydralazine HCl (Apresoline Iv*) 10 mg IV SLOW PU Q6H PRN PRN Reason: BLOOD PRESSURE Hydromorphone HCl (Dilaudid Inj*) 0.5 mg IV Q2H PRN PRN Reason: Pain - severe Last Admin: 10/17/17 18:24 Dose: 0.5 mg Lactated Ringer's (Lactated Ringers 1000 Ml Bag*) 1,000 mls @ 100 mls/hr IV PER RATE [facility] Last Admin: 10/18/17 01:31 Dose: 100 mls/hr Levofloxacin/Dextrose (Levaquin 750 Mg Ivpremix(*)) 750 mg in 150 mls @ 100 mls /hr IVPB ONCE ONE Stop: 10/18/17 10:49 Last Admin: 10/18/17 09:59 Dose: 100 mls/hr Metronidazole/Sodium Chloride (Flagyl 500 Mg Ivpb*) 500 mg in 100 mls @ 100 mls /hr IVPB ONCE ONE Stop: 10/18/17 10:23 Magnesium Sulfate 2 gm/ Sodium (Chloride) 104 mls @ 104 mls/hr IV ONCE ONE Stop: 10/18/17 10:59 Insulin Human Lispro (Humalog*) 0 units SUBCUT [facility]; Protocol Last Admin: 10/18/17 08:56 Dose: 3 units Losartan Potassium (Cozaar Tab*) [facility] [place] Admin: 10/18/17 07:53 Dose: 100 mg Morphine Sulfate (Morphine Inj (Syringe)*) 2 mg IV Q5M PRN PRN Reason: PAIN - MODERATE TO SEVERE Last Admin: 10/17/17 15:44 Dose: 2 mg Naloxone HCl (Narcan*) 0.08 mg IV Q2M PRN PRN Reason: severe induced resp depression Ondansetron HCl (Zofran Inj*) 4 mg IV Q4H PRN PRN Reason: NAUSEA/VOMITING Pitavastatin (Livalo (Nf)) [facility] [place] Admin: 10/18/17 07:54 Dose: Not Given Prochlorperazine Edisylate (Compazine Inj*) 10 mg IV Q6H PRN PRN Reason: NAUSEA/VOMITING Propranolol HCl (Inderal La Cap*) 60 mg PO BID [facility] Last Admin: 10/18/17 07:54 Dose: 60 mg Vital Signs - 8 hr 10/18/17 10/18/17 10/18/17 04:14 04:15 04:23 Temperature 97.9 F Pulse Rate 89 Respiratory 21 16 Rate Blood Pressure 168/90 (mmHg) O2 Sat by Pulse 96 Oximetry 10/18/17 10/18/17 10/18/17 06:41 06:55 07:04 Temperature 99.4 F Pulse Rate 91 Respiratory 18 17 Rate Blood Pressure 136/62 (mmHg) O2 Sat by Pulse 96 98 Oximetry 10/18/17 10/18/17 07:53 10:12 Temperature Pulse Rate Respiratory 16 16 Rate Blood Pressure (mmHg) O2 Sat by Pulse Oximetry Oxygen Devices in Use Now: None Result Diagrams: 10/18/17 08:45 10/18/17 08:46 Assess/Plan/Problems-Billing Assessment: - Patient Problems (1) Fever and chills Current Visit: Yes Status: Acute Code(s): R50.9 - FEVER, UNSPECIFIED SNOMED Code(s): 353672520 Comment: -Concerning with accompanying leukocytosis -CXR, portable shows NAD -Blood cultures have been drawn, awaiting urinalysis -To give Flagyl and Levaquin IV x1 after all cultures have been drawn -Discussed case with Dr. Rivas and if U/A is negative, will defer with surgery to re-examine, re-visit, or re-image abd. Possible Abd/pelvis CT with contrast recommended. Dr. Rivas mentioned she will relay message to Dr. Kingreciate Dr. Katz assistance. (2) Hypomagnesemia Current Visit: Yes Status: Acute Code(s): E83.42 - HYPOMAGNESEMIA SNOMED Code(s): 970150071 Comment: -Corrected -Will continue to follow (3) Central sleep apnea Current Visit: Yes Status: Acute Comment: -Given pt unable to tolerate BiPAP 11/04, with rate =10 last night, will request Dr. Perez to evaluate pt given she mentioned that this is her first time trying this setting and was not previously on BiPAP at home -Will defer with Dr. Del Toro future recommendations (4) Hypertension Current Visit: Yes Status: Acute Code(s): I10 - ESSENTIAL (PRIMARY) HYPERTENSION SNOMED Code(s): 53691665 Comment: -Pt has not received PRN Hydralazine ordered -Likely due to uncontrolled post-operative pain (5) Postoperative pain Current Visit: Yes Status: Acute Code(s): G89.18 - OTHER ACUTE POSTPROCEDURAL PAIN SNOMED Code(s): 931793911 Comment: -Will defer titration to effect with Surgical team (6) Symptomatic cholelithiasis Current Visit: Yes Status: Acute Code(s): K80.20 - CALCULUS OF GALLBLADDER W /O CHOLECYSTITIS W/O OBSTRUCTION SNOMED Code(s): 731232670 Comment: -S/P laparascopic cholecystectomy -POD #1 -Defer management and F/U plan with Surgical team (7) Nausea Current Visit: Yes Status: Acute Code(s): R11.0 - NAUSEA SNOMED Code(s): 405695712 Comment: -Improved -Continue PRN Zofran and added PRN Compazine yesterday -Continue watchful waiting (8) Diabetes 1.5, managed as type 2 Current Visit: Yes Status: Acute Code(s): E10.9 - TYPE 1 DIABETES MELLITUS WITHOUT COMPLICATIONS SNOMED Code(s): 758381104 Comment: -Acceptable inpatient FS~180s -Continue Insulin SS -Continue watchful waiting (9) DVT prophylaxis Current Visit: Yes Status: Acute Code(s): RHC3148 - SNOMED Code(s): 834987400 Comment: -Continue Heparin SQ Status and Disposition: -Defer with Surgery
[2017-10-18 10:55] LABS: Urine Appearance Clear; Urine Blood Negative (Negative); Urine Color Yellow; Urine Ketones Negative (Negative); Urine Protein Negative (Negative); Urine Red Blood Cell Absent (Absent); Urine Urobilinogen Negative (Negative); Urine White Blood Cell Trace(0-5/hpf) (Absent)
--- NOTE | 2017-10-18 12:03 | PN ---
Progress Note - Progress Note Date of Service: 10/18/17 Note: Surgery Appreciate Dr. Clarke' assistance. Ms. Rowe had a low grade fever and elevation of WBC and has been started on abx. Ms. Rowe feels uncomfortable and is having some abdominal pain. She is tolerating some food and passing some flatus. She recalls that >20 years ago she had a kidney infection that was not detected on usual testing. She was admitted to the hospital and was told by her family that she nearly . She is therefore worried that this might be happening again. Vital Signs 10/17/17 10/17/17 10/17/17 14:23 14:25 14:26 Temperature 97.3 F Pulse Rate 79 75 73 Respiratory 3 13 10 Rate Blood Pressure 157/86 172/82 (mmHg) O2 Sat by Pulse 94 96 98 Oximetry 10/17/17 10/17/17 10/17/17 14:30 14:35 14:37 Temperature Pulse Rate 71 73 Respiratory 16 19 16 Rate Blood Pressure 170/99 185/95 (mmHg) O2 Sat by Pulse 96 98 Oximetry 10/17/17 10/17/17 10/17/17 14:40 14:41 14:45 Temperature Pulse Rate 73 74 Respiratory 16 13 Rate Blood Pressure 181/87 (mmHg) O2 Sat by Pulse 98 99 Oximetry 10/17/17 10/17/17 10/17/17 14:55 15:00 15:01 Temperature Pulse Rate 73 70 71 Respiratory 18 Rate Blood Pressure 191/103 217/93 (mmHg) O2 Sat by Pulse 95 100 97 Oximetry 10/17/17 10/17/17 10/17/17 15:06 15:11 15:15 Temperature Pulse Rate 68 71 Respiratory 16 16 Rate Blood Pressure 215/111 192/96 (mmHg) O2 Sat by Pulse 96 83 Oximetry 10/17/17 10/17/17 10/17/17 15:17 15:21 15:26 Temperature Pulse Rate 73 74 78 Respiratory Rate Blood Pressure 196/83 181/82 (mmHg) O2 Sat by Pulse 100 100 100 Oximetry 10/17/17 10/17/17 10/17/17 15:30 15:38 15:40 Temperature Pulse Rate 81 76 Respiratory 16 Rate Blood Pressure 140/88 (mmHg) O2 Sat by Pulse 97 96 Oximetry 10/17/17 10/17/17 10/17/17 15:44 15:45 15:47 Temperature 98.1 F Pulse Rate 81 81 Respiratory 16 16 Rate Blood Pressure 151/74 (mmHg) O2 Sat by Pulse 95 100 Oximetry 10/17/17 10/17/17 10/17/17 16:00 16:01 16:15 Temperature Pulse Rate 77 78 92 Respiratory 16 Rate Blood Pressure 142/73 (mmHg) O2 Sat by Pulse 99 99 95 Oximetry 10/17/17 10/17/17 10/17/17 16:19 16:30 16:31 Temperature Pulse Rate 83 84 83 Respiratory 16 Rate Blood Pressure 129/67 127/71 (mmHg) O2 Sat by Pulse 94 95 94 Oximetry 10/17/17 10/17/17 10/17/17 16:58 17:17 17:59 Temperature 98.3 F Pulse Rate 87 Respiratory 16 16 16 Rate Blood Pressure 141/69 (mmHg) O2 Sat by Pulse 96 Oximetry 10/17/17 10/17/17 10/17/17 18:00 18:18 18:20 Temperature 98.1 F Pulse Rate 86 86 Respiratory 16 16 Rate Blood Pressure (mmHg) O2 Sat by Pulse 95 95 96 Oximetry 10/17/17 10/17/17 10/17/17 18:24 19:57 20:05 Temperature 98.2 F Pulse Rate 95 Respiratory 16 16 16 Rate Blood Pressure 160/82 (mmHg) O2 Sat by Pulse 97 Oximetry 10/17/17 10/17/17 10/17/17 20:12 20:28 20:56 Temperature 97.7 F Pulse Rate 85 Respiratory 16 16 Rate Blood Pressure 156/96 (mmHg) O2 Sat by Pulse 94 98 Oximetry 10/17/17 10/17/17 10/17/17 21:28 22:00 23:19 Temperature 98.9 F Pulse Rate 98 Respiratory 16 16 Rate Blood Pressure 152/90 168/100 (mmHg) O2 Sat by Pulse 96 91 Oximetry 10/17/17 10/18/17 10/18/17 23:32 00:00 00:09 Temperature Pulse Rate Respiratory 16 Rate Blood Pressure 150/80 (mmHg) O2 Sat by Pulse 93 94 Oximetry 10/18/17 10/18/17 10/18/17 02:11 02:15 04:14 Temperature 97.9 F Pulse Rate 89 Respiratory 16 16 21 Rate Blood Pressure (mmHg) O2 Sat by Pulse 94 96 Oximetry 10/18/17 10/18/17 10/18/17 04:15 04:23 06:41 Temperature Pulse Rate Respiratory 16 18 Rate Blood Pressure 168/90 (mmHg) O2 Sat by Pulse 96 Oximetry 10/18/17 10/18/17 10/18/17 06:55 07:04 07:50 Temperature 99.4 F Pulse Rate 91 Respiratory 17 16 Rate Blood Pressure 136/62 (mmHg) O2 Sat by Pulse 98 98 Oximetry 10/18/17 10/18/17 10/18/17 07:53 10:00 10:12 Temperature Pulse Rate Respiratory 16 16 16 Rate Blood Pressure (mmHg) O2 Sat by Pulse Oximetry 10/18/17 10/18/17 11:23 11:36 Temperature 98.3 F Pulse Rate 80 Respiratory 17 16 Rate Blood Pressure 114/52 (mmHg) O2 Sat by Pulse 97 Oximetry Abd: Good BS, soft, mildly tender in low abd and near incisions. Incisions: dry without signs infection; old blood on steris Intake & Output 10/17/17 10/18/17 10/18/17 22:59 06:59 14:59 Intake Total 826 046 4581 Output Total 600 350 Balance 0 511 1002 Intake: IV Fluids 077 090 9593 LR 600 761 852 Levaquin 150 Oral 0 100 Output: Urine 600 350 Other: Estimated Void Medium Estimated Blood Loss <50 Comment # Voids 2 Laboratory Results - last 24 hr 10/17/17 10/17/17 10/17/17 11:44 11:53 14:35 WBC RBC Hgb Hct MCV MCH MCHC RDW Plt Count MPV Neut % (Auto) Lymph % (Auto) Anderson % (Auto) Eos % (Auto) Baso % (Auto) Absolute Neuts (auto) Absolute Lymphs (auto) Absolute Monos (auto) Absolute Eos (auto) Absolute Basos (auto) Absolute Nucleated RBC Nucleated RBC % Sodium 141 Potassium 3.8 Chloride 103 Carbon Dioxide 33 H Anion Gap 5 BUN 17 Creatinine 0.70 Est GFR ( Amer) 99.8 Est GFR (Non-Af Amer) 82.5 BUN/Creatinine Ratio 24.3 H Glucose 114 H POC Glucose (mg/dL) 98 174 H Calcium 9.2 Phosphorus Magnesium Total Bilirubin 0.40 AST 16 ALT 11 Alkaline Phosphatase 80 Total Protein 6.2 L Albumin 3.7 Globulin 2.5 Albumin/Globulin Ratio 1.5 TSH Cancelled Urine Color Urine Appearance Urine pH Ur Specific [place] Urine Protein Urine Ketones Urine Blood Urine Nitrate Urine Bilirubin Urine Urobilinogen Ur Leukocyte Esterase Urine WBC (Auto) Urine RBC (Auto) Ur Squamous Epith Cells Urine Bacteria Hyaline Casts Urine Glucose 10/17/17 10/18/17 10/18/17 21:05 06:37 07:35 WBC RBC Hgb Hct MCV MCH MCHC RDW Plt Count MPV Neut % (Auto) Lymph % (Auto) Anderson % (Auto) Eos % (Auto) Baso % (Auto) Absolute Neuts (auto) Absolute Lymphs (auto) Absolute Monos (auto) Absolute Eos (auto) Absolute Basos (auto) Absolute Nucleated RBC Nucleated RBC % Sodium Potassium Chloride Carbon Dioxide Anion Gap BUN Creatinine Est GFR ( Amer) Est GFR (Non-Af Amer) BUN/Creatinine Ratio Glucose POC Glucose (mg/dL) 180 H 173 H 183 H Calcium Phosphorus Magnesium Total Bilirubin AST ALT Alkaline Phosphatase Total Protein Albumin Globulin Albumin/Globulin Ratio TSH Urine Color Urine Appearance Urine pH Ur Specific [place] Urine Protein Urine Ketones Urine Blood Urine Nitrate Urine Bilirubin Urine Urobilinogen Ur Leukocyte Esterase Urine WBC (Auto) Urine RBC (Auto) Ur Squamous Epith Cells Urine Bacteria Hyaline Casts Urine Glucose 10/18/17 10/18/17 10/18/17 08:45 08:46 10:05 WBC 23.6 H RBC 3.87 L Hgb 11.3 L Hct 34 L MCV 88 MCH 29 MCHC 33 RDW 14 Plt Count 224 MPV 8.2 Neut % (Auto) 83.3 H Lymph % (Auto) 7.6 L Anderson % (Auto) 8.9 H Eos % (Auto) 0 Baso % (Auto) 0.2 Absolute Neuts (auto) 19.6 H Absolute Lymphs (auto) 1.8 Absolute Monos (auto) 2.1 H Absolute Eos (auto) 0 Absolute Basos (auto) 0 Absolute Nucleated RBC 0 Nucleated RBC % 0 Sodium 138 Potassium 4.0 Chloride 102 Carbon Dioxide 31 Anion Gap 5 BUN 14 Creatinine 0.82 Est GFR ( Amer) 83.2 Est GFR (Non-Af Amer) 68.7 BUN/Creatinine Ratio 17.1 Glucose 174 H POC Glucose (mg/dL) Calcium 8.6 Phosphorus 4.0 Magnesium 1.5 L Total Bilirubin 0.60 AST 26 ALT 23 Alkaline Phosphatase 67 Total Protein 5.6 L Albumin 3.1 L Globulin 2.5 Albumin/Globulin Ratio 1.2 TSH Urine Color Yellow Urine Appearance Clear Urine pH 5.0 Ur Specific [place] 1.010 Urine Protein Negative Urine Ketones Negative Urine Blood Negative Urine Nitrate Negative Urine Bilirubin Negative Urine Urobilinogen Negative Ur Leukocyte Esterase 1+ A Urine WBC (Auto) Trace(0-5/hpf) Urine RBC (Auto) Absent Ur Squamous Epith Cells Present A Urine Bacteria Absent Hyaline Casts Present A Urine Glucose Negative A/P: POD#1 s/p lap choley, now with leukocytosis with uncertain source. Will try to track down records from earlier possible sepsis from pyelonephritis. Consider sono to check for ureteral dilation. Agree with abx and will recheck WBC in AM. Riccardo
[2017-10-18] MEDS ORDERED: NS 0.9% 100 ML* 0 ML ONE (12:10)
[2017-10-18] MEDS: Docusate CAP* 100 MG PO SCH (18:07)
--- NOTE | 2017-10-18 22:24 | CONS ---
SLEEP CONSULTATION REPORT: DATE OF CONSULT: 10/18/17 CONSULTATION REQUESTED BY: Dr. Mil Clarke. REASON FOR CONSULTATION: Evaluation of sleep apnea. HISTORY OF PRESENT ILLNESS: A 71-year-old female with history of morbid obesity ; complex sleep apnea; type 2 diabetes; hypertension; dyslipidemia; osteoarthritis; compression fractures of the spine; spondylosis; solitary nodule of right lower lobe of the lung 1.4 cm, being stable; thyroid nodule, negative biopsy; chronic neck and back pain; recently found to have symptomatic gallstones. The patient underwent laparoscopic cholecystectomy 1 day ago. The patient recently underwent ASV titration and was initiated on ASV. 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 She was trialed on BiPAP S/T last night, her mask was not fitting well and she was uncomfortable with the mask and could not tolerate it. The patient also has been febrile post surgery. White count has been elevated. She is undergoing workup for possible source of sepsis. A Sleep Medicine consultation was requested for evaluation of BiPAP settings. The patient seen and examined at bedside. The patient reports discomfort secondary to the pain. The patient also reports mild headache. The patient reports that she could not sleep well and is having headache. The patient passed some flatus; however, did not have a bowel movement yet. Denies nausea or vomiting. The patient reports poor appetite. PAST MEDICAL HISTORY: 1. Morbid obesity. 2. Complex sleep apnea. 3. Type 2 diabetes. 4. Essential hypertension. 5. Dyslipidemia. 6. Displacement of cervical intervertebral disk. 7. Localized primary osteoarthritis. 8. Lumbosacral spondylosis. 9. Pulmonary nodule 1.4 cm in right lower lobe. 10. Thyroid nodule. 11. Chronic neck and back pain. PAST SURGICAL HISTORY: 1. Pyloromyotomy in infancy. 2. x2. 3. Back surgery. 4. Neck surgery. 5. Cataract extraction and lens implantation. MEDICATIONS AT HOME: 1. Furosemide. 2. Janumet. 3. Livalo. 4. Propranolol. 5. Cymbalta. 6. Losartan. 7. Codeine. 8. Morphine. 9. Docusate. 10. Cyclobenzaprine. 11. MiraLAX. 12. Vitamin D. 13. Tums. 14. Coenzyme Q. 15. Multivitamin. 16. B12. ALLERGIES: AUGMENTIN, AMITRIPTYLINE, LIPITOR, CLONIDINE, NEURONTIN, LISINOPRIL , and CRESTOR. FAMILY HISTORY: Noncontributory to current presentation. SOCIAL HISTORY: and lives with her , who is at bedside today. Nonsmoker. No alcohol or drug abuse. REVIEW OF SYSTEMS: All 14 systems were reviewed and as per HPI. PHYSICAL EXAM: The patient is in bed, in no apparent distress. Vital Signs: Temperature 98.3; pulse 80 beats per minute; respiratory rate 15 per minute; O2 sat 97% on room air, was switched to O2 at 2 L per minute due to episodes of hypoxemia while she is sleeping; blood pressure 114/52. HEENT: Pupils equal, reactive to light. Mucous membranes moist. Lungs: Good air entry bilaterally. No wheeze. Cardiovascular: S1, S2 present, regular. Abdomen: Soft, nontender, nondistended. Laparoscopic scar seen and diminished bowel sounds on abdominal exam. Extremities: Normal range of motion. Skin: No rash or bruise. DIAGNOSTIC STUDIES/LAB DATA: Chest x-ray was personally reviewed - no acute airspace opacities were noted. 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 She was initiated on BiPAP S/T last night, did not have trouble with pressures , could not tolerate the mask that they used. Her is going to bring her mask from home. She is willing to trying BiPAP when she is sleeping. The patient is being worked up for possible source of sepsis given fever and elevated white count. Rest of management as per primary team. Thank you for allowing me to participate in the care of your patient. [id number]/[facility] #: [id number] DAVID
[2017-10-19] MEDS: HYDROcodone/ACETAMIN 5-325 MG* 1 TAB PO PRN ×2 (02:54→08:18)
[2017-10-19] MEDS: Heparin VIAL(*) 5000 UNITS/ML VIAL (FIVE THOUSAND) SUBCUT SCH (05:41)
[2017-10-19 06:01] LABS: Hematocrit 29 % (35-47); Hemoglobin 9.6 g/dl (12.0-16.0); Mean Corpuscular HGB Conc 33 g/dl (31-36); Mean Corpuscular Hemoglobin 30 pg (27-31); Mean Corpuscular Volume 89 fL (80-97); Mean Platelet Volume 8.6 um3 (7.4-10.4); Platelet Count 170 10^3/ul (150-450); Red Blood Count 3.25 10^6/ul (4.00-5.40); Red Cell Distribution Width 14 % (10.5-15)
[2017-10-19 06:14] LABS: EGFR Non-African American 88.3 (>60)
[2017-10-19] MEDS: Insulin LISPRO* 1 UNITS UNIT SUBCUT SCH (07:31)
[2017-10-19 07:41] VITALS: BP 136/66
[2017-10-19] MEDS: Pitavastatin (NF) 2 MG TAB PO SCH (07:57)
--- NOTE | 2017-10-19 08:05 | PN ---
Subjective Date of Service: 10/19/17 Interval History: Pain control OK. Mild nausea, did not eat dinner last evening. No BM since admission. Objective Active Medications: Acetaminophen (Tylenol Tab*) 650 mg PO Q4H PRN PRN Reason: Pain Or Temperature >101 F Hydrocodone Bitart/Acetaminophen ([place]per 5-325 Tab*) 1 tab PO Q4H PRN PRN Reason: PAIN - MODERATE Last Admin: 10/19/17 02:54 Dose: 1 tab Dextrose (D50w Syringe 50 Ml*) 12.5 gm IV PUSH .FOR FS < 60 - SS PRN PRN Reason: FS < 60 Docusate Sodium (Colace Cap*) 100 mg PO BID [facility] Heparin Sodium (Porcine) (Heparin Vial(*)) 5,000 units SUBCUT Q8HR [facility] Last Admin: 10/19/17 05:41 Dose: 5,000 units Hydromorphone HCl (Dilaudid Inj*) 0.5 mg IV Q2H PRN PRN Reason: Pain - severe Last Admin: 10/17/17 18:24 Dose: 0.5 mg Lactated Ringer's (Lactated Ringers 1000 Ml Bag*) 1,000 mls @ 100 mls/hr IV PER RATE [facility] Last Admin: 10/19/17 01:19 Dose: 100 mls/hr Insulin Human Lispro (Humalog*) 0 units SUBCUT [facility]; Protocol Last Admin: 10/19/17 07:31 Dose: Not Given Losartan Potassium (Cozaar Tab*) 100 mg PO QAM [facility] Last Admin: 10/18/17 07:53 Dose: 100 mg Morphine Sulfate (Morphine Inj (Syringe)*) 2 mg IV Q5M PRN PRN Reason: PAIN - MODERATE TO SEVERE Last Admin: 10/17/17 15:44 Dose: 2 mg Naloxone HCl (Narcan*) 0.08 mg IV Q2M PRN PRN Reason: severe induced resp depression Ondansetron HCl (Zofran Inj*) 4 mg IV Q4H PRN PRN Reason: NAUSEA/VOMITING Pitavastatin (Livalo (Nf)) 2 mg PO QAM [facility] Last Admin: 10/18/17 07:54 Dose: Not Given Polyethylene Glycol/Electrolytes (Miralax*) 17 gm PO BID [facility] Prochlorperazine Edisylate (Compazine Inj*) 10 mg IV Q6H PRN PRN Reason: NAUSEA/VOMITING Propranolol HCl (Inderal La Cap*) 60 mg PO BID [facility] Last Admin: 10/18/17 21:15 Dose: 60 mg Senna (Senokot Tab*) 2 tab PO QAM [facility] Vital Signs - 8 hr 10/19/17 10/19/17 10/19/17 02:02 02:54 02:56 Temperature Pulse Rate Respiratory 18 16 16 Rate Blood Pressure (mmHg) O2 Sat by Pulse 96 Oximetry 10/19/17 10/19/17 10/19/17 04:00 04:04 04:23 Temperature 98.3 F Pulse Rate 76 Respiratory 18 18 Rate Blood Pressure 142/56 (mmHg) O2 Sat by Pulse 100 98 Oximetry 10/19/17 10/19/17 10/19/17 05:36 07:29 07:32 Temperature 98.6 F Pulse Rate 80 Respiratory 18 16 16 Rate Blood Pressure (mmHg) O2 Sat by Pulse 96 96 Oximetry 10/19/17 07:41 Temperature Pulse Rate Respiratory Rate Blood Pressure 136/66 (mmHg) O2 Sat by Pulse Oximetry Oxygen Devices in Use Now: None, Simple Face Mask Appearance: Alert, in a chair. In good spirits. Looks comfortable. Eyes: No Scleral Icterus Neck: NL Appearance and Movements; NL JVP, No Thyroid Enlargement, Masses Respiratory: Symmetrical Chest Expansion and Respiratory Effort, Clear to Auscultation, Clear to Percussion Abdominal: NL Sounds; No Tenderness; No Distention, No Hepatosplenomegaly, - Extremities: No Edema, No Clubbing, Cyanosis, - Skin: No Rash or Ulcers, No Nodules or Sclerosis, - Neurological: Alert and Oriented x 3, NL Sensation Result Diagrams: 10/19/17 05:07 10/19/17 05:07 Assess/Plan/Problems-Billing Assessment: - Patient Problems (1) Central sleep apnea Current Visit: Yes Status: Acute Comment: -Will defer with Dr. Del Toro future recommendations. O2 sats consistently over 90, uses O2 2 L while sleeping here. D/C continuous O2 monitor. (2) Hypomagnesemia Current Visit: Yes Status: Acute Code(s): E83.42 - HYPOMAGNESEMIA SNOMED Code(s): 049445451 Comment: Add on Mg++ level 10/19. (3) Diabetes 1.5, managed as type 2 Current Visit: Yes Status: Acute Code(s): E10.9 - TYPE 1 DIABETES MELLITUS WITHOUT COMPLICATIONS SNOMED Code(s): 285746765 Comment: Adequate glycemic control. -Continue Insulin SS Resume her home diabaetic regimen on discharge. (4) Hypertension Current Visit: Yes Status: Acute Code(s): I10 - ESSENTIAL (PRIMARY) HYPERTENSION SNOMED Code(s): 29411247 Comment: Continue losartan, propranolol LA. (5) Symptomatic cholelithiasis Current Visit: Yes Status: Acute Code(s): K80.20 - CALCULUS OF GALLBLADDER W /O CHOLECYSTITIS W/O OBSTRUCTION SNOMED Code(s): 248102314 Comment: -S/P laparascopic cholecystectomy 10/17/17. (6) Leukocytosis Current Visit: Yes Status: Acute Code(s): D72.829 - ELEVATED WHITE BLOOD CELL COUNT, UNSPECIFIED SNOMED Code(s): 812114129 Comment: Decreased to 14.0 10/19. No clinical evidence of infection. Status and Disposition: -Defer with Surgery
[2017-10-19] MEDS: Propranolol LA CAP* 60 MG PO SCH (08:17)
[2017-10-19] MEDS: Losartan TAB* 25 MG PO SCH (08:17)
--- NOTE | 2017-10-19 08:29 | PN ---
Progress Note - Progress Note Date of Service: 10/19/17 Note: surgery Ms. Rowe reports she has some pain, but it is manageable. She is still tolerating small amounts of food. She required some oxygen last night, but her saturations this morning are fine on room air. Appreciate hospitalist and Dr. Perez's help. Vital Signs 10/18/17 10/18/17 10/18/17 10:00 10:12 11:23 Temperature 98.3 F Pulse Rate 80 Respiratory 16 16 17 Rate Blood Pressure 114/52 (mmHg) O2 Sat by Pulse 97 Oximetry 10/18/17 10/18/17 10/18/17 11:36 12:00 13:47 Temperature Pulse Rate Respiratory 16 16 15 Rate Blood Pressure (mmHg) O2 Sat by Pulse 95 Oximetry 10/18/17 10/18/17 10/18/17 15:39 16:00 16:30 Temperature 98.0 F Pulse Rate 77 Respiratory 16 16 Rate Blood Pressure 98/45 (mmHg) O2 Sat by Pulse 96 96 94 Oximetry 10/18/17 10/18/17 10/18/17 19:56 20:47 21:15 Temperature 98.2 F Pulse Rate 73 Respiratory 16 18 20 Rate Blood Pressure 125/50 (mmHg) O2 Sat by Pulse 100 Oximetry 10/18/17 10/18/17 10/18/17 23:20 23:43 23:51 Temperature 98.7 F Pulse Rate 73 Respiratory 18 20 Rate Blood Pressure 148/50 (mmHg) O2 Sat by Pulse 100 100 Oximetry 10/19/17 10/19/17 10/19/17 02:02 02:54 02:56 Temperature Pulse Rate Respiratory 18 16 16 Rate Blood Pressure (mmHg) O2 Sat by Pulse 96 Oximetry 10/19/17 10/19/17 10/19/17 04:00 04:04 04:23 Temperature 98.3 F Pulse Rate 76 Respiratory 18 18 Rate Blood Pressure 142/56 (mmHg) O2 Sat by Pulse 100 98 Oximetry 10/19/17 10/19/17 10/19/17 05:36 07:29 07:32 Temperature 98.6 F Pulse Rate 80 Respiratory 18 16 16 Rate Blood Pressure (mmHg) O2 Sat by Pulse 96 96 Oximetry 10/19/17 10/19/17 07:41 08:18 Temperature Pulse Rate Respiratory 16 Rate Blood Pressure 136/66 (mmHg) O2 Sat by Pulse Oximetry Abd: good BS soft, mildly tender near incisions. Incisions: dry; some ecchymosis around umbilical site. Laboratory Results - last 24 hr 10/18/17 10/18/17 10/18/17 08:45 08:46 10:05 WBC 23.6 H RBC 3.87 L Hgb 11.3 L Hct 34 L MCV 88 MCH 29 MCHC 33 RDW 14 Plt Count 224 MPV 8.2 Neut % (Auto) 83.3 H Lymph % (Auto) 7.6 L [place] % (Auto) 8.9 H Eos % (Auto) 0 Baso % (Auto) 0.2 Absolute Neuts (auto) 19.6 H Absolute Lymphs (auto) 1.8 Absolute Monos (auto) 2.1 H Absolute Eos (auto) 0 Absolute Basos (auto) 0 Absolute Nucleated RBC 0 Nucleated RBC % 0 Sodium 138 Potassium 4.0 Chloride 102 Carbon Dioxide 31 Anion Gap 5 BUN 14 Creatinine 0.82 Est GFR ( Amer) 83.2 Est GFR (Non-Af Amer) 68.7 BUN/Creatinine Ratio 17.1 Glucose 174 H POC Glucose (mg/dL) Calcium 8.6 Phosphorus 4.0 Magnesium 1.5 L Total Bilirubin 0.60 AST 26 ALT 23 Alkaline Phosphatase 67 Total Protein 5.6 L Albumin 3.1 L Globulin 2.5 Albumin/Globulin Ratio 1.2 Urine Color Yellow Urine Appearance Clear Urine pH 5.0 Ur Specific Artesian 1.010 Urine Protein Negative Urine Ketones Negative Urine Blood Negative Urine Nitrate Negative Urine Bilirubin Negative Urine Urobilinogen Negative Ur Leukocyte Esterase 1+ A Urine WBC (Auto) Trace(0-5/hpf) Urine RBC (Auto) Absent Ur Squamous Epith Cells Present A Urine Bacteria Absent Hyaline Casts Present A Urine Glucose Negative 10/18/17 10/18/17 10/19/17 11:39 16:22 05:07 WBC 14.0 H RBC 3.25 L Hgb 9.6 L Hct 29 L MCV 89 MCH 30 MCHC 33 RDW 14 Plt Count 170 MPV 8.6 Neut % (Auto) Lymph % (Auto) [place] % (Auto) Eos % (Auto) Baso % (Auto) Absolute Neuts (auto) Absolute Lymphs (auto) Absolute Monos (auto) Absolute Eos (auto) Absolute Basos (auto) Absolute Nucleated RBC Nucleated RBC % Sodium Potassium Chloride Carbon Dioxide Anion Gap BUN Creatinine Est GFR ( Amer) Est GFR (Non-Af Amer) BUN/Creatinine Ratio Glucose POC Glucose (mg/dL) 145 H 114 H Calcium Phosphorus Magnesium Total Bilirubin AST ALT Alkaline Phosphatase Total Protein Albumin Globulin Albumin/Globulin Ratio Urine Color Urine Appearance Urine pH Ur Specific Artesian Urine Protein Urine Ketones Urine Blood Urine Nitrate Urine Bilirubin Urine Urobilinogen Ur Leukocyte Esterase Urine WBC (Auto) Urine RBC (Auto) Ur Squamous Epith Cells Urine Bacteria Hyaline Casts Urine Glucose 10/19/17 05:07 WBC RBC Hgb Hct MCV MCH MCHC RDW Plt Count MPV Neut % (Auto) Lymph % (Auto) [place] % (Auto) Eos % (Auto) Baso % (Auto) Absolute Neuts (auto) Absolute Lymphs (auto) Absolute Monos (auto) Absolute Eos (auto) Absolute Basos (auto) Absolute Nucleated RBC Nucleated RBC % Sodium 142 Potassium 3.7 Chloride 107 Carbon Dioxide 28 Anion Gap 7 BUN 10 Creatinine 0.66 Est GFR ( Amer) 106.8 Est GFR (Non-Af Amer) 88.3 BUN/Creatinine Ratio 15.2 Glucose 123 H POC Glucose (mg/dL) Calcium 8.4 L Phosphorus Magnesium 1.7 L Total Bilirubin AST ALT Alkaline Phosphatase Total Protein Albumin Globulin Albumin/Globulin Ratio Urine Color Urine Appearance Urine pH Ur Specific Artesian Urine Protein Urine Ketones Urine Blood Urine Nitrate Urine Bilirubin Urine Urobilinogen Ur Leukocyte Esterase Urine WBC (Auto) Urine RBC (Auto) Ur Squamous Epith Cells Urine Bacteria Hyaline Casts Urine Glucose POD#2 s/p lap choley and admission for management of sleep apnea in post op period and HTN; had transiently significant leukocytosis, now normalizing. Ok for discharge and f/u as outpt.
[2017-10-19] MEDS ORDERED: Docusate CAP* 100 MG PO SCH (09:00)
[2017-10-19] MEDS ORDERED: Senna TAB PO SCH (09:00)
--- NOTE | 2017-10-19 11:08 | DS ---
CC: Dr. Chaitanya Gaytan * DISCHARGE SUMMARY: DATE OF ADMISSION: 10/18/17 DATE OF DISCHARGE: 10/19/17 ADMISSION DIAGNOSES: Cholecystitis, with sleep apnea. DISCHARGE DIAGNOSES: Cholecystitis, with sleep apnea. PROCEDURES DURING THE HOSPITALIZATION: Included laparoscopic cholecystectomy done on the date of admission. HOSPITAL COURSE: She had surgery and then was postoperatively noted to have low oxygen levels and there was concern because of her sleep apnea history that was then treated that she might need assistance with maintaining oxygen overnight, so she was admitted. She was also noted to be hypertensive. Medicine was consulted to help with managing these problems. The next day, she had an elevation in her white blood cell count that prompted more of a workup and a dose of antibiotics. She also still had trouble maintaining oxygen, so Dr. Perez was consulted and gave advice regarding managing her sleep apnea. On the following day, she was maintaining oxygen levels on room air and tolerating a diet, and on her usual medications had her blood pressure controlled, so she was considered stable for discharge, and was discharged to home with instructions to follow up both with her primary and with Surgery and with Dr. Perez. [id number]/[facility] #: [id number] DAVID
[2017-10-19] MEDS ORDERED: Polyethylene Glycol 3350* 17 GM PACKET PO SCH (21:00)
== END 2017-10-19 10:45 | disposition home or self-care (01) | DRG 419 ==
LOC: OR 11:28 → SSU 13:08 → OBSVTOIN 10-18 13:08
PROVIDERS: ADMIT Surgery; ATTEND Surgery
PROC: 0FT44ZZ Resection of Gallbladder, Percutaneous Endoscopic Approach (ICD-10-PCS; principal; 2017-10-18)
PROC: 0DNU4ZZ Release Omentum, Percutaneous Endoscopic Approach (ICD-10-PCS; 2017-10-18)
DX: K80.10 Calculus of gallbladder with chronic cholecystitis without obstruction (principal); K66.0 Peritoneal adhesions (postprocedural) (postinfection); I10 Essential (primary) hypertension; E11.9 Type 2 diabetes mellitus without complications; G47.33 Obstructive sleep apnea (adult) (pediatric); E66.01 Morbid (severe) obesity due to excess calories; M19.90 Unspecified osteoarthritis, unspecified site; Z96.1 Presence of intraocular lens; M54.9 Dorsalgia, unspecified; M19.019 Primary osteoarthritis, unspecified shoulder; G47.10 Hypersomnia, unspecified; R91.1 Solitary pulmonary nodule; G89.4 Chronic pain syndrome; K58.9 Irritable bowel syndrome, unspecified; N90.4 Leukoplakia of vulva; E83.42 Hypomagnesemia; M54.2 Cervicalgia; Z96.9 Presence of functional implant, unspecified; E04.1 Nontoxic single thyroid nodule; R51 Headache; E78.2 Mixed hyperlipidemia; Z87.442 Personal history of urinary calculi; Z80.8 Family history of malignant neoplasm of other organs or systems; Z82.49 Family history of ischemic heart disease and other diseases of the circulatory system; Z88.0 Allergy status to penicillin; Z88.8 Allergy status to other drugs, medicaments and biological substances; Z98.1 Arthrodesis status; Z83.3 Family history of diabetes mellitus; Z68.33 Body mass index [BMI] 33.0-33.9, adult; Z98.42 Cataract extraction status, left eye; Z98.41 Cataract extraction status, right eye; R11.0 Nausea; R50.9 Fever, unspecified; D72.829 Elevated white blood cell count, unspecified
CPT/HCPCS: 36415; 71045; 80048; 80053; 81003; 81015; 83735; 84100; 85025; 85027; 87040; 87077; 87086; 88304; 94660; A9270-GY; J0360; J1100; J1170; J1240; J1644; J1885; J2270; J2405; J2704; J2710; J3010; J3475; J3490

== ENCOUNTER 2018-04-05 03:44 | Observation (INO) | payer MEDICARE ==
[2018-04-05] MEDS ORDERED: Acetaminophen TAB* 325 MG PO ONE (04:05)
[2018-04-05] MEDS ORDERED: fentaNYL* 50 MCG/ML 2 ML VIAL (100 MCG VIAL) IV ONE (04:05)
[2018-04-05] MEDS ORDERED: Diltiazem TAB* 60 MG PO ONE ×2 (04:07→05:16)
--- NOTE | 2018-04-05 04:07 | ED ---
Complex/Multi-Sys Presentation - HPI Summary HPI Summary: A 72 y/o F presents to ED with GUZMAN onset [employer]. Pt was awake reading, she has difficulty sleeping, when she felt a gradual L-sided temporal GUZAMN come on. The GUZMAN radiates down her neck and to her jaw on the L-side. Associated sx: mildly unsteady gait. Denies n/v. Pt had a wellness check-up today and had an elevated BP then as well as worsened vision in her L eye. She notes she's been medication non-compliant but didn't specify how so. She does not typically get GUZMAN or migraines. - History Of Current Complaint Chief Complaint: EDHypertension Time Seen by Provider: 04/05/18 03:58 Hx Obtained From: Patient, Family/Supervisor Extruding Department Onset/Duration: Gradual Onset, Lasting Hours, Still Present Timing: Constant Severity Currently: Moderate Severity Initially: Moderate Location: Pain At: - L temporal Associated Signs And Symptoms: Positive: Other - pos: unsteady gait, elevated BP. Negative: Nausea, Vomiting - Allergies/Home Medications Allergies/Adverse Reactions: Allergies Allergy/AdvReac Type Severity Reaction Status Date / Time gabapentin Allergy Intermediate See Comment Verified 03/05/18 11:07 Mqiakgk-Zcr-Dsf Reductase Allergy Mild Leg Cramps Verified 03/05/18 11:07 Inhibitor amitriptyline Allergy Unknown Verified 03/05/18 11:07 Reaction Details clonidine Allergy Unknown Verified 03/05/18 11:07 Reaction Details rosuvastatin [From Crestor] Allergy Muscle Ache Verified 03/05/18 11:07 amoxicillin AdvReac Intermediate Nausea And Verified 04/05/18 10:45 Vomiting lisinopril AdvReac Intermediate Coughing Verified 04/05/18 10:45 Home Medications: Home Medications DULoxetine CAP* [Cymbalta CAP*] 60 mg PO DAILY 04/05/18 [History Confirmed ] PMH/Surg Hx/FS Hx/Imm Hx Previously Healthy: No Endocrine/Hematology History: Reports: Hx Diabetes - TYPE 2, Hx Thyroid Disease - Thyroid nodule-benign, Hx Anemia - as an /child, not as an adult Cardiovascular History: Reports: Hx Cardiomegaly - CHILD, Hx Hypercholesterolemia, Hx Hypertension - controlled with meds, 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, Other Cardiovascular Problems/Disorders - CONTROL WITH MEDICATIONS Denies: Hx Pacemaker/ICD Respiratory History: Reports: Hx Sleep Apnea - PATIENT REPORTS IN PAST, Other Respiratory Problems/Disorders - Solitary nodule right lower lobe of lung 1.4cm GI History: Reports: Hx Cirrhosis - PATIENT DOES NOT DRINK ALCOHOL, Hx Gastroesophageal Reflux Disease - NO LONGER ON MEDICATION, Hx Irritable Bowel - CAUSED FROM MEDICATION PER PATIENT, Hx Ulcer - History of bleeding ulcer, transfused with units PRBC, Other GI Disorders - Cholelithiasis, pyloromyotomy as an infant History: Reports: Hx Kidney Infection - DURING KIDNEY STONES-SEPSIS, Hx Kidney Stones - IN PAST, Other Problems/Disorders - HX OF KIDNEY STONES Denies: Hx Renal Disease Musculoskeletal History: Reports: Hx Arthritis, Hx Back Problems, Hx Bursitis - bilateral elbows and shoulders per pt Denies: Hx Osteoporosis Comment Only: Other Musculoskeletal History - OSTEOPOROSIS Sensory History: Reports: Hx Cataracts, Hx Contacts or Glasses - glasses Denies: Hx Hearing Aid Opthamlomology History: Reports: Hx Cataracts, Hx Contacts or Glasses - glasses Neurological History: Reports: Hx Headaches - cluster headache, one episode, Hx Migraine - AND CLUSTER HEADACHES, Other Neuro Impairments/Disorders - Memory difficulties, some days worse than others. Dorsal column stimulator Psychiatric History: Denies: Hx Panic Disorder - Cancer History Hx Chemotherapy: No Hx Radiation Therapy: No - Surgical History Surgery Procedure, Year, and Place: 1946 DIGESTIVE BLOCKAGE CORRECTED AT 2 WEEKS OLD, [place], [place] 1966 AND 1969 [address] [place] 1988 LEFT. BRE[place] BIOPSY, [place] [facility] [place] 2008 LUMBAR SPINAL SURGERY, [facility]. Dorsal column stimulator October 18 2012. 2007. CERVICAL SPINE SURGERY, [facility] 2 LIPOTRIPSY PROCEDURE, [place]. 2011 BILATERAL CATARACTS EXTRACTION WITH IOL IMPLANTS, [place] [facility] [place] 2006 SURGERY TO REPAIR BLEEDING ULCER, [place] [facility] [place]. October 2012 Permanent Dorsal Column Stimulator inserted. RT SHOULDER SURGERY ? Cholecyct[place] [facility] [place] with Dr. Farshad Jacob Anesthesia Reactions: Yes - HALLUCINATIONS WITH ANESTHESIA, WITH SECOND LITHOTRIPSY, N/V Infectious Disease History: No Infectious Disease History: Denies: Traveled Outside the [place] in Last 30 Days - Family History Known Family History: Negative: Hypertension, Diabetes - Social History Occupation: Retired Lives: With Family Alcohol Use: None Hx Substance Use: No Substance Use Type: Reports: None Hx Tobacco Use: No Smoking Status (MU): Never Smoked Tobacco Have You Smoked in the Last Year: No Review of Systems Positive: Other - pos: elevated BP Negative: Vomiting, Nausea Musculoskeletal: Other - pain from GUZMAN radiating to neck and jaw Neurological: Other - pos: unsteady gait Positive: Headache All Other Systems Reviewed And Are Negative: Yes Physical Exam - Summary Physical Exam Summary: Appearance: Well-appearing, Well-nourished, lying in bed comfortably Skin: Warm, dry, no obvious rash Eyes: sclera anicteric, no conjunctival pallor ENT: mucous membranes moist, pharynx appears normal Neck: Supple, nontender Respiratory: Clear to auscultation, no signs of respiratory distress Cardiovascular: Normal S1, S2. No murmurs. Normal distal pulses in tibial and radial bilaterally. Abdomen: Soft, nontender, normal active bowel sounds present Musculoskeletal: Normal, Strength/ROM Intact, Motor function in all 4 extremities is normal and symmetric. There is no rigidity or tremor noted. Neurological: A&Ox3, awake and alert, mentation is normal, speech is fluent and appropriate, Level of consciousness nml. The patient is alert and oriented. Cranial nerves are grossly intact. Gaze is conjugate and without nystagmus. Peripheral vision is intact to confrontation. There are no gross sensory abnormalities to light touch. There is no truncal or fine motor ataxia. Gait is normal. Psychiatric: affect is normal, does not appear anxious or depressed Triage Information Reviewed: Yes Vital Signs On Initial Exam: Initial Vitals Temp Pulse Resp BP Pulse Ox 98 F 58 18 223/102 99 04/05/18 03:48 04/05/18 03:48 04/05/18 03:48 04/05/18 03:48 04/05/18 03:48 Vital Signs Reviewed: Yes - [place] Coma Scale Best Eye Response: 4 - Spontaneous Best Motor Response: 6 - Obeys Commands Best Verbal Response: 5 - Oriented Coma Scale Total: 15 Diagnostics - Vital Signs Vital Signs Temp Pulse Resp BP Pulse Ox 04/05/18 03:52 204/119 04/05/18 03:48 98 F 58 18 223/102 99 - Laboratory Result Diagrams: 04/05/18 04:20 04/05/18 04:20 Lab Statement: Any lab studies that have been ordered have been reviewed, and results considered in the medical decision making process. - EKG 0411 Cardiac Rate: NL - 61 bpm EKG Rhythm: Sinus Rhythm Summary of EKG Findings: NSR at 61 BPM, P waves, QRS complex, and T waves are within normal limits, T waves and intervals are normal, no ischemic changes. Re-Evaluation - Re-Evaluation First Eval Re-Evaluation Time: 07:54 Change: Improved Comment: HR is 53 bpm. Pt reports her headache "does not feel completely normal , I can't say it hurts." She also developed some chest pain while in the ED, that is described as sore and pressure, about 1 hour ago. This episode lasted for 30 minutes and has now resolved. Second Eval Re-Evaluation Time: 08:07 Change: Unchanged Comment: I reviewed the lab, EKG, and CT results with the pt. I discussed with the pt and the plan for admission. They understand and agree. Complex Multi-Symp Course/Dx Course Of Treatment: Pt is a 72 y/o F presenting with GUZMAN and elevated BP onset this date. The GUZMAN radiates down her neck and to her jaw on the L-side. EKG is unremarkable. Labs and UA results are unremarkable. Pt will be signed out to Dr. Mota at shift change pending Brain CT results and dispo. - Diagnoses Provider Diagnoses: Symptomatic bradycardia, Uncontrolled hypertension, Chest pain, unspecified Discharge - Sign-Out/Discharge Documenting (check all that apply): Sign-Out Patient Signing out patient TO: Nayan Mota - pending brain CT - Discharge Plan Condition: Stable Disposition: ADMITTED TO [facility] - Billing Disposition and Condition Condition: STABLE Disposition: Admitted to [facility] - Attestation Statements Document Initiated by Scribe: Yes Documenting Scribe: Nilsa Caceres Provider For Whom Lizetteibe is Documenting (Include Credential): Dr. Mathew Del Angel MD Scribe Attestation: I, lizette Osmanibed for Dr. Mathew Del Angel MD on 04/05/18 at 1958. Scribe Documentation Reviewed: Yes Provider Attestation: The documentation as recorded by the Nilsa bautista accurately reflects the service I personally performed and the decisions made by me, Dr. Mathew Del Angel MD Status of Scribe Document: Viewed
--- OUTSIDE RECORDS SUMMARY | 2018-04-05 04:16 | XMS REPORT | Continuity of Care Document ---
:1945 External Reference #:[id number] Author Name Ana Canales Care Team Providers Name Role Phone Chaitanya Gaytan MD Primary Care Physician Unavailable Payers Type Date Identification Numbers Payment Provider Subscriber Effective: Policy Number: [id number] Medicare Blue Ppo Kathleen Rowe 2012 Group Number: [id number] [address] PayID: [id number] ADOLFO Regan [address] Effective: 2010 Policy Number: [id number] BS Of NAVI Rowe Expires: 2010 PayID: [id number] [address] [address] ADOLFO Regan [address] Effective: 2010 Policy Number: MVP [facility] Ins Kathleen Rowe [id number] Ppo/Epo Expires: 2012 PayID: [id number] [address] [place] [address] Effective: 2009 Policy Number: [id number] BS Of NAVI Rowe Expires: 2010 PayID: [id number] [address] [address] ADOLFO Regan [address] Advance Directives Description No Information Available Problems Date Description Provider Status Onset: 05/31/2017 Thyroid nodule Chaitanya Gaytan M.D.,ERICKA Active Note: NEG biopsy Onset: 05/01/2017 Solitary nodule of lung Chaitanya Gaytan M.D.,ERICKA Active Note: 1.4 cm RLL Onset: 05/03/2017 Cholelithiasis without Chaitanya Gaytan, Active obstruction ERICKA [place] Onset: 02/16/2007 Benign essential hypertension Chaitanya Gaytan Active Anisha,FACP Onset: 07/22/2015 Lichen sclerosus et atrophicus of Chaitanya Gaytan Active the vulva Anisha,FACP Onset: 05/01/2007 Morbid obesity Chaitanya Gaytan Active Anisha,FACP Onset: 05/01/2007 Obstructive sleep apnea syndrome Chaitanya Gaytan Active Anisha,FACP Onset: 11/06/2007 Mixed hyperlipidemia Chaitanya Gaytan Active Anisha,FACP Onset: 12/10/2007 Displacement of cervical Chaitanya Gaytan Active intervertebral disc without Anisha,FACP myelopathy Onset: 01/07/2009 Insomnia Chaitanya Gaytan Active Ainsha,FACP Onset: 05/13/2009 Type 2 diabetes mellitus Chaitanya Gaytan Active Anisha,FACP Onset: 05/27/2010 Chronic nonalcoholic liver Chaitanya Gaytan Active disease M.[place],FACP Onset: 06/05/2012 Irritable bowel syndrome Chaitanya Gaytan Active Anisha,FACP Onset: 10/09/2014 Disorder of bursa of shoulder Juan Savage M.D. Active region Onset: 03/01/2016 Localized, primary osteoarthritis Gustabo Larson MD Active of the shoulder region Onset: 03/01/2016 Sprain of shoulder and upper arm Gustabo Larson MD Active Onset: 03/18/2016 Disturbance in sleep behavior Rosa Perez MD Active Onset: 12/01/2016 Localized, primary osteoarthritis Gustabo Larson MD Active Onset: 12/01/2016 Patellar tendonitis Gustabo Larson MD Active Onset: 12/01/2016 Strain of muscle(s) and tendon(s) Gustabo Larson MD Active of the rotator cuff of left shoulder, subsequent encounter Onset: 05/02/2017 Lumbosacral spondylosis without Lanette Ch MD Active myelopathy Onset: 05/02/2017 Neck pain Lanette Ch MD Active Onset: 05/30/2017 Lumbar spondylolisthesis Lanette Ch MD Active Onset: 05/30/2017 Thoracic and lumbosacral neuritis Lanette Ch MD Active Onset: 10/10/2017 Central sleep apnea syndrome Macrina Grande DNP, RN, Active [employer] Onset: 10/10/2017 Hypersomnia Macrina Grande DNP, RN, Active [employer] Onset: 10/10/2017 Body mass index 30+ - obesity Macrina Grande DNP, RN, Active [employer] Onset: 10/19/2017 Leukocytosis Wallace Ghotra M.D. Active Onset: 10/19/2017 Disorder of magnesium metabolism Wallace Ghotra M.D. Active Onset: 07/31/2007 Impaired fasting glycaemia Chaitanya Gaytan, Inactive Anisha,FACP Inactive: 06/05/2012 Onset: 05/27/2010 Pure hypercholesterolemia Chaitanya Gaytan M.D.,FACP Inactive Inactive: 06/05/2012 Onset: 02/16/2007 Hyperlipidemia Chaitanya Gaytan M.D.,FACP Inactive Inactive: 03/29/2013 Onset: 03/18/2016 Obesity Rosa Perez MD Inactive Inactive: 01/02/2017 Onset: 05/30/2017 Low back pain Lanette Ch MD Inactive Inactive: 05/31/2017 Onset: 05/30/2017 Altered mental status Lanette Ch MD Inactive Inactive: 05/31/2017 Onset: 05/01/2007 Recurrent major depressive Chaitanya Gaytan M.D.,FACP Resolved episodes Resolved: 06/05/2012 Onset: 07/16/2014 Acute sinusitis Gilbert Pelletier M.D. Resolved Resolved: 09/03/2014 Onset: 07/16/2014 Concussion with loss of Gilbert Pelletier M.D. Resolved consciousness Resolved: 09/03/2014 Family History Date Family Member(s) Problem(s) Comments General Heart Disease General Diabetes General Cancer Father GA at 56 Father due to CHF () Mother due to Cancer () - throat First Son Linear Scleroderma Third Son Alive And Well First Daughter due to Breast Cancer () Siblings 5 First Brother Cancer, Colon First Brother due to Colon Cancer () First Sister Alive And Well Maternal Grandfather due to Cancer, Lung () - smoker Social History Type Date Description Comments Sex Unknown Marital Status Lives With Occupation Retired Tobacco Use Start: Unknown Never Smoked Cigarettes ETOH Use 12/13/2017 Denies alcohol use Recreational Drug Use Former Drug User Tobacco Use Start: Unknown Patient has never smoked Tobacco Use Start: Unknown Secondhand smoke Indoors and exposure outdoors, as a child Smoking Status Reviewed: 04/04/18 Secondhand smoke Indoors and exposure outdoors, as a child Exercise Type/Frequency Does housework daily "As needed." Limited by arthritis Exercise Type/Frequency Exercises regularly Allergies, Adverse Reactions, Alerts Date Description Reaction Status Severity Comments 02/16/2007 Augmentin Active unknown 02/16/2007 amitriptyline Active brain felt fuzzy 02/16/2007 Lipitor Active muscle pain 02/16/2007 Clonidine Active unknown 12/10/2007 Neurontin Active sedation 11/30/2010 Lisinopril Active cough 12/15/2014 Crestor Active GI intolerance Medications Medication Date Status Form Strength Qnty SIG Indications Ordering Provider Metformin HCL 04/04 Active Tablets 500mg 180ta 1 by mouth E11.9 Zsofi bs twice a day OKSANA Pugh Shingrix 12/13 Active Suspension 50mcg 2unit 0.5 Rec s milliliters Orlando Gaytan, intramuscul M.D.,FACP ar now and 2-3 months later repeat Losartan 12/13 Active Tablets 100mg 90tab take 1 I10 s tablet by Orlando Gaytan, mouth once M.D.,FACP daily Rolling Walker 04/24 Active 1unit Use while M54.5 Darrian s ambulating DEX Carrera Livalo 09/03 Active Tablets 2mg 90tab take 1 E11.9 s tablet Orlando Gaytan, every M.D.,FACP evening Propranolol HCL 12/06 Active Tablets 60mg 180ta take 1 I10 bs tablet by Orlando Gaytan, mouth twice M.D.,FACP a day Co Q-10 00 Active Capsules 100mg 90cap 1 po qd Unknown /0000 s Multi For Her Active Capsules 1 po qd Unknown /0000 Codeine Sulfate Active Tablets 30mg bid prn Unknown /0000 Salonpas Active Patches 1.2-5.7-6 as needed Unknown /0000 .3% Docusate Sodium Active Tablets 100mg take one Unknown /0000 tab 2-3 times daily. Cyclobenzaprine Active Tablets 10mg 1/2 Tab by Unknown HCL /0000 mouth hs daily prn Miralax Active Packet [id number] 1 pack by Unknown /0000 mouth every day as needed for constipatio n Tums Active Chewtabs 500mg 2 chewtabs Unknown /0000 by mouth daily prn Morphine Sulfate Active Tablets ER 15mg 1 by mouth Unknown ER /0000 twice a day Furosemide 08/09 Hx Tablets 20mg 30tab 1 by mouth s every day Orlando Gaytan, - as needed, M.[place],[facility] 04/04 max Cipro 04/28 Hx Tablets 250mg 14tab one tab by s mouth twice Orlando Gaytan, - daily for 7 M.D.,[facility] Pyridium 04/28 Hx Tablets 100mg 12tab one by s mouth three Orlando Gaytan, - times a day M.DSarah,[facility] 05/02 x 3 days then prn Janumet XR 01/02 Hx Tablets ER 50-1000mg 180ta 1 tab twice E11.9 Manuel 24HR bs a day Michael Decker M.D.,[facility] 10/06 Onetouch Delica 05/04 Hx Misc 30G 180un test twice E11.9 Chaitanya Baker Fine 30G its daily or as Orlando Gaytan, - needed MGregorio,[facility] 05/04 Onetouch Ultra 05/04 Hx Strips 75uni test up to E11.9 Chaitanya ts 2 times a [place] Gaytan, - day or as Anisha,[facility] 05/04 Onetouch Ultra 05/04 Hx Kit w/Device 1unit use daily E11.9 Chaitanya s to test [place] Gaytan, - glucose M.DSarah,[facility] 05/04 Janumet 05/04 Hx Tablets 50-500mg 60tab 1 by mouth E11.9 Chaitanya s twice a day Michael Decker M.D.,[facility] 01/02 Freestyle Lite 05/04 Hx Device 1unit check Chaitanya Blood Glucose s fingerstick [place] Gaytan, Monitoring - daily [facility]: [facility] System 02/08 E11.9 Last visit 05/04/16 Freestyle Lite 05/04 Hx Strips 100un test up to Chaitanya Test /2016 its 2 times a [place] Gaytan, - day dx Anisha,[facility] 02/08 code: E11. Last visit 05/04/16 Omeprazole 02/[address] 20mg 30cap 1 by mouth M25.512 s every day Orlando Gaytan, - for 2 weeks Anisha,[facility] 05/02 when NSAIDs Meloxicam 02/02 Hx Tablets 7.5mg 60tab 1 by mouth M25.512 s twice a day Orlando Gaytan, - as needed Anisha,[facility] 08/11 Ciprofloxacin 08/03 Hx Tablets 250mg 14tab 1 twice a N39.0 s day x 7 Orlando Gaytan, - days Anisha,[facility] 08/10 ( ) Nystatin 08/03 Hx Cream [id number] 30gm topically R30.0 t/GM twice a day Orlando Gaytan, - as needed Anisha,[facility] 02/02 Metronidazole 03/16 Hx Gel 0.75% 25g 5 grams N77.1 Jerome once daily Telugu, - vaginally [employer] 03/21 x's 5 Ciprofloxacin 01/09 Hx Tablets 500mg 6tabs 1 tab by N39.0 Jerome HCL /2014 mouth twice Telugu, - a day x's 3 [employer] Fluconazole 01/09 Hx Tablets 150mg 2tabs 1 tablet by N39.0 Jerome mouth daily Telugu, - today, then [employer] 01/16 repeat in days. Alprazolam 12/15 Hx Tablets 0.25mg 30tab one by F06.4 Jerome s mouth every Telugu, - day as [employer] 08/03 needed mdd 1 Alprazolam 07/16 Hx Tablets 0.25mg 14tab one by 780.52 Dispers s [facility] - bed time , MSarahD. 12/15 Levaquin 07/16 Hx Tablets 500mg 10tab 1 by mouth 461.9 s every day Prabhu - MSarahD. 09/03 Walker 07/16 Hx Diagnosis:I 250.00 ntracranial [...] its directed Orlando Gaytan, - every day M.[place],[facility] 05/04 or needed dx: 250.00 Freestyle 12/27 Hx Misc 100un Twice daily Chaitanya Baker its and as [place] Gaytan, - needed dx Anisha,[facility] 02/08 E11.9 Last visit 05/04/16 Freestyle Lite 12/27 Hx Strips 100un test daily Chaitanya Test its and as [place] Gaytan, - need, dx Anisha,[facility] 05/04 code: 250.00 Breeze 2 Test 12/25 Hx 100un once a day Chaitanya Strip its and as [place] Gaytan, - needed dx MGregorio,FACP 12/27 250.00 Lancets Thin 12/25 Hx Misc 50uni every day Chaitanya ts or twice a [place] Gaytan, - day [facility] 12/27 needed Crestor 06/03 Hx Tablets 10mg 90tab 1 po qpm 250.00 Chaitanya s [place] Gaytan - Anisha,[facility] 09/03 Triamcinolone 03/29 Hx Cream 0.1% 30g apply bid 691.8 Acet prn Michael Decker M.D.,[facility] 05/29 Prednisone 03/29 Hx Tablets 10mg 20tab 4 tabs qd 691.8 s for 2 days, Orlando Gaytan, - then reduce M.D.,[facility] 05/29 by 1 tab every 2 days until finished Lyrica 06/27 Hx Capsules 50mg 90cap take 1 s capsule by [place] Gaytan, - mouth three M.D.,[facility] 01/02 times a day /2016 maximum daily dose of 3 Lyrica 06/05 Hx Capsules 25mg 60cap 1 po tid Michael Antonio M.D.,[facility] 06/27 Linzess 06/05 Hx Capsules 290mcg 30cap po qd 564.1 Michael Antonio M.D.,[facility] 12/04 Amitiza 05/30 Hx Capsules 8mcg 60cap po bid Michael Antonio M.D.,[facility] 12/06 Propranolol HCL 05/30 Hx Tablets 60mg 60tab take 1 s tablet by Orlando Gaytan, - mouth twice M.D.,[facility] 12/06 a Simvastatin 05/30 Hx Tablets 20mg 30tab take 1 250.00 s tablet by Orlando Gaytan, - mouth every M.D.,[facility] 06/03 Pennsaid 11/30 Hx Solution 1.5% 15ml 5-10 ggts R 726.71 ankle/foot Orlando Gaytan, - bid prn M.DSarah,[facility] 05/30 Breeze 2 Test 07/30 Hx 100un tid and prn its dx 250.00 Michael Decker M.D.,[facility] 11/11 [place] 05/27 Hx Tablets 5-325mg 120ta 1 qid prn bs Michael Decker M.D.,[facility] 05/29 Cymbalta 05/[address] 60mg 90cap take 1 Part s capsule by Orlando Gaytan, - mouth once M.D.,[facility] 10/06 daily Penicillin V 05/25 Hx Tablets 500mg 28tab qid for 7 462 Chaitanya s days Michael Decker M.D.,[facility] 09/10 Losartan 04/01 Hx Tablets 100mg 90tab take 1 R05 ChaitanyaJuan Luis Pearson s tablet by Orlando Gaytan, - mouth once M.D.,[facility] 10/06 daily Losartan 03/30 Hx Tablets ? 90tab 1 po qd 786.2 Chaitanya Pearson Michael Antonio M.D.,[facility] 04/01 Zithromax 10/26 Hx Tablets 250mg 6tabs 2 today 461.0 Sivananda /2009 then 1 for , Poopal, - 4 days MD 10/28 Diovan 09/22 Hx Tablets 40mg 30tab 1 po qd 786.2 Michael Antonio M.D.,[facility] 03/30 Micardis 08/25 Hx Tablets 20mg 30tab 1 po qd 786.2 Michael Antonio M.D.,[facility] 09/22 [id number] 05/13 Hx Capsules 500-50mg 60cap po bid 780.79 Michael Antonio M.D.,[facility] 11/30 Cymbalta 05/13 Hx Cpep 30mg 60uni Take 1 ts Capsule By Orlando Gaytan - Mouth Twice M.D.,[facility] 05/27 A Day /2010 Ceftin 04/16 Hx Tablets 500mg 14tab twice a 461.9 s day for 7 Karla, - days M.DSarah 04/16 Bactrim DS 04/16 Hx Tablets 800-160mg 20tab 1 po bid 461.9 Mur s for 10 days Michael Acosta M.D. 05/13 Cephalexin 09/29 Hx Capsules 500mg 40cap 1 quid x 10 682.7 s Michael Decker M.D.,[facility] 10/07 Vytorin 06/03 Hx Tablets 10-20mg 30tab Take One s Tablet By Michael Decker AT Anisha,[facility] 05/30 Bedtime Biaxin 04/09 Hx Tablets 500mg 20tab Si bid s X 10 Days Michael Decker M.D.,[facility] 06/03 Amrix 02/14 Hx Caps ER 15mg 15cap 1 po qhs 722.0 24HR Michael Antonio M.D.,[facility] 06/03 Hydrocodone-Acet 01/16 Hx Tablets 5/500mg 240ta 1-2 po qid bs prn Orlando Gaytan M.D.,[facility] Xanax 12/31 Hx Tablets 1mg 10tab 2-1 po s bid prn Michael Decker M.D.,[facility] 02/14 Vagifem 12/09 Hx Tablets 25mcg 3Mont pv Twice A h Week (With Orlando Gaytan, - Applicator) Anisha,[facility] 04/16 Oxycodone HCL CR 11/27 Hx Tablets ER 10mg 60tab bid po 12HR Michael Antonio M.D.,[facility] 02/14 Oxycontin 11/05 Hx Tablets ER 10mg 36tab 1 PO bid 12HR Michael Antonio M.D.,[facility] 11/05 Percocet 11/05 Hx Tablets 5-325mg 120ta 1/2-1 po bs qid prMichael Hendrix M.D.,[facility] 02/14 Vytorin 11/05 Hx Tablets 10-10mg 90tab 1 PO QHS Michael Antonio M.D.,[facility] 06/03 Metformin HCL 11/05 Hx Tablets 500mg 180ta take 1 790.21 bs tablet by Orlando Gaytan, - mouth twice M.D.,FACP 05/04 a day food Lunesta 08/20 Hx Tablets 3mg 30tab one tab hs s [facility] 04/16 Flonase 07/30 Hx Suspension 50mcg/Act 1Bott 1 473.1 le intranasal Orlando Gaytan, - puff to M.DSarah,FACP 05/30 nostril daily Atenolol 06/27 Hx Tabs 50mg 30tab Take 04/04 s Tablet By [place] Gaytan, - Mouth once [facility] 05/30 Tylenol/Codeine 05/01 Hx Tablets #4 240ta 1-2 qid prn 724.5 Chaitanya # bs Michael Decker [facility] 11/05 Soma 05/01 Hx Tablets 350mg 90tab tid prn 724.5 s Michael Decker [facility] 07/30 Metformin HCL 05/01 Hx Tablets 500mg 60tab 1 po bid Michael Antonio M.D.,[facility] 07/30 Cymbalta 04/09 Hx Cpep 30mg 60uni Take 1 ts Capsule Orlando Gaytan, - Twice A Day M.DSarah,FACP 05/13 Soma 02/26 Hx Tablets 350mg 30tab 1 tablet by s mouth in Orlando Gaytan, - evening prn Anisha,FACP 01/02 Ambien 02/21 Hx Tablets 10mg 30tab 1 po qhs s prn sleep Orlando Gaytan, - insomnia M.D.,FACP 12/04 Biaxin 02/16 Hx Tablets 500mg 20tab bid po for 462 s 10 days Michael Decker [facility] 05/01 Phenergan/Codein 02/16 Hx Syrup 6Oz 1-2 tsp qid 462 prn Michael Decker M.D.,[facility] 02/14 Lisinopril Hx Tablets 10mg 30tab 1 PO qd 786.2 Chaitanya / Michael Antonio M.D.,[facility] 08/25 Oxycodone HCL Hx Solution 5mg/5ML one tablet Unknown / every 8 - hours prn 11/05 Hydrocodone 00/00 Hx Tablets 7.5-500 60tab 1 q 4 hours Unknown Bitartrate/Apap /0000 s prn pain - 06/03 Hydrocodone-Acet Hx Tablets 5/500mg 120ta 1/2-1 po Chaitanya aminophen / bs qid prn Michael Decker M.D.,[facility] 05/27 Lyrica Hx Capsules 50mg 90cap 1 po tid Chaitanya / Michael Antonio M.D.,[facility] 06/05 Calcium, Vit D, 00 Hx Capsules 1000Unit 30cap 1 po qd Unknown Magnesium, Zinc /0000 s - 05/02 Coricidin HBP Hx Tablets 4-30mg prn Unknown Cough & Cold /0000 - 12/06 Omeprazole / Hx Capsules DR 20mg 90cap 1 po qd prn Unknown /0000 s - 11/11 Codeine #4 Hx Tablets 30mg 20tab 2 po q 4-6 Unknown /0000 s hr prn pain - 07/16 Tylenol / Hx Tablets 325mg 2 as needed Unknown /0000 - 12/15 Vitamin B-12 ER 00/00 Hx Tablets ER 2000mcg 2 by mouth Unknown /0000 every day - (states 10/06 occasional /2018 use) Metformin HCL 00/00 Hx Tablets 500mg Unknown /0000 - 01/02 Duloxetine HCL 00/[address] 60mg 1 by mouth Unknown /0000 Part every day - 05/02 Hydrocodone-Acet 00/00 Hx Tablets 5-325mg 1 po qhs as Velazquez, aminophen /0000 needed Michael Zelaya [employer]- 05/30 Vitamin D High 00/ Hx Capsules 1000Unit 1 by mouth Unknown Potency /0000 every day - 10/06 Medications Administered in Office Medication Date Status [...] colindres M.D. Depomedrol 80MG 11/12/ Administered Injection Jaun 2013 Anisha Savage Immunizations CPT Code Status Date Vaccine Reaction Lot # [id number] Given 01/08/2018 Zoster (Shingles) Vaccine (HZV), Recombinant, Subunit, Adjuvanted 09583 Given 12/12/2017 Influenza Virus Vaccine, Quadrivalent, Split, Preservative Free 35383 Given 01/02/2017 Pneumonia Vaccine no reaction, pt [id number] tolerated well 93870 Given 01/02/2017 Influenza Virus Vaccine, no reaction, pt [id number] Quadrivalent, Split, tolerated well Preservative Free 70088 Given 12/09/2015 Fluzone High Dose 10407 Given 12/03/2014 Fluzone High Dose 20651 Given 12/25/2013 Pneumococcal Conjugate [id number] Vaccine 13 Valent For Intramuscular Use Q2038 Given 12/12/2013 Fluzone Vaccine Q2037 Given 01/07/2013 Fluvirin Im 3Yrs And Older Q2038 Given 12/07/2011 Fluzone Vaccine [id number] Q2039 Given 12/20/2010 Flu Vaccine NOS 60931 Given 07/26/2010 Tdap - [id number] Tetanus/Diptheria/Acellular Pertussis 79801 Given 05/27/2010 Pneumonia Vaccine [id number] 67966 Given 01/10/2010 Influenza Virus 3Yrs & Over 18889 Given 02/04/2009 Influenza Virus Vaccine, [id number] Pandemic Formulation 37920 Given 02/04/2009 Administration Swine Flu Shot 12530 Given 01/22/2009 Influenza Virus 3Yrs & Over [id number] 08537 Given 01/28/2008 Influenza Virus 3Yrs & Over 76309 Given 01/28/2008 Influenza Virus 3Yrs & Over [id number] 99365 Given 11/28/2007 Zoster (Zostavax) 86935 Given 11/28/2007 Zoster (Zostavax) Q2038 Given Unknown Fluzone Vaccine Vital Signs Date Vital Result Comment 04/04/2018 10:24am Height 62 inches 5'2" Weight 184.00 lb Heart Rate 75 /min BP Systolic 160 mmHg BP Diastolic 100 mmHg Body Temperature 98.4 F O2 % BldC Oximetry 92 % BMI (Body Mass Index) 33.7 kg/m2 02/09/2018 10:23am Height 63 inches 5'3" Weight 180.00 lb Heart Rate 64 /min BP Systolic Sitting 120 mmHg Lue regular cuff BP Diastolic Sitting 84 mmHg Lue regular cuff Respiratory Rate 12 /min O2 % BldC Oximetry 94 % BMI (Body Mass Index) 31.9 kg/m2 12/13/2017 11:46am Height 63 inches 5'3" Weight 184.00 lb Heart Rate 62 /min BP Systolic Sitting 120 mmHg BP Diastolic Sitting 62 mmHg Body Temperature 98.3 F O2 % BldC Oximetry 95 % BMI (Body Mass Index) 32.6 kg/m2 11/21/2017 1:41pm Height 63 inches 5'3" Weight 183.00 lb Heart Rate 64 /min BP Systolic Sitting 130 mmHg Lue regular cuff BP Diastolic Sitting 80 mmHg Lue regular cuff Respiratory Rate 12 /min O2 % BldC Oximetry 97 % BMI (Body Mass Index) 32.4 kg/m2 10/26/2017 11:30am Heart Rate 72 /min BP Systolic Sitting 98 mmHg BP Diastolic Sitting 62 mmHg Respiratory Rate 18 /min Body Temperature 98.3 F 10/16/2017 4:11pm Height 63 inches 5'3" Weight 186.00 lb Heart Rate 56 /min BP Systolic Sitting 110 mmHg BP Diastolic Sitting 86 mmHg Respiratory Rate 16 /min Body Temperature 97.0 F BMI (Body Mass Index) 32.9 kg/m2 10/10/2017 10:51am Height 63 inches 5'3" Weight 186.12 lb Heart Rate 82 /min BP Systolic Sitting 124 mmHg Rue reg cuff BP Diastolic Sitting 88 mmHg Rue reg cuff Respiratory Rate 16 /min O2 % BldC Oximetry 97 % On Ra BMI (Body Mass Index) 33.0 kg/m2 10/06/2017 9:16am Height 63 inches 5'3" Weight 189.00 lb Heart Rate 72 /min BP Systolic Sitting 118 mmHg BP Diastolic Sitting 70 mmHg Body Temperature 98.0 F O2 % BldC Oximetry 96 % BMI (Body Mass Index) 33.5 kg/m2 09/19/2017 11:29am Height 63 inches 5'3" Weight 190.00 lb Heart Rate 72 /min BP Systolic 120 mmHg BP Diastolic 78 mmHg Respiratory Rate 16 /min Body Temperature 98.7 F BMI (Body Mass Index) 33.7 kg/m2 09/13/2017 9:59am Heart Rate 72 /min BP Systolic 136 mmHg BP Diastolic 80 mmHg Respiratory Rate 16 /min Body Temperature 96.1 F 08/16/2017 8:41am Heart Rate 66 /min BP Systolic Sitting 122 mmHg BP Diastolic Sitting 84 mmHg Respiratory Rate 18 /min Body Temperature 97.8 F 08/09/2017 11:22am Weight 194.00 lb Heart Rate 68 /min BP Systolic Sitting 124 mmHg BP Diastolic Sitting 80 mmHg Body Temperature 98.3 F O2 % BldC Oximetry 97 % 07/24/2017 10:53am Weight 192.00 lb Heart Rate 72 /min BP Systolic Sitting 110 mmHg BP Diastolic Sitting 62 mmHg Respiratory Rate 14 /min O2 % BldC Oximetry 98 % 07/04/2017 9:57am Heart Rate 78 /min Respiratory Rate 16 /min Body Temperature 98.3 F 06/26/2017 2:56pm Height 63 inches 5'3" Weight 195.00 lb Heart Rate 72 /min BP Systolic 128 mmHg BP Diastolic 68 mmHg Respiratory Rate 16 /min Body Temperature 98.6 F BMI (Body Mass Index) 34.5 kg/m2 06/20/2017 11:36am Height 63 inches 5'3" Weight 195.00 lb Heart Rate 80 /min BP Systolic Sitting 140 mmHg BP Diastolic Sitting 88 mmHg Pain Level 4 BMI (Body Mass Index) 34.5 kg/m2 06/05/2017 1:34pm Weight 195.00 lb Heart Rate 72 /min BP Systolic Sitting 160 mmHg BP Diastolic Sitting 88 mmHg Body Temperature 98.4 F O2 % BldC Oximetry 96 % 05/30/2017 10:56am Height 63 inches 5'3" Weight 200.00 lb Heart Rate 88 /min BP Systolic Sitting 128 mmHg BP Diastolic Sitting 68 mmHg Pain Level 6 BMI (Body Mass Index) 35.4 kg/m2 05/03/2017 9:13am Weight 200.00 lb Heart Rate 80 /min BP Systolic 118 mmHg BP Diastolic 78 mmHg Body Temperature 99.2 F O2 % BldC Oximetry 92 % 05/02/2017 11:17am Height 63 inches 5'3" Weight 201.00 lb Heart Rate 88 /min BP Systolic Sitting 128 mmHg BP Diastolic Sitting 78 mmHg Pain Level 8 BMI (Body Mass Index) 35.6 kg/m2 04/28/2017 4:13pm Heart Rate 92 /min BP Systolic Sitting 112 mmHg BP Diastolic Sitting 78 mmHg Body Temperature 98.6 F O2 % BldC Oximetry 93 % 04/24/2017 9:08am Heart Rate 71 /min BP Systolic 128 mmHg BP Diastolic 80 mmHg Body Temperature 98.1 F O2 % BldC Oximetry 98 % 03/29/2017 11:50am Height 63 inches 5'3" Weight 201.00 lb Heart Rate 74 /min BP Systolic 104 mmHg BP Diastolic 70 mmHg O2 % BldC Oximetry 93 % BMI (Body Mass Index) 35.6 kg/m2 02/21/2017 10:48am Height 63 inches 5'3" Weight 199.00 lb BP Systolic 114 mmHg BP Diastolic 70 mmHg Respiratory Rate 18 /min Pain Level 5 BMI (Body Mass Index) 35.2 kg/m2 02/07/2017 10:57am Height 63 inches 5'3" Weight 199.00 lb Respiratory Rate 16 /min Pain Level 5 BMI (Body Mass Index) 35.2 kg/m2 01/23/2017 10:10am Height 63 inches 5'3" Weight 202.38 lb with shoes Heart Rate 84 /min BP Systolic Sitting 118 mmHg Rue large cuff BP Diastolic Sitting 78 mmHg Rue large cuff Respiratory Rate 16 /min O2 % BldC Oximetry 94 % On Ra BMI (Body Mass Index) 35.8 kg/m2 01/12/2017 11:43am Height 63 inches 5'3" Weight 199.00 lb Heart Rate 85 /min BP Systolic 123 mmHg BP Diastolic 69 mmHg BMI (Body Mass Index) 35.2 kg/m2 01/02/2017 10:47am Height 63 inches 5'3" Weight 201.00 lb Heart Rate 94 /min BP Systolic Sitting 122 mmHg BP Diastolic Sitting 80 mmHg Body Temperature 98.4 F O2 % BldC Oximetry 98 % BMI (Body Mass Index) 35.6 kg/m2 12/01/2016 2:26pm Height 63 inches 5'3" Weight 210.00 lb Heart Rate 72 /min BP Systolic 131 mmHg BP Diastolic 82 mmHg Respiratory Rate 15 /min Pain Level 7 BMI (Body Mass Index) 37.2 kg/m2 11/04/2016 4:09pm Height 63 inches 5'3" Weight 210.00 lb Heart Rate 80 /min BP Systolic 154 mmHg BP Diastolic 90 mmHg Body Temperature 99.3 F O2 % BldC Oximetry 91 % BMI (Body Mass Index) 37.2 kg/m2 08/11/2016 10:08am Weight 212.00 lb Heart Rate 64 /min BP Systolic Sitting 120 mmHg BP Diastolic Sitting 72 mmHg Body Temperature 98.3 F O2 % BldC Oximetry 94 % 07/22/2016 9:11am Heart Rate 74 /min BP Systolic Sitting 126 mmHg BP Diastolic Sitting 72 mmHg Respiratory Rate 16 /min O2 % BldC Oximetry 97 % 06/20/2016 9:56am Heart Rate 62 /min BP Systolic Sitting 120 mmHg BP Diastolic Sitting 74 mmHg Respiratory Rate 16 /min O2 % BldC Oximetry 96 % 05/04/2016 11:15am Weight 210.00 lb Heart Rate 66 /min BP Systolic Sitting 112 mmHg BP Diastolic Sitting 84 mmHg Body Temperature 98.1 F O2 % BldC Oximetry 96 % 05/02/2016 10:14am Weight 206.00 lb Heart Rate 70 /min BP Systolic 150 mmHg BP Diastolic 88 mmHg Respiratory Rate 14 /min O2 % BldC Oximetry 93 % 03/18/2016 10:53am Height 63.5 inches 5'3.50" Weight 206.00 lb Heart Rate 70 /min BP Systolic 126 mmHg BP Diastolic 80 mmHg Respiratory Rate 14 /min O2 % BldC Oximetry 95 % BMI (Body Mass Index) 35.9 kg/m2 Neck Circumference in inches 14 03/01/2016 8:19am Height 63.5 inches 5'3.50" Weight 206.00 lb Heart Rate 65 /min BP Systolic Sitting 135 mmHg BP Diastolic Sitting 63 mmHg Respiratory Rate 16 /min Pain Level 2 BMI (Body Mass Index) 35.9 kg/m2 02/03/2016 11:39am Height 63.5 inches 5'3.50" Weight 206.38 lb Heart Rate 74 /min BP Systolic Sitting 136 mmHg BP Diastolic Sitting 84 mmHg Body Temperature 99.4 F O2 % BldC Oximetry 94 % BMI (Body Mass Index) 36.0 kg/m2 01/01/2016 2:31pm Height 63.5 inches 5'3.50" Weight 208.25 lb Heart Rate 68 /min BP Systolic Sitting 132 mmHg BP Diastolic Sitting 70 mmHg Body Temperature 97.1 F O2 % BldC Oximetry 95 % BMI (Body Mass Index) 36.3 kg/m2 11/20/2015 1:57pm Weight 207.38 lb Heart Rate 65 /min BP Systolic 118 mmHg BP Diastolic 70 mmHg Body Temperature 98.2 F O2 % BldC Oximetry 95 % 11/05/2015 9:43am Weight 212.25 lb Heart Rate 74 /min BP Systolic 120 mmHg BP Diastolic 76 mmHg Body Temperature 100.1 F O2 % BldC Oximetry 90 % 08/04/2015 10:09am Weight 205.00 lb Heart Rate 82 /min BP Systolic Sitting 132 mmHg BP Diastolic Sitting 82 mmHg Body Temperature 98.2 F O2 % BldC Oximetry 84 % 07/27/2015 2:43pm Weight 205.00 lb Heart Rate 74 /min BP Systolic Sitting 156 mmHg BP Diastolic Sitting 95 mmHg Body Temperature 97.3 F O2 % BldC Oximetry 98 % 03/16/2015 10:03am Height 63 inches 5'3" Weight 205.38 lb Heart Rate 68 /min BP Systolic Sitting 118 mmHg BP Diastolic Sitting 70 mmHg Body Temperature 98.2 F O2 % BldC Oximetry 95 % BMI (Body Mass Index) 36.4 kg/m2 02/06/2015 9:22am Height 63 inches 5'3" Weight 201.25 lb Heart Rate 68 /min BP Systolic Sitting 122 mmHg BP Diastolic Sitting 70 mmHg Body Temperature 98.3 F O2 % BldC Oximetry 97 % BMI (Body Mass Index) 35.6 kg/m2 01/09/2015 1:06pm Height 63 inches 5'3" Weight 205.38 lb Heart Rate 72 /min BP Systolic Sitting 122 mmHg BP Diastolic Sitting 68 mmHg Body Temperature 98.7 F O2 % BldC Oximetry 98 % BMI (Body Mass Index) 36.4 kg/m2 12/15/2014 10:44am Height 63 inches 5'3" Weight 202.00 lb Heart Rate 70 /min BP Systolic Sitting 128 mmHg BP Diastolic Sitting 70 mmHg Body Temperature 97.6 F O2 % BldC Oximetry 95 % BMI (Body Mass Index) 35.8 kg/m2 11/20/2014 9:32am Height 63 inches 5'3" Weight 202.00 lb Pain Level 2 BMI (Body Mass Index) 35.8 kg/m2 10/09/2014 11:26am Height 63 inches 5'3" Weight 202.00 lb Heart Rate 63 /min BP Systolic 138 mmHg BP Diastolic 80 mmHg BMI (Body Mass Index) 35.8 kg/m2 09/03/2014 2:58pm Height 63 inches 5'3" Weight 204.38 lb Heart Rate 78 /min BP Systolic Sitting 112 mmHg BP Diastolic Sitting 68 mmHg Body Temperature 97.5 F O2 % BldC Oximetry 90 % BMI (Body Mass Index) 36.2 kg/m2 07/16/2014 8:43am Height 63 inches 5'3" Weight 196.00 lb Heart Rate 81 /min BP Systolic Sitting 116 mmHg BP Diastolic Sitting 70 mmHg O2 % BldC Oximetry 93 % BMI (Body Mass Index) 34.7 kg/m2 06/16/2014 2:00pm Weight 206.12 lb Heart Rate 73 /min BP Systolic Sitting 135 mmHg BP Diastolic Sitting 94 mmHg Body Temperature 99.2 F 06/03/2014 11:30am Height 63 inches 5'3" Weight 203.00 lb Pain Level 2 BMI (Body Mass Index) 36.0 kg/m2 12/25/2013 10:57am Weight 203.00 lb Heart Rate 76 /min BP Systolic Sitting 115 mmHg BP Diastolic Sitting 88 mmHg Body Temperature 98.5 F 12/10/2013 11:01am Height 63 inches 5'3" Weight 200.00 lb Heart Rate 67 /min BP Systolic 122 mmHg BP Diastolic 78 mmHg BMI (Body Mass Index) 35.4 kg/m2 12/03/2013 10:02am Height 63 inches 5'3" Weight 200.00 lb Heart Rate 67 /min BP Systolic 119 mmHg BP Diastolic 89 mmHg BMI (Body Mass Index) 35.4 kg/m2 11/12/2013 10:54am Height 63 inches 5'3" Weight 200.00 lb Heart Rate 68 /min BP Systolic 109 mmHg BP Diastolic 75 mmHg BMI (Body Mass Index) 35.4 kg/m2 09/10/2013 10:42am Height 63 inches 5'3" Weight 200.00 lb Heart Rate 68 /min BP Systolic 125 mmHg BP Diastolic 82 mmHg BMI (Body Mass Index) 35.4 kg/m2 06/03/2013 10:29am Height 63 inches 5'3" Weight 201.75 lb Heart Rate 80 /min BP Systolic Sitting 108 mmHg BP Diastolic Sitting 72 mmHg Body Temperature 98.2 F BMI (Body Mass Index) 35.7 kg/m2 05/29/2013 2:23pm Weight 200.50 lb Heart Rate 70 /min BP Systolic Sitting 132 mmHg BP Diastolic Sitting 72 mmHg Body Temperature 98.3 F 03/29/2013 8:52am Height 63 inches 5'3" Weight 201.50 lb Heart Rate 64 /min BP Systolic Sitting 140 mmHg BP Diastolic Sitting 78 mmHg BMI (Body Mass Index) 35.7 kg/m2 12/04/2012 10:30am Height 63 inches 5'3" Weight 198.75 lb Heart Rate 76 /min BP Systolic Sitting 125 mmHg BP Diastolic Sitting 75 mmHg BMI (Body Mass Index) 35.2 kg/m2 06/05/2012 9:57am Height 62.75 inches 5'2.75" Weight 204.00 lb Heart Rate 72 /min BP Systolic Sitting 138 mmHg BP Diastolic Sitting 78 mmHg BMI (Body Mass Index) 36.4 kg/m2 12/07/2011 3:54pm Height 63 inches 5'3" Weight 199.00 lb Heart Rate 64 /min BP Systolic Sitting 116 mmHg BP Diastolic Sitting 70 mmHg BMI (Body Mass Index) 35.2 kg/m2 05/30/2011 11:21am Height 62.75 inches 5'2.75" Weight 197.00 lb Heart Rate 68 /min BP Systolic Sitting 110 mmHg BP Diastolic Sitting 72 mmHg BMI (Body Mass Index) 35.2 kg/m2 12/27/2010 1:07pm Weight 190.00 lb Heart Rate 64 /min BP Systolic Sitting 108 mmHg BP Diastolic Sitting 72 mmHg 11/30/2010 11:50am Height 63 inches 5'3" Weight 190.00 lb BP Systolic Sitting 122 mmHg l BP Diastolic Sitting 74 mmHg l BMI (Body Mass Index) 33.7 kg/m2 05/27/2010 10:12am Weight 191.00 lb Heart Rate 66 /min BP Systolic Sitting 102 mmHg BP Diastolic Sitting 66 mmHg 05/25/2010 4:30pm Weight 191.00 lb Heart Rate 66 /min BP Systolic Sitting 124 mmHg BP Diastolic Sitting 78 mmHg Body Temperature 98.3 F Tympanically 10/26/2009 11:37am Weight 192.00 lb Heart Rate 72 /min BP Systolic Sitting 144 mmHg BP Diastolic Sitting 98 mmHg Body Temperature 98.5 F 08/25/2009 1:01pm Weight 195.00 lb Heart Rate 66 /min BP Systolic Sitting 104 mmHg BP Diastolic Sitting 74 mmHg Body Temperature 96.8 F 05/13/2009 3:14pm Weight 203.50 lb Heart Rate 76 /min BP Systolic Sitting 120 mmHg BP Diastolic Sitting 84 mmHg Respiratory Rate 16 /min Body Temperature 98.5 F 04/16/2009 1:46pm Weight 199.00 lb Heart Rate 80 /min BP Systolic Sitting 140 mmHg BP Diastolic Sitting 90 mmHg Body Temperature 98.5 F 10/07/2008 10:25am Heart Rate 72 /min BP Systolic Sitting 124 mmHg BP Diastolic Sitting 86 mmHg 09/29/2008 3:29pm Weight 198.75 lb Heart Rate 64 /min BP Systolic Sitting 118 mmHg BP Diastolic Sitting 86 mmHg 06/03/2008 1:12pm Height 63 inches 5'3" Weight 199.00 lb Heart Rate 72 /min BP Systolic Sitting 144 mmHg BP Diastolic Sitting 82 mmHg BMI (Body Mass Index) 35.2 kg/m2 04/09/2008 10:55am Height 63 inches 5'3" Weight 201.00 lb Heart Rate 68 /min BP Systolic Sitting 132 mmHg BP Diastolic Sitting 80 mmHg BMI (Body Mass Index) 35.6 kg/m2 02/15/2008 2:41pm Height 63 inches 5'3" Weight 204.00 lb Heart Rate 72 /min BP Systolic Sitting 132 mmHg BP Diastolic Sitting 80 mmHg BMI (Body Mass Index) 36.1 kg/m2 12/10/2007 4:03pm Height 63 inches 5'3" Weight 204.00 lb Heart Rate 64 /min BP Systolic Sitting 124 mmHg BP Diastolic Sitting 76 mmHg BMI (Body Mass Index) 36.1 kg/m2 11/06/2007 1:24pm Height 63 inches 5'3" Weight 205.00 lb Heart Rate 72 /min BP Systolic Sitting 112 mmHg BP Diastolic Sitting 80 mmHg BMI (Body Mass Index) 36.3 kg/m2 07/31/2007 1:06pm Height 63 inches 5'3" Weight 204.00 lb Heart Rate 70 /min BP Systolic Sitting 118 mmHg BP Diastolic Sitting 70 mmHg BMI (Body Mass Index) 36.1 kg/m2 07/04/2007 1:17pm Height 63 inches 5'3" Weight 204.00 lb Heart Rate 78 /min BP Systolic Sitting 130 mmHg BP Diastolic Sitting 82 mmHg BMI (Body Mass Index) 36.1 kg/m2 05/01/2007 3:47pm Height 63 inches 5'3" Weight 200.00 lb Heart Rate 72 /min BP Systolic Sitting 110 mmHg BP Diastolic Sitting 80 mmHg BMI (Body Mass Index) 35.4 kg/m2 02/16/2007 9:06am Height 63 inches 5'3" Weight 199.00 lb Heart Rate 98 /min BP Systolic Sitting 156 mmHg BP Diastolic Sitting 92 mmHg Body Temperature 100.5 F BMI (Body Mass Index) 35.2 kg/m2 Results Test Date Facility Test Result H/L Range Note Lipid Profile 04/02/2018 [facility] Triglycerides 219 mg/dL 1 (Trig/Chol/HDL) [address] [place] [address] [phone] Cholesterol 258 mg/dL 2 HDL Cholesterol 54.9 mg/dL 3 LDL Cholesterol 159 mg/dL 4 Comp Metabolic Panel 04/02/2018 [facility] Sodium 141 mmol/L N 135-[address] [place] [address] [phone] Potassium 4.3 mmol/L N 3.5-5.0 Chloride 103 mmol/L N 101-111 Co2 Carbon Dioxide 34 mmol/L High 22-32 Anion Gap 4 mmol/L N 2-11 Glucose 114 mg/dL High 70-100 Blood Urea Nitrogen 19 mg/dL N 6-24 Creatinine 0.74 mg/dL N 0.51-0.95 BUN/Creatinine Ratio 25.7 High 8-20 Calcium 9.2 mg/dL N 8.6-10.3 Total Protein 6.2 g/dL Low 6.4-8.9 Albumin 3.9 g/dL N 3.2-5.2 Globulin 2.3 g/dL N 2-4 Albumin/Globulin Ratio 1.7 N 1-3 Total Bilirubin 0.50 mg/dL N 0.2-1.0 Alkaline Phosphatase 74 U/L N 34-104 Alt 13 U/L N 7-52 Ast 15 U/L N 13-39 Egfr Non- 77.1 >60 Egfr 93.3 >60 5 Laboratory test 04/02/2018 [facility] Hemoglobin A1c 7.1 % High 4.0-5.6 [address] (Glyco HGB) [place] [address] [phone] Laboratory test 12/13/2017 [facility] Hemoglobin A1c 7.0 5-7 finding Laboratory test 10/17/2017 [facility] Point of Care 174 High 70-100 [address] Glucose mg/[place] [address] [phone] Comp Metabolic 10/17/2017 [facility] Sodium 141 N 135-[address] mmol/[place] [address] [phone] Potassium 3.8 mmol/L N 3.5-5.0 Chloride 103 mmol/L N 101-111 Co2 Carbon Dioxide 33 mmol/L High 22-32 Anion Gap 5 mmol/L N 2-11 Glucose 114 mg/dL High 70-100 Blood Urea Nitrogen 17 mg/dL N 6-24 Creatinine 0.70 mg/dL N 0.51-0.95 BUN/Creatinine Ratio 24.3 High 8-20 Calcium 9.2 mg/dL N 8.6-10.3 Total Protein 6.2 g/dL Low 6.4-8.9 Albumin 3.7 g/dL N 3.2-5.2 Globulin 2.5 g/dL N 2-4 Albumin/Globulin Ratio 1.5 N 1-3 Total Bilirubin 0.40 mg/dL N 0.2-1.0 Alkaline Phosphatase 80 U/L N 34-104 Alt 11 U/L N 7-52 Ast 16 U/L N 13-39 Egfr Non- 82.5 >60 Egfr 99.8 >60 8 Laboratory test 10/17/2017 [facility] Point of Care 98 mg/dL N 70-100 [address] [place] [address] [phone] Laboratory test 08/11/2017 [facility] Folic Acid > 20.00 > 3.[address] (Folate) ng/[place] [address] [phone] Vitamin B12 664 pg/mL N 180-914 10 Basic Metabolic Panel 08/11/2017 [facility] Sodium 142 mmol/L N 139-[address] [place] [address] [phone] Potassium 4.1 mmol/L N 3.5-5.0 Chloride 105 mmol/L N 101-111 Co2 Carbon Dioxide 32 mmol/L N 22-32 Anion Gap 5 mmol/L N 2-11 Glucose 134 mg/dL High 70-100 Blood Urea Nitrogen 11 mg/dL N 6-24 Creatinine 0.66 mg/dL N 0.51-0.95 BUN/Creatinine Ratio 16.7 N 8-20 Calcium 9.5 mg/dL N 8.6-10.3 Egfr Non- 88.3 >60 Egfr 113.5 >60 11 Laboratory test 08/11/2017 [facility] Hemoglobin A1c 7.3 % High 4.0-5.[address] (Glyco HGB) [place] [address] [phone] Urine 08/11/2017 [facility] Ur Microalbumin < 15.[address] (mg/L) mg/[place] [address] [phone] Urine Creatinine 71.89 mg/dL Urine Microalbumin/Creatinine TNP ug/mg <31 13 Laboratory test 06/29/2017 [facility] Cytology SEE RESULT [address] [address] [phone] Urinalysis Profile 06/15/2017 [facility] Urine Color [place] [address] [place] [address] [phone] Urine Appearance Cloudy Urine Specific [place] 1.023 N 1.010-1.030 Urine pH 5.0 N 5-9 Urine Urobilinogen Negative Negative Urine Ketones Negative Negative Urine Protein Negative Negative Urine Leukocytes 2+ Abnormal Negative Urine Blood Negative Negative * * Abnormal Negative 15 Urine Nitrite Negative Negative Urine Bilirubin Negative Negative Urine Glucose Negative Negative Urine White Blood Cell 2+(11-20/hpf) Abnormal Absent Urine Red Blood Cell Absent Absent Urine Bacteria Absent Absent Urine Squamous Epithelial Cell Present Abnormal Absent Urine Culture And 06/15/2017 [facility] Urine Culture SEE RESULT [address] [place] [address] [phone] Laboratory test 06/14/2017 [facility] TSH (Thyroid 1.66 mcIU/mL N 0.34- finding [address] Stim Horm) 5.60 [place] [address] [phone] Free T4 (Free Thyroxine) 1.01 ng/dL N 0.61-1.12 Hemoglobin A1c (Glyco HGB) 6.4 % High 4.0-5.6 17 Platelet Count 05/16/2017 [facility] Platelet Count 269 10^3/uL N 150-[address] [place], [place] [id number] [phone] Mean Platelet Volume 8 um3 N 7.4-10.4 Inr/Protime 05/16/2017 [facility] Inr 0.86 N 0.77-1.[address] [place], [place] [id number] [phone] Laboratory test 05/16/2017 [facility] Partial 27.5 seconds N 26.0-36.[address] [place] [address] PTT [phone] Xray 05/16/2017 [facility] SP Lumbar <pending> [address] Ap//Lat 2-3 [place] [address] Views [phone] CT Spine Cervical W <pending> CT Spine Lumbar W <pending> Myelography Cervical <pending> Myelography Lumbosacral <pending> Laboratory test 05/12/2017 [facility] Point of Care 107 mg/dL High 70-[address] [place] [address] [phone] Laboratory test 04/30/2017 [facility] Troponin-I 0.01 ng/mL < 0.[address] (TnI) [place] [address] [phone] Rapid Influenza 04/30/2017 [facility] Influenza A NEGATIVE Negative 20 A & B Molecular [address] [place] [address] [phone] Influenza B Molecular NEGATIVE Negative Laboratory test 04/30/2017 [facility] Rapid Influenza SEE RESULT [address] [place] [address] [phone] Urinalysis 04/30/2017 [facility] Urine White Absent Absent Profile [address] [place] [address] [phone] Urine Red Blood Cell Absent Absent Urine Bacteria Absent Absent Urine Squamous Epithelial Cell Present Abnormal Absent Urine Color [place] 22 Urine Appearance Cloudy CBC No Diff 04/30/2017 [facility] White Blood 12.6 10^3/uL High 3.5-10.[address] [place] [address] [phone] Red Blood Count 4.95 10^6/uL N 4.0-5.4 Hemoglobin 15.2 g/dL N 12.0-16.0 Hematocrit 46 % N 35-47 Mean Corpuscular Volume 92 fL N 80-97 Mean Corpuscular Hemoglobin 31 pg N 27-31 Mean Corpuscular HGB Conc 33 g/dL N 31-36 Red Cell Distribution Width 14 % N 10.5-15 Platelet Count 281 10^3/uL N 150-450 Mean Platelet Volume 8 um3 N 7.4-10.4 Laboratory test 04/30/2017 [facility] Lactic Acid 1.5 mmol/L N 0.5-2.0 23 finding [address] [place] [address] [phone] D Dimer Quantitative 367 ng/mL High Less Than 230 24 Blood Culture SEE RESULT BELOW 25 Comp Metabolic Panel 04/30/2017 [facility] Sodium 138 mmol/L N 133-145 [address] [place] [address] [phone] Potassium 4.0 mmol/L N 3.5-5.0 Chloride 103 mmol/L N 101-111 Co2 Carbon Dioxide 28 mmol/L N 22-32 Anion Gap 7 mmol/L N 2-11 Glucose 147 mg/dL High 70-100 Blood Urea Nitrogen 16 mg/dL N 6-24 Creatinine 0.93 mg/dL N 0.51-0.95 BUN/Creatinine Ratio 17.2 N 8-20 Calcium 9.2 mg/dL N 8.6-10.3 Total Protein 6.7 g/dL N 6.4-8.9 Albumin 3.9 g/dL N 3.2-5.2 Globulin 2.8 g/dL N 2-4 Albumin/Globulin Ratio 1.4 N 1-3 Total Bilirubin 0.40 mg/dL N 0.2-1.0 Alkaline Phosphatase 71 U/L N 34-104 Alt 12 U/L N 7-52 Ast 13 U/L N 13-39 Egfr Non- 59.4 >60 Egfr 76.4 >60 26 Laboratory test 04/30/2017 [facility] C Reactive 12.04 mg/L High < 5.00 [address] [place] [address] [phone] Troponin-I (TnI) 0.00 ng/mL <0.04 Blood Culture SEE RESULT BELOW 28 Urine Culture And 04/28/2017 [facility] Urine Culture SEE RESULT [address] [place] [address] [phone] Ua Routine 04/28/2017 [facility] Ua Specific 1.020 [place] Ua PH 6 Ua Color orange Ua Appera clear Ua WBC ++ Ua Protein ++100 Ua Glucose normal Ua Ketones neg Ua Bilirubin +++ Ua Urobilinogen 12 Ua Nitrite pos Ua Occult Blood neg Urinalysis Profile 04/23/2017 [facility] Urine Color Yellow [address] [place] [address] [phone] Urine Appearance Cloudy Urine Specific [place] 1.018 N 1.010-1.030 Urine pH 6.0 N 5-9 Urine Urobilinogen Negative Negative Urine Ketones Negative Negative Urine Protein Negative Negative Urine Leukocytes 3+ Abnormal Negative Urine Blood Negative Negative * * Abnormal Negative 30 Urine Nitrite Positive Abnormal Negative Urine Bilirubin Negative Negative Urine Glucose Negative Negative Urine White Blood Cell 3+(>20/hpf) Abnormal Absent Urine Red Blood Cell 1+(3-5/hpf) Abnormal Absent Urine Bacteria 1+ Abnormal Absent Urine Squamous Epithelial Cell Present Abnormal Absent Urine Culture And 04/23/2017 [facility] Urine Culture SEE RESULT [address] [place] [address] [phone] Basic Metabolic 01/11/2017 [facility] Sodium 140 mmol/L N 133- [address] [place] [address] [phone] Potassium 4.3 mmol/L N 3.5-5.0 Chloride 102 mmol/L N 101-111 Co2 Carbon Dioxide 33 mmol/L High 22-32 Anion Gap 5 mmol/L N 2-11 Glucose 154 mg/dL High 70-100 Blood Urea Nitrogen 14 mg/dL N 6-24 Creatinine 0.72 mg/dL N 0.51-0.95 BUN/Creatinine Ratio 19.4 N 8-20 Calcium 9.1 mg/dL N 8.6-10.3 Egfr Non- 79.9 N >60 Egfr 102.7 N >60 32 Lipid Profile 01/11/2017 [facility] Triglycerides 216 mg/dL N 33 (Trig/Chol/HDL) [address] [place] [address] [phone] Cholesterol 229 mg/dL N 34 HDL Cholesterol 38.5 mg/dL N 35 LDL Cholesterol 147 mg/dL N 36 Laboratory test 01/02/2017 [facility] Hemoglobin A1c 8.0 High 5-7 finding Laboratory test 08/11/2016 [facility] Hemoglobin A1c 7.4 High 5-7 finding Laboratory test 05/04/2016 [facility] Hemoglobin A1c 7.7 High 5-7 finding Arthritis Panel 03/04/2016 [facility] Uric Acid 4.9 mg/dL N 2.3-6.[address] [place] [address] [phone] Erythrocyte Sed Rate 17 mm/Hr N 0-40 Rheumatoid Factor <15 IU/mL N <15 37 Anti-Nuclear Antibody 0.5 U N 38 Cyclic Citrullinated Peptide <15.6 U N 39 Interpretation See Comment N 40 Urine Microalbumin 02/10/2016 [facility] Urine Creatinine 72.77 mg/dL N Random [address] [place] [address] [phone] Ur Microalbumin (mg/L) < 15.0 mg/L N Urine Microalbumin/Creatinine TNP ug/mg N <31 41 Laboratory test 02/09/2016 [facility] Hemoglobin A1c 7.8 % High Less than 42 finding [address] [facility] (Glyco HGB) 6.0 [place] [address] [phone] CBC Auto Diff 02/09/2016 [facility] White Blood 6.9 N 3.5- 10.[address] Count 10^3/[place] [address] [phone] Red Blood Count 4.77 10^6/uL N 4.0-5.4 Hemoglobin 13.9 g/dL N 12.0-16.0 Hematocrit 43 % N 35-47 Mean Corpuscular Volume 90 fL N 80-97 Mean Corpuscular Hemoglobin 29 pg N 27-31 Mean Corpuscular HGB Conc 33 g/dL N 31-36 Red Cell Distribution Width 14 % N 10.5-15 Platelet Count 263 10^3/uL N 150-450 Mean Platelet Volume 9 um3 N 7.4-10.4 Abs Neutrophils 4.5 10^3/uL N 1.5-7.7 Abs Lymphocytes 1.6 10^3/uL N 1.0-4.8 Abs Monocytes 0.5 10^3/uL N 0-0.8 Abs Eosinophils 0.1 10^3/uL N 0-0.6 Abs Basophils 0 10^3/uL N 0-0.2 Abs Nucleated RBC 0 10^3/uL N Granulocyte % 66.1 % N 38-83 Lymphocyte % 23.4 % Low 25-47 Monocyte % 7.8 % N 1-9 Eosinophil % 2.1 % N 0-6 Basophil % 0.6 % N 0-2 Nucleated Red Blood Cells % 0.1 N Urine Microalbumin 02/05/2016 [facility] Urine Creatinine 109.30 mg/dL N Random [address] [place] [address] [phone] Ur Microalbumin (mg/L) < 15.0 mg/L N Urine Microalbumin/Creatinine TNP ug/mg N <31 43 Lipid Profile 12/21/2015 [facility] Triglycerides 175 mg/dL N 44 (Trig/Chol/HDL) [address] [place] [address] [phone] Cholesterol 208 mg/dL N 45 HDL Cholesterol 38.0 mg/dL N 46 LDL Cholesterol 135 mg/dL N 47 CBC Auto Diff 12/21/2015 [facility] White Blood 6.4 10^3/uL N 3.5-10.[address] [place] [address] [phone] Red Blood Count 4.89 10^6/uL N 4.0-5.4 Hemoglobin 14.3 g/dL N 12.0-16.0 Hematocrit 44 % N 35-47 Mean Corpuscular Volume 89 fL N 80-97 Mean Corpuscular Hemoglobin 29 pg N 27-31 Mean Corpuscular HGB Conc 33 g/dL N 31-36 Red Cell Distribution Width 14 % N 10.5-15 Platelet Count 264 10^3/uL N 150-450 Mean Platelet Volume 8 um3 N 7.4-10.4 Abs Neutrophils 4.1 10^3/uL N 1.5-7.7 Abs Lymphocytes 1.6 10^3/uL N 1.0-4.8 Abs Monocytes 0.5 10^3/uL N 0-0.8 Abs Eosinophils 0.2 10^3/uL N 0-0.6 Abs Basophils 0 10^3/uL N 0-0.2 Abs Nucleated RBC 0 10^3/uL N Granulocyte % 63.8 % N 38-83 Lymphocyte % 25.8 % N 25-47 Monocyte % 7.4 % N 1-9 Eosinophil % 2.4 % N 0-6 Basophil % 0.6 % N 0-2 Nucleated Red Blood Cells % 0 N Basic Metabolic Panel 12/21/2015 [facility] Sodium 141 mmol/L N 133-[address] [place] [address] [phone] Potassium 4.1 mmol/L N 3.5-5.0 Chloride 103 mmol/L N 101-111 Co2 Carbon Dioxide 33 mmol/L High 22-32 Anion Gap 5 mmol/L N 2-11 Glucose 136 mg/dL High 70-100 Blood Urea Nitrogen 16 mg/dL N 6-24 Creatinine 0.72 mg/dL N 0.51-0.95 BUN/Creatinine Ratio 22.2 High 8-20 Calcium 9.0 mg/dL N 8.6-10.3 Egfr Non- 80.1 N >60 Egfr 103.0 N >60 48 Laboratory test 12/21/2015 [facility] Erythrocyte Sed 17 mm/Hr N 0-40 [address] [place] [address] [phone] TSH (Thyroid Stim Horm) 1.34 mcIU/mL N 0.34-5.60 50 Vitamin B12 929 pg/mL High 180-914 51 Laboratory test finding 11/05/2015 [facility] Hemoglobin A1c 7.0 5-7 Ua Routine 08/04/2015 [facility] Ua Specific [place] 1.020 Ua PH 6 Ua Color yellow Ua Appera cloudy Ua WBC positive Ua Protein positive Ua Glucose neg Ua Ketones neg Ua Bilirubin neg Ua Urobilinogen neg Ua Nitrite neg Ua Occult Blood positive Urine Culture And 08/04/2015 [facility] Urine Culture SEE RESULT [address] [place] [address] [phone] Laboratory test 03/16/2015 [facility] Urine Culture And SEE RESULT [address] [address] [phone] Ua And Culture 01/12/2015 [facility] Urine Culture And SEE RESULT [address] [place] [address] [phone] Urinalysis Profile 01/12/2015 [facility] Urine Color Straw N [address] [place] [address] [phone] Urine Appearance Clear N Urine Specific [place] 1.006 Low 1.010-1.030 Urine pH 7.0 N 5-9 Urine Urobilinogen Negative N Negative Urine Ketones Negative N Negative Urine Protein Negative N Negative Urine Leukocytes Negative N Negative Urine Blood Negative N Negative Urine Nitrite Negative N Negative Urine Bilirubin Negative N Negative Urine Glucose Negative N Negative Laboratory test 01/09/2015 [facility] Gardnerella/Yeast: SEE RESULT [address] Vaginal Dna [place] [address] [phone] Comp Metabolic 12/12/2014 Sodium 139 mmol/L N 133- 56 Panel 145 Potassium 4.1 mmol/L N 3.5-5.0 Chloride 102 mmol/L N 101-111 Co2 Carbon Dioxide 32 mmol/L N 22-32 Anion Gap 5 mmol/L N 2-11 Glucose 97 mg/dL N 70-100 Blood Urea Nitrogen 12 mg/dL N 6-24 Creatinine 0.82 mg/dL N 0.51-0.95 BUN/Creatinine Ratio 14.6 N 8-20 Calcium 8.7 mg/dL N 8.6-10.3 Total Protein 5.9 g/dL Low 6.4-8.9 Albumin 3.6 g/dL N 3.2-5.2 Globulin 2.3 g/dL N 2-4 Albumin/Globulin Ratio 1.6 N 1-3 Total Bilirubin 0.40 mg/dL N 0.2-1.0 Alkaline Phosphatase 65 U/L N 34-104 Alt 13 U/L N 7-52 Ast 13 U/L N 13-39 Egfr Non- 69.1 N >60 Egfr 88.9 N >60 57 Lipid Profile (Trig/Chol/HDL) 12/12/2014 Triglycerides 278 mg/dL N 58 Cholesterol 281 mg/dL N 59 HDL Cholesterol 43.9 mg/dL N 60 LDL Cholesterol 182 mg/dL N 61 Laboratory test 12/12/2014 Hemoglobin A1c (Glyco 6.7 % High Less than 62 finding HGB) 6.0 Urine Microalbumin 12/12/2014 Ur Microalbumin 10.0 mg/L N Random (mg/L) Urine Creatinine 224.37 mg/dL N Urine Microalbumin/Creatinine 4.4 ug/mg N <31 Laboratory test 09/01/2014 [facility] Glucose 105 mg/dL High 70-[address] [place] [address] [phone] Laboratory test 07/16/2014 [facility] Hemoglobin A1c 6.6 5-7 finding Laboratory test 06/16/2014 [facility] Rapid Influenza (SEE [address] A B Antigen NOTE) [place], [place] [id number] [phone] Surgical 05/29/2014 [facility] S RUN DATE: [address] 05/30/ [place] [address] <SEE [phone] NOTE> Laboratory test 12/25/2013 [facility] Hemoglobin A1c 6.5 5-7 finding Comp Metabolic 12/20/2013 [facility] Sodium 138 N 133-[address] mmol/[place] [address] [phone] Potassium 3.9 mmol/L N 3.7-5.6 Chloride 104 mmol/L N 101-111 Co2 Carbon Dioxide 31 mmol/L N 22-32 Anion Gap 3 mmol/L N 2-11 Glucose 118 mg/dL High 70-100 Blood Urea Nitrogen 11 mg/dL N 6-24 Creatinine 0.73 mg/dL N 0.51-0.95 BUN/Creatinine Ratio 15.1 N 8-20 Calcium 8.8 mg/dL N 8.6-10.3 Total Protein 6.2 g/dL Low 6.4-8.9 Albumin 3.8 g/dL N 3.2-5.2 Globulin 2.4 g/dL N 2-4 Albumin/Globulin Ratio 1.6 N 1-3 Total Bilirubin 0.40 mg/dL N 0.2-1.0 Alkaline Phosphatase 63 U/L N 34-104 Alt 14 U/L N 7-52 Ast 15 U/L N 13-39 Egfr Non- 79.3 N >60 Egfr 102.0 N >60 65 Lipid Profile 12/20/2013 [facility] Triglycerides 175 mg/dL N 66 (Trig/Chol/HDL) [address] [place] [address] [phone] Cholesterol 205 mg/dL N 67 HDL Cholesterol 48.4 mg/dL N 68 LDL Cholesterol 122 mg/dL N 69 Laboratory test 12/20/2013 [facility] Creatine 28 U/L N 10- [address] [place] [address] [phone] Lipid Panel - JFM 09/06/2013 [facility] Creatine 33 U/L N 10- [address] [place] [address] [phone] Comp Metabolic 09/06/2013 [facility] Sodium 142 N 133-[address] mmol/[place] [address] [phone] Potassium 4.2 mmol/L N 3.7-5.6 Chloride 106 mmol/L N 101-111 Co2 Carbon Dioxide 33 mmol/L High 22-32 Anion Gap 3 mmol/L N 2-11 Glucose 118 mg/dL High 70-100 Blood Urea Nitrogen 11 mg/dL N 6-24 Creatinine 0.71 mg/dL N 0.51-0.95 BUN/Creatinine Ratio 15.5 N 8-20 Calcium 9.1 mg/dL N 8.6-10.3 Total Protein 6.0 g/dL Low 6.4-8.9 Albumin 3.8 g/dL N 3.2-5.2 Globulin 2.2 g/dL N 2-4 Albumin/Globulin Ratio 1.7 N 1-3 Total Bilirubin 0.40 mg/dL N 0.2-1.0 Alkaline Phosphatase 64 U/L N 34-104 Alt 12 U/L N 7-52 Ast 15 U/L N 13-39 Egfr Non- 82.1 N >60 Egfr 105.6 N >60 71 Lipid Profile 09/06/2013 [facility] Triglycerides 223 mg/dL N 72 (Trig/Chol/HDL) [address] [place] [address] [phone] Cholesterol 188 mg/dL N 73 HDL Cholesterol 42.4 mg/dL N 74 LDL Cholesterol 101 mg/dL N 75 CBC Auto Diff 08/11/2013 [facility] White Blood 6.3 10^3/uL N 4.8-10.[address] [place] [address] [phone] Red Blood Count 4.57 10^6/uL N 4.0-5.4 Hemoglobin 13.8 g/dL N 12.0-16.0 Hematocrit 41 % N 35-47 Mean Corpuscular Volume 90 fL N 80-97 Mean Corpuscular Hemoglobin 30 pg N 27-31 Mean Corpuscular HGB Conc 33 g/dL N 31-36 Red Cell Distribution Width 13 % N 10.5-15 Platelet Count 234 10^3/uL N 150-450 Mean Platelet Volume 8 um3 N 7.4-10.4 Abs Neutrophils 3.7 10^3/uL N 1.5-7.7 Abs Lymphocytes 1.8 10^3/uL N 1.0-4.8 Abs Monocytes 0.6 10^3/uL N 0-0.8 Abs Eosinophils 0.2 10^3/uL N 0-0.6 Abs Basophils 0.1 10^3/uL N 0-0.2 Abs Nucleated RBC 0 10^3/uL N Granulocyte % 58.3 % N 38-83 Lymphocyte % 28.8 % N 25-47 Monocyte % 8.9 % N 1-9 Eosinophil % 2.8 % N 0-6 Basophil % 1.2 % N 0-2 Nucleated Red Blood Cells % 0 N Laboratory test 08/11/2013 [facility] Erythrocyte Sed 11 mm/Hr N 0-[address] [place] [address] [phone] Urine Microalbumin 05/28/2013 [facility] Ur Microalbumin 6.0 mg/ dL <30 [address] (mg/L) [place] [address] [phone] Urine Creatinine 104.90 mg/dL Urine Microalbumin/Creatinine 5.7 Less Than 31 Laboratory test 05/28/2013 [facility] Hemoglobin A1c 6.6 % High Less than [address] 6.0 [place] [address] [phone] Lipid Profile 05/28/2013 [facility] Triglycerides 173 78 (Trig/Chol/HDL) [address] mg/[place] [address] [phone] Cholesterol 241 mg/dL 79 HDL Cholesterol 45.6 mg/dL 80 LDL Cholesterol 161 mg/dL 81 Lipid Panel - 12/24/2012 [facility] Creatine Kinase 35 U/L 0- 200 [address] [place] [address] [phone] Comp Metabolic 12/24/2012 [facility] Sodium 140 133-[address] mmol/[place] [address] [phone] Potassium 4.3 mmol/L 3.5-5.0 Chloride 103 mmol/L [...] Egfr Non- 99.7 >60 Egfr 128.2 >60 83 Lipid Profile 12/24/2012 [facility] Triglycerides 214 mg/dL High 40-200 (Trig/Chol/HDL) [address] [place] [address] [phone] Cholesterol 223 mg/dL High Less than 200 HDL Cholesterol 47 mg/dL 40-60 84 Cholesterol/HDL Ratio 4.7 Average High 1-4.44 LDL Cholesterol 133.2 High Less Than 100 85 Laboratory test 12/04/2012 [facility] Hemoglobin A1c 6.2 5-7 finding Laboratory test 11/16/2012 [facility] Blood Urea 5 mg/dL Low 6 -[address] [place] [address] [phone] Creatinine 11/16/2012 [facility] Creatinine 0.60 mg/dL 0.50- 1.[address] [place] [address] [phone] Egfr Non- 99.7 >60 Egfr 128.2 >60 86 Laboratory test finding 09/12/2012 [facility] Inr 0.81 Low 0.87-0.[address] [place] [address] [phone] Activated Partial Thrombo Time 27.5 seconds 22.18-37.18 Laboratory test 06/05/2012 [facility] Hemoglobin A1c 6.4 5-7 finding Urine Microalbumin 06/01/2012 [facility] Ur Microalbumin 10.0 mg /L [address] (Mg/L) [place] [address] [phone] Urine Creatinine 231.0 mg/dL Urine Microalbumin/Creatinine 4.3 ug/mg Less Than 31 Creatinine 02/13/2012 [facility] Creatinine 0.70 mg/dL 0.50- 1.[address] [place] [address] [phone] Egfr Non- 83.7 >60 Egfr 107.7 >60 88 Laboratory test 12/07/2011 [facility] Hemoglobin A1c 6.5 5-7 finding Urine Microalbumin 12/07/2011 [facility] Microalbumin (MG/L) 13.0 mg/L Random [address] [place] [address] [phone] Urine Creatinine 320.4 mg/dL Richard Alb/Creatinine Ratio 4.1 UG/MG Less Than 30 89 Lipid Panel - 08/01/2011 [facility] CPK (Creatine 39 U/L 0- [address] Kinase) [place] [address] [phone] Comp Metabolic 08/01/2011 [facility] Sodium 138 135-[address] mmol/[place] [address] [phone] Potassium 4.1 mmol/L 3.5-5.0 Chloride 104 mmol/L 101-111 Co2 (Carbon Dioxide) 31.0 mmol/L 22-32 Anion Gap 3.0 mmol/L 2-11 90 Glucose 89 mg/dL 70-100 BUN 10 mg/dL 6-24 Creatinine 0.7 mg/dL 0.50-1.40 One Over Creatinine 1.42 BUN/Creatinine Ratio 14.3 8-20 Calcium 9.1 mg/dL 8.1-9.9 Total Protein 5.7 GM/DL Low 6.2-8.1 Albumin 3.5 GM/DL 3.2-5.2 Globulin 2.2 GM/DL 2-4 Albumin/Globulin Ratio 1.6 1-3 Bilirubin Total 0.6 mg/dL 0.4-1.5 91 Alkaline Phosphatase 60 U/L 30-110 Alt (SGPT) 16 U/L 14-54 Ast (Sgot) 19 U/L 12-42 eGFR Non- 84.0 > 60 eGFR 108.0 > 60 92 Lipid Profile 08/01/2011 [facility] Triglyceride 203 mg/dL High 40-200 (Trig/Chol/HDL) [address] [place] [address] [phone] Cholesterol 198 mg/dL Less Than 200 93 High Density Lipoprotein 43 mg/dL 40-60 94 Cholesterol/HDL Ratio 4.60 AVERAGE High 1-4.44 Low Density Lipoprotein 114 mg/dL High Less Than 100 95 Laboratory test 05/30/2011 [facility] In House Hemoglobin A1c 6.2 5-7 finding CBC No Diff 05/27/2011 [facility] White Blood Count 4.7 CUMM Low 4.8-10.8 [address] [place] [address] [phone] Red Cell Count 3.89 CUMM Low 4.2-5.4 Hemoglobin 11.2 g/dL Low 12.0-16.0 Hematocrit 33 % Low 35-47 Mean Corpuscular Volume 86 um3 79-97 Mean Corpuscular Hemoglob 29 pg 27-31 Mean Corpuscular HGB Cone 34 g/dL 32-36 Redcell Distribution WDTH 13 % 10.5-15 Platelet Count 321 CUMM 150-450 Mean Platelet Volume 8.1 um3 7.4-10.4 Lipid Profile 05/27/2011 [facility] Triglyceride 293 mg/dL High 40-200 (Trig/Chol/HDL) [address] [place] [address] [phone] Cholesterol 284 mg/dL High Less Than 200 96 High Density Lipoprotein 36 mg/dL Low 40-60 97 Cholesterol/HDL Ratio 7.89 AVERAGE High 1-4.44 Low Density Lipoprotein 189 mg/dL High Less Than 100 98 Comp Metabolic Panel 05/27/2011 [facility] Sodium 141 mmol/L 135-145 [address] [place] [address] [phone] Potassium 4.4 mmol/L 3.5-5.0 Chloride 103 mmol/L 101-111 Co2 (Carbon Dioxide) 32.0 mmol/L 22-32 Anion Gap 6.0 mmol/L 2-11 99 Glucose 98 mg/dL 70-100 BUN 8 mg/dL 6-24 Creatinine 0.6 mg/dL 0.50-1.40 One Over Creatinine 1.66 BUN/Creatinine Ratio 13.3 8-20 Calcium 9.0 mg/dL 8.1-9.9 Total Protein 5.7 GM/DL Low 6.2-8.1 Albumin 3.4 GM/DL 3.2-5.2 Globulin 2.3 GM/DL 2-4 Albumin/Globulin Ratio 1.5 1-3 Bilirubin Total 0.6 mg/dL 0.4-1.5 100 Alkaline Phosphatase 59 U/L 30-110 Alt (SGPT) 18 U/L 14-54 Ast (Sgot) 18 U/L 12-42 eGFR Non- 100.3 > 60 eGFR 129.0 > 60 101 Lipid Panel - [facility] 05/27/2011 [facility] CPK (Creatine 40 U/L 0-[address] Kinase) [place] [address] [phone] Laboratory test 11/30/2010 [facility] Hemoglobin A1c 5.9 5-7 finding Lipid Panel - [facility] 11/25/2010 [facility] CPK (Creatine 43 U/L 0-[address] Kinase) [place] [address] [phone] Comp Metabolic 11/25/2010 [facility] Sodium 142 135-[address] mmol/L [place], [place] [id number] [phone] Potassium 4.6 mmol/L 3.5-5.0 Chloride 104 mmol/L 101-111 Co2 (Carbon Dioxide) 34.0 mmol/L High 22-32 Anion Gap 4.0 mmol/L 2-11 102 Glucose 93 mg/dL 70-100 BUN 7 mg/dL 6-24 Creatinine 0.7 mg/dL 0.50-1.40 One Over Creatinine 1.42 BUN/Creatinine Ratio 10.0 8-20 Calcium 9.1 mg/dL 8.1-9.9 Total Protein 5.9 GM/DL Low 6.2-8.1 Albumin 3.7 GM/DL 3.2-5.2 Globulin 2.2 GM/DL 2-4 Albumin/Globulin Ratio 1.7 1-3 Bilirubin Total 0.8 mg/dL 0.4-1.5 103 Alkaline Phosphatase 52 U/L 30-110 Alt (SGPT) 18 U/L 14-54 Ast (Sgot) 18 U/L 12-42 eGFR Non- 84.0 > 60 eGFR 108.0 > 60 104 Lipid Profile 11/25/2010 [facility] Triglyceride 150 mg/dL 40 -200 (Trig/Chol/HDL) [address] [place] [address] [phone] Cholesterol 179 mg/dL Less Than 200 105 High Density Lipoprotein 47 mg/dL 40-60 106 Cholesterol/HDL Ratio 3.81 AVERAGE 1-4.44 Low Density Lipoprotein 102 mg/dL High Less Than 100 107 Laboratory test 06/08/2010 [facility] TSH 2.70 MIU/ML 0.34- 5.60 finding [address] [place] [address] [phone] Thyroxine Free 0.79 ng/dL 0.61-1.24 GGTP 23 U/L 7-50 Lipid Profile 06/08/2010 [facility] Triglyceride 134 mg/dL 40 -200 (Trig/Chol/HDL) [address] [place] [address] [phone] Cholesterol 190 mg/dL Less Than 200 108 High Density Lipoprotein 50 mg/dL 40-60 109 Cholesterol/HDL Ratio 3.80 AVERAGE 1-4.44 Low Density Lipoprotein 113 mg/dL High Less Than 100 110 Comp Metabolic Panel 06/08/2010 [facility] Sodium 142 mmol/L 135-145 [address] [place] [address] [phone] Potassium 3.7 mmol/L 3.5-5.0 Chloride 102 mmol/L 101-111 Co2 (Carbon Dioxide) 31.0 mmol/L 22-32 Anion Gap 9.0 mmol/L 2-11 111 Glucose 99 mg/dL 70-100 BUN 11 mg/dL 6-24 Creatinine 0.70 mg/dL 0.50-1.40 One Over Creatinine 1.40 BUN/Creatinine Ratio 15.7 8-20 Calcium 8.8 mg/dL 8.1-9.9 Total Protein 6.3 GM/DL 6.2-8.1 Albumin 3.9 GM/DL 3.2-5.2 Globulin 2.4 GM/DL 2-4 Albumin/Globulin Ratio 1.6 1-3 Bilirubin Total 0.6 mg/dL 0.4-1.5 112 Alkaline Phosphatase 64 U/L 30-110 Alt (SGPT) 30 U/L 14-54 Ast (Sgot) 33 U/L 12-42 eGFR Non- 84.2 > 60 eGFR 108.3 > 60 113 Lipid Panel - JFM 06/08/2010 [facility] CPK (Creatine 40 U/L 0-[address] Kinase) [place] [address] [phone] Urine Microalbumin 06/08/2010 [facility] Microalbumin 10.[address] (MG/L) mg/[place] [address] [phone] Urine Creatinine 303.93 mg/dL Richard Alb/Creatinine Ratio 3.2 UG/MG Less Than 30 114 Laboratory test 06/08/2010 [facility] Hemoglobin A1c 7.1 % High Less [address] Than 6.0 [place] [address] [phone] Liver Function 09/04/2009 [facility] Total Protein 5.6 Low 6.2 -8.[address] GM/[place] [address] [phone] Albumin 3.8 GM/DL 3.2-5.2 Globulin 1.8 GM/DL Low 2-4 Albumin/Globulin Ratio 2.1 1-3 Bilirubin Total 0.7 mg/dL 0.4-1.5 116 Bilirubin Direct 0.1 mg/dL 0.1-0.5 Indirect Bilirubin 0.6 mg/dL 0.1-0.75 Alkaline Phosphatase 80 U/L 30-110 Alt (SGPT) 72 U/L High 14-54 Ast (Sgot) 59 U/L High 12-42 Comp Metabolic Panel 08/06/2009 [facility] Sodium 143 mmol/L 135-[address] [place] [address] [phone] Potassium 4.5 mmol/L 3.5-5.0 Chloride 104 mmol/L 101-111 Co2 (Carbon Dioxide) 32.0 mmol/L 22-32 Anion Gap 7.0 mmol/L 2-11 117 Glucose 108 mg/dL High 70-100 118 BUN 10 mg/dL 6-24 Creatinine 0.80 mg/dL 0.50-1.40 One Over Creatinine 1.20 BUN/Creatinine Ratio 12.5 8-20 Calcium 9.5 mg/dL 8.1-9.9 119 Total Protein 6.1 GM/DL Low 6.2-8.1 Albumin 3.7 GM/DL 3.2-5.2 Globulin 2.4 GM/DL 2-4 Albumin/Globulin Ratio 1.5 1-3 Bilirubin Total 0.7 mg/dL 0.4-1.5 120 Alkaline Phosphatase 72 U/L 30-110 Alt (SGPT) 56 U/L High 14-54 Ast (Sgot) 41 U/L 12-42 eGFR Non- 77.0 > 60 eGFR 93.2 > 60 121 Lipid Profile 08/06/2009 [facility] Triglyceride 126 mg/dL 40 -200 (Trig/Chol/HDL) [address] [place] [address] [phone] Cholesterol 148 mg/dL Less Than 200 122 High Density Lipoprotein 39 mg/dL Low 40-60 123 Cholesterol/HDL Ratio 3.79 AVERAGE 1-4.44 Low Density Lipoprotein 84 mg/dL Less Than 100 124 Laboratory test 08/06/2009 [facility] Hemoglobin A1c 6.2 % High Less [address] 6[address]0 [place] [address] [phone] Lipid Profile 06/05/2009 [facility] Triglyceride 234 High 40- 200 126 (Trig/Chol/HDL) [address] mg/dL [place], [place] [id number] [phone] Cholesterol 269 mg/dL High Less Than 200 127 High Density Lipoprotein 42 mg/dL 40-60 128 Cholesterol/HDL Ratio 6.40 AVERAGE High 1-4.44 Low Density Lipoprotein 180 mg/dL High Less Than 100 129 Comp Metabolic Panel 06/05/2009 [facility] Sodium 141 mmol/L 135-[address] [place] [address] [phone] Potassium 4.5 mmol/L 3.5-5.0 Chloride 102 mmol/L 101-111 Co2 (Carbon Dioxide) 34.0 mmol/L High 22-32 Anion Gap 5.0 mmol/L 2-11 130 Glucose 117 mg/dL High 70-100 131 BUN 11 mg/dL 6-24 Creatinine 0.80 mg/dL 0.50-1.40 One Over Creatinine 1.20 BUN/Creatinine Ratio 13.8 8-20 Calcium 9.1 mg/dL 8.1-9.9 132 Total Protein 5.8 GM/DL Low 6.2-8.1 Albumin 3.5 GM/DL 3.2-5.2 Globulin 2.3 GM/DL 2-4 Albumin/Globulin Ratio 1.5 1-3 Bilirubin Total 0.7 mg/dL 0.4-1.5 133 Alkaline Phosphatase 72 U/L 30-110 Alt (SGPT) 23 U/L 14-54 Ast (Sgot) 22 U/L 12-42 eGFR Non- 77.0 > 60 eGFR 93.2 > 60 134 Lipid Panel - JFM 06/05/2009 [facility] CPK (Creatine 43 U/L 0-[address] Kinase) [place] [address] [phone] Urine Microalbumin 06/05/2009 [facility] Microalbumin 2.0 mg/L Random [address] (MG/L) [place] [address] [phone] Urine Creatinine 90.00 mg/dL Richard Alb/Creatinine Ratio 2.2 UG/MG Less Than 30 135 Laboratory test 06/05/2009 [facility] Hemoglobin A1c 6.4 % High Less [address] 6[address]0 [place] [address] [phone] Surgical 05/25/2009 [facility] Surgical ------- [address] Pathology ------- [place] [address] -- <SEE [phone] NOTE> Lipid Profile 05/30/2008 [facility] Triglyceride 257 High 40- 200 (Trig/Chol/HDL) [address] mg/[place] [address] [phone] Cholesterol 246 mg/dL High Less Than 200 138 High Density Lipoprotein 48 mg/dL 40-60 139 Cholesterol/HDL Ratio 5.13 AVERAGE High 1-4.44 Low Density Lipoprotein 147 mg/dL High Less Than 100 140 Comp Metabolic Panel 05/30/2008 [facility] Sodium 140 mmol/L 135-[address] [place] [address] [phone] Potassium 4.0 mmol/L 3.5-5.0 Chloride 101 mmol/L 101-111 Co2 (Carbon Dioxide) 33.0 mmol/L High 22-32 Anion Gap 6.0 mmol/L 2-11 141 Glucose 91 mg/dL 70-100 142 BUN 12 mg/dL 6-24 Creatinine 0.80 mg/dL 0.50-1.40 One Over Creatinine 1.20 BUN/Creatinine Ratio 15.0 8-20 Calcium 9.4 mg/dL 8.1-9.9 143 Total Protein 6.3 GM/DL 6.2-8.1 Albumin 3.6 GM/DL 3.2-5.2 Globulin 2.7 GM/DL 2-4 Albumin/Globulin Ratio 1.3 1-3 Bilirubin Total 0.5 mg/dL 0.4-1.5 Alkaline Phosphatase 82 U/L 30-110 Alt (SGPT) 23 U/L 14-54 Ast (Sgot) 22 U/L 12-42 Lipid Panel - 05/30/2008 [facility] CPK (Creatine 26 U/L 0- [address] Kinase) [place] [address] [phone] Laboratory test 05/30/2008 [facility] Hemoglobin A1c 6.5 % High <6.0 [address] [place] [address] [phone] Basic Metabolic 04/09/2008 [facility] Sodium 140 135-[address] mmol/[place] [address] [phone] Potassium 4.2 mmol/L 3.5-5.0 Chloride 103 mmol/L 101-111 Co2 (Carbon Dioxide) 32.0 mmol/L 22-32 Anion Gap 5.0 mmol/L 2-11 145 Glucose 96 mg/dL 70-100 146 BUN 10 mg/dL 6-24 Creatinine 0.70 mg/dL 0.50-1.40 One Over Creatinine 1.40 BUN/Creatinine Ratio 14.3 8-20 Calcium 9.3 mg/dL 8.1-9.9 147 CBC With 04/09/2008 [facility] White Blood 5.5 CUMM 4.8-10.8 Electronic Diff [address] [place] [address] [phone] Red Cell Count 4.44 CUMM 4.2-5.4 Hemoglobin [...] Eosinophils 0.1 0-0.6 Abs Basophils 0 0-0.2 148 Creatinine 24HR 11/09/2007 [facility] Creatinine Random 55.0 mg/ dL 149 Urine [address] [place], [place] [id number] [phone] Urine Creatinine/24HR 748.0 MG/24HR 600-1800 Hours Of Collection 24 HR 24- Urine Volume Measurement 1360 ML Total Protein 24HR 11/09/2007 [facility] Total Protein 9 mg/dL Urine [address] Random Urine [place], [place] [address] [phone] Urine Total Protein/24HR 122 MG/24HR High 50-100 Urinalysis W/Microscopic 2007 [facility] Ua Color YELLOW [address] [place], [place] [id number] [phone] Appearance-Urine CLEAR Specific [place]-Ur 1.024 1.010-1.030 Esterase-Urine TRACE Abnormal Negative Nitrite NEGATIVE Negative [id number] NEGATIVE Negative Protein-Urine 1+ Abnormal Negative PH-Urine 5.0 5-9 Blood-Urine NEGATIVE Negative Ketones-Urine NEGATIVE Negative Bilirubin-Ur NEGATIVE Negative Glucose-Urine NEGATIVE Negative WBC-Urine 3-7 0-5 RBC-Urine 0-2 0-2 Mucus Urine MODERATE Epith Cells-Ur FEW Bacteria-Urine 1+ Basic Metabolic Panel 2007 [facility] Sodium 140 mmol/L 135-145 [address] [place] [address] [phone] Potassium 4.2 mmol/L 3.5-5.0 Chloride 102 mmol/L 101-111 Co2 (Carbon Dioxide) 33.0 mmol/L High 22-32 Anion Gap 5.0 mmol/L 2-11 150 Glucose 109 mg/dL High 70-105 BUN 13 mg/dL 6-24 Creatinine 0.8 mg/dL 0.5-1.4 One Over Creatinine 1.25 BUN/Creatinine Ratio 16.3 8-20 Calcium 8.7 mg/dL 8.1-9.9 151 Lipid Profile 2007 [facility] Triglyceride 238 mg/dL High 40-200 (Trig/Chol/HDL) [address] [place], [place] [id number] [phone] Cholesterol 302 mg/dL High Less Than 200 152 High Density Lipoprotein 38 mg/dL Low 40-60 153 Cholesterol/HDL Ratio 7.95 AVERAGE High 1-4.44 Low Density Lipoprotein 216 mg/dL High Less Than 100 154 Laboratory test 02/16/2007 [facility] Throat Culture MANY NORMAL 155 finding [address] [facility] Full THRO <[place] [address] NOTE> [phone] Desirable: <150 Borderline High: 150-199 High: 200-499 Very High: >500 2 Desirable: <200 Borderline High: 200-239 High: >239 3 Low: <40 Desirable: 40-60 High: >60 4 Desirable: <100 Near Optimal: 100-129 Borderline High: 130-159 High: 160-189 Very High: >189 5 Because ethnic data is not always [...] 5 Kidney failure <15 (or dialysis) 6 Therapeutic target for the treatment of diabetes mellitus patients is <7% HBA1C, and in selective patients <6.0%. Please refer to [place] [employer] diabetic care guidelines for further information. 7 Transit Bus Operator: 8 Because ethnic data is not always readily [...] 15-29 5 Kidney failure <15 (or dialysis) 9 Transit Bus Operator: [id number] 10 Normal Range 180 to 914 Indeterminate Range 145 to 180 Deficient Range <145 11 Because ethnic data is not always readily [...] 15-29 5 Kidney failure <15 (or dialysis) 12 Therapeutic target for the treatment of diabetes mellitus patients is <7% HBA1C, and in selective patients <6.0%. Please refer to [place] [employer] diabetic care guidelines for further information. 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 The specimen demonstrates abundant watery colloid, abundant largely cohesive follicular epithelium arranged in uniform sheets, medium sized follicles and only occasional small groups demonstrating variable Hurthle cell metaplasia. No atypical Hurthle cells are seen. Lymphoid tangles, lymphocytes and plasma cells are seen in the background. No features of papillary carcinoma are seen. In this clinical setting the risk of malignancy is less than 3%. Clinical management of this thyroid nodule should be based on clinical and radiographic features as well as the above findings. THYROID LEFT - US GUIDED LEFT THYROID NODULE FINE NEEDLE ASPIRATION CLINICAL HISTORY 1.8 x 1.2 x 1.4 cm left thyroid nodule. IMMEDIATE INTERPRETATION Pass1, and 2-adequate CONTINUED ON NEXT PAGE DEPARTMENT OF PATHOLOGY, [facility] [employer] [place] [id number] Juan Manuel Jiménez M.D. Director [facility] # [id number] RUN DATE: 07/03/17 [facility] LAB LIVE PAGE 2 Patient: KATHLEEN ROWE [id number] (Continued) GROSS DESCRIPTION (Continued) GROSS DESCRIPTION Ultrasound guided, fine needle aspiration x 2 passes with 2 Alcohol fixed slide(s). Signed (signature on file) Juan Manuel Jiménez MD [id number] END OF REPORT DEPARTMENT OF PATHOLOGY, [facility] [employer] [place], [place] [address] Juan Manuel Jiménez M.D. Director [facility] # [id number] *Ascorbic acid is present which may interfere with detection of blood. 16 SEE RESULT BELOW Name: KATHLEEN ROWE Matt : [address]: Christian Gaytan MD Acct: [id number] Unit: [id number] AGE: 71 Location: [facility] Re06/15/17 SEX: F Status: REG REF SPEC: [id number] LENORA: 06/15/[address]: Chaitanya Gaytan MD REQ: [id number] RECD: 06/15/17 STATUS: COMP _ SOURCE: URINE SPDESC: ORDERED: Urine Culture Procedure Result Reported Site Urine Culture Final 06/16/17- 1632 ML No Growth (<1,000 CFU/mL) * ML - Main Lab . END OF REPORT DEPARTMENT OF PATHOLOGY, [address] [place] [address] Juan Manuel Jiménez M.D. Director [facility] # [id number] Therapeutic target for the treatment of diabetes mellitus patients is <7% HBA1C, and in selective patients <6.0%. Please refer to [place] [employer] diabetic care guidelines for further information. 18 Data Disc: D Latrell Events: D 19 Transit Bus Operator: [id number] 20 Transit Bus Operator: [id number] 21 SEE RESULT BELOW Name: KATHLEEN ROWE : [address]: Nayan Mota MD Acct: [id number] Unit: [id number] AGE: 71 Location: ED Re04/30/17 SEX: F Status: REG ER SPEC: [id number] LENORA: 04/30/[address] [facility] [address]: Nayan Mota MD REQ: [id number] RECD: 04/30/17 STATUS: MICHELLE JOSEPH DR: Chaitanya Gaytan MD _ SOURCE: NASAL SPDESC: ORDERED: Flu A B Request Procedure Result Reported Site Rapid Influenza A B Request Final 04/30/172121 ML Specimen received for Influenza A/B Molecular testing * ML - MAIN LAB ([facility]) . END OF REPORT * ML=Testing performed at Main Lab DEPARTMENT OF PATHOLOGY, [address] [place] [address] Juan Manuel Jiménez M.D. Director [facility] # [id number] 22 Unable to evaluate urinalysis dipstick results due to interfering color. Unable to evaluate urinalysis dipstick results due to interfering color. 23 [facility] Severe Sepsis and Septic Shock Management Bundle Measure requires all lactic acids initially measuring >2.0 mmol/L be repeated. 24 Please note: The following may produce a false positive D Dimer test: - Rheumatoid factor greater than 60 IU/ml - Plasma hemoglobin greater than 0.05 gm/dl - Bilirubin greater than 50 mg/dl - Lipids greater than 1000 mg/dl - FDP greater than 20 ug/ml 25 SEE RESULT BELOW Name: KATHLEEN ROWE : [address]: Nayan Mota MD Acct: [id number] Unit: [id number] AGE: 71 Location: ED Re04/30/17 SEX: F Status: DEP ER SPEC: [id number] LEONRA: 04/30/17-[address] [facility] [address]: Nayan Mota MD REQ: [id number] RECD: 04/30/17160 STATUS: MICHELLE JOSEPH DR: Chaitanya Gaytan MD _ SOURCE: BLOOD,VENO SPDESC: ORDERED: Blood Cult Procedure Result Reported Site Aerobic Culture Bottle Final 05/05/17- 1607 ML No Growth Day 5 Anaerobic Culture Bottle Final 05/05/17- 1607 ML No Growth Day 5 * ML - MAIN LAB ([facility]) . END OF REPORT * ML=Testing performed at Main Lab DEPARTMENT OF PATHOLOGY, [address] [place] [address] Juan Manuel Jiménez M.D. Director [facility] # [id number] 26 Because ethnic data is not always readily [...] 15-29 5 Kidney failure <15 (or dialysis) 27 Acute inflammation: >10.00 28 SEE RESULT BELOW Name: KATHLEEN ROWE : [address]: Nayan Mota MD Acct: [id number] Unit: [id number] AGE: 71 Location: ED Re04/30/17 SEX: F Status: DEP ER SPEC: [id number] LENORA: 04/30/[address] [facility] [address]: Nayan Mota MD REQ: [id number] RECD: 04/30/17 STATUS: MICHELLE JOSEPH DR: Chaitanya Gaytan MD _ SOURCE: BLOOD,VENO SPDES: ORDERED: Blood Cult Procedure Result Reported Site Aerobic Culture Bottle Final 05/05/17- 1553 ML No Growth Day 5 Anaerobic Culture Bottle Final 05/05/17- 1550 ML No Growth Day 5 * ML - [facility] ([facility]) . END OF REPORT * ML=Testing performed at Main Lab DEPARTMENT OF PATHOLOGY, [address] [place] [address] Juan Manuel Jiménez M.D. Director [facility] # [id number] 29 SEE RESULT BELOW Name: MARISSA ROWEMARCIA Gutierrez : [address]: Christian Gaytan MD Acct: [id number] Unit: [id number] AGE: 71 Location: [facility] Re04/28/17 SEX: F Status: REG REF SPEC: [id number] LENORA: 04/28/17-[address]: Chaitanya Gaytan MD REQ: [id number] RECD: 04/28/17 STATUS: COMP _ SOURCE: URINE SPDESC: ORDERED: Urine Culture COMMENTS: [id number] Procedure Result Reported Site Urine Culture Final 04/30/17807 ML No Growth (<1,000 CFU/mL) * ML - MAIN LAB ([facility]) . END OF REPORT * ML=Testing performed at Main Lab DEPARTMENT OF PATHOLOGY, [address] [place] [address] Juan Manuel Jiménez M.D. Director [facility] # [id number] 30 *Ascorbic acid is present which may interfere with detection of blood. 31 SEE RESULT BELOW Name: KATHLEEN ROWE : [address]: Duy Landin MD Acct: [id number] Unit: [id number] AGE: 71 Location: ED Re04/23/17 SEX: F Status: DEP ER SPEC: [id number] LENORA: 04/23/[address]: Duy Landin MD REQ: [id number] RECD: 04/23/17 STATUS: MICHELLE JOSEPH DR: Chaitanya Gaytan MD _ SOURCE: URINE SPDESC: ORDERED: Urine Culture Procedure Result Reported Site Urine Culture Final 04/25/17- 812 ML Organism 1 ESCHERICHIA COLI [place] Count >100,000 (Many) CFU/ML 1. ESCHERICHIA COLI [...] antibiotic reporting. * ML - MAIN LAB ([facility]) . END OF REPORT * ML=Testing performed at Main Lab DEPARTMENT OF PATHOLOGY, [address] [place] [address] Juan Manuel Jiménez M.D. Director [facility] # [id number] 32 Because ethnic data is not always [...] 5 Kidney failure <15 (or dialysis) 33 Desirable <150 Borderline high 150-199 High 200-499 Very High >500 34 Desirable <200 Borderline high 200-239 High >239 35 Low <40 Desirable: 40-60 High: >60 36 Desirable: <100 mg/dL Near Optimal: 100-129 mg/dL Borderline High: 130-159 mg/dL High: 160-189 mg/dL Very High: >189 mg/dL 37 Test Performed by: [place] [address] [employer] Worker: Jesus Hughes II, M.D., Ph.D. 38 REFERENCE VALUE <=1.0 (Negative) 39 REFERENCE VALUE <20.0 (Negative) 40 Tests for antibodies to dsDNA and EDY antigens are not performed automatically unless the PEDRO result is > or= 3.0 U. Studies performed at [facility] indicate that positive PEDRO results <3.0 U are rarely accompanied by positive second order tests. Test Performed by: [address] [address] [employer] Worker: Jesus Hughes II, M.D., Ph.D. 41 Unable to calculate due to low microalbumin 42 Therapeutic target for the treatment of diabetes Mellitus patients is <7% HBA1C, and in selective patients <6.0%.Please refer to [place] [employer] Diabetic care guidelines for further information. 43 Unable to calculate due to low microalbumin 44 Desirable <150 Borderline high 150-199 High 200-499 Very High >500 45 Desirable <200 Borderline high 200-239 High >239 46 Low <40 Desirable: 40-60 High: >60 47 Desirable: <100 mg/dL Near Optimal: 100-129 mg/dL Borderline High: 130-159 mg/dL High: 160-189 mg/dL Very High: >189 mg/dL 48 Because ethnic data is not always readily [...] 15-29 5 Kidney failure <15 (or dialysis) 49 FASTING 10 HOUR 50 FASTING 10 HOUR 51 Normal Range 180 to 914 Indeterminate Range 145 to 180 Deficient Range <145 52 SEE RESULT BELOW Name: KATHLEEN ROWE : [address]: Christian Gaytan MD Acct: [id number] Unit: [id number] AGE: 69 Location: [facility] Re08/04/15 SEX: F Status: REG REF SPEC: [id number] LENORA: 08/04/15-[address] [facility] [address]: Chaitanya Gaytan MD REQ: [id number] RECD: 08/04/153 STATUS: COMP _ SOURCE: URINE SPDESC: ORDERED: Urine Culture COMMENTS: [facility] 3984 Procedure Result Reported Site Urine Culture Final 08/06/15- 0758 ML Organism 1 ESCHERICHIA COLI [place] Count 50-75,000 (Many) CFU/ML Organism 2 NORMAL SHRUTHI [place] Count 1-10,000 (Few) CFU/ML 1. ESCHERICHIA COLI [...] antibiotic reporting. * ML - MAIN LAB ([facility]) . END OF REPORT * ML=Testing performed at Main Lab DEPARTMENT OF PATHOLOGY, [address] [place] [address] Juan Manuel Jiménez M.D. Director [facility] # [id number] 53 SEE RESULT BELOW Name: KATHLEEN ROWE : [address]: Jerome Zuleta [employer] SPECIALIST Acct: [id number] Unit: [id number] AGE: 69 Location: [facility] Re03/16/15 SEX: F Status: REG REF SPEC: [id number] LENORA: 03/16/15-[address]: Jerome Zuleta C[employer] SPECIALIST REQ: [id number] RECD: 03/16/155266 STATUS: COMP _ SOURCE: URINE SPDESC: ORDERED: Urine Culture Procedure Result Reported Site Urine Culture Final 03/18/15- 746 ML No Growth (<1,000 CFU/mL) * ML - MAIN LAB ([facility]) . END OF REPORT * ML=Testing performed at Main Lab DEPARTMENT OF PATHOLOGY, [address] [place] [address] Juan Manuel Jiménze M.D. Director [facility] # [id number] 54 SEE RESULT BELOW Name: KATHLEEN ROWE : [address]: Jerome Zuleta NP Acct: [id number] Unit: [id number] AGE: 69 Location: [facility] Re01/12/15 SEX: F Status: REG REF SPEC: [id number] LENORA: 01/12/[address]: Jerome Zuleta [employer] SPECIALIST REQ: [id number] RECD: 01/12/15 STATUS: COMP _ SOURCE: URINE SPDESC: ORDERED: Urine Culture Procedure Result Verified Site Urine Culture Final 01/14/15- 1006 ML Organism 1 NORMAL SHRUTHI [place] Count 1-10,000 (Few) CFU/ML * ML - MAIN LAB ([facility]) . END OF REPORT * ML=Testing performed at Main Lab DEPARTMENT OF PATHOLOGY, [address] [place] [address] Juan Manuel Jiménez M.D. Director [facility] # [id number] 55 SEE RESULT BELOW Name: KATHLEEN ROWE : [address]: Jerome Zuleta NP Acct: [id number] Unit: [id number] AGE: 69 Location: [facility] Re01/09/15 SEX: F Status: REG REF SPEC: [id number] LENORA: 01/09/15-[address]: Jerome Zuleta NP REQ: [id number] RECD: 01/09/15 STATUS: COMP _ SOURCE: VAGINAL [...] performed at Main Lab DEPARTMENT OF PATHOLOGY, [address] [place] [address] Juan Maunel Jiménez M.D. Director [facility] # [id number] Patient: KATHLEEN ROWE [id number] (Continued) Specimen: [id number] Collected: 01/09/15 Received: 01/09/15484 (Continued) Procedure Result Verified Site Trichomonas: Vaginal DNA Probe Final (continued) 01/10/15- 1440 The presence or absence of T. vaginalis cannot be used as a test for therapeutic success or failure. * ML - MAIN LAB ([facility]) . END OF REPORT * ML=Testing performed at Main Lab DEPARTMENT OF PATHOLOGY, [address] [place] [address] Juan Manuel Jiménez M.D. Director [facility] # [id number] 56 FASTING 10 HOUR 57 Because ethnic data is not always [...] 5 Kidney failure <15 (or dialysis) 58 Desirable <150 Borderline high 150-199 High 200-499 Very High >500 59 Desirable <200 Borderline high 200-239 High >239 60 Low <40 Desirable: 40-60 High: >60 61 Desirable: <100 mg/dL Near Optimal: 100-129 mg/dL Borderline High: 130-159 mg/dL High: 160-189 mg/dL Very High: >189 mg/dL 62 Therapeutic target for the treatment of diabetes Mellitus patients is <7% HBA1C, and in selective patients <6.0%.Please refer to [place] [employer] Diabetic care guidelines for further information. 63 RUN DATE: 06/16/14 [facility] LAB LIVE PAGE 1 RUN TIME: [address] [place] [address] Specimen Inquiry Name: KATHLEEN ROWE : [address]: Shad Issa NP Acct: [id number] Unit: [id number] AGE: 68 Location: [facility] Re06/16/14 SEX: F Status: REG REF SPEC: [id number] LENORA: 06/16/14-[address]: Shad Issa NP REQ: [id number] RECD: 06/16/14 STATUS: COMP _ SOURCE: JENA SPDESC: ORDERED: Rapid Flu A B QUERIES: Provider Requisition # [id number] Procedure Result Verified Site Rapid Influenza A [...] performed at Main Lab DEPARTMENT OF PATHOLOGY, [facility] [employer] [place], [place] [address] Juan Manuel Jiménez M.D. Director [facility] # [id number] 64 RUN DATE: 05/30/14 [facility] LAB LIVE PAGE 1 RUN TIME: 0464 [facility] [employer]@ [employer] [place], [place] [address] Specimen Inquiry Name: KATHLEEN ROWE : [address]: Rex Allan MD Acct: [id number] Unit: [id number] AGE: 68 Location: ENDO Re05/29/14 SEX: F Status: REG REF SPEC: [id number] LENORA: 05/29/14-[address]: Rex Allan MD REQ: [id number] RECD: 05/29/14-1103 STATUS: YUSUF JOSEPH DR: Chaitanya [...] performed at Main Lab DEPARTMENT OF PATHOLOGY, [address] [place] [address] Juan Manuel Jiménez M.D. Director [facility] # [id number] 65 Because ethnic data is not always readily [...] 15-29 5 Kidney failure <15 (or dialysis) 66 Desirable <150 Borderline high 150-199 High 200-499 Very High >500 67 Desirable <200 Borderline high 200-239 High >239 68 Low <40 Desirable: 40-60 High: >60 69 Desirable <100 Near Optimal 100-129 Borderline high 130-159 High 160-189 Very High >189 70 FASTING 10 HOUR 71 Because ethnic data is not always readily [...] 15-29 5 Kidney failure <15 (or dialysis) 72 Desirable <150 Borderline high 150-199 High 200-499 Very High >500 73 Desirable <200 Borderline high 200-239 High >239 74 Low <40 Desirable: 40-60 High: >60 75 Desirable <100 Near Optimal 100-129 Borderline high 130-159 High 160-189 Very High >189 76 Microalbuminuria in a random sample is defined as: Microalbumin/Creatinine ratio of 30-299 ug/mg. 77 Therapeutic target for the treatment of diabetes Mellitus patients is <7% HBA1C, and in selective patients <6.0%.Please refer to [place] [employer] Diabetic care guidelines for further information. 78 Desirable <150 Borderline high 150-199 High 200-499 Very High >500 79 Desirable <200 Borderline high 200-239 High >239 80 Low <40 Desirable: 40-60 High: >60 81 Desirable <100 Near Optimal 100-129 Borderline high 130-159 High 160-189 Very High >189 82 PT IS FASTING 83 Because ethnic data is not always [...] 5 Kidney failure <15 (or dialysis) 84 HDL Interpretation: Undesirable: High Risk: Less than 40 mg/dL Desirable: Low Risk: Greater than 60 mg/dL 85 LDL Interpretation: Low Risk Optimal Level: LDL Less than 100 mg/dL Near or Above Optimal: LDL 100-129 mg/dL Borderline High Risk: LDL 130-159 mg/dL High Risk: LDL 160-189 mg/dL Very High Risk: LDL Greater than 189 mg/dL 86 Because ethnic data is not always readily [...] 15-29 5 Kidney failure <15 (or dialysis) 87 Microalbuminuria in a random sample is defined as: Microalbumin/Creatinine ratio of 30-299 ug/mg. 88 Because ethnic data is not always readily [...] 15-29 5 Kidney failure <15 (or dialysis) 89 MICROALBUMINURIA IN A RANDOM SAMPLE IS DEFINED : MICROALBUMIN/CREATININE RATIO OF 30-299 ug/mg. . 90 Anion gap measurement may be of limited value in the presence of any alkalosis, especially in a combined acid base disorder. . 91 A metabolite of Naproxen, O-desmethylnaproxen, [...] Risk: LDL Greater than 189 MG/DL 96 CHOLESTEROL INTERPRETATION: Desirable: Less than 200 MG/DL Borderline-High Risk: 200-239 MG/DL High-Risk: 240 MG/DL and over 97 HDL INTERPRETATION: Undesirable: High Risk: Less than 40 MG/DL Desirable: Low Risk: Greater than 60 MG/DL 98 LDL INTERPRETATION: Low Risk Optimal Level: LDL Less than 100 MG/DL Near or Above Optimal: LDL 100-129 MG/DL Borderline High Risk: LDL 130-159 MG/DL High Risk: LDL 160-189 MG/DL Very High Risk: LDL Greater than 189 MG/DL 99 Anion gap measurement may be of limited value in the presence of any alkalosis, especially in a combined acid base disorder. . 100 A metabolite of Naproxen, O-desmethylnaproxen, has been shown to interfere with the Jendrassik-Sharmila method for measuring total bilirubin. Samples from patients who have taken Naproxen have shown spurious elevation in total bilirubin levels. 101 Because ethnic data is not always readily [...] 15-29 5 Kidney failure <15 (or dialysis) 102 Anion gap measurement may be of limited value in the presence of any alkalosis, especially in a combined acid base disorder. . 103 A metabolite of Naproxen, O-desmethylnaproxen, [...] Risk: LDL Greater than 189 MG/DL 108 CHOLESTEROL INTERPRETATION: Desirable: Less than 200 MG/DL Borderline-High Risk: 200-239 MG/DL High-Risk: 240 MG/DL and over 109 HDL INTERPRETATION: Undesirable: High Risk: Less than 40 MG/DL Desirable: Low Risk: Greater than 60 MG/DL 110 LDL INTERPRETATION: Low Risk Optimal Level: LDL Less than 100 MG/DL Near or Above Optimal: LDL 100-129 MG/DL Borderline High Risk: LDL 130-159 MG/DL High Risk: LDL 160-189 MG/DL Very High Risk: LDL Greater than 189 MG/DL 111 Anion gap measurement may be of limited value in the presence of any alkalosis, especially in a combined acid base disorder. . 112 A metabolite of Naproxen, O-desmethylnaproxen, has been shown to interfere with the Jendrassik-Ardmore method for measuring total bilirubin. Samples from patients who have taken Naproxen have shown spurious elevation in total bilirubin levels. 113 Because ethnic data is not always readily [...] 15-29 5 Kidney failure <15 (or dialysis) 114 MICROALBUMINURIA IN A RANDOM SAMPLE IS DEFINED : MICROALBUMIN/CREATININE RATIO OF 30-299 ug/mg. . 115 THERAPEUTIC TARGET FOR THE TREATMENT OF DIABETES MELLITUS PATIENTS IS <7% HBA1C, AND IN SELECTIVE PATIENTS <6.0%. PLEASE REFER TO [place] [employer] DIABETIC CARE GUIDELINES FOR FURTHER INFORMATION. 116 A metabolite of Naproxen, O-desmethylnaproxen, has been shown to interfere with the Jendrassik-Ardmore method for measuring total bilirubin. Samples from patients who have taken Naproxen have shown spurious elevation in total bilirubin levels. 117 Anion gap measurement may be of limited value in the presence of any alkalosis, especially in a combined acid base disorder. . 118 Note change in reference range as of 11/22/07. The change was based on recommendations from the [place] [employer]. 119 Please note change in reference range effective 07 . 120 A metabolite of Naproxen, O-desmethylnaproxen, has been shown to interfere with the Jendrassik-Sharmila method for measuring total bilirubin. Samples from patients who have taken Naproxen have shown spurious elevation in total bilirubin levels. 121 Because ethnic data is not always readily [...] 15-29 5 Kidney failure <15 (or dialysis) 122 CHOLESTEROL INTERPRETATION: Desirable: Less than 200 MG/DL Borderline-High Risk: 200-239 MG/DL High-Risk: 240 MG/DL and over 123 HDL INTERPRETATION: Undesirable: High Risk: Less than 40 MG/DL Desirable: Low Risk: Greater than 60 MG/DL 124 LDL INTERPRETATION: Low Risk Optimal Level: LDL Less than 100 MG/DL Near or Above Optimal: LDL 100-129 MG/DL Borderline High Risk: LDL 130-159 MG/DL High Risk: LDL 160-189 MG/DL Very High Risk: LDL Greater than 189 MG/DL 125 THERAPEUTIC TARGET FOR THE TREATMENT OF DIABETES MELLITUS PATIENTS IS <7% HBA1C, AND IN SELECTIVE PATIENTS <6.0%. PLEASE REFER TO [place] [employer] DIABETIC CARE GUIDELINES FOR FURTHER INFORMATION. 126 FASTING 127 CHOLESTEROL INTERPRETATION: Desirable: Less than 200 MG/DL Borderline-High Risk: 200-239 MG/DL High-Risk: 240 MG/DL and over 128 HDL INTERPRETATION: Undesirable: High Risk: Less than 40 MG/DL Desirable: Low Risk: Greater than 60 MG/DL 129 LDL INTERPRETATION: Low Risk Optimal Level: LDL Less than 100 MG/DL Near or Above Optimal: LDL 100-129 MG/DL Borderline High Risk: LDL 130-159 MG/DL High Risk: LDL 160-189 MG/DL Very High Risk: LDL Greater than 189 MG/DL 130 Anion gap measurement may be of limited value in the presence of any alkalosis, especially in a combined acid base disorder. . 131 Note change in reference range as of 11/22/07. The change was based on recommendations from the [place] [employer]. 132 Please note change in reference range effective 07 . 133 A metabolite of Naproxen, O-desmethylnaproxen, has been shown to interfere with the Jendrassik-Ardmore method for measuring total bilirubin. Samples from patients who have taken Naproxen have shown spurious elevation in total bilirubin levels. 134 Because ethnic data is not always readily [...] 15-29 5 Kidney failure <15 (or dialysis) 135 MICROALBUMINURIA IN A RANDOM SAMPLE IS DEFINED : MICROALBUMIN/CREATININE RATIO OF 30-299 ug/mg. . 136 THERAPEUTIC TARGET FOR THE TREATMENT OF DIABETES MELLITUS PATIENTS IS <7% HBA1C, AND IN SELECTIVE PATIENTS <6.0%. PLEASE REFER TO [place] [employer] DIABETIC CARE GUIDELINES FOR FURTHER INFORMATION. 137 ----- RUN DATE: 05/27/09 [facility] NMI LIVE PAGE 1 RUN TIME: 1331 Specimen Inquiry RUN USER: INTERFACE -- Name: KATHLEEN ROWE Status: REG REF Re05/25/09 Age/Sex: 63/F Unit#: [id number] Location: [facility] : 45 -- Specimen: [id number] Spec Date: 05/25/[address] [facility] [address]: Rex darby MD Spec Type: SURGICAL [...] evidence of microscopic colitis. Signed Electronically by: JUAN J VACA 05/27/09 1334 -- -- DEPARTMENT OF PATHOLOGY, [address] [place] [address] [facility] Permit [id number] Juan Manuel Jiménez M.D. Director Juan J Vaca M.D. [employer] ki -- 138 CHOLESTEROL INTERPRETATION: Desirable: Less than 200 MG/DL Borderline-High Risk: 200-239 MG/DL High-Risk: 240 MG/DL and over 139 HDL INTERPRETATION: Undesirable: High Risk: Less than 40 MG/DL Desirable: Low Risk: Greater than 60 MG/DL 140 LDL INTERPRETATION: Low Risk Optimal Level: LDL Less than 100 MG/DL Near or Above Optimal: LDL 100-129 MG/DL Borderline High Risk: LDL 130-159 MG/DL High Risk: LDL 160-189 MG/DL Very High Risk: LDL Greater than 189 MG/DL 141 Anion gap measurement may be of limited value in the presence of any alkalosis, especially in a combined acid base disorder. . 142 Note change in reference range as of 11/22/07. The change was based on recommendations from the [place] [employer]. 143 Please note change in reference range effective 07 . 144 THERAPEUTIC TARGET FOR THE TREATMENT OF DIABETES MELLITUS PATIENTS IS <7% HBA1C, AND IN SELECTIVE PATIENTS <6.0%. PLEASE REFER TO [place] [employer] DIABETIC CARE GUIDELINES FOR FURTHER INFORMATION. 145 Anion gap measurement may be of limited value in the presence of any alkalosis, especially in a combined acid base disorder. . 146 Note change in reference range as of 11/22/07. The change was based on recommendations from the [place] [employer]. 147 Please note change in reference range effective 07 . 148 Lymphopenia % 149 COLLECTED FROM 11/07 0635 THROUGH 11/08 0710 150 Anion gap measurement may be of limited value in the presence of any alkalosis, especially in a combined acid base disorder. . 151 Please note change in reference range effective 07 . 152 CHOLESTEROL INTERPRETATION: Desirable: Less than 200 MG/DL Borderline-High Risk: 200-239 MG/DL High-Risk: 240 MG/DL and over 153 HDL INTERPRETATION: Undesirable: High Risk: Less than 40 MG/DL Desirable: Low Risk: Greater than 60 MG/DL 154 LDL INTERPRETATION: Low Risk Optimal Level: LDL Less than 100 MG/DL Near or Above Optimal: LDL 100-129 MG/DL Borderline High Risk: LDL 130-159 MG/DL High Risk: LDL 160-189 MG/DL Very High Risk: LDL Greater than 189 MG/DL 155 MANY NORMAL THROAT SHRUTHI Procedures Date Code Description Status 12/26/2017 [id number] Mammogram Completed 10/17/2017 90551 Laparoscopy Cholecystectomy Completed 10/17/2017 94578 Laparoscopy Cholecystectomy Completed 10/06/2017 91996 EKG Tracing & Interpretation Completed 09/21/2017 36480 Polysomnography Sleep Staging 4+ Parameters W/Cpap Completed 07/14/2017 [id number] Diabetic Retinal Eye Exam Completed 06/14/2017 295223429 Bone Mineral Density Test Completed 04/11/2017 86735 Nerve Conduction 03-04 Studies Completed 04/11/2017 55300 Needle Electromyography Complete, Five Or More Muscles Completed Studied 02/07/2017 Inject/Drain Joint/Bursa Major W/O US Completed 12/01/2016 Inject/Drain Joint/Bursa Major W/O US Completed 12/01/2016 Inject/Drain Joint/Bursa Major W/O US Completed 04/01/2016 77415 Sleep Study Unattended,HRT Rate,Oxygen Sat,Resp Completed Effort/Airflow 01/08/2016 [id number] Mammogram Completed 12/14/2015 62873 Diffusing Capacity Completed 12/14/2015 94999 Plethysmography Determination Lung Volumes & Per Completed Airway Resist 12/14/2015 15077 Pulmonary Function><Bronchodil Completed 10/09/2014 Inject/Drain Joint/Bursa Major W/O US Completed 06/03/2014 Inject/Drain Joint/Bursa Intermediate W/O US Completed 04/25/2014 458119150 Diabetic Retinal Eye Exam Completed 12/03/2013 26180 Rad Exam; Hand Comp Completed 12/03/2013 85517 Rad Exam; Hand Comp Completed 11/12/2013 Inject/Drain Joint/Bursa Major W/O US Completed 06/07/2013 77931285 Mammogram Completed 06/06/2011 354510654 Bone Mineral Density Test Completed 06/06/2011 79322300 Mammogram Completed 05/25/2009 51668047 Colonoscopy Completed 12/10/2007 43954 EKG Tracing & Interpretation Completed 04/07/2004 99820806 Colonoscopy Completed Encounters Type Date Location Provider Dx Diagnosis Office Visit 02/09/2018 [facility] [place], G47.33 Obstructive sleep 10:30a [facility], RN, [employer]ATOR-BC apnea (adult) Dry Folder Cloth (pediatric) Z68.31 Body mass index (BMI) 31.0-31.9, adult Office Visit 12/13/2017 11:40a [facility] Internal Chaitanya Perry E11.9 Type 2 diabetes Misael - Anisha Gaytan,FACP mellitus without [address] complications H62.41 Otitis externa in oth diseases classd elswhr, right ear Z12.31 Encntr screen mammogram for malignant neoplasm of breast Office Visit 11/21/2017 Pulmonology And Macrina G47.33 Obstructive sleep 1:45p Sleep Services Of JORGE LUIS Grande RN, apnea (adult) [facility] [employer]BC (pediatric) G47.37 Central sleep apnea in conditions classified elsewhere Z68.32 Body mass index (BMI) 32.0-32.9, adult Office Visit 10/19/2017 [facility] D72.829 Elevated white 11:27a Assoc,sundeep Ghotra M.D. blood cell count, Hospitalists unspecified E83.42 Hypomagnesemia G47.33 Obstructive sleep apnea (adult) (pediatric) Office Visit 10/18/2017 11:26a [facility] Essential Assoc,sundeep Clarke MD (primary) Hospitalists hypertension E11.9 Type 2 diabetes mellitus without complications G47.33 Obstructive sleep apnea (adult) (pediatric) E83.42 Hypomagnesemia D72.829 Elevated white blood cell count, unspecified Office Visit 10/18/2017 2:22p Pulmonology And Rosa G47.33 Obstructive sleep Sleep Services Of MD Chris apnea (adult) [facility] (pediatric) G47.37 Central sleep apnea in conditions classified elsewhere R50.9 Fever, unspecified D72.829 Elevated white blood cell count, unspecified Office Visit 10/17/2017 11:25a [facility] Osbaldo I10 Essential Assoc,sundeep Clarke MD (primary) Hospitalists hypertension G47.33 Obstructive sleep apnea (adult) (pediatric) K80.20 Calculus of gallbladder w/o cholecystitis w/o obstruction Office 10/16/2017 Neurosurgery Vassilios M51.16 Intervertebral disc Visit 4:00p Services Of Marilin Ch MD disorders w radiculopathy, lumbar region M43.16 Spondylolisthesis, lumbar region M47.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, lumbar region Office Visit 10/10/2017 Pulmonology And Macrina G47.33 Obstructive sleep 11:00a Sleep Services Of JORGE LUIS Grande RN, apnea (adult) [facility] [employer] (pediatric) G47.37 Central sleep apnea in conditions classified elsewhere G47.14 Hypersomnia due to medical condition Z68.33 Body mass index (BMI) 33.0-33.9, adult Office Visit 10/06/2017 [facility] Ramin Perry Z01.818 Encounter for other 9:20a Misael Gaytan M.D.,FACP preprocedural [address] examination E11.9 Type 2 diabetes mellitus without complications G47.33 Obstructive sleep apnea (adult) (pediatric) R91.1 Solitary pulmonary nodule G89.4 Chronic pain syndrome Office Visit 09/13/2017 Surgical Serena Jeremie K80.80 Other cholelithiasis 10:00a Associates Of MD Farshad without obstruction [facility] Office Visit 08/16/2017 Surgical Serena Jeremie K80.80 Other cholelithiasis 8:30a Associates Of MD Farshad without obstruction [facility] Office Visit 08/09/2017 [facility] Ramin Perry 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, thyroid nodule Rd M.[place],FACP M51.16 Intervertebral disc disorders w radiculopathy, lumbar region E11.9 Type 2 diabetes mellitus without complications K80.80 Other cholelithiasis without obstruction Office Visit 07/24/2017 10:45a Pulmonology And Rosa G47.33 Obstructive sleep Sleep Services Of MD Chris apnea (adult) [facility] (pediatric) G47.37 Central sleep apnea in conditions classified elsewhere R53.83 Other fatigue Office Visit 07/04/2017 Surgical Serena Jeremie 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 10:00a Associates Of Marilin Yen MD thyroid nodule Office Visit 06/26/2017 Surgical Serena Jeremie 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 3:00p Associates Of Marilin Yen MD thyroid nodule Office Visit 06/20/2017 Neurosurgery Vassilios M51.16 Intervertebral disc 11:30a Services Of [facility] MD Jing disorders w radiculopathy, lumbar region G47.33 Obstructive sleep apnea (adult) (pediatric) M54.5 Low back pain M47.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, lumbar region M43.16 Spondylolisthesis, lumbar region Office Visit 06/05/2017 1:40p [facility] Ramin Perry 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D.,FACP pulmonary nodule Rd M47.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, lumbar region N10 Acute pyelonephritis G89.4 Chronic pain syndrome K80.80 Other cholelithiasis without obstruction Office 05/02/2017 Neurosurgery Vassilios M47.26 Other spondylosis Visit 11:30a Services Of Marilin Ch MD with radiculopathy, lumbar region M54.2 Cervicalgia Office Visit 04/28/2017 [facility] Internal Chaitanya Perry N10 Acute 4:00p Medicine - Tbguillaume Gaytan, pyelonephritis Rd Anisha,FACP Office Visit 04/24/2017 [facility] Internal Darrian Carrera NP M54.5 Low back pain 8:40a Medicine - [place] Office Visit 03/29/2017 [facility] Internal [place] M51.16 Intervertebral disc 11:40a Medicine - P[place], disorders w Ana Lancaster radiculopathy, lumbar region Office Visit 02/21/2017 Orthopedic Gustabo Larson, S46.012D Strain of musc/ tend 10:30a Services Of the rotator cuff of C.M.A. left shoulder, subs Office Visit 02/07/2017 Orthopedic Gustabo Larson S46.012D Strain of musc/ tend 10:45a Services Of the rotator cuff of C.M.A. left shoulder, subs M76.52 Patellar tendinitis, left knee M17.0 Bilateral primary osteoarthritis of knee M17.12 Unilateral primary osteoarthritis, left knee Office Visit 01/23/2017 10:00a Pulmonology And Rosa G47.33 Obstructive sleep Sleep Services Of MD Chris apnea (adult) [facility] (pediatric) Office Visit 01/12/2017 11:30a Orthopedic Gustabo Larson, M17.12 Unilateral Services Of Angelina GONZALEZ primary osteoarthritis, left knee M76.52 Patellar tendinitis, left knee S46.012D Strain of musc/tend the rotator cuff of left shoulder, subs M25.512 Pain in left shoulder M17.0 Bilateral primary osteoarthritis of knee Office Visit 01/02/2017 10:50a [facility] Ramin Perry Z00.01 Encounter for Misael Gaytan M.D.,FACP general adult [address] medical exam w abnormal findings E11.9 Type 2 diabetes mellitus without complications M19.012 Primary osteoarthritis, left shoulder G47.33 Obstructive sleep apnea (adult) (pediatric) L90.0 Lichen sclerosus et atrophicus Z23 Encounter for immunization Office Visit 12/01/2016 Orthopedic Gustabo Larson, M17.12 Unilateral primary 2:00p Services Of osteoarthritis, left C.M.A. knee M76.52 Patellar tendinitis, left knee S46.012D Strain of musc/tend the rotator cuff of left shoulder, subs M19.012 Primary osteoarthritis, left shoulder Office Visit 11/04/2016 4:20p [facility] Ramin Perry W10.8xxD Fall (on ) Medicine Michael Gaytan M.D.,FACP (from) other Rd stairs and steps, subs encntr M25.512 Pain in left shoulder Office Visit 08/11/2016 10:10a [facility] Ramin Perry E11.9 Type 2 diabetes Misael Gaytan M.D.,FACP mellitus without [address] complications M19.012 Primary osteoarthritis, left shoulder E78.2 Mixed hyperlipidemia Office Visit 07/22/2016 Pulmonology And Rosa G47.33 Obstructive sleep 9:15a Sleep Services Of MD Chris apnea (adult) [facility] (pediatric) Office Visit 06/20/2016 Pulmonology And Rosa G47.33 Obstructive sleep 9:45a Sleep Services Of MD Chris apnea (adult) [facility] (pediatric) Office Visit 05/04/2016 [facility] Ramin Perry E11.9 Type 2 diabetes 11:30a Medicine Michael [place], mellitus without Rd M.D.,FACP complications M19.012 Primary osteoarthritis, left shoulder Office Visit 05/02/2016 10:00a Pulmonology And Rosa G47.33 Obstructive sleep Sleep Services Of MD Chris apnea (adult) [facility] (pediatric) E66.09 Other obesity due to excess calories Office Visit 03/18/2016 11:00a Pulmonology And Rosa G47.33 Obstructive sleep Sleep Services Of MD Chris apnea (adult) [facility] (pediatric) E66.09 Other obesity due to excess calories G89.29 Other chronic pain Z68.35 Body mass index (BMI) 35.0-35.9, adult Office Visit 03/01/2016 Orthopedic Gustabo Larson, M19.012 Primary 8:00a Services Of osteoarthritis, left C.M.A. shoulder S46.011A Strain of musc/tend the rotator cuff of right shoulder, init Office Visit 02/03/2016 11:30a [facility] Internal Chaitanya Perry M25.512 Pain in left Misael Gaytan M.D.,FACP shoulder [address] E11.9 Type 2 diabetes mellitus without complications Office Visit 01/01/2016 2:00p [facility] Internal Chaitanya Perry Z00.01 Encounter for Misael Gaytan M.D.,FACP general adult [address] medical exam w abnormal findings E11.9 Type 2 diabetes mellitus without complications E78.2 Mixed hyperlipidemia R09.02 Hypoxemia Z12.31 Encntr screen mammogram for malignant neoplasm of breast I10 Essential (primary) hypertension Office Visit 11/20/2015 1:40p [facility] Internal Chaitanya Gaytan, R51 Headache Medicine - [place] José Manuel Lancaster,FACP R53.83 Other fatigue E78.2 Mixed hyperlipidemia R09.02 Hypoxemia Office Visit 11/05/2015 9:40a [facility] Internal Gilbert E11.9 Type 2 diabetes Misael Pelletier M.D. mellitus without [address] complications R51 Headache Office Visit 08/04/2015 10:10a [facility] Internal Chaitanya Gaytan, R30.0 Dysuria Misael Perez M.D.,FACP N39.0 Urinary tract infection, site not specified Office Visit 07/27/2015 2:40p [facility] Internal Duy Chavez J06.9 Acute upper Misael Evans M.D. respiratory [place] infection, unspecified Office Visit 03/16/2015 10:00a [facility] Internal Jerome Zuleta, N77.1 Vaginitis , vulvitis Medicine Michael Villatoro [employer]IST and vulvovaginitis Rd in dis classd elswhr R30.0 Dysuria F06.4 Anxiety disorder due to known physiological condition N76.0 Acute vaginitis F41.9 Anxiety disorder, unspecified Office Visit 02/06/2015 [facility] Internal Chaitanya Perry S06.5x0D Traum subdr hem w/o 9:40a Misael Gaytan M.D.,FACP loss of [address] consciousness, subs M24.031 Loose body in right wrist E11.9 Type 2 diabetes mellitus without complications Office Visit 01/09/2015 1:00p [facility] Internal Misael Zuleta, [employer] R30.[address] N39.0 Urinary tract infection, site not specified Office Visit 12/15/2014 10:30a [facility] Ramin Perry 850.0 Concussion W/ No Misael Gaytan M.D.,FACP Loss Of [address] Consciousness 250.00 Diabetes Mellitus W/O Compl Type II Or Unspec Controlled 293.84 Anxiety Disorder Conditions Classified Elsewhere Office Visit 11/20/2014 9:40a Orthopedic Juan Savage 726.10 Bursae & Tendon Services Of Anisha Disorders Shoulder C.M.A. Region Unspec Office Visit 10/09/2014 11:00a Nati Savage 726.10 Bursae & Tendon Services Of Anisha Disorders Shoulder C.M.A. Region Unspec Office Visit 09/03/2014 3:00p [facility] Internal Chaitanya Perry V70.0 Examination Medicine Michael Gaytan [facility] Rd Anisha,FACP Routine AT Health Care Facility 850.5 Concussion W/ Loss Consciousness Of Unspec Duration 250.00 Diabetes Mellitus W/O Compl Type II Or Unspec Controlled 726.19 Shoulder Disorders Other Spec V76.19 Screening Breast Exam Malignant Neoplasms Other Office Visit 07/16/2014 9:00a [facility] Internal Gilbert Vickra, 250.00 Diabetes Medicine Michael Lancaster Mellitus W/O [address] Compl Type II Or Unspec Controlled 780.52 Insomnia Unspecified 461.9 Sinusitis Acute Unspec 850.5 Concussion W/ Loss Consciousness Of Unspec Duration Office Visit 06/16/2014 1:30p [facility] Internal Shad Issa, 465.8 Upper Respiratory Medicine - [place] [employer]IST Infections Acute Rd Other Multiple Sites 465.9 URI Upper Respiratory Infections Acute Unspec Sites Office Visit 12/25/2013 11:10a [facility] Internal Chaitanya Perry 250.00 Diabetes Misael Gaytan M.D.,[facility] Mellitus W/O [place] Compl Type II Or Unspec Controlled 401.1 Hypertension Benign V03.1 Typhoid-Paratypoid Vaccination & Inoculation v03.82 Streptococcus Pneumoniae Vaccination Spec Other Office Visit 12/10/2013 10:45a Orthopedic Juan Savage 715.14 Osteoarthrosis Services Of Anisha Localized Prim Hand C.M.ASarah 726.11 Tendinitis Calcifying Shoulder Office 12/03/2013 Orthopedic Suzette 715.14 Osteoarthrosis Visit 10:00a Services Of Anisha Palacios Localized Prim Hand C.M.A. Office 11/12/2013 Orthopedic Juan Savage M.D. 726.11 Tendinitis Visit 10:30a Services Of Calcifying Shoulder C.M.A. Office 09/10/2013 Orthopedic Juan Savage M.D. 726.11 Tendinitis Visit 10:30a Services Of Calcifying Shoulder C.M.A. Office 06/03/2013 [facility] Internal Chaitanya Gaytan, V70.0 Examination General Visit 10:30a Misael Rodriguez M.D.,[facility] Medical Routine AT [facility] 569.0 Polyp Anal & Rectal 401.1 Hypertension Benign 250.00 Diabetes Mellitus W/O Compl Type II Or Unspec Controlled V76.10 Screening For Malignant Neoplasm Breast Office Visit 05/29/2013 2:20p [facility] Ramin Perry 364.60 Cyst Idiopathic Misael Gaytan M.D.,[place] 726.19 Shoulder Disorders Other Spec Office Visit 03/29/2013 9:00a [facility] Internal Chaitanya Perry 691.8 Dermatitis Atopic Misael Gaytan M.D.,[facility] & Related [place] Conditions Other 401.1 Hypertension Benign 272.0 Hypercholesterolemia Pure Office Visit 12/04/2012 10:30a [facility] Ramin Perry 722.93 Disc Disorder Misael Gaytan M.D.,[facility] Other & Unspec [place] Lumbar Region 250.00 Diabetes Mellitus W/O Compl Type II Or Unspec Controlled Office Visit 06/05/2012 9:50a [facility] Internal Chaitanya Perry V70.0 Examination Misael Gaytan M.D.,[facility] Routine AT Health Care Facility 250.00 Diabetes Mellitus W/O Compl Type II Or Unspec Controlled 564.1 Irritable Bowel Syndrome 726.19 Shoulder Disorders Other Spec Office Visit 12/07/2011 3:40p [facility] Internal Chaitanya Perry 250.00 Diabetes Misael Gaytan M.D.,[facility] Mellitus W/O [place] Compl Type II Or Unspec Controlled 455.3 Hemorrhoids External W/O Complication V04.81 Need For Prophylactic Vaccination & Inoculation/Influenza Office Visit 05/30/2011 11:10a [facility] Internal Chaitanya Perry V70.0 Examination Misael Gaytan M.D.,[facility] Routine AT Health Care Facility 250.00 Diabetes Mellitus W/O Compl Type II Or Unspec Controlled 571.8 Liver Disease Chronic Nonalcoholic Other V76.10 Screening For Malignant Neoplasm Breast 569.3 Hemorrhage Rectum & Anus V82.81 Special Screening For Osteoporosis 564.1 Irritable Bowel Syndrome 333.1 Tremor Essential & Other Forms Office Visit 12/27/2010 1:00p DO Not Use Marilin Colin, 250.00 Diabetes Mellitus AT [facility] W/O Compl Type II Or Unspec Controlled 272.0 Hypercholesterolemia Pure 401.1 Hypertension Benign V72.84 Examination Preoperative Unspec Office Visit 11/30/2010 11:30a DO Not Use Marilin Perry 250.00 Diabetes Mellitus AT Pas[place]agvaleria Gaytan M.D.,[facility] W/O Compl Type II Or Unspec Controlled 272.0 Hypercholesterolemia Pure 401.1 Hypertension Benign 726.71 Bursitis Or Tendinitis Achilles Office Visit 05/27/2010 10:00a DO Not Use Marilin Perry V70.0 Examination AT Perez Gaytan M.D.,[facility] General Medical Routine AT Health [facility] 272.0 Hypercholesterolemia Pure 250.00 Diabetes Mellitus W/O Compl Type II Or Unspec Controlled 571.8 Liver Disease Chronic Nonalcoholic Other 780.79 Malaise And Fatigue Other 724.1 Pain Thoracic Spine V03.82 Streptococcus Pneumoniae Vaccination Spec Other Office Visit 05/25/2010 3:40p DO Not Use Dry Folder Cloth Chaitanya Perry 462 Pharyngitis Acute AT Perez Gaytan M.D.,[facility] Office Visit 10/26/2009 11:40a DO Not Use Dry Folder Cloth Gaetano, 461.0 Sinusitis Acute AT [facility] MD Amaury Maxillary Office Visit 08/25/2009 12:45p DO Not Use Dry Folder Cloth Chaitanya Perry 473.8 Sinusitis Chronic AT Perez Gaytan M.D.,[facility] Other 571.8 Liver Disease Chronic Nonalcoholic Other 786.2 Cough Office Visit 05/13/2009 3:00p DO Not Use Dry Folder Cloth Chaitanya Perry V70.0 Examination AT Perez Gaytan M.D.,[facility] General Medical Routine AT Health Care Facility 780.79 Malaise And Fatigue Other 401.1 Hypertension Benign 272.4 Hyperlipidemia Other Unspec 250.00 Diabetes Mellitus W/O Compl Type II Or Unspec Controlled Office Visit 04/16/2009 1:45p DO Not Use Dry Folder Cloth Ronan Acosta, 461.9 Sinusitis Acute AT Perez Lancaster Unspec 477.9 Rhinitis Allergic Cause Unspec 401.1 Hypertension Benign Office Visit 10/07/2008 11:00a DO Not Use Dry Folder Cloth Chaitanya Perry 682.7 Cellulitis & AT Perez Gaytan M.D.,[facility] Abscess Foot Except Toes 272.4 Hyperlipidemia Other Unspec 724.02 Spinal Stenosis, Lumbar Region, W/O Neurogenic Claudication 578.1 Blood In Stool Melena Office Visit 09/29/2008 DO Not Use Dry Folder Cloth Quita Mondragon PA 682.7 Cellulitis & 3:30p AT [facility] Abscess Foot Except Toes Office Visit 06/03/2008 DO Not Use Dry Folder Cloth Chaitanya Gaytan, 790.21 [facility]aired 1:20[facility] Fasting Glucose 272.4 Hyperlipidemia Other Unspec 724.02 Spinal Stenosis, Lumbar Region, W/O Neurogenic Claudication Office Visit 04/09/2008 DO Not Use Dry Folder Cloth Quita Mondragon PA V72.84 Examination 11:00a AT [facility] Preoperative Unspec 401.1 Hypertension Benign 272.4 Hyperlipidemia Other Unspec 724.02 Spinal Stenosis, Lumbar Region, W/O Neurogenic Claudication 461.9 Sinusitis Acute Unspec Office Visit 02/15/2008 2:40p DO Not Use Dry Folder Cloth Chaitanya Perry 722.0 Intervertebral Disc AT Perez Gaytan M.D.,[facility] Displacement Cervical W/O Myelopathy 250.00 Diabetes Mellitus W/O Compl Type II Or Unspec Controlled 705.89 Sweat Gland Disorders Other Office Visit 12/10/2007 DO Not Use Dry Folder Cloth Chaitanya Perry V72.81 Examination 3:40p AT Perez Gaytan M.D.,[facility] Preoperative Cardiovascular 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 401.1 Hypertension Benign 272.4 Hyperlipidemia Other Unspec Office Visit 11/06/2007 1:40p DO Not Use Dry Folder Cloth AT Chaitanya Gaytan, 791.0 Proteinuria Perez Lancaster,[facility] 272.2 Hyperlipidemia Mixed 401.1 Hypertension Benign 724.02 Spinal Stenosis, Lumbar Region, W/O Neurogenic Claudication 790.21 Impaired Fasting Glucose Office Visit 07/31/2007 1:00p DO Not Use Dry Folder Cloth Chaitanya Perry 790.21 Impaired AT Perez Gaytan M.D.,[facility] Fasting Glucose 272.4 Hyperlipidemia Other Unspec 401.1 Hypertension Benign 715.04 Osteoarthrosis Generalized Hand 473.1 Sinusitis Chronic Frontal 327.23 Obstructive Sleep Apnea Adult & Pediatric Office 07/04/2007 DO Not Use Quita Mondragon PA 715.04 Osteoarthrosis Visit 1:30p Dry Folder Cloth AT [facility] Hand [facility] Office 05/01/2007 DO Not Use Chaitanya Gaytan, 327.23 Obstructive Sleep Visit 3:40p Dry Folder Cloth AT Anisha,[facility] Apnea Adult & [facility] Pediatric 296.30 Depressive Disorder Major Recurrent Unspec 278.01 Obesity Morbid 401.1 Hypertension Benign 272.4 Hyperlipidemia Other Unspec 724.5 Backache Unspec Office Visit 02/16/2007 9:00a DO Not Use Dry Folder Cloth Chaitanya Perry 462 Pharyngitis Acute AT Perez Gaytan M.D.,[facility] 401.1 Hypertension Benign 272.4 Hyperlipidemia Other Unspec Plan of Treatment Future Appointment(s):07/04/2018 11:20 am - OKSANA Rasmussen at [facility] Internal Medicine - [address]04/09/2018 2:00 pm - Lanette Ch MD at Neurosurgery Services Of [facility]02/11/2019 11:15 am - Macrina Grande DNP, RN, [employer]- BC at Pulmonology And Sleep Services Of [facility]04/04/2018 - Kandace Pugh, [facility] Encounter for general adult medical examination without abnoComments: For your routine health maintenance: We reviewed healthy lifestyle practices, specifically, strategies to maintain a durable ideal body weight and an aerobic exercise routine.Follow up:3 month for DME11.9 Type 2 diabetes mellitus without complicationsNew Medication:Metformin HCL 500 mg - 1 by mouth twice a dayComments:We will need to treat your diabetes aggressively to reduce the risk for complications.The tingling in your toes are likely caused by neuropathy.Please start back on Metformin and initiate dietary changes. You aslo need a diabetic eye exam ASAPPlease have exam results [facility] Essential (primary) hypertensionComments:Please start back on Losartan and take the propanolol religiously.Start to monitor your blood pressure. If you find your readings are consistently higher than 140/90, please give the office a call.M85.9 Disorder of bone density and structure, unspecifiedComments: OSTEOPENIA:You should be getting at least 1200 mg of calcium and 800 IU of Vitamin D on a daily basis in your diet and/or with supplementation. Calcium citrate is the most bioavailable preparation. It is also very important to be doing weight bearing exercises regularly.Your last DEXA (bone density test) was in 2018We will schedule another one in 2 vprljE64.33 Obstructive sleep apnea ( adult) (pediatric)Comments:Review of risks of untreated sleep apnea including cardiovascular events: rhythm irregularities, heart attack, stroke; gastro esophageal reflux disease (GERD); diabetes; anxiety, depression; high bloodpressure; accidents (machinery and automobile)Referral:Rosa Perez MD , Pulmonary Diseases
[2018-04-05 04:30] LABS: ABS Basophils 0.1 10^3/ul (0-0.2); ABS Eosinophils 0.2 10^3/ul (0-0.6); ABS Lymphocytes 1.8 10^3/ul (1.0-4.8); ABS Monocytes 0.8 10^3/ul (0-0.8); ABS Neutrophils 5.3 10^3/ul (1.5-7.7); ABS Nucleated RBC 0 10^3/ul; Eosinophil % 2.4 %; Hematocrit 42 % (35-47); Lymphocyte % 22.3 %; Mean Corpuscular HGB Conc 33 g/dl (31-36); Mean Corpuscular Hemoglobin 30 pg (27-31); Mean Corpuscular Volume 90 fL (80-97); Mean Platelet Volume 7.6 fL (7.4-10.4); Nucleated Red Blood Cells % 0; Platelet Count 230 10^3/ul (150-450); Red Cell Distribution Width 14 % (10.5-15); White Blood Count 8.1 10^3/ul (3.5-10.8)
[2018-04-05 04:44] LABS: Urine Appearance Clear; Urine Bilirubin Negative (Negative); Urine Blood Negative (Negative); Urine Color Colorless; Urine Glucose Negative (Negative); Urine Ketones Negative (Negative); Urine Nitrite Negative (Negative); Urine Protein Negative (Negative); Urine Specific Gravity 1.003 (1.010-1.030); Urine Urobilinogen Negative (Negative)
[2018-04-05 04:47] LABS: Albumin 3.7 g/dL (3.2-5.2); Albumin/Globulin Ratio 1.5 (1-3); BUN/Creatinine Ratio 14.9 (8-20); Calcium 9.1 mg/dL (8.6-10.3); EGFR Non-African American 86.5 (>60); Globulin 2.4 g/dL (2-4); Potassium 3.7 mmol/L (3.5-5.0); Total Bilirubin 0.4 mg/dL (0.2-1.0); Total Protein 6.1 g/dL (6.4-8.9)
[2018-04-05] MEDS ORDERED: Codeine TAB* 30 MG PO ONE (04:54)
[2018-04-05 05:16] LABS: Erythrocyte Sed Rate 10 mm/Hr (0-40)
--- NOTE | 2018-04-05 07:11 | ED ---
Progress - Progress Note Progress Note: This pt was signed out by Dr. Del Angel at shift change, pending disposition, awaiting brain CT. Pt is a 72 y/o female who presents to the ED for headache since 03:30 today. Headache location started on her left sabianism and radiated down her left jaw. Pt had wellness visit yesterday morning and had BP of 160/100 and couldn't see well from her left eye. Per , pt missed a dose of her antihypertensive medication the day before yesterday. This morning her BP was also elevated, pt took her daily dose of antihypertensive medication and 6 hours later took an extra dose. Per , pt's blood pressure increased 20 minutes after second dose. She states she has been taking pills oil-based from a company called [employer] for the pain and has been off morphine for 4 months now. EKG at 07:10 Rate: Bradycardia at 43 bpm Rhythm: Sinus Bradycardia No STEMI. EKG at 10:01 Rate: Bradycardia at 54 bpm Rhythm: Sinus bradycardia No STEMI. Brain CT, as read by radiologist IMPRESSION: No acute findings. Dr. Mota has reviewed this report. Re-Evaluation - Re-Evaluation First Eval Re-Evaluation Time: 07:54 Change: Improved Comment: HR is 53 bpm. Pt reports her headache "does not feel completely normal , I can't say it hurts." She also developed some chest pain while in the ED, that is described as sore and pressure, about 1 hour ago. This episode lasted for 30 minutes and has now resolved. Second Eval Re-Evaluation Time: 08:07 Change: Unchanged Comment: I reviewed the lab, EKG, and CT results with the pt. I discussed with the pt and the plan for admission. They understand and agree. Course/Dx - Course Course Of Treatment: This pt was signed out by Dr. Del Angel at shift change. Pt is a 72 y/o female who presents to the ED for headache since 03:30 today and elevated blood pressure since yesterday. She states she took an extra dose of her propranolol at 0300 today. Pt also developed an episode of chest pain while in the ED that lasted for 30 minutes but resolved. She received an aspirin. Brain CT is negative. Heart rate is currently in the mid 40s/low 50s. I discussed the case with Dr. Mcnair, hospitalist, who accepted the pt for admission. - Diagnoses Provider Diagnoses: Symptomatic bradycardia, Uncontrolled hypertension, Chest pain, unspecified - Provider Notifications Discussed Care Of Patient With: Dior Mcnair - hospitalist Time Discussed With Above Provider: 08:18 Instructed by Provider To: Admit As Inpatient Discharge - Sign-Out/Discharge Documenting (check all that apply): Patient Departure - [place] [facility] Sign-Out Receiving patient FROM: Mathew Del Angel - Discharge Plan Condition: Stable Disposition: ADMITTED TO [facility] Referrals: Chaitanya Gaytan MD [Primary Care Provider] - - Attestation Statements Document Initiated by Scribe: Yes Documenting Scribe: Maira Cat Provider For Whom Scribe is Documenting (Include Credential): Nayan Mota MD Scribe Attestation: Maira Maxwell, scribed for Nayan Mota MD on 04/05/18 at 1012. Status of Scribe Document: Ready
[2018-04-05] MEDS ORDERED: Aspirin 81 mg CHEW TAB* 81 MG TAB.CHEW PO ONE (08:04)
[2018-04-05] MEDS ORDERED: Docusate CAP* 100 MG PO PRN (10:38)
[2018-04-05] MEDS ORDERED: Cyclobenzaprine TAB* 10 MG PO PRN (10:38)
[2018-04-05] MEDS ORDERED: Polyethylene Glycol 3350* 17 GM PACKET PO PRN (10:38)
[2018-04-05] MEDS ORDERED: amLODIPine TAB* 5 MG PO ONE (10:40)
[2018-04-05 16:00] VITALS: BP 115/71
[2018-04-05] MEDS ORDERED: NF:Pitavastatin (NF) 2 MG TAB PO SCH (18:00)
[2018-04-05] MEDS ORDERED: Losartan TAB* 25 MG PO SCH (18:00)
--- NOTE | 2018-04-05 19:55 | HP ---
CC: Dr. Gaytan * HISTORY AND PHYSICAL AND DISCHARGE SUMMARY: DATE OF ADMISSION AND DISCHARGE: 04/05/18 PRIMARY CARE PROVIDER: Dr. Gaytan CHIEF COMPLAINT: Hypertension. HISTORY OF PRESENT ILLNESS: Ms. 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 She states that she awakened from sleep at approximately 3 a.m. with complaints of severe left anabaptist pain consistent with a headache. Her woke up and took her blood pressure and it was noted to be markedly elevated with the systolic over 220. The patient at that time took an extra dose of propranolol as it had been several hours since her prior dose. The patient had no improvement in her blood pressure and therefore presented to the emergency room. She does also note that at her wellness visit on the afternoon of , her blood pressure was elevated at 160/100 which is much higher than her baseline. She is unclear what her blood pressure had been doing over the last several days, however, as she has not been checking it at home. She also states that she was intermittently not been taking her medications as prescribed. Also in the emergency room, the patient noted very mild chest discomfort. She had no associated nausea, vomiting, or diaphoresis. She had no associated shortness of breath. She felt it was related to positioning; however , the decision was made to admit the patient under observation status to be ruled out for an acute coronary syndrome, potentially obtain stress test and control blood pressure. PAST MEDICAL HISTORY: 1. SAMMY, utilizing BiPAP intermittently. 2. Diet-controlled diabetes. 3. Hypertension. 4. Hyperlipidemia. 5. Fibromyalgia. 6. Chronic neck and back pain. 7. OA. 8. Lumbosacral spondylosis. 9. History of pulmonary nodule. 10. History of thyroid nodule. PAST SURGICAL HISTORY: 1. Spinal stimulator. 2. Questionable surgery for pyloric stenosis as an . 3. Cholecystectomy. 4. x2. 5. Neck surgery. 6. Lumbar spinal surgery. MEDICATIONS: 1. Losartan 100 mg p.o. q.h.s. 2. Duloxetine DR 60 mg p.o. daily. 3. Codeine 30 mg p.o. b.i.d. p.r.n. pain. 4. Vitamin D 1000 units p.o. daily. 5. Bisacodyl 5 mg p.o. daily p.r.n. constipation. 6. Pitavastatin 2 mg p.o. q.h.s. 7. Multivitamin 1 tab p.o. daily. 8. Colace 100 mg p.o. q.h.s. p.r.n. constipation. 9. Flexeril 10 mg p.o. t.i.d. p.r.n. pain. 10. CoQ10 100 mg p.o. daily. 12. Propranolol 60 mg p.o. b.i.d. 13. MiraLAX 1 packet p.o. daily p.r.n. constipation. ALLERGIES: GABAPENTIN, STATINS, AMITRIPTYLINE, CLONIDINE, AMOXICILLIN, and LISINOPRIL. FAMILY HISTORY: The patient's mom of throat cancer. Dad because of heart disease. SOCIAL HISTORY: The patient is a lifelong nonsmoker. She denies any alcohol use. She is . Her is her healthcare proxy. REVIEW OF SYSTEMS: Complete 11-system review of systems was obtained. Pertinent positives and negatives are as per HPI and otherwise negative. PHYSICAL EXAMINATION GENERAL: The patient is a well-developed elderly female, seen sitting up in the stretcher, in no acute distress. VITAL SIGNS: Blood pressure 137/67, pulse 48, respirations 13, O2 sat 99% on room air. HEENT: Pupils are equal, round. Extraocular muscles are intact. Oropharynx is clear. Oral mucosa is moist. There is no submandibular, cervical, or supraclavicular adenopathy. Thyroid is not enlarged. No thyroid nodules noted. PULMONARY: Lungs are clear to auscultation bilaterally. CARDIAC: Normal S1, S2. Heart rate is bradycardic but regular. I do not appreciate any murmurs. ABDOMEN: Bowel sounds are present. Abdomen is soft, nontender, nondistended. MUSCULOSKELETAL: There is no edema. There is full range of motion of all 4 extremities. NEURO: Cranial nerves II through XII are grossly intact. Sensation is intact to light touch throughout. Strength is 5/5 and symmetric to both upper and lower extremities bilaterally. PSYCH: The patient is alert. She is oriented x3. Affect appears appropriate. SKIN: Warm and dry. There are no rashes. DIAGNOSTIC STUDIES/LAB DATA: WBC 8.1, hemoglobin 14.0, hematocrit 42, platelets 230. Sodium 140, potassium 3.7, chloride 102, CO2 of 33, BUN 10, creatinine 0.67, glucose 117, lactic acid 1.3. Calcium 9.1, bilirubin 0.4, AST 16, ALT 13, alk phos 69. Troponin 0. Albumin 3.7. Urinalysis is negative for signs of infection. EKG reveals sinus bradycardia without any acute ST-T wave abnormalities. CT brain reveals no acute findings. ASSESSMENT AND PLAN: Ms. Rowe is a 72-year-old female with a history of hypertension, diet-controlled type 2 diabetes, obstructive sleep apnea, and chronic pain, who presents to the emergency room with complaints of markedly elevated blood pressure, severe headache, and mild chest pain. 1. Hypertensive urgency. My suspicion is the patient's headache is related to her hypertensive urgency. She received 60 mg of diltiazem x2 in the emergency room. With this her blood pressure has improved significantly. She is, however , now bradycardic. The patient will be admitted under observation status to have her blood pressure monitored. If her blood pressure remains moderately elevated in the 150 to 160 systolic range, we will add amlodipine 2.5 mg daily. 2. Chest pain. The patient admits to very mild chest discomfort without any associated symptoms. I will attempt to get a stress test while she is here in the hospital. My hope is that the patient can be discharged home later this afternoon. 3. Type 2 diabetes. As of now, the patient will be n.p.o. for possible stress test later. 4. Chronic pain. The patient has order for codeine; however, has been using copaiba oil. The patient states that this has dramatically improved her pain and she has not been using the codeine recently. 5. DVT prophylaxis: According to the Adult Thrombosis Prophylaxis Risk Factor Assessment Guide, the patient has a total risk factor score of 3, making her high risk. As the patient will likely be discharged home later this afternoon, ambulating will be utilized as DVT prophylaxis. 6. Code status is full. DISCHARGE SUMMARY: The patient was admitted and observed for approximately 8 hours. The patient's blood pressure improved to within normal range. She did not receive amlodipine 2.5 mg. I have asked the patient to check her blood pressures twice daily and at different times throughout the day and record these values and take them to a followup appointment with her primary care provider. She has, however, been instructed to return to emergency room if she develops marked hypertension or severe headache again. In terms of the chest pain, the stress test was unable to be performed. The patient's EMMANUEL risk score is 1 to 2. At this point, as opposed to holding the patient overnight, I will discharge the patient with an order for an outpatient stress test. The patient understands she will be contacted by the cardiac group to set this up for hopefully Monday next week. The patient has been instructed to return to the emergency room if she develops any chest pain. It is possible the chest discomfort she had could be positional; however, also could have been related to her marked hypertension. The patient has ambulated around the unit without any lightheadedness or dizziness. Her heart rate has improved into the low 60s at rest. At this point, the patient is felt to be stable for discharge home. FOLLOWUP CONCERNS: The patient is being discharged home today, 04/05/18. Activity level is as tolerated. Diet is heart healthy. Condition on discharge is stable. TIME SPENT: 90 minutes was spent on the admission and discharge of this patient. [id number]/[facility] #: [id number] DAVID
[2018-04-05] MEDS ORDERED: Propranolol LA CAP* 60 MG PO SCH (21:00)
[2018-04-06] MEDS ORDERED: DULoxetine DR CAP* 60 MG CAP.DR PO SCH (09:00)
== END 2018-04-05 17:21 | disposition home or self-care (01) ==
LOC: ED 03:44 → MEDTELE 08:43
PROVIDERS: ADMIT Hospitalist; ATTEND Hospitalist
DX: I10 Essential (primary) hypertension (principal); R07.9 Chest pain, unspecified; R51 Headache; G47.33 Obstructive sleep apnea (adult) (pediatric); E11.9 Type 2 diabetes mellitus without complications; E78.5 Hyperlipidemia, unspecified; M79.7 Fibromyalgia; M54.2 Cervicalgia; M54.9 Dorsalgia, unspecified; G89.29 Other chronic pain; M19.90 Unspecified osteoarthritis, unspecified site; M47.817 Spondylosis without myelopathy or radiculopathy, lumbosacral region; Z86.711 Personal history of pulmonary embolism; Z86.39 Personal history of other endocrine, nutritional and metabolic disease; R00.1 Bradycardia, unspecified
CPT/HCPCS: 36415; 70450; 80053; 81003; 83605; 84484; 85025; 85652; 93005; 96374; 99285; A9270-GY; G0378

== ENCOUNTER → 2019-02-26 09:54 | Day surgery (SDC) | payer MEDICARE ==
[~2019-02-26 09:54] MED LIST changes: +Bacitracin INJECTION* 50,000 UNITS ONE; -Buffered Lidocaine 0.9% SYRIN* 5 ML/SYR SYRINGE INTRADERM ONE; +Buffered Lidocaine 1% SYRIN* 1 ML/SYRINGE INTRADERM ONE; +Bupivacaine 0.25% SDV* 30 ML ONE; -Bupivacaine 0.25% W/EPI* 10 ML SDV ONE; -Bupivacaine 0.5% SDV PF* 30ML VIAL ONE; +Clindamycin 900 MG/D5W BAG(*) 900 MG/50 ML BAG IVPB ONE; -Dexamethasone IV* 4 MG/ML 1 ML (4 MG) IV SLOW PU ONE; -Famotidine IV* 10 MG/ML 2 ML (20 mg) IV ONE; +Gentamicin ADULT (*) 40 MG/ML VIAL (2 ML VIAL = 80 MG) ONE; -Iohexol 180 (CONTRAST) 10 ML SDV IV ONE; +Labetalol IV* 5 MG/ML 20 ML VIAL ONE; +Lactated Ringers 1000 ML Bag* 1,000 ML IV SCH; +Lidocaine 1% INJ* 10 MG/ML 30 ML SDV ONE; +Lidocaine 2% PF * 5 ML VIAL ONE; +Midazolam* 1 MG/ML 2 ML VIAL (2 MG) ONE; +Naloxone* 0.4 MG/ML 1 ML VIAL IV PRN; +Propofol* 10 MG/ML 20 ML BTL ONE; +Vancomycin(*) 1,000 MG VIAL ONE; +ceFAZolin 1 GM ADVAN(*) 1 GM ADDV.VIAL IVPB ONE; +fentaNYL* 50 MCG/ML 2 ML VIAL (100 MCG VIAL) ONE
[2019-02-26 13:21] LABS: Hepatitis C Antibody Negative (Negative)
[2019-02-26 16:06] VITALS: BP 130/71
--- NOTE | 2019-02-26 20:50 | OP ---
DATE OF OPERATION: 02/26/19 - [facility] DATE OF : 45 SURGEON: Dr. Jasso. DATASTAGE DEVELOPER: OKSANA Benoit. ANESTHESIOLOGIST: Dr. Rodriguez. ANESTHESIA: Local MAC. PRE-OP DIAGNOSIS: Post-laminectomy syndrome. POST-OP DIAGNOSIS: Post-laminectomy syndrome. OPERATIVE PROCEDURE: Replacement of dorsal column stimulator IPG with the [employer] Montage MRI compatible IPG. FLUIDS: Per anesthesia. BRIEF PRE-OPERATIVE NOTE: The patient is a 73-year-old female who suffers from post-laminectomy syndrome. The patient had a dorsal column stimulator placed for management of her pain number of years ago. Unfortunately, the battery had and she was no longer using the stimulator and her pain levels have increased dramatically where she is contemplating surgical intervention with Dr. Ch. In the interim, she was interested in pursuing replacement of dorsal column stimulator battery, so he can get her stimulator up and running to see if she can at least some relief of her pain with the technology she already had implanted. She had requested the dorsal column stimulator to be MRI compatible, so we had discussed replacing the stimulator with the [employer] Montage MRI compatible stimulator but she was also instructed that if the contacts are not working, it does indicate the MRI compatibility of the system and since she has not used the stimulator in a number of years and the battery is non-functional, it is impossible to test the leads at this time. We will therefore go ahead and replace the IPG today and move forward once we know how much of the system is working. The risks, benefits and alteratives to the procedure were discussed with the patient including the risks of bleeding, infection, hematoma, and failure of the device to work. DESCRIPTION OF PROCEDURE: The patient was placed in the prone position. Her back prepped and draped in usual sterile fashion. Lidocaine 1% with 0.25% bupivacaine were used to anesthetize the skin and subcutaneous tissue over the old IPG site. A #10 scalpel blade was used to make a skin incision and dissection and was done with a scalpel to the capsule. The capsule was opened and the IPG was removed and unscrewed from the leads. The pocket was irrigated copiously with antibiotic irrigation and hemostasis was obtained with electrocautery. The new IPG was connected and then unfortunately, there was 4 contacts out of 1 lead and 1 contact out on the other lead. I confirmed this by attaching the leads to the cable system, which was attached to the agricultural sales representative's computer which again confirmed that there is most probably a lead fracture at some point because this showed similar 4 contacts out of 1 lead and 1 contact out on the other lead. The pocket was then opened slightly in superior position, opened the capsule to fit the new generator more easily. Hemostasis was confirmed with electrocautery. The pocket was irrigated copiously with antibiotic irrigant. The generator was then attached to the leads until audible clicks were heard from both screws. The generator was placed in the pocket and the pocket was filled with 250 mg of powdered vancomycin antibiotic. The deep tissues were closed with interrupted 2-0 Polysorb sutures and the skin was closed with a running 4-0 Monocryl subcuticular closure. DermaFlex was applied with Steri-Strips and sterile dressing applied. The patient will be taken to recovery room where her stimulator will be re-interrogated by the [employer] agricultural sales representative to confirm the leads, what contacts are working and which contacts are not. We can then program the stimulator at that time and see what type of coverage we have. Unfortunately, because there are potentially contacts out indicates them MRI compatibility of the system, so at some point the patient may need lead revision. I will follow up with her as scheduled in pain clinic for postop visit. [id number]/[facility] #: [id number] DAVID
== END | disposition home or self-care (01) ==
LOC: OR 09:54
PROVIDERS: ATTEND Anesthesiology Pain Medicine
DX: M96.1 Postlaminectomy syndrome, not elsewhere classified (principal); E11.9 Type 2 diabetes mellitus without complications; Z79.84 Long term (current) use of oral hypoglycemic drugs; I10 Essential (primary) hypertension; E78.00 Pure hypercholesterolemia, unspecified
CPT/HCPCS: 36415; 86803; A9270-GY; C1787; C1820; J0690; J1580; J2250; J2704; J3010; J3370; J3490

== ENCOUNTER 2019-04-24 07:17 | Day surgery (SDC) | payer MEDICARE ==
[~2019-04-24 07:17] MED LIST changes: -Bacitracin INJECTION* 50,000 UNITS ONE; -Bupivacaine 0.25% SDV* 30 ML ONE; -Clindamycin 900 MG/D5W BAG(*) 900 MG/50 ML BAG IVPB ONE; -Gentamicin ADULT (*) 40 MG/ML VIAL (2 ML VIAL = 80 MG) ONE; -Labetalol IV* 5 MG/ML 20 ML VIAL ONE; -Lidocaine 1% INJ* 10 MG/ML 30 ML SDV ONE; -Lidocaine 2% PF * 5 ML VIAL ONE; -Midazolam* 1 MG/ML 2 ML VIAL (2 MG) ONE; -Naloxone* 0.4 MG/ML 1 ML VIAL IV PRN; -Propofol* 10 MG/ML 20 ML BTL ONE; -Vancomycin(*) 1,000 MG VIAL ONE; -ceFAZolin 1 GM ADVAN(*) 1 GM ADDV.VIAL IVPB ONE; -fentaNYL* 50 MCG/ML 2 ML VIAL (100 MCG VIAL) ONE
[2019-04-24] MEDS ORDERED: ceFAZolin 2 GM PREMIX in ORs 2 GM/50 ML BAG ONE (07:57)
[2019-04-24] MEDS ORDERED: Gentamicin ADULT (*) 40 MG/ML VIAL (2 ML VIAL = 80 MG) ONE (09:15)
[2019-04-24] MEDS ORDERED: Vancomycin(*) 1,000 MG VIAL ONE (09:15)
[2019-04-24] MEDS ORDERED: Lidocaine 1% INJ* 10 MG/ML 30 ML SDV ONE ×2 (09:15→10:56)
[2019-04-24] MEDS ORDERED: Bacitracin INJECTION* 50,000 UNITS ONE (09:16)
[2019-04-24] MEDS ORDERED: Bupivacaine 0.25% SDV* 30 ML ONE ×2 (09:16→10:56)
[2019-04-24] MEDS ORDERED: ceFAZolin VIAL(*) VIAL ONE (09:18)
[2019-04-24] MEDS ORDERED: fentaNYL* 50 MCG/ML 2 ML VIAL (100 MCG VIAL) ONE (09:23)
[2019-04-24] MEDS ORDERED: Midazolam* 1 MG/ML 2 ML VIAL (2 MG) ONE (09:23)
[2019-04-24] MEDS ORDERED: Propofol* 10 MG/ML 20 ML BTL ONE (10:24)
[2019-04-24] MEDS ORDERED: Ondansetron INJ* 2 MG/ML VIAL ONE (10:24)
[2019-04-24] MEDS ORDERED: Acetaminophen TAB* 325 MG PO PRN (10:25)
[2019-04-24] MEDS ORDERED: Naloxone* 0.4 MG/ML 1 ML VIAL IV PRN (10:25)
[2019-04-24] MEDS ORDERED: Bupivacaine 0.5%* 50 ML MDV VIAL ONE (12:05)
[2019-04-24] MEDS ORDERED: oxyCODONE/Acetamin 10/325(NF) TAB PO PRN (13:12)
[2019-04-24] MEDS ORDERED: oxyCODONE/Acetamin 5/325 MG* TAB ONE ×2 (13:21→13:24)
[2019-04-24] MEDS ORDERED: oxyCODONE/Acetamin 5/325 MG* TAB PO PRN (13:28)
[2019-04-24] MEDS ORDERED: Morphine 4 MG/ML VIAL (1 ml) 4 MG/ML VIAL ONE (13:46)
[2019-04-24] MEDS ORDERED: Labetalol IV* 5 MG/ML 20 ML VIAL IV PUSH ONE (14:25)
[2019-04-24] MEDS ORDERED: Labetalol IV* 5 MG/ML 20 ML VIAL ONE (14:25)
[2019-04-24 15:22] VITALS: BP 160/74
--- NOTE | 2019-04-24 23:40 | OP ---
DATE OF OPERATION: 04/24/19 [facility] DATE OF : 45 SURGEON: Dr. Jasso. TERRITORY REPRESENTATIVE: OKSANA Benoit ANESTHESIOLOGIST: Dr. Parnell. ANESTHESIA: Local MAC. PRE-OP DIAGNOSIS: Post-laminectomy syndrome with nonfunctioning dorsal column stimulator. POST-OP DIAGNOSIS: Post-laminectomy syndrome with nonfunctioning dorsal column stimulator. OPERATIVE PROCEDURE: Removal of dorsal column stimulator generator, leads, anchors and attempted lead revision. BRIEF PREOPERATIVE NOTE: The patient is a 73-year-old female who suffers from post- laminectomy syndrome and chronic ongoing low back and leg pain. She had not used her dorsal column stimulator for a number of years and the stimulator was not working, so we revised the generator at the end of last year. Unfortunately, once the new generator was in place, half of the contacts were out on the existing leads that were in place. The patient desired to have the leads revised as well to see if we could get coverage of her back as we were unable to get the coverage she needed using the existing leads with the new IPG. We decided to move forward with a lead revision that was scheduled for today. I went over the risks, benefits and alternatives to procedure including the risks of lead not being able to be placed back in, the risk of nerve injury , bleeding, infection, post dural puncture headache and failure of the device to cover her pain area. After going over that with the patient, informed consent was obtained. ESTIMATED BLOOD LOSS: Less than 50. SPECIMENS: IPG leads and anchors. FLUIDS: Lactated Ringer's per Anesthesia. DRAINS: None. FINDINGS: None. DESCRIPTION OF PROCEDURE: The patient was brought to the operative suite, placed prone on the operative table. Local MAC anesthesia was done for the case. I proceeded to anesthetize the skin and subcutaneous tissue over the generator with 1% lidocaine and 0.25% Marcaine. A 15-blade was used to make a skin incision and dissection was done down to the IPG. The IPG was removed from the pocket and leads disconnected. I then focused on the midline incision. I identified the anchors using fluoroscopy. I anesthetized the skin and subcutaneous tissues with 1% lidocaine mixed with 0.25% bupivacaine and then a 15-blade was used to make skin incision and dissection was done down to the anchors using electrocautery and 15 scalpel blade. I was able to identify the anchors and the leads were released from the anchors and the anchors removed from the leads. I then removed the leads from the epidural space and proceeded to use a 14-gauge Coude needle to identify the epidural space using loss of resistance to air technique. I passed the 8-contact MRI compatible lead into the epidural space. Unfortunately, a lot of resistance was met with previous scar tissue in the epidural space from the prior leads. After a number of attempts, I was able to get the lead to lie in the left lateral aspect of the epidural space. Another 14-gauge needle was used to identify the epidural space, T12-L1 interspace. I again tried to guide the lead to the right of midline, but I was unable to get the lead to move the right due to scar tissue. I had a lead in the center and left to center, which we tested, but unfortunately we were able to capture the patient's pain area in her back with multiple attempts at lead repositioning and doing intraoperative stimulation. We were never able to capture the pain area in her low back with the lead configuration we were able to acquire due to the scar tissue in the epidural space. At that point, I decided to remove all the leads, anchor and IPG as the patient has been seeing Dr. Ch and is planning on future surgical intervention. So, at this point, I do not think it was serving any benefit to leave the leads and generator in place, as we were not getting any coverage that was adequate for her pain areas. Hemostasis was obtained in the pocket and midline incision using electrocautery. The wounds were irrigated copiously with antibiotic irrigation. I then closed the midline incision with interrupted 2-0 Vicryl suture, followed by another layer of interrupted 2-0 Vicryl sutures and then another more superficial layer of 3-0 interrupted Vicryl suture was used followed by a 3-0 Monocryl subcuticular closure. Dermabond was placed with Steri-Strips. The IPG pocket was irrigated out copiously with antibiotic irrigant. The space of the pocket was closed with interrupted 3-0 Vicryl sutures. The deep incision was closed with interrupted 2-0 Vicryl sutures followed by a 3-0 Monocryl subcuticular closure. Dermabond and Steri-Strips were placed and sterile dressings applied. [id number]/[facility] #: [id number] [facility] HOSPITALMatt
== END 2019-04-24 15:45 | disposition home or self-care (01) ==
LOC: OR 07:17
PROVIDERS: ATTEND Anesthesiology Pain Medicine
DX: T85.192A Other mechanical complication of implanted electronic neurostimulator of spinal cord electrode (lead), initial encounter (principal); M96.1 Postlaminectomy syndrome, not elsewhere classified; E11.9 Type 2 diabetes mellitus without complications; Z79.84 Long term (current) use of oral hypoglycemic drugs; I10 Essential (primary) hypertension; E78.00 Pure hypercholesterolemia, unspecified; M54.5 Low back pain
CPT/HCPCS: 77003; 88300; A9270-GY; C1778; J0690; J1580; J2250; J2270; J2405; J2704; J3010; J3370; J3490